=== PATIENT | male | born 1960 | race Caucasian/White ===

== ENCOUNTER 2019-04-12 20:13 | Inpatient (IN) | payer OTHER ==
[2019-04-12 22:52] VITALS: BMI 22.6
--- NOTE | 2019-04-12 23:30 | HP ---
COWS - Scale Resting Pulse: 1= HI 81-100 (HR: 92) Sweatin= Chills/Flushing Restless Observation: 5= Unable to Sit Still Pupil Size: 2= Moderately Dilated (Pupils = 4 mm) Bone or Joint Aches: 1= Mild Discomfort Runny Nose/ Eye Tearin= Runny Nose/Eyes GI Upset > 30mins: 2= Nausea/Diarrhea Tremor Observation: 4= Gross Tremor/Twitching Yawning Observation: 0= None Anxiety or Irritability: 4=Extreme Anxiety Goose Flesh Skin: 0=Smooth Skin COWS Score: 22 CIWA Score - Admission Criteria [facility] Guidelines: Admission for Medically Managed Detox: Requires at least one of the followin. CIWA greater than 12 2. Seizures within the past 24 hours 3. Delirium tremens within the past 24 hours 4. Hallucinations within the past 24 hours 5. Acute intervention needed for co occurring medical disorder 6. Acute intervention needed for co occurring psychiatric disorder 7. Severe withdrawal that cannot be handled at a lower level of care (continued vomiting, continued diarrhea, abnormal vital signs) requiring intravenous medication and/or fluids 8. Admission ROS [facility] Chief Complaint: having withdrawal from heroin Allergies/Adverse Reactions: Allergies Allergy/AdvReac Type Severity Reaction Status Date / Time No Known Allergies Allergy Verified 04/12/19 22:52 History of Present Illness: 58 yom presents to [facility] with opiate withdrawal symptoms for detox. Patient informed that Tramadol will not be given for pain and verbalizes an understanding. Discussed the need to d/c all opiate, including tramadol because of his opiate use disorder. Encouraged to f/u w/ PCP. Heroin use began at age 30. Intranasal. 7 bags/day. Denies overdoses. Denies methadone or Suboxone maintenance. Cocaine use began at age 30. Alcohol use began at age 15. States drinks 7-8 beers/ 2-3X/Week. PMHx: HTN; (R) TKR w/ chronic pain HAS CRUTCHES, BUT GAIT, W/ A LIMP, STEADY WITHOUT CRUTCHES. MHHx: Denies depression. Noah thoughts of harming self or others. Denies seizures or blackouts. Patient Name: Ajit Montague Date: 1960 Address: [address] [place] [address] Sex: Male Rx Written Rx Dispensed Drug Quantity Days Supply Prescriber Name 03/23/2019 03/23/2019 tramadol hcl 50 mg tablet 90 30 MataMir 03/01/2019 03/03/2019 oxycodone-acetaminophen 5-325 mg tablet 20 4 Colt Rene 02/19/2019 02/19/2019 tramadol hcl 50 mg tablet 90 30 Min, Kyounglim 01/07/2019 01/25/2019 tramadol hcl 50 mg tablet 90 30 Mata, Mir Wall MD 01/05/2019 01/07/2019 buprenorphine-naloxone 8-2 mg sl film 30 15 Charo Ruiz 10/28/2018 10/28/2018 tramadol hcl 50 mg tablet 180 30 Adonay Zarate MD 09/22/2018 09/28/2018 tramadol hcl 50 mg tablet 180 30 Mata, Mir Wall MD 08/26/2018 09/01/2018 tramadol hcl 50 mg tablet 180 30 Yoshi Salguero R, PA-C 07/29/2018 08/04/2018 tramadol hcl 50 mg tablet 180 30 Mata, Mir Wall MD 07/07/2018 07/07/2018 tramadol hcl 50 mg tablet 180 30 Yoshi Salguero R, PA-C 06/22/2018 06/24/2018 tramadol hcl 50 mg tablet 180 30 Yoshi Salguero R, PA-C 05/25/2018 05/27/2018 tramadol hcl 50 mg tablet 180 30 Yoshi Salguero R, PA-C 04/27/2018 04/27/2018 tramadol hcl 50 mg tablet 180 30 Colt Crews Patient Name: Ajit HustonSilvino Date: 1960 Address: [address] [place] [address] Sex: Male Rx Written Rx Dispensed Drug Quantity Days Supply Prescriber Name 03/19/2019 03/19/2019 oxycodone-acetaminophen 5-325 mg tablet 30 7 Jim Dc Patient Name: Ajit Montague Date: 1960 Address: [address] [place] [id number] Sex: Male Rx Written Rx Dispensed Drug Quantity Days Supply Prescriber Name 01/22/2019 01/22/2019 buprenorphine-naloxone 8-2 mg sl film 60 30 Ileana Polanco Patient Name: Ajit Bloom Date: 1960 Address: [address] [place] [address] Sex: Male Rx Written Rx Dispensed Drug Quantity Days Supply Prescriber Name 11/24/2018 11/24/2018 methadone hcl 5 mg tablet 90 30 MataMir MD 11/24/2018 11/24/2018 tramadol hcl 50 mg tablet 60 30 Mata, Mir Wall MD Exam Limitations: No Limitations - Ebola screening Have you traveled outside of the country in the last 21 days: No (N) Have you had contact with anyone from an Ebola affected area: No Have you been sick,other than usual withdrawal symptoms: No (Denies recent exposure to measles) Do you have a fever: No - Review of Systems Constitutional: Chills, Diaphoresis, Changes in sleep (Difficulty falling asleep ) EENT: reports: Blurred Vision, Dental Problems (Dentures. Chews and swallows ok) Respiratory: reports: No Symptoms reported Cardiac: reports: No Symptoms Reported GI: reports: Diarrhea (3 watery BMs today) : reports: No Symptoms Reported Musculoskeletal: reports: Back Pain (r/t withdrawal), Joint Swelling ((R) knee - w/ sharp pain "5" @ this time. Increases w/ walking and when gets up in the am.) Integumentary: reports: No Symptoms Reported Neuro: reports: Tremors Endocrine: reports: No Symptoms Reported Hematology: reports: No Symptoms Reported Psychiatric: reports: Judgement Intact, Orientated x3, Agitated, Anxious Patient History - PPD History Previous Implant?: Yes Documented Results: Negative w/o proof Implanted On Prior [facility] Admission?: No PPD to be Administered?: Yes - Smoking Cessation Smoking history: Never smoked Have you smoked in the past 12 months: No Hx Chewing Tobacco Use: No Initiated information on smoking cessation: No - Substance & Tx. History Hx Alcohol Use: Yes Hx Substance Use: Yes Substance Use Type: Cocaine, Heroin, Opiates Hx Substance Use Treatment: Yes (detox, rehab) - Substances abused Heroin Substance route: Inhalation Frequency: Daily Amount used: 7 bags Age of first use: 30 Date of last use: 04/12/19 Cocaine Substance route: Inhalation Frequency: Daily Amount used: $100 Age of first use: 30 Date of last use: 04/11/19 Admission Physical Exam BHS - Vital Signs Vital Signs: Vital Signs - 24 hr 04/12/19 22:48 Temperature 100.0 F H Pulse Rate 70 Respiratory 20 Rate Blood Pressure 144/77 - Physical General Appearance: Yes: Moderate Distress, Thin, Tremorous (Tremors at rest), Irritable, Sweating (Increased facial mositure), Anxious HEENTM: Yes: EOMI, Hearing grossly Normal, Normocephalic, Normal Voice, EMMA ( Pupils = 4 mm), Rhinorrhea Respiratory: Yes: Lungs Clear, Normal Breath Sounds, No Respiratory Distress Neck: Yes: No masses,lesions,Nodules, Supple Breast: Yes: Breast Exam Deferred Cardiology: Yes: Regular Rhythm, Regular Rate (HR: 92), S1, S2 Abdominal: Yes: Non Tender, Flat, Soft, Increased Bowel Sounds Genitourinary: Yes: Within Normal Limits Back: Yes: Normal Inspection Musculoskeletal: Yes: Gait Steady (W/O CRUTCHES), Joint Stiffness ((R) knee) Extremities: Yes: Normal Capillary Refill, Normal Inspection, Non-Tender, Tremors (Grtoss tremors and tremors at rest) Neurological: Yes: licensed psychologist II-XII NML intact, Fully Oriented, Alert, Motor Strength 5/5, Normal Response Integumentary: Yes: Normal Color, Dry (Except for increased facial moisture), Warm, Other (Small scratches on back) Lymphatic: Yes: Within Normal Limits - Diagnostic (1) Opioid dependence with withdrawal Current Visit: Yes Status: Acute (2) History of total knee replacement Current Visit: Yes Status: Chronic Qualifiers: Laterality: right Qualified Code(s): Z96.651 - Presence of right artificial knee joint (3) Alcohol use disorder, mild, abuse Current Visit: Yes Status: Chronic (4) Cocaine dependence, uncomplicated Current Visit: Yes Status: Chronic (5) Essential (primary) hypertension Current Visit: Yes Status: Chronic Cleared for Admission [facility] - Detox or Rehab [facility] Level of Care: Medically Managed Detox Regimen/Protocol: Methadone Claeared for Rehab Admission: No Breathalyzer - Breathalyzer Breathalyzer: 0 Urine Drug Screen - Test Device Lot number: [id number] Expiration date: 12/24/20 - Control Is test valid?: Yes - Results Drug screen NEGATIVE: No Urine drug screen results: DOMINIC-Cocaine, FEN-Fentanyl, MOP-Opiates, OXY-Oxycodone Inpatient Rehab Admission - Rehab Decision to Admit Inpatient rehab admission?: No
[2019-04-12] MEDS ORDERED: MAGNESIUM HYDROX 2400MG/30ML ORAL SUSPENSION 30 ML CUP PO PRN (23:57)
[2019-04-12] MEDS ORDERED: MAG HYDROX/AL HYDROX/SIMETH 30 ML UNIT-DOSE CUP PO PRN (23:57)
[2019-04-12] MEDS ORDERED: MAGNESIUM CITRATE 300 ML BOTTLE PO PRN (23:57)
[2019-04-12] MEDS ORDERED: MENTHOL/PHENOL 1 EACH UD MM PRN (23:57)
[2019-04-12] MEDS ORDERED: ACETAMINOPHEN 325 MG TABLET (FP) PO PRN (23:57)
[2019-04-13] MEDS ORDERED: METHADONE HCL 10 MG TABLET (FOR DETOX USE ONLY) PO ONE ×2 (00:13→10:00)
[2019-04-13] MEDS ORDERED: traZODone HCL 50 MG TABLET (FP) PO ONE (00:17)
[2019-04-13] MEDS: MELATONIN 5 MG TABLETS PO PRN ×2 (01:09→22:04)
[2019-04-13] MEDS: clonazePAM 0.5 MG TABLET PO PRN ×2 (05:33→22:04)
[2019-04-13] MEDS: LISINOPRIL 10 MG TABLET (FP) PO SCH (10:05)
[2019-04-13] MEDS: LIDOCAINE 5% TOPICAL PATCH TP SCH (10:06)
[2019-04-13] MEDS: PRENATAL VITAMINS W/ FOLIC ACID TABLET (FP) PO SCH (10:06)
[2019-04-13] MEDS: IBUPROFEN 600 MG TABLET (FP) PO PRN ×2 (10:14→18:25)
[2019-04-13 10:53] LABS: HEMATOCRIT 36.3 % (35.4-49); HEMOGLOBIN 12.3 GM/dL (11.7-16.9); MCH 28.9 pg (25.7-33.7); MCHC 33.8 g/dl (32.0-35.9); MEAN CELL VOLUME 85.6 fl (80-96); PLATELET COUNT 326 K/MM3 (134-434); RBC 4.25 M/mm3 (4.00-5.60); RDW 14.7 % (11.9-15.9); WHITE BLOOD COUNT 5.1 K/mm3 (4.0-10.0)
[2019-04-13 11:02] LABS: ALBUMIN 3.6 g/dl (3.4-5.0); BILIRUBIN,TOTAL 0.4 mg/dL (0.2-1); BLOOD UREA NITROGEN 10.8 mg/dL (7-18); CALCIUM 9.2 mg/dL (8.5-10.1); CREATININE 0.6 mg/dL (0.55-1.3); POTASSIUM 3.9 mmol/L (3.5-5.1); TOT PROT 7.4 g/dl (6.4-8.2)
--- NOTE | 2019-04-13 11:29 | PN ---
S COWS - Scale Resting Pulse: 0= [place] 80 or Below Sweatin= Chills/Flushing Restless Observation: 1= Difficult to Sit Still Pupil Size: 1= Pupils >than Normal Bone or Joint Aches: 2= Severe Diffuse Aches Runny Nose/ Eye Tearin= Runny Nose/Eyes GI Upset > 30mins: 2= Nausea/Diarrhea Tremor Observation of Outstretched Hands: 1= Tremor [place], Not Seen Yawning Observation: 1= 1-2x During Session Anxiety or Irritability: 2=Irritable/Anxious Goose Flesh Skin: 0=Smooth Skin COWS Score: 13 S Progress Note (SOAP) Subjective: alert,irritable,anxious,interrupted sleep,tremor,pain in right knee,history of bph on flomax Objective: 04/13/19 11:27 Vital Signs Temperature 97.5 F L 04/13/19 09:36 Pulse Rate 77 04/13/19 09:36 Respiratory Rate 18 04/13/19 09:36 Blood Pressure 126/67 04/13/19 09:36 O2 Sat by Pulse Oximetry (%) Laboratory Last Values WBC 5.1 K/mm3 (4.0-10.0) 04/13/19 07:20 RBC 4.25 M/mm3 (4.00-5.60) 04/13/19 07:20 Hgb 12.3 GM/dL (11.7-16.9) 04/13/19 07:20 Hct 36.3 % (35.4-49) 04/13/19 07:20 MCV 85.6 fl (80-96) 04/13/19 07:20 MCH 28.9 pg (25.7-33.7) 04/13/19 07:20 MCHC 33.8 g/dl (32.0-35.9) 04/13/19 07:20 RDW 14.7 % (11.9-15.9) 04/13/19 07:20 Plt Count 326 K/MM3 (134-434) 04/13/19 07:20 MPV 7.0 fl (7.5-11.1) L 04/13/19 07:20 Sodium 140 mmol/L (136-145) 04/13/19 07:20 Potassium 3.9 mmol/L (3.5-5.1) 04/13/19 07:20 Chloride 106 mmol/L (98-107) 04/13/19 07:20 Carbon Dioxide 26 mmol/L (21-32) 04/13/19 07:20 Anion Gap 8 MMOL/L (8-16) 04/13/19 07:20 BUN 10.8 mg/dL (7-18) 04/13/19 07:20 Creatinine 0.6 mg/dL (0.55-1.3) 04/13/19 07:20 Est GFR (CKD-EPI)AfAm 128.45 04/13/19 07:20 Est GFR (CKD-EPI)NonAf 110.83 04/13/19 07:20 Random Glucose 100 mg/dL (74-106) 04/13/19 07:20 Calcium 9.2 mg/dL (8.5-10.1) 04/13/19 07:20 Total Bilirubin 0.4 mg/dL (0.2-1) 04/13/19 07:20 AST 10 U/L (15-37) L 04/13/19 07:20 ALT 17 U/L (13-61) 04/13/19 07:20 Alkaline Phosphatase 88 U/L (45-117) 04/13/19 07:20 Total Protein 7.4 g/dl (6.4-8.2) 04/13/19 07:20 Albumin 3.6 g/dl (3.4-5.0) 04/13/19 07:20 04/13/19 11:28 rpr pending Assessment: 04/13/19 11:28 withdrawal symptom Plan: continue detox,stated history of bph on flomax 0.4 mg po daily
[2019-04-13] MEDS ORDERED: TAMSULOSIN HCL 0.4 MG CAP PO ONE (11:30)
[2019-04-13] MEDS: METHOCARBAMOL 500 MG TABLET PO PRN (19:07)
[2019-04-13] MEDS: ACETAMINOPHEN 325 MG TABLET (FP) PO PRN (19:07)
[2019-04-13] MEDS: THIAMINE HCL 100 MG TABLET (FP) PO SCH (22:04)
[2019-04-13] MEDS: cloNIDine HCL 0.1 MG TABLET PO PRN (22:04)
[2019-04-13] MEDS: LIDOCAINE PATCH REMOVAL MC SCH (22:05)
[2019-04-14] MEDS: IBUPROFEN 600 MG TABLET (FP) PO PRN ×2 (07:30→22:03)
[2019-04-14] MEDS: TAMSULOSIN HCL 0.4 MG CAP PO SCH (09:30)
[2019-04-14] MEDS ORDERED: METHADONE HCL 10 MG TABLET (FOR DETOX USE ONLY) PO ONE (10:00)
[2019-04-14] MEDS: LISINOPRIL 10 MG TABLET (FP) PO SCH (10:05)
[2019-04-14] MEDS: PRENATAL VITAMINS W/ FOLIC ACID TABLET (FP) PO SCH (10:05)
[2019-04-14] MEDS: clonazePAM 0.5 MG TABLET PO PRN ×2 (10:05→22:00)
[2019-04-14] MEDS: LIDOCAINE 5% TOPICAL PATCH TP SCH (10:06)
--- NOTE | 2019-04-14 11:20 | EKG ---
Test Reason : Blood Pressure : / mmHG Vent. Rate : 061 BPM Atrial Rate : 061 BPM P-R Int : 188 ms QRS Dur : 106 ms QT Int : 402 ms P-R-T Axes : 051 003 020 degrees QTc Int : 404 ms NORMAL SINUS RHYTHM NORMAL ECG NO PREVIOUS ECGS AVAILABLE Confirmed by SUSAN KRAFT, BERTHA ([id number]) on 04/14/2019 11:20:39 AM Referred By: HARPREET Confirmed By:BERTHA DAVIS MD
--- NOTE | 2019-04-14 13:48 | PN ---
S CIWA - CIWA Score Nausea/Vomitin-No Nausea/No Vomiting Muscle Tremors: 2 Anxiety: 2 Agitation: 3 Paroxysmal Sweats: 1-Minimal Palms Moist Orientation: 0-Oriented Tacttile Disturbances: 0-None Auditory Disturbances: 0-None Visual Disturbances: 0-None Headache: 1-Very Mild CIWA-Ar Total Score: 9 BHS Progress Note (SOAP) Subjective: pt c/o of earlobe pain, c/o R knee pain- s/p knee replacement. O: Laboratory Tests 04/13/19 04/13/19 04/13/19 07:20 07:20 07:20 WBC 5.1 RBC 4.25 Hgb 12.3 Hct 36.3 MCV 85.6 MCH 28.9 MCHC 33.8 RDW 14.7 Plt Count 326 MPV 7.0 L Sodium 140 Potassium 3.9 Chloride 106 Carbon Dioxide 26 Anion Gap 8 BUN 10.8 Creatinine 0.6 Est GFR (CKD-EPI)AfAm 128.45 Est GFR (CKD-EPI)NonAf 110.83 Random Glucose 100 Calcium 9.2 Total Bilirubin 0.4 AST 10 L ALT 17 Alkaline Phosphatase 88 Total Protein 7.4 Albumin 3.6 RPR Titer Nonreactive Vital Signs - 24 hr 04/13/19 04/13/19 04/14/19 17:08 21:25 00:30 Temperature 98.6 F 98 F Pulse Rate 78 61 Respiratory 19 17 18 Rate Blood Pressure 112/70 124/62 04/14/19 04/14/19 04/14/19 03:30 06:25 06:30 Temperature 97.6 F Pulse Rate 56 L Respiratory 18 18 18 Rate Blood Pressure 100/58 L 04/14/19 04/14/19 09:13 13:32 Temperature 97.1 F L 97.7 F Pulse Rate 70 89 Respiratory 18 18 Rate Blood Pressure 133/78 114/80 PE- R TM WNL, pain at external ear helix, no redness, no evidence of infection a/p: continue detox protocol. neurontin for pain-ordered external ear pain- prn pain meds
[2019-04-14] MEDS: GABAPENTIN 400 MG CAPSULE (FP) PO SCH ×2 (15:08→22:00)
[2019-04-14 15:32] LABS: URINE APPEARANCE CLEAR; URINE BILIRUBIN NEGATIVE (NEGATIVE); URINE COLOR YELLOW; URINE GLUCOSE (UA) NEGATIVE (NEGATIVE); URINE KETONE NEGATIVE (NEGATIVE); URINE LEUK ESTERASE NEGATIVE (NEGATIVE); URINE NITRITE NEGATIVE (NEGATIVE); URINE PROTEIN NEGATIVE (NEGATIVE); URINE UROBILINOGEN 0.2 mg/dL (0.2-1.0)
[2019-04-14] MEDS ORDERED: ALBUTEROL SO4 8 GM HFA INHALER IH PRN (15:42)
[2019-04-14] MEDS: BISMUTH SUBSALICYLATE 524 MG/30 ML UD PO PRN ×2 (18:06→21:17)
[2019-04-14] MEDS: LIDOCAINE PATCH REMOVAL MC SCH (21:17)
[2019-04-14] MEDS: THIAMINE HCL 100 MG TABLET (FP) PO SCH (22:00)
[2019-04-14] MEDS: METHOCARBAMOL 500 MG TABLET PO PRN (22:00)
[2019-04-14] MEDS: MELATONIN 5 MG TABLETS PO PRN (22:01)
[2019-04-15] MEDS: ACETAMINOPHEN 325 MG TABLET (FP) PO PRN (01:12)
[2019-04-15] MEDS: cloNIDine HCL 0.1 MG TABLET PO PRN (01:12)
[2019-04-15] MEDS: IBUPROFEN 600 MG TABLET (FP) PO PRN ×3 (04:23→21:51)
[2019-04-15] MEDS: clonazePAM 0.5 MG TABLET PO PRN ×3 (04:24→21:54)
[2019-04-15] MEDS: TAMSULOSIN HCL 0.4 MG CAP PO SCH (09:04)
[2019-04-15] MEDS ORDERED: METHADONE HCL 10 MG TABLET (FOR DETOX USE ONLY) PO ONE (10:00)
[2019-04-15] MEDS: HYDROCHLOROTHIAZIDE 12.5 MG CAPSULE (FP) PO SCH (10:04)
[2019-04-15] MEDS: GABAPENTIN 400 MG CAPSULE (FP) PO SCH ×2 (10:04→21:53)
[2019-04-15] MEDS: PRENATAL VITAMINS W/ FOLIC ACID TABLET (FP) PO SCH (10:05)
[2019-04-15] MEDS: PANTOPRAZOLE 20 MG TABLET (FP) PO SCH (10:05)
[2019-04-15] MEDS: LISINOPRIL 10 MG TABLET (FP) PO SCH (10:07)
[2019-04-15] MEDS: LIDOCAINE 5% TOPICAL PATCH TP SCH (10:07)
--- NOTE | 2019-04-15 12:58 | PN ---
[facility] CIWA - CIWA Score Nausea/Vomitin Muscle Tremors: 1-None Visible, but [place] Anxiety: 2 Agitation: 2 Paroxysmal Sweats: 1-Minimal Palms Moist Orientation: 0-Oriented Tacttile Disturbances: 1-Very Mild Itch/Numbness Auditory Disturbances: 0-None Visual Disturbances: 0-None Headache: 1-Very Mild CIWA-Ar Total Score: 10 [facility] COWS - Scale Resting Pulse: 0= [place] 80 or Below Sweatin= Chills/Flushing Restless Observation: 1= Difficult to Sit Still Pupil Size: 1= Pupils >than Normal Bone or Joint Aches: 2= Severe Diffuse Aches Runny Nose/ Eye Tearin= Nasal Congestion GI Upset > 30mins: 2= Nausea/Diarrhea Tremor Observation of Outstretched Hands: 2= Slight Tremor Visible Yawning Observation: 1= 1-2x During Session Anxiety or Irritability: 2=Irritable/Anxious Goose Flesh Skin: 0=Smooth Skin COWS Score: 13 S Progress Note (SOAP) Subjective: alert,irritable,anxious,interrupted sleep,pain in the body and right knee Objective: 04/15/19 12:57 Vital Signs Temperature 97.6 F 04/15/19 09:25 Pulse Rate 75 04/15/19 09:25 Respiratory Rate 18 04/15/19 09:25 Blood Pressure 116/72 04/15/19 09:25 O2 Sat by Pulse Oximetry (%) Assessment: 04/15/19 12:58 withdrawal symptom Plan: continue detox
[2019-04-15] MEDS: METHOCARBAMOL 500 MG TABLET PO PRN ×2 (13:18→21:52)
[2019-04-15] MEDS: LIDOCAINE PATCH REMOVAL MC SCH (21:45)
[2019-04-15] MEDS: THIAMINE HCL 100 MG TABLET (FP) PO SCH (21:52)
[2019-04-15] MEDS: MELATONIN 5 MG TABLETS PO PRN (21:55)
[2019-04-16] MEDS: ACETAMINOPHEN 325 MG TABLET (FP) PO PRN (02:58)
[2019-04-16] MEDS: TAMSULOSIN HCL 0.4 MG CAP PO SCH (08:02)
[2019-04-16 09:32] VITALS: BP 142/80; PULSE 74; TEMP 98
[2019-04-16] MEDS: LIDOCAINE 5% TOPICAL PATCH TP SCH (09:58)
[2019-04-16] MEDS: HYDROCHLOROTHIAZIDE 12.5 MG CAPSULE (FP) PO SCH (09:59)
[2019-04-16] MEDS ORDERED: METHADONE HCL 10 MG TABLET (FOR DETOX USE ONLY) PO ONE (10:00)
[2019-04-16] MEDS: PRENATAL VITAMINS W/ FOLIC ACID TABLET (FP) PO SCH (10:00)
[2019-04-16] MEDS: GABAPENTIN 400 MG CAPSULE (FP) PO SCH (10:00)
[2019-04-16] MEDS: PANTOPRAZOLE 20 MG TABLET (FP) PO SCH (10:00)
[2019-04-16] MEDS: clonazePAM 0.5 MG TABLET PO PRN (10:00)
[2019-04-16] MEDS: LISINOPRIL 10 MG TABLET (FP) PO SCH (10:00)
[2019-04-16] MEDS: IBUPROFEN 600 MG TABLET (FP) PO PRN (10:02)
--- NOTE | 2019-04-16 12:31 | PN ---
[facility] CIWA - CIWA Score Nausea/Vomitin-Mild Nausea/No Vomiting Muscle Tremors: 2 Anxiety: 1-Mildly Anxious Agitation: 1-Slight > Activity Paroxysmal Sweats: No Perspiration Orientation: 0-Oriented Tacttile Disturbances: 1-Very Mild Itch/Numbness Auditory Disturbances: 0-None Visual Disturbances: 0-None Headache: 1-Very Mild CIWA-Ar Total Score: 7 S COWS - Scale Resting Pulse: 0= [place] 80 or Below Sweatin= No chills or Flushing Restless Observation: 1= Difficult to Sit Still Pupil Size: 1= Pupils >than Normal Bone or Joint Aches: 1= Mild Discomfort Runny Nose/ Eye Tearin= Nasal Congestion GI Upset > 30mins: 2= Nausea/Diarrhea Tremor Observation of Outstretched Hands: 1= Tremor [place], Not Seen Yawning Observation: 1= 1-2x During Session Anxiety or Irritability: 2=Irritable/Anxious Goose Flesh Skin: 0=Smooth Skin COWS Score: 10 [facility] Progress Note (SOAP) Subjective: alert,irritable,anxious,pain in the right knee Objective: 04/16/19 12:30 Vital Signs Temperature 98.0 F 04/16/19 09:29 Pulse Rate 74 04/16/19 09:29 Respiratory Rate 18 04/16/19 09:29 Blood Pressure 142/80 04/16/19 09:29 O2 Sat by Pulse Oximetry (%) Assessment: 04/16/19 12:30 detox comlted,no withdrawal symptom Plan: stable for discharge to rehab today
--- NOTE | 2019-04-16 12:34 | DS ---
[facility] Detox Discharge Summary Admission Date: 04/13/19 Discharge Date: 04/16/19 - History Present History: Alcohol Dependence, Cocaine Dependence, Opioid Dependence Pertinent Past History: hypertension bph history of right knee replacement - Physical Exam Results Vital Signs: Vital Signs Temperature 98.0 F 04/16/19 09:29 Pulse Rate 74 04/16/19 09:29 Respiratory Rate 18 04/16/19 09:29 Blood Pressure 142/80 04/16/19 09:29 O2 Sat by Pulse Oximetry (%) Pertinent Admission Physical Exam Findings: essential hypertension history of right knee replacement bph withdrawal symptom Vital Signs Temperature 98.0 F 04/16/19 09:29 Pulse Rate 74 04/16/19 09:29 Respiratory Rate 18 04/16/19 09:29 Blood Pressure 142/80 04/16/19 09:29 O2 Sat by Pulse Oximetry (%) Laboratory Last Values WBC 5.1 K/mm3 (4.0-10.0) 04/13/19 07:20 RBC 4.25 M/mm3 (4.00-5.60) 04/13/19 07:20 Hgb 12.3 GM/dL (11.7-16.9) 04/13/19 07:20 Hct 36.3 % (35.4-49) 04/13/19 07:20 MCV 85.6 fl (80-96) 04/13/19 07:20 MCH 28.9 pg (25.7-33.7) 04/13/19 07:20 MCHC 33.8 g/dl (32.0-35.9) 04/13/19 07:20 RDW 14.7 % (11.9-15.9) 04/13/19 07:20 Plt Count 326 K/MM3 (134-434) 04/13/19 07:20 MPV 7.0 fl (7.5-11.1) L 04/13/19 07:20 Sodium 140 mmol/L (136-145) 04/13/19 07:20 Potassium 3.9 mmol/L (3.5-5.1) 04/13/19 07:20 Chloride 106 mmol/L (98-107) 04/13/19 07:20 Carbon Dioxide 26 mmol/L (21-32) 04/13/19 07:20 Anion Gap 8 MMOL/L (8-16) 04/13/19 07:20 BUN 10.8 mg/dL (7-18) 04/13/19 07:20 Creatinine 0.6 mg/dL (0.55-1.3) 04/13/19 07:20 Est GFR (CKD-EPI)AfAm 128.45 04/13/19 07:20 Est GFR (CKD-EPI)NonAf 110.83 04/13/19 07:20 Random Glucose 100 mg/dL (74-106) 04/13/19 07:20 Calcium 9.2 mg/dL (8.5-10.1) 04/13/19 07:20 Total Bilirubin 0.4 mg/dL (0.2-1) 04/13/19 07:20 AST 10 U/L (15-37) L 04/13/19 07:20 ALT 17 U/L (13-61) 04/13/19 07:20 Alkaline Phosphatase 88 U/L (45-117) 04/13/19 07:20 Total Protein 7.4 g/dl (6.4-8.2) 04/13/19 07:20 Albumin 3.6 g/dl (3.4-5.0) 04/13/19 07:20 Urine Color Yellow 04/14/19 12:05 Urine Appearance Clear 04/14/19 12:05 Urine pH 8.0 (5.0-8.0) 04/14/19 12:05 Ur Specific [place] 1.015 (1.010-1.035) 04/14/19 12:05 Urine Protein Negative (NEGATIVE) 04/14/19 12:05 Urine Glucose (UA) Negative (NEGATIVE) 04/14/19 12:05 Urine Ketones Negative (NEGATIVE) 04/14/19 12:05 Urine Blood Negative (NEGATIVE) 04/14/19 12:05 Urine Nitrite Negative (NEGATIVE) 04/14/19 12:05 Urine Bilirubin Negative (NEGATIVE) 04/14/19 12:05 Urine Urobilinogen 0.2 mg/dL (0.2-1.0) 04/14/19 12:05 Ur Leukocyte Esterase Negative (NEGATIVE) 04/14/19 12:05 RPR Titer Nonreactive (NONREACTIVE) 04/13/19 07:20 - Treatment Hospital Course: Detox Protocol Followed, Detoxed Safely, Responded well, Discharged Condition Good, Rehab Referral Accepted Patient has Accepted a [facility] Referral to: [facility] - Medication Discharge Medications: Ambulatory Orders Albuterol Sulfate [Albuterol Sulfate Hfa] 8.5 gm IH PRN PRN 04/14/19 Lisinopril [Prinivil] 10 mg PO DAILY 04/14/19 Multivitamin [Multiple Vitamins] 1 each PO DAILY 04/14/19 Tamsulosin HCl [Flomax] 0.4 mg PO 04/14/19 - AMA Did Patient Leave Against Medical Advice: No
[2019-04-17] MEDS ORDERED: METHADONE HCL 5 MG TABLET (FOR DETOX USE ONLY) PO ONE (06:00)
== END 2019-04-16 13:27 | disposition other institution (70) | DRG 773 ==
LOC: YASAS 20:13 → Y3N 04-13 00:04
PROVIDERS: ADMIT Surgery; ATTEND Surgery
PROC: HZ2ZZZZ Detoxification Services for Substance Abuse Treatment (ICD-10-PCS; principal; 2019-04-13)
DX: F11.23 Opioid dependence with withdrawal (principal); F10.230 Alcohol dependence with withdrawal, uncomplicated; F14.20 Cocaine dependence, uncomplicated; I10 Essential (primary) hypertension; N40.0 Benign prostatic hyperplasia without lower urinary tract symptoms; Z96.651 Presence of right artificial knee joint
CPT/HCPCS: 36415; 80053; 81003; 85027; 86593; 93005; 93010; J0735

== ENCOUNTER 2019-04-16 13:29 | Inpatient (IN) | payer OTHER ==
[2019-04-16] MEDS ORDERED: IBUPROFEN 400 MG TABLET (FP) PO PRN (14:27)
[2019-04-16] MEDS ORDERED: MAG HYDROX/AL HYDROX/SIMETH 30 ML UNIT-DOSE CUP PO PRN (14:27)
[2019-04-16] MEDS ORDERED: P-EPHED 60MG/TRIPROLIDI 2.5MG TABLET PO PRN (14:27)
[2019-04-16] MEDS ORDERED: MAGNESIUM HYDROX 2400MG/30ML ORAL SUSPENSION 30 ML CUP PO PRN (14:27)
[2019-04-16] MEDS ORDERED: MAGNESIUM CITRATE 300 ML BOTTLE PO PRN (14:27)
[2019-04-16] MEDS ORDERED: LOPERAMIDE HCL 2 MG CAPSULE PO PRN (14:27)
[2019-04-16] MEDS ORDERED: guaiFENesin 200 MG/10 ML 10 ML UNIT-DOSE CUPS PO PRN (14:27)
[2019-04-16] MEDS ORDERED: MENTHOL/PHENOL 1 EACH UD MM PRN (14:27)
[2019-04-16] MEDS ORDERED: ACETAMINOPHEN 325 MG TABLET (FP) PO PRN (14:27)
--- NOTE | 2019-04-16 14:27 | HP ---
[facility] Rehab Assess/Revision - Admission History Admitted to Rehab from: [facility] Date of Admission to Rehab: 04/16/19 - Findings Detox History & Physical reviewed: Yes Concur with findings: Yes Comments/Additional Findings: for rehab as protocol Inpatient Rehab Admission - Rehab Decision to Admit Inpatient rehab admission?: Yes - Initial Determination Are CD services needed?: Yes Free of communicable disease: Yes Not in need of hospitalization: Yes - Rehab Admission Criteria Previous failed treatment: Yes Poor recovery environment: Yes Comorbidities: Yes Lacks judgement: No Patient is meeting Inpatient Rehab admission criteria:: Yes
[2019-04-16] MEDS: IBUPROFEN 600 MG TABLET (FP) PO PRN (16:59)
[2019-04-16] MEDS ORDERED: TAMSULOSIN HCL 0.4 MG CAP PO SCH (22:00)
[2019-04-16] MEDS ORDERED: THIAMINE HCL 100 MG TABLET (FP) PO SCH (22:00)
[2019-04-16] MEDS ORDERED: MELATONIN 5 MG TABLETS PO PRN (22:00)
[2019-04-16] MEDS: hydrOXYzine PAMOATE 50 MG CAPSULE (FP) PO PRN (22:35)
[2019-04-16] MEDS ORDERED: BACLOFEN 10 MG TABLET (FP) PO PRN (23:18)
[2019-04-16] MEDS: GABAPENTIN 400 MG CAPSULE (FP) PO SCH (23:41)
[2019-04-17] MEDS: IBUPROFEN 600 MG TABLET (FP) PO PRN ×2 (03:42→09:58)
[2019-04-17] MEDS: hydrOXYzine PAMOATE 50 MG CAPSULE (FP) PO PRN (06:29)
[2019-04-17 06:49] VITALS: TEMP 97.8
[2019-04-17] MEDS: GABAPENTIN 400 MG CAPSULE (FP) PO SCH (09:58)
[2019-04-17] MEDS ORDERED: HYDROCHLOROTHIAZIDE 12.5 MG CAPSULE (FP) PO SCH (10:00)
[2019-04-17] MEDS ORDERED: LISINOPRIL 10 MG TABLET (FP) PO SCH (10:00)
[2019-04-17] MEDS ORDERED: PRENATAL VITAMINS W/ FOLIC ACID TABLET (FP) PO SCH (10:00)
[2019-04-17] MEDS ORDERED: LIDOCAINE 5% TOPICAL PATCH TP SCH (10:00)
[2019-04-17 10:01] VITALS: BP 145/88; PULSE 100
--- NOTE | 2019-04-17 11:18 | PN ---
[facility] Progress Note Note: patient did not want to complete treatment,high risk of relapsing explained to patient,patient understood, all attempts to convince patient to stay with no avail,seen by counselor, patient singed release AMMeghna, LEFT UNIT IN STABLE CONDITION, advise to go to medical provider at [facility] for follow up
--- NOTE | 2019-04-17 11:22 | PN ---
S Progress Note Note: this is the discharge note for rehab date of admission 04/16/19 date of discharge 04/17/19 diagnosis opioid dependence alcohol dependence cocaine dependence hypertension s/p right knee replacementpatient patient signed release AMA
[2019-04-17] MEDS ORDERED: PNEUMOCOCCAL 23 VACCINE 0.5 ML VIAL IM ONE (12:00)
[2019-04-17] MEDS ORDERED: PNEUMOC 13-VAL CONJ-DIP CRM/PF 0.5 ML DISP.SYRIN IM ONE (14:37)
== END 2019-04-17 11:10 | disposition left against medical advice (07) | DRG 770 ==
LOC: YASAS 13:29 → Y5N 13:31
PROVIDERS: ADMIT Neuromusculoskeletal Medicine & OMM; ATTEND Neuromusculoskeletal Medicine & OMM
PROC: HZ42ZZZ Group Counseling for Substance Abuse Treatment, Cognitive-Behavioral (ICD-10-PCS; principal; 2019-04-16)
DX: F11.20 Opioid dependence, uncomplicated (principal); F10.20 Alcohol dependence, uncomplicated; F14.20 Cocaine dependence, uncomplicated; I10 Essential (primary) hypertension; Z96.651 Presence of right artificial knee joint
CPT/HCPCS: J0475

== ENCOUNTER 2019-05-28 08:44 | Inpatient (IN) | payer OTHER | END 2019-05-30 11:40 | disposition left against medical advice (07) | LOC: YASAS 08:44 → Y3N 10:09 ==

== ENCOUNTER 2019-08-10 13:36 | Inpatient (IN) | payer OTHER ==
[2019-08-10 15:23] VITALS: BMI 22.6
--- NOTE | 2019-08-10 18:37 | HP ---
COWS - Scale Resting Pulse: 0= [place] 80 or Below Sweatin=Flushed/Facial Moisture Restless Observation: 3= Extraneous Movement Pupil Size: 0= Normal to Room Light Bone or Joint Aches: 4=Acute Joint/Muscle Pain (knee) Runny Nose/ Eye Tearin= Runny Nose/Eyes GI Upset > 30mins: 3= Vomiting/Diarrhea Tremor Observation: 2= Slight Tremor Visible Yawning Observation: 0= None Anxiety or Irritability: 1=Feels Anxious/Irritable Goose Flesh Skin: 0=Smooth Skin COWS Score: 17 CIWA Score Nausea/Vomitin Muscle Tremors: 2 Anxiety: 2 Agitation: 2 Paroxysmal Sweats: No Perspiration Orientation: 0-Oriented Tacttile Disturbances: 1-Very Mild Itch/Numbness Auditory Disturbances: 0-None Visual Disturbances: 0-None Headache: 3-Moderate CIWA-Ar Total Score: 12 - Admission Criteria OASAS Guidelines: Admission for Medically Managed Detox: Requires at least one of the followin. CIWA greater than 12 2. Seizures within the past 24 hours 3. Delirium tremens within the past 24 hours 4. Hallucinations within the past 24 hours 5. Acute intervention needed for co occurring medical disorder 6. Acute intervention needed for co occurring psychiatric disorder 7. Severe withdrawal that cannot be handled at a lower level of care (continued vomiting, continued diarrhea, abnormal vital signs) requiring intravenous medication and/or fluids 8. Admitting History and Physical - Smoking History Smoking history: Never smoked Have you smoked in the past 12 months: No Aproximately how many cigarettes per day: 6 If you are a former smoker, when did you quit?: Never smoked - Alcohol/Substance Use Hx Alcohol Use: Yes Admission [facility] Chief Complaint: Detox from heroin and alcohol Allergies/Adverse Reactions: Allergies Allergy/AdvReac Type Severity Reaction Status Date / Time No Known Allergies Allergy Verified 08/10/19 15:12 History of Present Illness: 59 year old male with a past medical history of polysubstance abuse, BPH, hypertension, here for heroin/alcohol detox. Here a few months ago for detox but left early because he didn't like his methadone dose going down. Has chronic pain from arthritis. In a methadone program (does not know dose off the top of his head, reports going to [facility] Takes tramadol for pain. Reports severe R knee pain. Reports he had a R knee aspiration yesterday at [facility] for suspected infection and given antibiotics. Alcohol: every day, last drink last night. 3 6-packs of 24 oz beer. No liquor. never had alcohol withdrawal seizure started drinking years ago; never had blackout; has tremors when he withdraws. Heroin: 1 bundle per day, sniffs, never injected, last used today. Never had withdrawal seizure. Never overdosed. First started using 1 year ago. First started using because of the pain. Percocet: 4-5 percocets a day, for pain. Gets them off the street. Cocaine: $100 dollars/day, snort, uses every day. First started a year ago Cigarettes: 1 pack per day for a couple of years Surgery: R knee replacement Living Situation: lives in a senior living Family: No medical problems in family - Ebola screening Have you traveled outside of the country in the last 21 days: No (N) Have you had contact with anyone from an Ebola affected area: No Do you have a fever: No - Review of Systems Constitutional: Chills, Fever EENT: reports: Blurred Vision Respiratory: reports: Shortness of Breath Cardiac: reports: No Symptoms Reported GI: reports: No Symptoms Reported : reports: No Symptoms Reported Musculoskeletal: reports: Back Pain, Joint Pain Integumentary: reports: No Symptoms Reported Neuro: reports: No Symptoms reported Endocrine: reports: No Symptoms Reported Hematology: reports: No Symptoms Reported Psychiatric: reports: Judgement Intact, Mood/Affect Appropiate, Orientated x3 Patient History - Patient Medical History Hx Asthma: Yes (TX with albuterol MDI) Hx Chronic Obstructive Pulmonary Disease (COPD): No Hx Cardiac Disorders: No Hx Hypertension: Yes (With Tx HCTZ) Hx Seizures: No Hx Diabetes: No Hx Gastrointestinal Disorders: No Hx Genitourinary Disorders: No Hx Sexually Transmitted Disorders: No Hx Renal Disease (ESRD): No Hx Depression: No Hx Suicide Attempt: No Hx Schizophrenia: No - Patient Surgical History Past Surgical History: Yes Hx Neurologic Surgery: No Hx Cataract Extraction: No Hx Cardiac Surgery: No Hx Lung Surgery: No Hx Breast Surgery: No Hx Breast Biopsy: No Hx Abdominal Surgery: No Hx Appendectomy: No Hx Cholecystectomy: No Hx Genitourinary Surgery: No Hx Section: No Hx Orthopedic Surgery: Yes (Right Total Knee replacement 02/23/2019) - PPD History Date: 04/15/19 Results: 0mm - Smoking Cessation Smoking history: Never smoked Have you smoked in the past 12 months: No Aproximately how many cigarettes per day: 6 If you are a former smoker, when did you quit?: Never smoked Hx Chewing Tobacco Use: No Initiated information on smoking cessation: Yes 'Breaking Loose' booklet given: 08/10/19 - Substances abused Heroin Substance route: Inhalation Frequency: Daily Amount used: 7 bags Age of first use: 30 Date of last use: 08/10/19 Cocaine Substance route: Inhalation Frequency: Daily Amount used: $100 Age of first use: 30 Date of last use: 08/09/19 Alcohol Substance route: Oral Frequency: Daily Amount used: 12oz beer 3-4 packs Age of first use: 30 Date of last use: 08/10/19 Admission Physical Exam BHS - Vital Signs Vital Signs: Vital Signs - 24 hr 08/10/19 15:12 Temperature 97.6 F Pulse Rate 75 Respiratory 18 Rate Blood Pressure 150/80 - Physical General Appearance: Yes: Within Normal Limits, Moderate Distress HEENTM: Yes: Normocephalic Respiratory: Yes: Chest Non-Tender, Lungs Clear, Normal Breath Sounds Breast: Yes: Within Normal Limits, No masses Cardiology: Yes: Regular Rhythm, Regular Rate Abdominal: Yes: Non Tender, Flat, Soft Musculoskeletal: Yes: Gait Steady, Joint swelling Extremities: Yes: Normal Capillary Refill, Inflammation 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
[2019-08-10] MEDS ORDERED: METHOCARBAMOL 500 MG TABLET PO PRN (18:55)
[2019-08-10] MEDS ORDERED: MAGNESIUM HYDROX 2400MG/30ML ORAL SUSPENSION 30 ML CUP PO PRN (18:55)
[2019-08-10] MEDS ORDERED: MAG HYDROX/AL HYDROX/SIMETH 30 ML UNIT-DOSE CUP PO PRN (18:55)
[2019-08-10] MEDS ORDERED: ACETAMINOPHEN 325 MG TABLET (FP) PO PRN ×2 (18:55)
[2019-08-10] MEDS ORDERED: MAGNESIUM CITRATE 300 ML BOTTLE PO PRN (18:55)
[2019-08-10] MEDS ORDERED: MENTHOL/PHENOL 1 EACH UD MM PRN (18:55)
[2019-08-10] MEDS ORDERED: hydrOXYzine PAMOATE 25 MG CAPSULE (FP) PO PRN (18:55)
[2019-08-10] MEDS ORDERED: METHADONE HCL 10 MG TABLET (FOR DETOX USE ONLY) PO ONE (18:55)
[2019-08-10] MEDS ORDERED: chlordiazePOXIDE HCL 10 MG CAPSULE PO PRN (18:55)
[2019-08-10] MEDS ORDERED: ALBUTEROL SO4 8 GM HFA INHALER IH PRN (18:59)
--- NOTE | 2019-08-10 19:00 | PN ---
"Teaching Attending Note Name of Resident: Colt Sanford ATTENDING PHYSICIAN STATEMENT I saw and evaluated the patient. I reviewed the resident's note and discussed the case with the resident. I agree with the resident's findings and plan as documented. SUBJECTIVE: 59 year old male here for etph and opiate detox , reports opiate use heroin 1 bundle /day latest use today , current symptoms as above , denies IVDU , first age of use 1 yr ago . Previously in mmTP , CLAIMS HE LEFT 2 WEEKS AGO , mdd 40 MG STATES IT WAS MAKING HIM SLEEPY . Reports illicit Percocet use . ETOH : 3 X 6-PK BEER X SEVERAL YEARS, DENIES SEIZURES OR BLACKOUTS , + TREMORS Cocaine: $100 /day, via inhalation . tobacco : 1 ppd PMHX : BPH, hypertension, OA s/p R knee TKR , went to [facility] yesterday , per MR given Morphine , IV Aabx and recommendations for Keflex qid unspecified duration . SHX : on parole x 10 years claims drug-related charges , has 11 mo left on parole, states communications officer is aware of his use of illicits and presence in tx today , reports recent incarceration May 2019 x 1 month . OBJECTIVE: wnwd , moderate distress COWS 17 CIWA 12 This report was requested by: Maria Del Carmen Stanford | Reference #: [id number] Others' Prescriptions Patient Name: Ajit Bloom Date: 1960 Address: [address] [place] [id number] Sex: Male Rx Written Rx Dispensed Drug Quantity Days Supply Prescriber Name 06/23/2019 06/24/2019 tramadol hcl 50 mg tablet 60 30 Mir Mata Patient Name: Ajit Bloom Date: 1960 Address: [address] [place] [address] Sex: Male Rx Written Rx Dispensed Drug Quantity Days Supply Prescriber Name 06/23/2019 06/23/2019 buprenorphine-naloxone 8-2 mg sl film 60 30 Mir Mata Patient Name: Ajit Montague Date: 1960 Address: [address] [place] [id number] Sex: Male Rx Written Rx Dispensed Drug Quantity Days Supply Prescriber Name 05/31/2019 05/31/2019 oxycodone-acetaminophen 5-325 mg tablet 10 3 Pelon Durant 05/03/2019 05/03/2019 tramadol hcl 50 mg tablet 120 30 Yoshi Salguero R, PA-C 04/19/2019 04/20/2019 tramadol hcl 50 mg tablet 28 7 Yoshi Salguero R, PA-C 03/23/2019 03/23/2019 tramadol hcl 50 mg tablet 90 30 MataMir 03/01/2019 03/03/2019 oxycodone-acetaminophen 5-325 mg tablet 20 4 Colt Rene 02/19/2019 02/19/2019 tramadol hcl 50 mg tablet 90 30 Min, Kyounglim 01/07/2019 01/25/2019 tramadol hcl 50 mg tablet 90 30 MataMir MD 01/05/2019 01/07/2019 buprenorphine-naloxone 8-2 mg sl film 30 15 Charo Ruiz 10/28/2018 10/28/2018 tramadol hcl 50 mg tablet 180 30 Adonay Zarate MD 09/22/2018 09/28/2018 tramadol hcl 50 mg tablet 180 30 MataMir MD 08/26/2018 09/01/2018 tramadol hcl 50 mg tablet 180 30 Yoshi Salguero R, PA-C Patient Name: Ajit Pederson Date: 1960 Address: [address] [place] [address] Sex: Male Rx Written Rx Dispensed Drug Quantity Days Supply Prescriber Name 05/13/2019 05/13/2019 oxycodone-acetaminophen 5-325 mg tablet 30 7 Braxton Sen (MICHELLE) 03/19/2019 03/19/2019 oxycodone-acetaminophen 5-325 mg tablet 30 7 Jim Dc Patient Name: Ajit Montague Date: 1960 Address: [address] [address] Sex: Male Rx Written Rx Dispensed Drug Quantity Days Supply Prescriber Name 01/22/2019 01/22/2019 buprenorphine-naloxone 8-2 mg sl film 60 30 Ileana Polanco Patient Name: Ajit Bloom Date: 1960 Address: [address] [address] Sex: Male Rx Written Rx Dispensed Drug Quantity Days Supply Prescriber Name 11/24/2018 11/24/2018 methadone hcl 5 mg tablet 90 30 Mir Mata MD 11/24/2018 11/24/2018 tramadol hcl 50 mg tablet 60 30 Mir Mata MD Vital Signs - 24 hr 08/10/19 15:12 Temperature 97.6 F Pulse Rate 75 Respiratory 18 Rate Blood Pressure 150/80 ASSESSMENT AND PLAN: Opioid dependence - Methadone detox Alcohol dependence - Librium detox Cocaine dependence Nicotine dependence - smoking cessation counseling ."
[2019-08-10] MEDS: cloNIDine HCL 0.1 MG TABLET PO PRN (20:26)
[2019-08-10] MEDS ORDERED: traZODone HCL 50 MG TABLET (FP) PO SCH (22:00)
[2019-08-10] MEDS: chlordiazePOXIDE HCL 25 MG CAPSULE PO SCH (22:24)
[2019-08-10] MEDS: GABAPENTIN 400 MG CAPSULE (FP) PO SCH (22:24)
[2019-08-10] MEDS: METHOCARBAMOL 500 MG TABLET PO SCH (22:24)
[2019-08-10] MEDS: CEPHALEXIN MONOHYDRATE 500 MG CAPSULE (UD) PO SCH (22:24)
[2019-08-10] MEDS: THIAMINE HCL 100 MG TABLET (FP) PO SCH (22:24)
[2019-08-10] MEDS: IBUPROFEN 400 MG TABLET (FP) PO PRN (22:25)
[2019-08-10] MEDS: MELATONIN 5 MG TABLETS PO PRN (22:28)
[2019-08-11] MEDS: GABAPENTIN 400 MG CAPSULE (FP) PO SCH ×3 (05:33→21:33)
[2019-08-11] MEDS: chlordiazePOXIDE HCL 25 MG CAPSULE PO SCH ×3 (05:33→21:31)
[2019-08-11] MEDS: TAMSULOSIN HCL 0.4 MG CAP PO SCH (08:37)
[2019-08-11] MEDS ORDERED: METHADONE (DETOX) 20 MG, METHADONE (DETOX) 5 MG PO ONE (10:00)
[2019-08-11] MEDS: LISINOPRIL 10 MG TABLET (FP) PO SCH (10:37)
[2019-08-11] MEDS: CEPHALEXIN MONOHYDRATE 500 MG CAPSULE (UD) PO SCH ×2 (10:37→21:32)
[2019-08-11] MEDS: METHOCARBAMOL 500 MG TABLET PO SCH ×4 (10:37→21:32)
[2019-08-11] MEDS: PRENATAL VITAMINS W/ FOLIC ACID TABLET (FP) PO SCH (10:37)
[2019-08-11] MEDS: HYDROCHLOROTHIAZIDE 12.5 MG CAPSULE (FP) PO SCH (10:37)
[2019-08-11] MEDS ORDERED: METHADONE HCL 10 MG TABLET (FOR DETOX USE ONLY) ONE (10:38)
[2019-08-11] MEDS ORDERED: METHADONE HCL 5 MG TABLET (FOR DETOX USE ONLY) ONE (10:39)
[2019-08-11] MEDS: IBUPROFEN 400 MG TABLET (FP) PO PRN ×2 (10:39→17:25)
[2019-08-11] MEDS: NICOTINE 14 MG/24 HOURS TOPICAL PATCH TD SCH (10:41)
--- NOTE | 2019-08-11 11:49 | CONSULT ---
[facility] Psychiatric Consult - Data Date of interview: 08/11/19 Admission source: [facility] Identifying data: Readmission to [facility] for this 59 y/o male self- referred for detoxification (SUNI issues : cocaine, heroin, nicotine). Interviewed at [address] [place] [address]. Patient is single, father of two, homeless (senior care), unemployed and supported on SSI benefits. Substance Abuse History: Discussed with patient. Details are concordant with current report from [facility] as follows : Smoking history: Never smoked. Have you smoked in the past 12 months: No. Aproximately how many cigarettes per day: 6. If you are a former smoker, when did you quit?: Never smoked. Hx Chewing Tobacco Use: No. Initiated information on smoking cessation: Yes. 'Breaking Loose' booklet given: 08/10/19. - Substances abused. Heroin. Substance route: Inhalation. Frequency: Daily. Amount used: 7 bags. Age of first use: 30. Date of last use: 08/10/19. Cocaine. Substance route: Inhalation. Frequency: Daily. Amount used: $100. Age of first use: 30. Date of last use: 08/09/19. Alcohol. Substance route: Oral. Frequency: Daily. Amount used: 12oz beer 3-4 packs. Age of first use: 30. Date of last use: 08/10/19 Medical History: Recent orthosurgery (right knee replacement six months ago). Patient ambulates with crutches. Psychiatric History: No reported history of psychiatric hospitalizations. Contacts with psychiatrists are limited to CPEP visits. Patient endorses the diagnosis of MDD and treatment with seroquel (dose not recalled). Mr Robel Dubois reports no psychiatric follow-up for more than a year (non-adherence to medication). History of suicide atttempt via hanging two years ago. Physical/Sexual Abuse/Trauma History: History of incarceration (sex offense). Currently on parole (status ends in eleven months as per self-report). Additional Comment: Urine drug screen results: DOMINIC-Cocaine, FEN-Fentanyl, MOP- Opiates, OXY-Oxycodone. Noted. Mental Status Exam - Mental Status Exam Alert and Oriented to: Time, Place, Person Cognitive Function: Good Patient Appearance: Well Groomed Mood: Hopeful Affect: Appropriate, Normal Range Patient Behavior: Fatigued, Appropriate, Cooperative Speech Pattern: Clear Voice Loudness: Normal Thought Process: Goal Oriented Thought Disorder: Not Present Hallucinations: Denies Suicidal Ideation: Denies Homicidal Ideation: Denies Insight/Judgement: Poor Sleep: Poorly, Difficulty falling asleep Appetite: Fair, Weight loss Gait/Station: Other (moves around with crutches) Psychiatric Findings - Problem List ([place] 1, 2,3) (1) Alcohol dependence with uncomplicated withdrawal Current Visit: Yes Status: Acute (2) Opioid dependence with withdrawal Current Visit: Yes Status: Acute (3) Cocaine dependence, uncomplicated Current Visit: Yes Status: Chronic (4) Nicotine dependence Current Visit: Yes Status: Chronic (5) Substance induced mood disorder Current Visit: Yes Status: Chronic (6) Insomnia Current Visit: Yes Status: Chronic - Initial Treatment Plan Initial Treatment Plan: Psychoeducation. Sleep hygiene. Detoxification. Rehabilitation recommended. Seroquel 50 mg po hs (patient's request). Declines to continue trazodone. Side effects/benefits discussed. Patient gave verbal consent to MD. Harrell.
[2019-08-11] MEDS ORDERED: FLU VACCINE QUAD 60 MCG/0.5 ML (MDV 19-20) IM ONE (12:00)
[2019-08-11] MEDS ORDERED: PNEUMOC 13-VAL CONJ-DIP CRM/PF 0.5 ML DISP.SYRIN IM ONE (12:00)
[2019-08-11 12:04] LABS: HEMOGLOBIN 12.8 GM/dL (11.7-16.9); MCH 25.8 pg (25.7-33.7); MCHC 32.9 g/dl (32.0-35.9); MEAN CELL VOLUME 78.5 fl (80-96); MEAN PLT VOLUME 7.1 fl (7.5-11.1); PLATELET COUNT 300 K/MM3 (134-434); RBC 4.96 M/mm3 (4.00-5.60)
[2019-08-11 12:09] LABS: ALBUMIN 3.6 g/dl (3.4-5.0); BILIRUBIN,TOTAL 0.2 mg/dL (0.2-1); BLOOD UREA NITROGEN 9.5 mg/dL (7-18); CALCIUM 9.9 mg/dL (8.5-10.1); CREATININE 0.8 mg/dL (0.55-1.3); POTASSIUM 4.1 mmol/L (3.5-5.1); TOT PROT 7.7 g/dl (6.4-8.2)
--- NOTE | 2019-08-11 15:36 | PN ---
S CIWA - CIWA Score Nausea/Vomitin-Mild Nausea/No Vomiting Muscle Tremors: 1-None Visible, but [place] Anxiety: 2 Agitation: 3 Paroxysmal Sweats: No Perspiration Orientation: 0-Oriented Tacttile Disturbances: 0-None Auditory Disturbances: 0-None Visual Disturbances: 1-Very Mild Sensitivity Headache: 2-Mild CIWA-Ar Total Score: 10 BHS COWS - Scale Resting Pulse: 1= [place] 81-100 Sweatin= Chills/Flushing Restless Observation: 1= Difficult to Sit Still Pupil Size: 1= Pupils >than Normal Bone or Joint Aches: 1= Mild Discomfort Runny Nose/ Eye Tearin= Nasal Congestion GI Upset > 30mins: 1= Stomach Cramp Tremor Observation of Outstretched Hands: 1= Tremor [place], Not Seen Yawning Observation: 1= 1-2x During Session Anxiety or Irritability: 2=Irritable/Anxious Goose Flesh Skin: 0=Smooth Skin COWS Score: 11 S Progress Note (SOAP) Subjective: c/o of body aches, interrupted sleep, chills Objective: 08/11/19 15:35 Vital Signs Temperature 99.7 F H 08/11/19 13:13 Pulse Rate 98 H 08/11/19 13:13 Respiratory Rate 16 08/11/19 13:13 Blood Pressure 120/78 08/11/19 13:13 O2 Sat by Pulse Oximetry (%) Laboratory Last Values WBC 6.0 K/mm3 (4.0-10.0) 08/11/19 08:40 RBC 4.96 M/mm3 (4.00-5.60) 08/11/19 08:40 Hgb 12.8 GM/dL (11.7-16.9) 08/11/19 08:40 Hct 39.0 % (35.4-49) 08/11/19 08:40 MCV 78.5 fl (80-96) L 08/11/19 08:40 MCH 25.8 pg (25.7-33.7) 08/11/19 08:40 MCHC 32.9 g/dl (32.0-35.9) 08/11/19 08:40 RDW 19.0 % (11.9-15.9) H 08/11/19 08:40 Plt Count 300 K/MM3 (134-434) 08/11/19 08:40 MPV 7.1 fl (7.5-11.1) L 08/11/19 08:40 Sodium 146 mmol/L (136-145) H 08/11/19 08:40 Potassium 4.1 mmol/L (3.5-5.1) 08/11/19 08:40 Chloride 111 mmol/L (98-107) H 08/11/19 08:40 Carbon Dioxide 30 mmol/L (21-32) 08/11/19 08:40 Anion Gap 5 MMOL/L (8-16) L 08/11/19 08:40 BUN 9.5 mg/dL (7-18) 08/11/19 08:40 Creatinine 0.8 mg/dL (0.55-1.3) 08/11/19 08:40 Est GFR (CKD-EPI)AfAm 113.33 08/11/19 08:40 Est GFR (CKD-EPI)NonAf 97.78 08/11/19 08:40 Random Glucose 92 mg/dL (74-106) 08/11/19 08:40 Calcium 9.9 mg/dL (8.5-10.1) 08/11/19 08:40 Total Bilirubin 0.2 mg/dL (0.2-1) 08/11/19 08:40 AST 11 U/L (15-37) L 08/11/19 08:40 ALT 17 U/L (13-61) 08/11/19 08:40 Alkaline Phosphatase 103 U/L (45-117) 08/11/19 08:40 Total Protein 7.7 g/dl (6.4-8.2) 08/11/19 08:40 Albumin 3.6 g/dl (3.4-5.0) 08/11/19 08:40 Assessment: 08/11/19 15:36 Aox3 no acute distress full ROM ambulating in the unit withdrawal sx Plan: increase fluids continue detox continue to monitor
[2019-08-11] MEDS: QUEtiapine FUMARATE 50 MG TABLET PO SCH (21:32)
[2019-08-11] MEDS: THIAMINE HCL 100 MG TABLET (FP) PO SCH (21:32)
[2019-08-11] MEDS: cloNIDine HCL 0.1 MG TABLET PO PRN (21:32)
[2019-08-11] MEDS: MELATONIN 5 MG TABLETS PO PRN (21:33)
[2019-08-12] MEDS: GABAPENTIN 400 MG CAPSULE (FP) PO SCH ×3 (05:46→21:38)
[2019-08-12] MEDS: chlordiazePOXIDE 5 MG CAPSULE PO SCH ×3 (05:46→21:38)
[2019-08-12] MEDS: IBUPROFEN 400 MG TABLET (FP) PO PRN ×2 (08:03→17:27)
[2019-08-12] MEDS: TAMSULOSIN HCL 0.4 MG CAP PO SCH (08:22)
[2019-08-12] MEDS ORDERED: METHADONE HCL 10 MG TABLET (FOR DETOX USE ONLY) PO ONE (10:00)
[2019-08-12] MEDS: PRENATAL VITAMINS W/ FOLIC ACID TABLET (FP) PO SCH (10:21)
[2019-08-12] MEDS: METHOCARBAMOL 500 MG TABLET PO SCH ×4 (10:22→21:38)
[2019-08-12] MEDS: LISINOPRIL 10 MG TABLET (FP) PO SCH (10:22)
[2019-08-12] MEDS: HYDROCHLOROTHIAZIDE 12.5 MG CAPSULE (FP) PO SCH (10:22)
[2019-08-12] MEDS: CEPHALEXIN MONOHYDRATE 500 MG CAPSULE (UD) PO SCH ×2 (10:22→21:38)
[2019-08-12] MEDS: NICOTINE 14 MG/24 HOURS TOPICAL PATCH TD SCH (10:23)
--- NOTE | 2019-08-12 11:18 | PN ---
[facility] CIWA - CIWA Score Nausea/Vomitin-Mild Nausea/No Vomiting Muscle Tremors: 2 Anxiety: 3 Agitation: 1-Slight > Activity Paroxysmal Sweats: 2 Orientation: 0-Oriented Tacttile Disturbances: 0-None Auditory Disturbances: 0-None Visual Disturbances: 0-None Headache: 0-None Present CIWA-Ar Total Score: 9 BHS COWS - Scale Resting Pulse: 1= [place] 81-100 Sweatin= Chills/Flushing Restless Observation: 0= Sits Still Pupil Size: 0= Normal to Room Light Bone or Joint Aches: 1= Mild Discomfort Runny Nose/ Eye Tearin= None GI Upset > 30mins: 2= Nausea/Diarrhea (no diarrhea) Tremor Observation of Outstretched Hands: 2= Slight Tremor Visible Yawning Observation: 0= None Anxiety or Irritability: 2=Irritable/Anxious Goose Flesh Skin: 0=Smooth Skin COWS Score: 9 S Progress Note (SOAP) Subjective: doing well with librium and methadone detox regimen left knee replacement "5 months" ago ambulating with on crutch refuse to wear knee brace while ambulating on the hallway patient requests 800 mg of motrin that he is taking motrin 800mg at home denies GI distress patient constant discuss with writer producer that he wants to take his own vitamin down his property that he has low calcium discuss lab report regarding too much calcium in blood stream patient continue coming to writer producer to property for own vitamin patient is dissatisfy about that not taking own vitamin to be "powerful" "I need power" patient calm down at this time Objective: 08/12/19 11:23 Vital Signs Temperature 97.0 F L 08/12/19 09:17 Pulse Rate 91 H 08/12/19 09:17 Respiratory Rate 18 08/12/19 09:17 Blood Pressure 137/89 08/12/19 09:17 O2 Sat by Pulse Oximetry (%) Laboratory Last Values WBC 6.0 K/mm3 (4.0-10.0) 08/11/19 08:40 RBC 4.96 M/mm3 (4.00-5.60) 08/11/19 08:40 Hgb 12.8 GM/dL (11.7-16.9) 08/11/19 08:40 Hct 39.0 % (35.4-49) 08/11/19 08:40 MCV 78.5 fl (80-96) L 08/11/19 08:40 MCH 25.8 pg (25.7-33.7) 08/11/19 08:40 MCHC 32.9 g/dl (32.0-35.9) 08/11/19 08:40 RDW 19.0 % (11.9-15.9) H 08/11/19 08:40 Plt Count 300 K/MM3 (134-434) 08/11/19 08:40 MPV 7.1 fl (7.5-11.1) L 08/11/19 08:40 Sodium 146 mmol/L (136-145) H 08/11/19 08:40 Potassium 4.1 mmol/L (3.5-5.1) 08/11/19 08:40 Chloride 111 mmol/L (98-107) H 08/11/19 08:40 Carbon Dioxide 30 mmol/L (21-32) 08/11/19 08:40 Anion Gap 5 MMOL/L (8-16) L 08/11/19 08:40 BUN 9.5 mg/dL (7-18) 08/11/19 08:40 Creatinine 0.8 mg/dL (0.55-1.3) 08/11/19 08:40 Est GFR (CKD-EPI)AfAm 113.33 08/11/19 08:40 Est GFR (CKD-EPI)NonAf 97.78 08/11/19 08:40 Random Glucose 92 mg/dL (74-106) 08/11/19 08:40 Calcium 9.9 mg/dL (8.5-10.1) 08/11/19 08:40 Total Bilirubin 0.2 mg/dL (0.2-1) 08/11/19 08:40 AST 11 U/L (15-37) L 08/11/19 08:40 ALT 17 U/L (13-61) 08/11/19 08:40 Alkaline Phosphatase 103 U/L (45-117) 08/11/19 08:40 Total Protein 7.7 g/dl (6.4-8.2) 08/11/19 08:40 Albumin 3.6 g/dl (3.4-5.0) 08/11/19 08:40 lab noted calcium within normal range Assessment: 08/12/19 11:23 alcohol and opiate withdrawal sx Plan: continue librium and methadone detox regimen
[2019-08-12] MEDS: BISMUTH SUBSALICYLATE 524 MG/30 ML UD PO PRN (18:12)
[2019-08-12] MEDS: THIAMINE HCL 100 MG TABLET (FP) PO SCH (21:38)
[2019-08-12] MEDS: QUEtiapine FUMARATE 50 MG TABLET PO SCH (21:38)
[2019-08-12] MEDS: cloNIDine HCL 0.1 MG TABLET PO PRN (21:38)
[2019-08-12] MEDS: MELATONIN 5 MG TABLETS PO PRN (21:39)
[2019-08-12] MEDS: METHYL SALICYLATE/MENTHOL OINT 30 GM TUBE TP SCH (22:38)
[2019-08-13] MEDS ORDERED: chlordiazePOXIDE HCL 10 MG CAPSULE PO PRN
[2019-08-13] MEDS: chlordiazePOXIDE HCL 10 MG CAPSULE PO SCH ×3 (05:26→21:39)
[2019-08-13] MEDS: GABAPENTIN 400 MG CAPSULE (FP) PO SCH ×3 (05:26→21:38)
[2019-08-13] MEDS ORDERED: METHADONE HCL 5 MG TABLET (FOR DETOX USE ONLY) ONE (09:38)
[2019-08-13] MEDS ORDERED: METHADONE HCL 10 MG TABLET (FOR DETOX USE ONLY) ONE (09:38)
[2019-08-13] MEDS: HYDROCHLOROTHIAZIDE 12.5 MG CAPSULE (FP) PO SCH (09:44)
[2019-08-13] MEDS: PRENATAL VITAMINS W/ FOLIC ACID TABLET (FP) PO SCH (09:44)
[2019-08-13] MEDS: METHOCARBAMOL 500 MG TABLET PO SCH ×4 (09:44→21:39)
[2019-08-13] MEDS: CEPHALEXIN MONOHYDRATE 500 MG CAPSULE (UD) PO SCH ×2 (09:45→21:39)
[2019-08-13] MEDS: LISINOPRIL 10 MG TABLET (FP) PO SCH (09:45)
[2019-08-13] MEDS: TAMSULOSIN HCL 0.4 MG CAP PO SCH (09:45)
[2019-08-13] MEDS: IBUPROFEN 400 MG TABLET (FP) PO PRN ×2 (09:48→21:41)
[2019-08-13] MEDS: NICOTINE 14 MG/24 HOURS TOPICAL PATCH TD SCH (09:51)
[2019-08-13] MEDS: METHYL SALICYLATE/MENTHOL OINT 30 GM TUBE TP SCH ×2 (09:51→21:38)
[2019-08-13] MEDS ORDERED: METHADONE (DETOX) 10 MG, METHADONE (DETOX) 5 MG PO ONE (10:00)
--- NOTE | 2019-08-13 10:04 | PN ---
S CIWA - CIWA Score Nausea/Vomitin Muscle Tremors: 2 Anxiety: 4-Mod. Anxious/Guarded Agitation: 1-Slight > Activity Paroxysmal Sweats: 1-Minimal [place] Moist Orientation: 0-Oriented Tacttile Disturbances: 1-Very Mild Itch/Numbness Auditory Disturbances: 0-None Visual Disturbances: 0-None Headache: 1-Very Mild CIWA-Ar Total Score: 12 BHS COWS - Scale Resting Pulse: 1= [place] 81-100 Sweatin= Chills/Flushing Restless Observation: 1= Difficult to Sit Still Pupil Size: 0= Normal to Room Light Bone or Joint Aches: 1= Mild Discomfort Runny Nose/ Eye Tearin= Runny Nose/Eyes GI Upset > 30mins: 0= None Tremor Observation of Outstretched Hands: 2= Slight Tremor Visible Yawning Observation: 0= None Anxiety or Irritability: 2=Irritable/Anxious Goose Flesh Skin: 0=Smooth Skin COWS Score: 10 S Progress Note (SOAP) Subjective: Reports was in MMTP at [facility] about one month ago, and stopped attending the program . c/o of anxiety, chills, sweats, body aches, chills, interrupted sleep Objective: 08/13/19 09:56 Vital Signs Temperature 97.5 F L 08/13/19 09:27 Pulse Rate 99 H 08/13/19 09:27 Respiratory Rate 18 08/13/19 09:27 Blood Pressure 157/89 08/13/19 09:27 O2 Sat by Pulse Oximetry (%) Laboratory Last Values WBC 6.0 K/mm3 (4.0-10.0) 08/11/19 08:40 RBC 4.96 M/mm3 (4.00-5.60) 08/11/19 08:40 Hgb 12.8 GM/dL (11.7-16.9) 08/11/19 08:40 Hct 39.0 % (35.4-49) 08/11/19 08:40 MCV 78.5 fl (80-96) L 08/11/19 08:40 MCH 25.8 pg (25.7-33.7) 08/11/19 08:40 MCHC 32.9 g/dl (32.0-35.9) 08/11/19 08:40 RDW 19.0 % (11.9-15.9) H 08/11/19 08:40 Plt Count 300 K/MM3 (134-434) 08/11/19 08:40 MPV 7.1 fl (7.5-11.1) L 08/11/19 08:40 Sodium 146 mmol/L (136-145) H 08/11/19 08:40 Potassium 4.1 mmol/L (3.5-5.1) 08/11/19 08:40 Chloride 111 mmol/L (98-107) H 08/11/19 08:40 Carbon Dioxide 30 mmol/L (21-32) 08/11/19 08:40 Anion Gap 5 MMOL/L (8-16) L 08/11/19 08:40 BUN 9.5 mg/dL (7-18) 08/11/19 08:40 Creatinine 0.8 mg/dL (0.55-1.3) 08/11/19 08:40 Est GFR (CKD-EPI)AfAm 113.33 08/11/19 08:40 Est GFR (CKD-EPI)NonAf 97.78 08/11/19 08:40 Random Glucose 92 mg/dL (74-106) 08/11/19 08:40 Calcium 9.9 mg/dL (8.5-10.1) 08/11/19 08:40 Total Bilirubin 0.2 mg/dL (0.2-1) 08/11/19 08:40 AST 11 U/L (15-37) L 08/11/19 08:40 ALT 17 U/L (13-61) 08/11/19 08:40 Alkaline Phosphatase 103 U/L (45-117) 08/11/19 08:40 Total Protein 7.7 g/dl (6.4-8.2) 08/11/19 08:40 Albumin 3.6 g/dl (3.4-5.0) 08/11/19 08:40 RPR Titer Nonreactive (NONREACTIVE) 08/11/19 08:40 Assessment: 08/13/19 10:00 Aox3 no acute distress anxious EENT WNL full ROM, ambulating in the unit with left crutch Plan: Increase PO fluids continue detox Follow up with PCP upon discharge MAT reviewed with patient, benefits and risk discuss harm reduction reviewed with patient verbalizes understanding continue to monitor
[2019-08-13] MEDS: BISMUTH SUBSALICYLATE 524 MG/30 ML UD PO PRN (19:51)
[2019-08-13] MEDS: QUEtiapine FUMARATE 50 MG TABLET PO SCH (21:38)
[2019-08-13] MEDS: MELATONIN 5 MG TABLETS PO PRN (21:45)
[2019-08-13] MEDS: THIAMINE HCL 100 MG TABLET (FP) PO SCH (22:17)
[2019-08-14] MEDS ORDERED: chlordiazePOXIDE HCL 10 MG CAPSULE PO ONE (05:00)
[2019-08-14] MEDS: GABAPENTIN 400 MG CAPSULE (FP) PO SCH (05:44)
[2019-08-14] MEDS: BISMUTH SUBSALICYLATE 524 MG/30 ML UD PO PRN (05:45)
--- NOTE | 2019-08-14 09:16 | DS ---
[facility] Detox Discharge Summary Admission Date: 08/10/19 Discharge Date: 08/14/19 - History Present History: Opioid Dependence Pertinent Past History: Pt wants to leave early one day. States he needs medications- [facility]. Says he has [facility] in the [place]. Will f/u with [facility] for MAT. Narcan kit ordered - Physical Exam Results Vital Signs: Vital Signs Temperature 98.5 F 08/14/19 06:07 Pulse Rate 74 08/14/19 06:07 Respiratory Rate 18 08/14/19 06:07 Blood Pressure 122/70 08/14/19 06:07 O2 Sat by Pulse Oximetry (%) - Treatment Hospital Course: Detox Protocol Followed, Detoxed Safely, Responded well, Discharged Condition Good - Medication Discharge Medications: Ambulatory Orders Multivitamin [Multiple Vitamins] 1 each PO DAILY 04/14/19 Cephalexin Monohydrate [Keflex -] 500 mg PO Q6H 08/10/19 Gabapentin 800 mg PO TID 08/10/19 Ibuprofen [Motrin -] 600 mg PO QID PRN 08/10/19 Methocarbamol [Robaxin -] 500 mg PO QID 08/10/19 traZODone HCL [Trazodone HCl] 50 mg PO HS 08/10/19 Naloxone HCl [Narcan] 4 mg NS ASDIR PRN #1 spray 08/12/19 Albuterol Sulfate [Albuterol Sulfate Hfa] 8.5 gm IH PRN PRN #1 hfa.aer.ad Gabapentin [Neurontin -] 400 mg PO TID #30 capsule 08/14/19 Gabapentin [Neurontin -] 800 mg PO TID #40 capsule 08/14/19 Hydrochlorothiazide [Hctz -] 12.5 mg PO DAILY #30 cap 08/14/19 Lisinopril [Prinivil] 10 mg PO DAILY #30 tablet 08/14/19 Methocarbamol [Robaxin -] 500 mg PO QID #10 tablet 08/14/19 Vitamins (Sjr) - 1 tab PO DAILY #30 tablet 08/14/19 Tamsulosin HCl [Flomax] 0.4 mg PO DAILY #30 capsule 08/14/19
[2019-08-14] MEDS: METHOCARBAMOL 500 MG TABLET PO SCH (09:29)
[2019-08-14] MEDS: CEPHALEXIN MONOHYDRATE 500 MG CAPSULE (UD) PO SCH (09:29)
[2019-08-14] MEDS: TAMSULOSIN HCL 0.4 MG CAP PO SCH (09:29)
[2019-08-14] MEDS: PRENATAL VITAMINS W/ FOLIC ACID TABLET (FP) PO SCH (09:29)
[2019-08-14] MEDS: HYDROCHLOROTHIAZIDE 12.5 MG CAPSULE (FP) PO SCH (09:30)
[2019-08-14] MEDS: METHYL SALICYLATE/MENTHOL OINT 30 GM TUBE TP SCH (09:31)
[2019-08-14] MEDS: IBUPROFEN 400 MG TABLET (FP) PO PRN (09:34)
[2019-08-14 09:47] VITALS: BP 175/85; PULSE 92; TEMP 97.3
[2019-08-14] MEDS ORDERED: METHADONE HCL 10 MG TABLET (FOR DETOX USE ONLY) PO ONE (10:00)
[2019-08-14] MEDS: NICOTINE 14 MG/24 HOURS TOPICAL PATCH TD SCH (10:34)
[2019-08-14] MEDS: LISINOPRIL 10 MG TABLET (FP) PO SCH (10:34)
[2019-08-14] MEDS ORDERED: GABAPENTIN 400 MG CAPSULE (FP) PO SCH (14:00)
[2019-08-15] MEDS ORDERED: METHADONE HCL 5 MG TABLET (FOR DETOX USE ONLY) PO ONE (06:00)
== END 2019-08-14 10:19 | disposition home or self-care (01) | DRG 773 ==
LOC: YASAS 13:36 → Y3N 19:53
PROVIDERS: ADMIT Allergy & Immunology; ATTEND Allergy & Immunology
PROC: HZ2ZZZZ Detoxification Services for Substance Abuse Treatment (ICD-10-PCS; principal; 2019-08-10)
DX: F11.23 Opioid dependence with withdrawal (principal); F10.230 Alcohol dependence with withdrawal, uncomplicated; F14.20 Cocaine dependence, uncomplicated; F17.210 Nicotine dependence, cigarettes, uncomplicated; F19.24 Other psychoactive substance dependence with psychoactive substance-induced mood disorder; I10 Essential (primary) hypertension; G47.00 Insomnia, unspecified; N40.0 Benign prostatic hyperplasia without lower urinary tract symptoms; Z96.652 Presence of left artificial knee joint; Z99.89 Dependence on other enabling machines and devices; Z59.0 Homelessness
CPT/HCPCS: 36415; 80053; 85027; 86593; J0735

== ENCOUNTER 2020-01-14 10:09 | Inpatient (IN) | payer OTHER ==
--- NOTE | 2020-01-14 11:52 | BHS.RME ---
Substance Use & Tx History - Substance Use History Alcohol Substance amount: 3 packs beers 12 oz Frequency of use: Daily Substance route: Oral Date of Last Use: 01/14/20 (6:30am) Opiates (Heroin) Substance amount: 4-5 bags Frequency of use: Daily Substance route: Inhalation (ex: sniffing or snorting) Date of Last Use: 01/14/20 Cocaine (Powder) Substance amount: $60 Frequency of use: Daily Substance route: Inhalation (ex: sniffing or snorting) Date of Last Use: 01/13/20 Physical/Psych/Mental Status - Behavior General Behavior: Increased activity (restlessness, agitation) Eye Contact: Normal - Cooperativeness Cooperativeness: Cooperative - Thinking Thought Processes: Tight, Logical, Goal Directed Thought content: Future oriented - Physical Health Problems Is patient presently having any pain?: No Does patient presently have any injuries (include location): No Does patient currently have a fever: No Is patient : No CIWA Nausea/Vomitin-Mild Nausea/No Vomiting Muscle Tremors: 2 Anxiety: 3 Agitation: 3 Paroxysmal Sweats: 3 Orientation: 1-Uncertain about Date Tacttile Disturbances: 1-Very Mild Itch/Numbness Auditory Disturbances: 1-Very Mild Visual Disturbances: 1-Very Mild Sensitivity Headache: 1-Very Mild CIWA-Ar Total Score: 17
[2020-01-14 12:08] VITALS: BMI 20.1
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
[2020-01-14] MEDS ORDERED: METHOCARBAMOL 500 MG TABLET PO PRN (13:07)
[2020-01-14] MEDS ORDERED: BISMUTH SUBSALICYLATE 524 MG/30 ML UD PO PRN (13:07)
[2020-01-14] MEDS ORDERED: NICOTINE POLACRILEX 2 MG GUM BUC PRN (13:07)
[2020-01-14] MEDS ORDERED: chlordiazePOXIDE HCL 25 MG CAPSULE PO PRN (13:07)
[2020-01-14] MEDS ORDERED: MENTHOL/PHENOL 1 EACH UD MM PRN (13:07)
[2020-01-14] MEDS ORDERED: MAGNESIUM CITRATE 300 ML BOTTLE PO PRN (13:07)
[2020-01-14] MEDS ORDERED: MAGNESIUM HYDROX 2400MG/30ML ORAL SUSPENSION 30 ML CUP PO PRN (13:07)
[2020-01-14] MEDS ORDERED: MAG HYDROX/AL HYDROX/SIMETH 30 ML UNIT-DOSE CUP PO PRN (13:07)
[2020-01-14] MEDS ORDERED: ACETAMINOPHEN 325 MG TABLET (FP) PO PRN ×2 (13:07)
[2020-01-14] MEDS ORDERED: ONDANSETRON *ODT* 4 MG TABLET SL ONE (14:00)
[2020-01-14] MEDS: GABAPENTIN 400 MG CAPSULE PO SCH ×2 (14:20→22:08)
[2020-01-14] MEDS: HYDROCHLOROTHIAZIDE 12.5 MG CAPSULE (FP) PO SCH (14:20)
[2020-01-14] MEDS: METHOCARBAMOL 500 MG TABLET PO SCH ×3 (14:20→22:09)
[2020-01-14] MEDS: LISINOPRIL 10 MG TABLET (FP) PO SCH (14:20)
[2020-01-14] MEDS: PRENATAL VITAMINS W/ FOLIC ACID TABLET (FP) PO SCH (14:20)
[2020-01-14] MEDS: SULFAMETHOXAZOLE/TRIMETHOPRIM 800MG/160MG D.S. TABLET PO SCH ×2 (14:20→22:09)
[2020-01-14] MEDS: NICOTINE 7 MG/24 HOURS TOPICAL PATCH TD SCH (14:21)
[2020-01-14] MEDS: hydrOXYzine PAMOATE 25 MG CAPSULE (FP) PO SCH ×3 (14:22→22:08)
[2020-01-14 17:07] LABS: BILIRUBIN,TOTAL 0.4 mg/dL (0.2-1); BLOOD UREA NITROGEN 9.6 mg/dL (7-18); CALCIUM 8.5 mg/dL (8.5-10.1); CREATININE 0.7 mg/dL (0.55-1.3); TOT PROT 7.4 g/dl (6.4-8.2)
[2020-01-14 17:08] LABS: HEMATOCRIT 31.7 % (35.4-49); MCH 24.6 pg (25.7-33.7); MCHC 31.6 g/dl (32.0-35.9); MEAN CELL VOLUME 77.7 fl (80-96); PLATELET COUNT 306 K/MM3 (134-434); RBC 4.08 M/mm3 (4.00-5.60); WHITE BLOOD COUNT 6.3 K/mm3 (4.0-10.0)
[2020-01-14] MEDS: chlordiazePOXIDE HCL 25 MG CAPSULE PO SCH ×2 (18:01→22:09)
[2020-01-14] MEDS: TAMSULOSIN HCL 0.4 MG CAP PO SCH (22:08)
[2020-01-14] MEDS: MELATONIN 5 MG TABLETS PO SCH (22:09)
[2020-01-14] MEDS: THIAMINE HCL 100 MG TABLET (FP) PO SCH (22:09)
[2020-01-15] MEDS: hydrOXYzine PAMOATE 25 MG CAPSULE (FP) PO SCH ×5 (05:22→22:24)
[2020-01-15] MEDS: chlordiazePOXIDE HCL 25 MG CAPSULE PO SCH ×4 (05:22→22:24)
[2020-01-15] MEDS: GABAPENTIN 400 MG CAPSULE PO SCH ×3 (05:23→22:24)
[2020-01-15] MEDS: IBUPROFEN 400 MG TABLET (FP) PO PRN ×2 (06:30→13:08)
[2020-01-15] MEDS ORDERED: METHADONE HCL 10 MG TABLET PO SCH (06:45)
[2020-01-15] MEDS ORDERED: METHADONE HCL 40 MG DISPERSABLE TABLET ONE (07:01)
[2020-01-15] MEDS ORDERED: METHADONE HCL 10 MG TABLET ONE (07:01)
[2020-01-15] MEDS: METHADONE 80 MG, METHADONE 10 MG PO SCH (07:17)
--- NOTE | 2020-01-15 10:19 | PN ---
[facility] CIWA - CIWA Score Nausea/Vomitin-No Nausea/No Vomiting Muscle Tremors: None Anxiety: 3 Agitation: 2 Paroxysmal Sweats: 3 Orientation: 0-Oriented Tacttile Disturbances: 0-None Auditory Disturbances: 0-None Visual Disturbances: 0-None Headache: 2-Mild CIWA-Ar Total Score: 10 S Progress Note (SOAP) Subjective: c/o headache, sweats, anxiety, and irritability. Objective: 01/15/20 10:18 Vital Signs 01/15/20 01/15/20 01/15/20 03:30 06:22 08:59 Temperature 99.0 F 97.5 F L Pulse Rate 74 71 Respiratory 16 18 16 Rate Blood Pressure 98/59 L 109/60 O2 Sat by Pulse 96 Oximetry (%) Laboratory Last Values WBC 6.3 K/mm3 (4.0-10.0) 01/14/20 12:55 RBC 4.08 M/mm3 (4.00-5.60) 01/14/20 12:55 Hgb 10.0 GM/dL (11.7-16.9) L 01/14/20 12:55 Hct 31.7 % (35.4-49) L D 01/14/20 12:55 MCV 77.7 fl (80-96) L 01/14/20 12:55 MCH 24.6 pg (25.7-33.7) L 01/14/20 12:55 MCHC 31.6 g/dl (32.0-35.9) L 01/14/20 12:55 RDW 17.0 % (11.9-15.9) H 01/14/20 12:55 Plt Count 306 K/MM3 (134-434) 01/14/20 12:55 MPV 7.0 fl (7.5-11.1) L 01/14/20 12:55 Sodium 137 mmol/L (136-145) 01/14/20 12:55 Potassium 4.0 mmol/L (3.5-5.1) 01/14/20 12:55 Chloride 102 mmol/L (98-107) 01/14/20 12:55 Carbon Dioxide 28 mmol/L (21-32) 01/14/20 12:55 Anion Gap 7 MMOL/L (8-16) L 01/14/20 12:55 BUN 9.6 mg/dL (7-18) 01/14/20 12:55 Creatinine 0.7 mg/dL (0.55-1.3) 01/14/20 12:55 Est GFR (CKD-EPI)AfAm 119.72 01/14/20 12:55 Est GFR (CKD-EPI)NonAf 103.30 01/14/20 12:55 Random Glucose 89 mg/dL (74-106) 01/14/20 12:55 Calcium 8.5 mg/dL (8.5-10.1) 01/14/20 12:55 Total Bilirubin 0.4 mg/dL (0.2-1) 01/14/20 12:55 AST 14 U/L (15-37) L 01/14/20 12:55 ALT 18 U/L (13-61) 01/14/20 12:55 Alkaline Phosphatase 92 U/L (45-117) 01/14/20 12:55 Total Protein 7.4 g/dl (6.4-8.2) 01/14/20 12:55 Albumin 3.0 g/dl (3.4-5.0) L 01/14/20 12:55 HIV Ag/Ab Combo Qual Negative (NEGATIVE) 01/14/20 12:55 Labs noted. Assessment: 01/15/20 10:18 AOX3, in no acute respiratory distress. Full ROM, ambulating in the unit. Withdrawal symptoms. Plan: continue detox.
[2020-01-15] MEDS: HYDROCHLOROTHIAZIDE 12.5 MG CAPSULE (FP) PO SCH (10:30)
[2020-01-15] MEDS: SULFAMETHOXAZOLE/TRIMETHOPRIM 800MG/160MG D.S. TABLET PO SCH ×2 (10:30→22:24)
[2020-01-15] MEDS: LISINOPRIL 10 MG TABLET (FP) PO SCH (10:30)
[2020-01-15] MEDS: METHOCARBAMOL 500 MG TABLET PO SCH ×4 (10:31→22:24)
[2020-01-15] MEDS: PRENATAL VITAMINS W/ FOLIC ACID TABLET (FP) PO SCH (10:31)
[2020-01-15] MEDS: LIDOCAINE 5% TOPICAL PATCH TP SCH (10:32)
[2020-01-15] MEDS: NICOTINE 7 MG/24 HOURS TOPICAL PATCH TD SCH (10:36)
[2020-01-15] MEDS: LIDOCAINE PATCH REMOVAL MC SCH (22:24)
[2020-01-15] MEDS: TAMSULOSIN HCL 0.4 MG CAP PO SCH (22:24)
[2020-01-15] MEDS: MELATONIN 5 MG TABLETS PO SCH (22:24)
[2020-01-15] MEDS: THIAMINE HCL 100 MG TABLET (FP) PO SCH (22:24)
[2020-01-16] MEDS ORDERED: METHADONE HCL 40 MG DISPERSABLE TABLET ONE (04:26)
[2020-01-16] MEDS ORDERED: METHADONE HCL 10 MG TABLET ONE (04:26)
[2020-01-16] MEDS: METHADONE 80 MG, METHADONE 10 MG PO SCH (05:53)
[2020-01-16] MEDS: chlordiazePOXIDE HCL 25 MG CAPSULE PO SCH ×4 (05:53→22:24)
[2020-01-16] MEDS: GABAPENTIN 400 MG CAPSULE PO SCH ×3 (05:53→22:24)
[2020-01-16] MEDS: hydrOXYzine PAMOATE 25 MG CAPSULE (FP) PO SCH ×5 (05:53→22:24)
[2020-01-16] MEDS: SULFAMETHOXAZOLE/TRIMETHOPRIM 800MG/160MG D.S. TABLET PO SCH ×2 (10:38→22:24)
[2020-01-16] MEDS: LISINOPRIL 10 MG TABLET (FP) PO SCH (10:38)
[2020-01-16] MEDS: HYDROCHLOROTHIAZIDE 12.5 MG CAPSULE (FP) PO SCH (10:38)
[2020-01-16] MEDS: LIDOCAINE 5% TOPICAL PATCH TP SCH (10:38)
[2020-01-16] MEDS: NICOTINE 7 MG/24 HOURS TOPICAL PATCH TD SCH (10:38)
[2020-01-16] MEDS: METHOCARBAMOL 500 MG TABLET PO SCH ×4 (10:38→22:24)
[2020-01-16] MEDS: PRENATAL VITAMINS W/ FOLIC ACID TABLET (FP) PO SCH (10:38)
--- NOTE | 2020-01-16 12:21 | PN ---
[facility] CIWA - CIWA Score Nausea/Vomitin-Mild Nausea/No Vomiting Muscle Tremors: 3 Anxiety: 3 Agitation: 0-Normal Activity Paroxysmal Sweats: 2 Orientation: 0-Oriented Tacttile Disturbances: 0-None Auditory Disturbances: 0-None Visual Disturbances: 0-None Headache: 0-None Present CIWA-Ar Total Score: 9 S Progress Note (SOAP) Subjective: 59 years old male admitted on 01/14/20 for alcohol withdrawal sx managment treating with [facility] detox regiment taking methadone 90 mg po daily ambulating with cane and knee bracelet that had right knee placement 6 months ago ambulating steady gait Objective: 01/16/20 12:20 Vital Signs Temperature 98.5 F 01/16/20 08:41 Pulse Rate 77 01/16/20 08:41 Respiratory Rate 17 01/16/20 08:41 Blood Pressure 130/77 01/16/20 08:41 O2 Sat by Pulse Oximetry (%) 96 01/16/20 06:28 Laboratory Last Values WBC 6.3 K/mm3 (4.0-10.0) 01/14/20 12:55 RBC 4.08 M/mm3 (4.00-5.60) 01/14/20 12:55 Hgb 10.0 GM/dL (11.7-16.9) L 01/14/20 12:55 Hct 31.7 % (35.4-49) L D 01/14/20 12:55 MCV 77.7 fl (80-96) L 01/14/20 12:55 MCH 24.6 pg (25.7-33.7) L 01/14/20 12:55 MCHC 31.6 g/dl (32.0-35.9) L 01/14/20 12:55 RDW 17.0 % (11.9-15.9) H 01/14/20 12:55 Plt Count 306 K/MM3 (134-434) 01/14/20 12:55 MPV 7.0 fl (7.5-11.1) L 01/14/20 12:55 Sodium 137 mmol/L (136-145) 01/14/20 12:55 Potassium 4.0 mmol/L (3.5-5.1) 01/14/20 12:55 Chloride 102 mmol/L (98-107) 01/14/20 12:55 Carbon Dioxide 28 mmol/L (21-32) 01/14/20 12:55 Anion Gap 7 MMOL/L (8-16) L 01/14/20 12:55 BUN 9.6 mg/dL (7-18) 01/14/20 12:55 Creatinine 0.7 mg/dL (0.55-1.3) 01/14/20 12:55 Est GFR (CKD-EPI)AfAm 119.72 01/14/20 12:55 Est GFR (CKD-EPI)NonAf 103.30 01/14/20 12:55 Random Glucose 89 mg/dL (74-106) 01/14/20 12:55 Calcium 8.5 mg/dL (8.5-10.1) 01/14/20 12:55 Total Bilirubin 0.4 mg/dL (0.2-1) 01/14/20 12:55 AST 14 U/L (15-37) L 01/14/20 12:55 ALT 18 U/L (13-61) 01/14/20 12:55 Alkaline Phosphatase 92 U/L (45-117) 01/14/20 12:55 Total Protein 7.4 g/dl (6.4-8.2) 01/14/20 12:55 Albumin 3.0 g/dl (3.4-5.0) L 01/14/20 12:55 RPR Titer Nonreactive (NONREACTIVE) 01/14/20 12:55 HIV Ag/Ab Combo Qual Negative (NEGATIVE) 01/14/20 12:55 lab noted Assessment: 01/16/20 12:21 alcohol withdrawal Plan: librium regiment
[2020-01-16] MEDS: IBUPROFEN 400 MG TABLET (FP) PO PRN (18:01)
[2020-01-16] MEDS: TAMSULOSIN HCL 0.4 MG CAP PO SCH (22:24)
[2020-01-16] MEDS: THIAMINE HCL 100 MG TABLET (FP) PO SCH (22:24)
[2020-01-16] MEDS: MELATONIN 5 MG TABLETS PO SCH (22:24)
[2020-01-16] MEDS: LIDOCAINE PATCH REMOVAL MC SCH (22:25)
[2020-01-17] MEDS ORDERED: chlordiazePOXIDE HCL 10 MG CAPSULE PO PRN
[2020-01-17] MEDS: IBUPROFEN 400 MG TABLET (FP) PO PRN ×2 (02:22→18:53)
[2020-01-17] MEDS ORDERED: METHADONE HCL 10 MG TABLET ONE (04:54)
[2020-01-17] MEDS ORDERED: METHADONE HCL 40 MG DISPERSABLE TABLET ONE (04:54)
[2020-01-17] MEDS: hydrOXYzine PAMOATE 25 MG CAPSULE (FP) PO SCH ×5 (05:22→22:04)
[2020-01-17] MEDS: METHADONE 80 MG, METHADONE 10 MG PO SCH (05:22)
[2020-01-17] MEDS: GABAPENTIN 400 MG CAPSULE PO SCH ×3 (05:22→22:04)
[2020-01-17] MEDS: chlordiazePOXIDE HCL 10 MG CAPSULE PO SCH ×4 (05:22→22:04)
[2020-01-17] MEDS: PRENATAL VITAMINS W/ FOLIC ACID TABLET (FP) PO SCH (10:31)
[2020-01-17] MEDS: NICOTINE 7 MG/24 HOURS TOPICAL PATCH TD SCH (10:32)
[2020-01-17] MEDS: METHOCARBAMOL 500 MG TABLET PO SCH ×4 (10:33→22:05)
[2020-01-17] MEDS: LIDOCAINE 5% TOPICAL PATCH TP SCH (10:33)
[2020-01-17] MEDS: SULFAMETHOXAZOLE/TRIMETHOPRIM 800MG/160MG D.S. TABLET PO SCH ×2 (10:35→22:04)
[2020-01-17] MEDS: LISINOPRIL 10 MG TABLET (FP) PO SCH (10:35)
[2020-01-17] MEDS: HYDROCHLOROTHIAZIDE 12.5 MG CAPSULE (FP) PO SCH (10:35)
--- NOTE | 2020-01-17 10:47 | PN ---
[facility] CIWA - CIWA Score Nausea/Vomitin-No Nausea/No Vomiting Muscle Tremors: 1-None Visible, but [place] Anxiety: 1-Mildly Anxious Agitation: 1-Slight > Activity Paroxysmal Sweats: No Perspiration Orientation: 0-Oriented Tacttile Disturbances: 1-Very Mild Itch/Numbness Auditory Disturbances: 0-None Visual Disturbances: 0-None Headache: 1-Very Mild CIWA-Ar Total Score: 5 BHS Progress Note (SOAP) Subjective: alert,irritable,anxious,interrupted sleep Objective: 01/17/20 10:46 Vital Signs Temperature 98.7 F 01/17/20 08:35 Pulse Rate 83 01/17/20 08:35 Respiratory Rate 18 01/17/20 08:35 Blood Pressure 97/62 01/17/20 08:35 O2 Sat by Pulse Oximetry (%) 99 01/17/20 06:33 Assessment: 01/17/20 10:47 withdrawal symptom Plan: continue detox librium regimen
[2020-01-17] MEDS ORDERED: LIDOCAINE 5% TOPICAL PATCH TP SCH (22:00)
[2020-01-17] MEDS: MELATONIN 5 MG TABLETS PO SCH (22:04)
[2020-01-17] MEDS: TAMSULOSIN HCL 0.4 MG CAP PO SCH (22:04)
[2020-01-17] MEDS: THIAMINE HCL 100 MG TABLET (FP) PO SCH (22:04)
[2020-01-17] MEDS: PANTOPRAZOLE 20 MG TABLET PO SCH (22:04)
[2020-01-17] MEDS: LIDOCAINE PATCH REMOVAL MC SCH (22:05)
[2020-01-18] MEDS ORDERED: METHADONE HCL 10 MG TABLET ONE (04:42)
[2020-01-18] MEDS ORDERED: METHADONE HCL 40 MG DISPERSABLE TABLET ONE (04:43)
[2020-01-18] MEDS: GABAPENTIN 400 MG CAPSULE PO SCH ×3 (05:28→21:19)
[2020-01-18] MEDS: hydrOXYzine PAMOATE 25 MG CAPSULE (FP) PO SCH ×5 (05:29→21:18)
[2020-01-18] MEDS: chlordiazePOXIDE HCL 10 MG CAPSULE PO SCH ×2 (05:29→17:25)
[2020-01-18] MEDS: METHADONE 80 MG, METHADONE 10 MG PO SCH (05:29)
[2020-01-18] MEDS ORDERED: LIDOCAINE PATCH REMOVAL MC SCH (10:00)
[2020-01-18] MEDS: HYDROCHLOROTHIAZIDE 12.5 MG CAPSULE (FP) PO SCH (10:12)
[2020-01-18] MEDS: SULFAMETHOXAZOLE/TRIMETHOPRIM 800MG/160MG D.S. TABLET PO SCH ×2 (10:12→21:19)
[2020-01-18] MEDS: LIDOCAINE 5% TOPICAL PATCH TP SCH (10:14)
[2020-01-18] MEDS: NICOTINE 7 MG/24 HOURS TOPICAL PATCH TD SCH (10:15)
[2020-01-18] MEDS: IBUPROFEN 400 MG TABLET (FP) PO PRN ×2 (10:15→18:27)
[2020-01-18] MEDS: METHOCARBAMOL 500 MG TABLET PO SCH ×4 (10:16→21:18)
[2020-01-18] MEDS: LISINOPRIL 10 MG TABLET (FP) PO SCH (10:17)
[2020-01-18] MEDS: PANTOPRAZOLE 20 MG TABLET PO SCH ×2 (10:17→21:21)
--- NOTE | 2020-01-18 10:42 | PN ---
[facility] CIWA - CIWA Score Nausea/Vomitin-No Nausea/No Vomiting Muscle Tremors: 1-None Visible, but [place] Anxiety: 1-Mildly Anxious Agitation: 0-Normal Activity Paroxysmal Sweats: 1-Minimal Palms Moist Orientation: 0-Oriented Tacttile Disturbances: 1-Very Mild Itch/Numbness Auditory Disturbances: 0-None Visual Disturbances: 1-Very Mild Sensitivity Headache: 0-None Present CIWA-Ar Total Score: 5 S Progress Note (SOAP) Subjective: 59 years old male admitted on 01/14/20 for alcohol withdrawal sx management treating with librium detox regiment received methadone 90 mg po today feeling better less tremor mild anxiety Objective: 01/18/20 10:41 Vital Signs Temperature 97.2 F L 01/18/20 09:39 Pulse Rate 82 01/18/20 09:39 Respiratory Rate 18 01/18/20 09:39 Blood Pressure 101/64 01/18/20 09:39 O2 Sat by Pulse Oximetry (%) 100 01/18/20 05:30 Laboratory Last Values WBC 6.3 K/mm3 (4.0-10.0) 01/14/20 12:55 RBC 4.08 M/mm3 (4.00-5.60) 01/14/20 12:55 Hgb 10.0 GM/dL (11.7-16.9) L 01/14/20 12:55 Hct 31.7 % (35.4-49) L D 01/14/20 12:55 MCV 77.7 fl (80-96) L 01/14/20 12:55 MCH 24.6 pg (25.7-33.7) L 01/14/20 12:55 MCHC 31.6 g/dl (32.0-35.9) L 01/14/20 12:55 RDW 17.0 % (11.9-15.9) H 01/14/20 12:55 Plt Count 306 K/MM3 (134-434) 01/14/20 12:55 MPV 7.0 fl (7.5-11.1) L 01/14/20 12:55 Sodium 137 mmol/L (136-145) 01/14/20 12:55 Potassium 4.0 mmol/L (3.5-5.1) 01/14/20 12:55 Chloride 102 mmol/L (98-107) 01/14/20 12:55 Carbon Dioxide 28 mmol/L (21-32) 01/14/20 12:55 Anion Gap 7 MMOL/L (8-16) L 01/14/20 12:55 BUN 9.6 mg/dL (7-18) 01/14/20 12:55 Creatinine 0.7 mg/dL (0.55-1.3) 01/14/20 12:55 Est GFR (CKD-EPI)AfAm 119.72 01/14/20 12:55 Est GFR (CKD-EPI)NonAf 103.30 01/14/20 12:55 Random Glucose 89 mg/dL (74-106) 01/14/20 12:55 Calcium 8.5 mg/dL (8.5-10.1) 01/14/20 12:55 Total Bilirubin 0.4 mg/dL (0.2-1) 01/14/20 12:55 AST 14 U/L (15-37) L 01/14/20 12:55 ALT 18 U/L (13-61) 01/14/20 12:55 Alkaline Phosphatase 92 U/L (45-117) 01/14/20 12:55 Total Protein 7.4 g/dl (6.4-8.2) 01/14/20 12:55 Albumin 3.0 g/dl (3.4-5.0) L 01/14/20 12:55 RPR Titer Nonreactive (NONREACTIVE) 01/14/20 12:55 HIV Ag/Ab Combo Qual Negative (NEGATIVE) 01/14/20 12:55 lab noted Assessment: 01/18/20 10:42 alcohol withdrawal Plan: librium regiment
[2020-01-18] MEDS: PRENATAL VITAMINS W/ FOLIC ACID TABLET (FP) PO SCH (11:10)
[2020-01-18] MEDS: THIAMINE HCL 100 MG TABLET (FP) PO SCH (21:18)
[2020-01-18] MEDS: MELATONIN 5 MG TABLETS PO SCH (21:18)
[2020-01-18] MEDS: TAMSULOSIN HCL 0.4 MG CAP PO SCH (21:19)
[2020-01-18] MEDS: LIDOCAINE PATCH REMOVAL MC SCH (21:22)
[2020-01-19] MEDS ORDERED: METHADONE HCL 40 MG DISPERSABLE TABLET ONE (04:29)
[2020-01-19] MEDS ORDERED: METHADONE HCL 10 MG TABLET ONE (04:29)
[2020-01-19] MEDS ORDERED: chlordiazePOXIDE HCL 10 MG CAPSULE PO ONE (05:00)
[2020-01-19] MEDS: hydrOXYzine PAMOATE 25 MG CAPSULE (FP) PO SCH ×5 (05:05→22:07)
[2020-01-19] MEDS: GABAPENTIN 400 MG CAPSULE PO SCH ×3 (05:05→22:07)
[2020-01-19] MEDS: METHADONE 80 MG, METHADONE 10 MG PO SCH (05:06)
[2020-01-19] MEDS: HYDROCHLOROTHIAZIDE 12.5 MG CAPSULE (FP) PO SCH (10:09)
[2020-01-19] MEDS: METHOCARBAMOL 500 MG TABLET PO SCH ×4 (10:09→22:07)
[2020-01-19] MEDS: PANTOPRAZOLE 20 MG TABLET PO SCH ×2 (10:09→22:07)
[2020-01-19] MEDS: PRENATAL VITAMINS W/ FOLIC ACID TABLET (FP) PO SCH (10:09)
[2020-01-19] MEDS: LISINOPRIL 10 MG TABLET (FP) PO SCH (10:09)
[2020-01-19] MEDS: NICOTINE 7 MG/24 HOURS TOPICAL PATCH TD SCH (10:10)
[2020-01-19] MEDS: SULFAMETHOXAZOLE/TRIMETHOPRIM 800MG/160MG D.S. TABLET PO SCH ×2 (10:29→22:07)
[2020-01-19] MEDS: LIDOCAINE 5% TOPICAL PATCH TP SCH (12:07)
[2020-01-19] MEDS: IBUPROFEN 400 MG TABLET (FP) PO PRN ×2 (13:46→20:06)
--- NOTE | 2020-01-19 15:47 | DS ---
[facility] Detox Discharge Summary Admission Date: 01/14/20 Discharge Date: 01/19/20 - History Present History: Alcohol Dependence - Physical Exam Results Vital Signs: Vital Signs Temperature 96.8 F L 01/19/20 12:54 Pulse Rate 90 01/19/20 12:54 Respiratory Rate 18 01/19/20 12:54 Blood Pressure 131/94 01/19/20 12:54 O2 Sat by Pulse Oximetry (%) 97 01/19/20 12:54 - Treatment Hospital Course: Detox Protocol Followed, Detoxed Safely, Responded well, Discharged Condition Good, Rehab Referral Accepted - Medication Discharge Medications: Ambulatory Orders Gabapentin 800 mg PO TID 08/10/19 Gabapentin [Neurontin -] 400 mg PO TID #30 capsule 08/14/19 Methocarbamol [Robaxin -] 500 mg PO QID #10 tablet 08/14/19 Quetiapine Fumarate [Seroquel -] 50 mg PO HS #30 tablet 08/14/19 Folic Acid - 1 mg PO DAILY 01/14/20 Tamsulosin HCl [Flomax] 0.4 mg PO HS 01/14/20 Thiamine Mononitrate [Vitamin B-1] 100 mg PO DAILY 01/14/20 Albuterol Sulfate [Albuterol Sulfate Hfa] 2 puff IH PRN PRN #1 inhaler 01/18/20 Hydrochlorothiazide [Hctz -] 12.5 mg PO DAILY #30 cap 01/18/20 Lisinopril [Prinivil] 10 mg PO DAILY #30 tablet 01/18/20 Sulfamethoxazole/Trimethoprim [Bactrim DS -] 1 tab PO BID #7 tablet 01/18/20 - AMA Did Patient Leave Against Medical Advice: No CIWA Score - CIWA Score Nausea/Vomitin-No Nausea/No Vomiting Muscle Tremors: None Anxiety: 1-Mildly Anxious Agitation: 0-Normal Activity Paroxysmal Sweats: No Perspiration Orientation: 0-Oriented Tacttile Disturbances: 1-Very Mild Itch/Numbness Auditory Disturbances: 0-None Visual Disturbances: 1-Very Mild Sensitivity Headache: 0-None Present CIWA-Ar Total Score: 3
--- NOTE | 2020-01-19 15:54 | PN ---
[facility] CIWA - CIWA Score Nausea/Vomitin-No Nausea/No Vomiting Muscle Tremors: 3 Anxiety: 3 Agitation: 0-Normal Activity Paroxysmal Sweats: 1-Minimal Palms Moist Orientation: 0-Oriented Tacttile Disturbances: 0-None Auditory Disturbances: 0-None Visual Disturbances: 2-Mild Sensitivity Headache: 0-None Present CIWA-Ar Total Score: 9 S Progress Note (SOAP) Subjective: 59 years old male admitted on 01/14/20 for alcohol withdrawal sx management treating with librium detox regiment feeling anxious about alcohol relapse that Mr Bloom struggles with alcohol sobriety x "years" and determines to do well for "my sister" and "myself" ambulating with cane feeling sad that "promised" [facility] tremor anxious restlessness Objective: 01/19/20 16:00 Vital Signs Temperature 96.8 F L 01/19/20 12:54 Pulse Rate 90 01/19/20 12:54 Respiratory Rate 18 01/19/20 12:54 Blood Pressure 131/94 01/19/20 12:54 O2 Sat by Pulse Oximetry (%) 97 01/19/20 12:54 Laboratory Last Values WBC 6.3 K/mm3 (4.0-10.0) 01/14/20 12:55 RBC 4.08 M/mm3 (4.00-5.60) 01/14/20 12:55 Hgb 10.0 GM/dL (11.7-16.9) L 01/14/20 12:55 Hct 31.7 % (35.4-49) L D 01/14/20 12:55 MCV 77.7 fl (80-96) L 01/14/20 12:55 MCH 24.6 pg (25.7-33.7) L 01/14/20 12:55 MCHC 31.6 g/dl (32.0-35.9) L 01/14/20 12:55 RDW 17.0 % (11.9-15.9) H 01/14/20 12:55 Plt Count 306 K/MM3 (134-434) 01/14/20 12:55 MPV 7.0 fl (7.5-11.1) L 01/14/20 12:55 Sodium 137 mmol/L (136-145) 01/14/20 12:55 Potassium 4.0 mmol/L (3.5-5.1) 01/14/20 12:55 Chloride 102 mmol/L (98-107) 01/14/20 12:55 Carbon Dioxide 28 mmol/L (21-32) 01/14/20 12:55 Anion Gap 7 MMOL/L (8-16) L 01/14/20 12:55 BUN 9.6 mg/dL (7-18) 01/14/20 12:55 Creatinine 0.7 mg/dL (0.55-1.3) 01/14/20 12:55 Est GFR (CKD-EPI)AfAm 119.72 01/14/20 12:55 Est GFR (CKD-EPI)NonAf 103.30 01/14/20 12:55 Random Glucose 89 mg/dL (74-106) 01/14/20 12:55 Calcium 8.5 mg/dL (8.5-10.1) 01/14/20 12:55 Total Bilirubin 0.4 mg/dL (0.2-1) 01/14/20 12:55 AST 14 U/L (15-37) L 01/14/20 12:55 ALT 18 U/L (13-61) 01/14/20 12:55 Alkaline Phosphatase 92 U/L (45-117) 01/14/20 12:55 Total Protein 7.4 g/dl (6.4-8.2) 01/14/20 12:55 Albumin 3.0 g/dl (3.4-5.0) L 01/14/20 12:55 RPR Titer Nonreactive (NONREACTIVE) 01/14/20 12:55 HIV Ag/Ab Combo Qual Negative (NEGATIVE) 01/14/20 12:55 lab noted Assessment: 01/19/20 16:01 alcohol withdrawal Plan: librium regiment
[2020-01-19] MEDS: TAMSULOSIN HCL 0.4 MG CAP PO SCH (22:07)
[2020-01-19] MEDS: THIAMINE HCL 100 MG TABLET (FP) PO SCH (22:07)
[2020-01-19] MEDS: LIDOCAINE PATCH REMOVAL MC SCH (22:08)
[2020-01-19] MEDS: MELATONIN 5 MG TABLETS PO SCH (22:11)
[2020-01-20] MEDS ORDERED: METHADONE HCL 10 MG TABLET ONE (05:07)
[2020-01-20] MEDS ORDERED: METHADONE HCL 40 MG DISPERSABLE TABLET ONE (05:07)
[2020-01-20] MEDS: METHADONE 80 MG, METHADONE 10 MG PO SCH (05:17)
[2020-01-20] MEDS: GABAPENTIN 400 MG CAPSULE PO SCH ×3 (05:18→22:03)
[2020-01-20] MEDS: hydrOXYzine PAMOATE 25 MG CAPSULE (FP) PO SCH ×2 (05:18→10:15)
[2020-01-20] MEDS: LIDOCAINE 5% TOPICAL PATCH TP SCH (10:09)
[2020-01-20] MEDS: SULFAMETHOXAZOLE/TRIMETHOPRIM 800MG/160MG D.S. TABLET PO SCH ×2 (10:10→22:02)
[2020-01-20] MEDS: METHOCARBAMOL 500 MG TABLET PO SCH ×4 (10:10→22:03)
[2020-01-20] MEDS: PANTOPRAZOLE 20 MG TABLET PO SCH ×2 (10:10→22:03)
[2020-01-20] MEDS: LISINOPRIL 10 MG TABLET (FP) PO SCH (10:10)
[2020-01-20] MEDS: HYDROCHLOROTHIAZIDE 12.5 MG CAPSULE (FP) PO SCH (10:11)
[2020-01-20] MEDS: IBUPROFEN 600 MG TABLET (FP) PO PRN ×2 (10:13→17:12)
[2020-01-20] MEDS: NICOTINE 7 MG/24 HOURS TOPICAL PATCH TD SCH (10:15)
[2020-01-20] MEDS: PRENATAL VITAMINS W/ FOLIC ACID TABLET (FP) PO SCH (10:15)
--- NOTE | 2020-01-20 12:09 | PN ---
[facility] CIWA - CIWA Score Nausea/Vomitin-No Nausea/No Vomiting Muscle Tremors: 1-None Visible, but [place] Anxiety: 1-Mildly Anxious Agitation: 1-Slight > Activity Paroxysmal Sweats: No Perspiration Orientation: 0-Oriented Tacttile Disturbances: 0-None Auditory Disturbances: 0-None Visual Disturbances: 0-None Headache: 0-None Present CIWA-Ar Total Score: 3 BHS Progress Note (SOAP) Subjective: alert,ambulation on the unit with right knee support,and cane support,pain in the back,knee,history of right knee replacement and arthritis multiple complaint Objective: 01/20/20 12:07 Vital Signs Temperature 98.7 F 01/20/20 08:41 Pulse Rate 100 H 01/20/20 08:41 Respiratory Rate 16 01/20/20 08:41 Blood Pressure 110/65 01/20/20 08:41 O2 Sat by Pulse Oximetry (%) 98 01/20/20 06:05 Assessment: 01/20/20 12:08 less withdrawal symptom Plan: problem with after care placement,increase motrin to 600 mgs po q 6 hrs prn for pain
[2020-01-20] MEDS: TAMSULOSIN HCL 0.4 MG CAP PO SCH (22:02)
[2020-01-20] MEDS: MELATONIN 5 MG TABLETS PO SCH (22:02)
[2020-01-20] MEDS: THIAMINE HCL 100 MG TABLET (FP) PO SCH (22:03)
[2020-01-20] MEDS: LIDOCAINE PATCH REMOVAL MC SCH (22:03)
[2020-01-21] MEDS ORDERED: METHADONE HCL 10 MG TABLET ONE (04:09)
[2020-01-21] MEDS ORDERED: METHADONE HCL 40 MG DISPERSABLE TABLET ONE (04:09)
[2020-01-21] MEDS: METHADONE 80 MG, METHADONE 10 MG PO SCH (05:54)
[2020-01-21] MEDS: GABAPENTIN 400 MG CAPSULE PO SCH (05:55)
[2020-01-21] MEDS: IBUPROFEN 600 MG TABLET (FP) PO PRN (06:18)
[2020-01-21 08:58] VITALS: BP 114/71; PULSE 94; TEMP 98.4
--- NOTE | 2020-01-21 09:24 | PN ---
[facility] CIWA - CIWA Score Nausea/Vomitin-No Nausea/No Vomiting Muscle Tremors: None Anxiety: 1-Mildly Anxious Agitation: 1-Slight > Activity Paroxysmal Sweats: No Perspiration Orientation: 0-Oriented Tacttile Disturbances: 0-None Auditory Disturbances: 0-None Visual Disturbances: 0-None Headache: 0-None Present CIWA-Ar Total Score: 2 BHS Progress Note (SOAP) Subjective: alert,anxious,pain in the back and right knee,ambulation with right knee immobilizer support and cane without assistance Objective: 01/21/20 09:23 Vital Signs Temperature 98.4 F 01/21/20 08:53 Pulse Rate 94 H 01/21/20 08:53 Respiratory Rate 18 01/21/20 08:53 Blood Pressure 114/71 01/21/20 08:53 O2 Sat by Pulse Oximetry (%) 98 01/21/20 05:47 Assessment: 01/21/20 09:23 no withdrawal symptom Plan: discharge today to [facility] for after care treatment
[2020-01-21] MEDS: METHOCARBAMOL 500 MG TABLET PO SCH (09:41)
[2020-01-21] MEDS: HYDROCHLOROTHIAZIDE 12.5 MG CAPSULE (FP) PO SCH (09:41)
[2020-01-21] MEDS: SULFAMETHOXAZOLE/TRIMETHOPRIM 800MG/160MG D.S. TABLET PO SCH (09:41)
[2020-01-21] MEDS: PANTOPRAZOLE 20 MG TABLET PO SCH (09:41)
[2020-01-21] MEDS: LIDOCAINE 5% TOPICAL PATCH TP SCH (09:41)
[2020-01-21] MEDS: PRENATAL VITAMINS W/ FOLIC ACID TABLET (FP) PO SCH (09:41)
[2020-01-21] MEDS: LISINOPRIL 10 MG TABLET (FP) PO SCH (09:41)
[2020-01-21] MEDS: NICOTINE 7 MG/24 HOURS TOPICAL PATCH TD SCH (09:42)
--- NOTE | 2020-01-21 09:47 | DS ---
[facility] Detox Discharge Summary Admission Date: 01/14/20 Discharge Date: 01/21/20 - History Present History: Alcohol Dependence, Cocaine Dependence, Opioid Dependence, MMTP Additional Comments: alert,oriented x 3 ambulation on the unit without assistance no abdominal pain pain in the right knee,back chronic had knee support and cane walking stable for discharge to rehab total time spending on discharge 35 mins patient stated that he has been on bactrim ds 1 tab po bid for knee problem Pertinent Past History: asthma bph history of total knee replacement right nicotine replacement arthritis ambulation with cane neuropathy hypertension - Physical Exam Results Vital Signs: Vital Signs Temperature 98.4 F 01/21/20 08:53 Pulse Rate 94 H 01/21/20 08:53 Respiratory Rate 18 01/21/20 08:53 Blood Pressure 114/71 01/21/20 08:53 O2 Sat by Pulse Oximetry (%) 98 01/21/20 05:47 Pertinent Admission Physical Exam Findings: withdrawal signs and symptom Laboratory Last Values WBC 6.3 K/mm3 (4.0-10.0) 01/14/20 12:55 RBC 4.08 M/mm3 (4.00-5.60) 01/14/20 12:55 Hgb 10.0 GM/dL (11.7-16.9) L 01/14/20 12:55 Hct 31.7 % (35.4-49) L D 01/14/20 12:55 MCV 77.7 fl (80-96) L 01/14/20 12:55 MCH 24.6 pg (25.7-33.7) L 01/14/20 12:55 MCHC 31.6 g/dl (32.0-35.9) L 01/14/20 12:55 RDW 17.0 % (11.9-15.9) H 01/14/20 12:55 Plt Count 306 K/MM3 (134-434) 01/14/20 12:55 MPV 7.0 fl (7.5-11.1) L 01/14/20 12:55 Sodium 137 mmol/L (136-145) 01/14/20 12:55 Potassium 4.0 mmol/L (3.5-5.1) 01/14/20 12:55 Chloride 102 mmol/L (98-107) 01/14/20 12:55 Carbon Dioxide 28 mmol/L (21-32) 01/14/20 12:55 Anion Gap 7 MMOL/L (8-16) L 01/14/20 12:55 BUN 9.6 mg/dL (7-18) 01/14/20 12:55 Creatinine 0.7 mg/dL (0.55-1.3) 01/14/20 12:55 Est GFR (CKD-EPI)AfAm 119.72 01/14/20 12:55 Est GFR (CKD-EPI)NonAf 103.30 01/14/20 12:55 Random Glucose 89 mg/dL (74-106) 01/14/20 12:55 Calcium 8.5 mg/dL (8.5-10.1) 01/14/20 12:55 Total Bilirubin 0.4 mg/dL (0.2-1) 01/14/20 12:55 AST 14 U/L (15-37) L 01/14/20 12:55 ALT 18 U/L (13-61) 01/14/20 12:55 Alkaline Phosphatase 92 U/L (45-117) 01/14/20 12:55 Total Protein 7.4 g/dl (6.4-8.2) 01/14/20 12:55 Albumin 3.0 g/dl (3.4-5.0) L 01/14/20 12:55 RPR Titer Nonreactive (NONREACTIVE) 01/14/20 12:55 HIV Ag/Ab Combo Qual Negative (NEGATIVE) 01/14/20 12:55 - Treatment Hospital Course: Detox Protocol Followed, Detoxed Safely, Responded well, Discharged Condition Good, Rehab Referral Accepted Patient has [facility]ed [facility] - Medication Discharge Medications: Ambulatory Orders Gabapentin 800 mg PO TID 08/10/19 Gabapentin [Neurontin -] 400 mg PO TID #30 capsule 08/14/19 Methocarbamol [Robaxin -] 500 mg PO QID #10 tablet 08/14/19 Quetiapine Fumarate [Seroquel -] 50 mg PO HS #30 tablet 08/14/19 Folic Acid - 1 mg PO DAILY 01/14/20 Tamsulosin HCl [Flomax] 0.4 mg PO HS 01/14/20 Thiamine Mononitrate [Vitamin B-1] 100 mg PO DAILY 01/14/20 Albuterol Sulfate [Albuterol Sulfate Hfa] 2 puff IH PRN PRN #1 inhaler 01/18/20 Hydrochlorothiazide [Hctz -] 12.5 mg PO DAILY #30 cap 01/18/20 Lisinopril [Prinivil] 10 mg PO DAILY #30 tablet 01/18/20 Sulfamethoxazole/Trimethoprim [Bactrim DS -] 1 tab PO BID #7 tablet 01/18/20 - Diagnosis (1) Alcohol dependence with uncomplicated withdrawal Current Visit: No Status: Acute (2) Methadone maintenance therapy patient Current Visit: Yes Status: Acute (3) Asthma Current Visit: Yes Status: Chronic Qualifiers: Asthma severity: mild Asthma persistence: intermittent Asthma complication type: with status asthmaticus Qualified Code(s): J45.22 - Mild intermittent asthma with status asthmaticus (4) BPH (benign prostatic hyperplasia) Current Visit: Yes Status: Chronic Qualifiers: Lower urinary tract symptom presence: symptoms present Lower urinary tract symptom detail: post-void dribbling Qualified Code(s): N40.1 - Benign prostatic hyperplasia with lower urinary tract symptoms; N39.43 - Post-void dribbling (5) Cocaine dependence, uncomplicated Current Visit: Yes Status: Chronic (6) Essential (primary) hypertension Current Visit: Yes Status: Chronic (7) Insomnia Current Visit: No Status: Chronic (8) Nicotine dependence Current Visit: No Status: Chronic (9) Heroin abuse Current Visit: Yes Status: Acute (10) Ambulates with cane Current Visit: Yes Status: Acute (11) History of total knee replacement Current Visit: Yes Status: Chronic Qualifiers: Laterality: right Qualified Code(s): Z96.651 - Presence of right artificial knee joint - AMA Did Patient Leave Against Medical Advice: No
== END 2020-01-21 11:46 | disposition other institution (70) | DRG 773 ==
LOC: YASAS 10:09 → Y3N 13:14
PROVIDERS: ADMIT Allergy & Immunology; ATTEND Allergy & Immunology
PROC: HZ2ZZZZ Detoxification Services for Substance Abuse Treatment (ICD-10-PCS; principal; 2020-01-14)
DX: F10.230 Alcohol dependence with withdrawal, uncomplicated (principal); F11.20 Opioid dependence, uncomplicated; F14.20 Cocaine dependence, uncomplicated; F17.210 Nicotine dependence, cigarettes, uncomplicated; G47.00 Insomnia, unspecified; G62.9 Polyneuropathy, unspecified; I10 Essential (primary) hypertension; J45.22 Mild intermittent asthma with status asthmaticus; M12.9 Arthropathy, unspecified; N40.1 Benign prostatic hyperplasia with lower urinary tract symptoms; N39.43 Post-void dribbling; Z96.651 Presence of right artificial knee joint; Z99.89 Dependence on other enabling machines and devices; Z59.0 Homelessness
CPT/HCPCS: 36415; 80053; 85027; 86593; 87389; Q0162

== ENCOUNTER 2020-07-28 10:37 | Inpatient (IN) | payer OTHER ==
--- NOTE | 2020-07-28 11:00 | BHS.RME ---
Substance Use & Tx History - Substance Use History Alcohol Substance amount: 1 pack beer 12 oz Frequency of use: Daily Substance route: Oral Date of Last Use: 07/28/20 (started age 17, drank very early this morning) Heroin Substance amount: 1 bundle Frequency of use: Daily Substance route: Inhalation (ex: sniffing or snorting) Date of Last Use: 07/27/20 (started age 58) Cocaine- Powder Substance amount: $20 Frequency of use: Daily Substance route: Inhalation (ex: sniffing or snorting) Nicotine Substance amount: 4-5 ciggs Frequency of use: Daily Substance route: Smoking Date of Last Use: 07/28/20 (started age 20) - Last Treatment Date of last treatment: 03/07-04/07/20 completed detox and rehab Treatment type: Substance Use Disorder (SUNI) Where was last treatment: Rehab Physical/Psych/Mental Status - Behavior General Behavior: Increased activity (restlessness, agitation) Eye Contact: Normal - Cooperativeness Cooperativeness: Cooperative - Thinking Thought Processes: Tight, Logical, Goal Directed - Physical Health Problems Is patient presently having any pain?: No Does patient presently have any injuries (include location): No Does patient currently have a fever: No Is patient : No CIWA Nausea/Vomitin-Mild Nausea/No Vomiting Muscle Tremors: 3 Anxiety: 3 Agitation: 3 Paroxysmal Sweats: 3 Orientation: 0-Oriented Tacttile Disturbances: 0-None Auditory Disturbances: 0-None Visual Disturbances: 1-Very Mild Sensitivity Headache: 1-Very Mild CIWA-Ar Total Score: 15
--- OUTSIDE RECORDS SUMMARY | 2020-07-28 11:05 | XMS ---
:1960 Author Organization [facility] Support Name Relationship Address Phone UE, UNEMPLOYED Unavailable Unavailable Unavailable CASTILLO TINSLEY SISTER UNKNOWN MICHELLE MARTINEZ [id number] UE Unavailable Unavailable Unavailable TESHA RAMIREZ FAMILY/OTHER [address] [place] [address] CASTILLO TINSLEY Sister UNKNOWN Unavailable MICHELLE MARTINEZ [id number] Re-disclosure Warning The records that you are about to access may contain information from federally- assisted alcohol or drug abuse programs. If such information is present, then the following federally mandated warning applies: This information has been disclosed to you from records protected by federal confidentiality rules (42 CFR part 2). The federal rules prohibit you from making any further disclosure of this information unless further disclosure is expressly permitted by the written consent of the person to whom it pertains or as otherwise permitted by 42 CFR part 2. A general authorization for the release of medical or other information is NOT sufficient for this purpose. The Federal rules restrict any use of the information to criminally investigate or prosecute any alcohol or drug abuse patient.The records that you are about to access may contain highly sensitive health information, the redisclosure of which is protected by Article 27-F of the [facility] Public Health law. If you continue you may haveaccess to information: Regarding HIV / AIDS; Provided by facilities licensed or operated by the [facility] Office of Mental Health; or Provided by the [facility] Office for People With Developmental Disabilities. If such information is present, then the following [facility] mandated warning applies: This information has been disclosed to you from confidential records which are protected by state law. State law prohibits you from making any further disclosure of this information without the specific written consent of the person to whom it pertains, or as otherwise permitted by law. Any unauthorized further disclosure in violation of state law may result in a fine or mcfp sentence or both. A general authorization for the release of medical or other information is NOT sufficient authorization for further disclosure. Insurance Providers Payer name Policy type Policy ID Covered Covered green party's Policy P gonzalez / Coverage green party ID relationship to [employer] Inf ormation type [facility] [id number] SP [id number] [facility] [id number] SP [id number] FIRST
--- NOTE | 2020-07-28 11:29 | HP ---
CIWA Score Nausea/Vomitin-Mild Nausea/No Vomiting Muscle Tremors: 3 Anxiety: 3 Agitation: 3 Paroxysmal Sweats: 3 Orientation: 0-Oriented Tacttile Disturbances: 0-None Auditory Disturbances: 0-None Visual Disturbances: 1-Very Mild Sensitivity Headache: 1-Very Mild CIWA-Ar Total Score: 15 - Admission Criteria OASAS Guidelines: Admission for Medically Managed Detox: Requires at least one of the followin. CIWA greater than 12 2. Seizures within the past 24 hours 3. Delirium tremens within the past 24 hours 4. Hallucinations within the past 24 hours 5. Acute intervention needed for co occurring medical disorder 6. Acute intervention needed for co occurring psychiatric disorder 7. Severe withdrawal that cannot be handled at a lower level of care (continued vomiting, continued diarrhea, abnormal vital signs) requiring intravenous medication and/or fluids 8. Admitting History and Physical - Admission Chief Complaint: Mr. Bloom is a 60 yo man who presents to [facility] requesting admission to detox for alcohol use disorder. He is on methadone maintenance. History of Present Illness: Mr. Bloom is a 60 yo man who presents to [facility] requesting admission to detox for alcohol use disorder. 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 Has narcan at home Cocaine- Powder Substance amount: $20 Frequency of use: Daily Substance route: Inhalation (ex: sniffing or snorting) Nicotine Substance amount: 4-5 ciggs Frequency of use: Daily Substance route: Smoking Date of Last Use: 07/28/20 (started age 20) - Last Treatment Date of last treatment: 03/07-04/07/20 completed detox and rehab Treatment type: Substance Use Disorder (SUNI) Where was last treatment: Rehab History Source: Patient, Caregiver - Past Medical History Cardiovascular: Yes: HTN Pulmonary: Yes: Asthma Renal/: Yes: BPH Rheumatology: Yes: Other (Arthritis) - Past Surgical History Past Surgical History: Yes: Joint Replacement - Smoking History Smoking history: Current every day smoker Have you smoked in the past 12 months: Yes Aproximately how many cigarettes per day: 4 If you are a former smoker, when did you quit?: Never smoked - Alcohol/Substance Use Hx Alcohol Use: Yes History of Substance Use: reports: Cocaine, Heroin - Social History ADL: Independent Occupation: unemployed History of Recent Travel: No Admission ROS S - HPI Allergies/Adverse Reactions: Allergies Allergy/AdvReac Type Severity Reaction Status Date / Time No Known Allergies Allergy Verified 07/28/20 11:30 Exam Limitations: No Limitations - Ebola screening Have you traveled outside of the country in the last 21 days: No Have you been sick,other than usual withdrawal symptoms: No Do you have a fever: No - Review of Systems Constitutional: No Symptoms Reported EENT: reports: Blurred Vision (glasses for reading, distance, has with him) Respiratory: reports: No Symptoms reported Cardiac: reports: No Symptoms Reported GI: reports: Nausea Musculoskeletal: reports: Back Pain, Joint Pain (chronic right knee bilateral shoulder) Integumentary: reports: Other (small scrape on scalp, vertex, superficial, pt not sure how he got that scrape) Neuro: reports: No Symptoms reported Endocrine: reports: No Symptoms Reported Hematology: reports: No Symptoms Reported Psychiatric: reports: other (insomnia) Patient History - Patient Medical History Hx Asthma: Yes Hx Chronic Obstructive Pulmonary Disease (COPD): No Hx Cardiac Disorders: No Hx Hypertension: No Hx Seizures: No Hx Diabetes: No Hx Gastrointestinal Disorders: No Hx Genitourinary Disorders: No Hx Sexually Transmitted Disorders: Yes (Tx for Syphilis in the past) Hx Renal Disease (ESRD): No Hx Depression: No Hx Suicide Attempt: No Hx Schizophrenia: No - Patient Surgical History Past Surgical History: Yes Hx Neurologic Surgery: No Hx Cataract Extraction: No Hx Cardiac Surgery: No Hx Lung Surgery: No Hx Breast Surgery: No Hx Breast Biopsy: No Hx Abdominal Surgery: No Hx Appendectomy: No Hx Cholecystectomy: No Hx Genitourinary Surgery: No Hx Section: No Hx Orthopedic Surgery: Yes (Right Total Knee replacement 02/23/2019) Anesthesia Reaction: No - PPD History Date: 04/15/19 Results: 0mm - Smoking Cessation Smoking history: Current every day smoker Have you smoked in the past 12 months: Yes Aproximately how many cigarettes per day: 4 If you are a former smoker, when did you quit?: Never smoked Hx Chewing Tobacco Use: No Initiated information on smoking cessation: Yes 'Breaking Loose' booklet given: 07/28/20 Admission Physical Exam S - Vital Signs Vital Signs: SHRADDHA: 0 - Physical General Appearance: Yes: No Apparent Distress, Nourished, Appropriately Dressed HEENTM: Yes: EOMI, Hearing grossly Normal, Normocephalic, Normal Voice Respiratory: Yes: Lungs Clear, No Respiratory Distress, No Accessory Muscle Use Neck: Yes: Within Normal Limits Breast: Yes: Breast Exam Deferred Cardiology: Yes: Regular Rhythm, Regular Rate Abdominal: Yes: Normal Bowel Sounds, Non Tender, Flat, Soft Back: Yes: Normal Inspection Musculoskeletal: Yes: Other (ambulates with two crutches, steady. When asked to ambulate without crutches, unsteady) Extremities: Yes: Other (right knee surgical scar, mild swelling) Neurological: Yes: Alert, Normal Response Integumentary: Yes: Normal Color, Dry, Warm - Diagnostic (1) Alcohol dependence with uncomplicated withdrawal Current Visit: Yes Status: Acute (2) Asthma Current Visit: Yes Status: Chronic Qualifiers: Asthma severity: mild Asthma persistence: intermittent Asthma complication type: with status asthmaticus Qualified Code(s): J45.22 - Mild intermittent asthma with status asthmaticus (3) Cocaine dependence Current Visit: Yes Status: Chronic Qualifiers: Substance use status: uncomplicated Qualified Code(s): F14.20 - Cocaine dependence, uncomplicated (4) Crutches as ambulation aid Current Visit: Yes Status: Chronic (5) Essential (primary) hypertension Current Visit: Yes Status: Chronic (6) History of total knee replacement Current Visit: No Status: Chronic Qualifiers: Laterality: right Qualified Code(s): Z96.651 - Presence of right artificial knee joint (7) Methadone maintenance therapy patient Current Visit: No Status: Chronic (8) Nicotine dependence Current Visit: Yes Status: Acute Qualifiers: Nicotine product type: cigarettes Substance use status: in withdrawal Qualified Code(s): F17.213 - Nicotine dependence, cigarettes, with withdrawal Cleared for Admission [facility] - Detox or Rehab [facility] Level of Care: Medically Managed Detox Regimen/Protocol: Librium Breathalyzer - Breathalyzer Breathalyzer: 0 POC Urine test - Test device test lot number: not applicable Urine Drug Screen - Test Device Lot number: [id number] Expiration date: 02/01/22 - Control Is test valid?: Yes - Results Drug screen NEGATIVE: No Urine drug screen results: DOMINIC-Cocaine, FEN-Fentanyl, MOP-Opiates, MTD-Methadone Inpatient Rehab Admission - Rehab Decision to Admit Inpatient rehab admission?: No
[2020-07-28] MEDS ORDERED: ALBUTEROL SO4 HFA INHALER IH PRN (11:38)
[2020-07-28] MEDS ORDERED: BISMUTH SUBSALICYLATE 262 MG/15 ML BTL PO PRN (11:41)
[2020-07-28] MEDS ORDERED: ONDANSETRON *ODT* 4 MG TABLET SL PRN (11:41)
[2020-07-28] MEDS ORDERED: MAGNESIUM CITRATE 300 ML BOTTLE PO PRN (11:41)
[2020-07-28] MEDS ORDERED: ACETAMINOPHEN 325 MG TABLET (FP) PO PRN ×2 (11:41)
[2020-07-28] MEDS ORDERED: MENTHOL/PHENOL 1 EACH UD MM PRN (11:41)
[2020-07-28] MEDS ORDERED: MAG HYDROX/AL HYDROX/SIMETH 30 ML UNIT-DOSE CUP PO PRN (11:41)
[2020-07-28] MEDS ORDERED: NICOTINE POLACRILEX 2 MG GUM BUC PRN (11:41)
[2020-07-28] MEDS ORDERED: chlordiazePOXIDE HCL 25 MG CAPSULE PO PRN (11:41)
[2020-07-28] MEDS ORDERED: MAGNESIUM HYDROX 2400MG/30ML ORAL SUSPENSION 30 ML CUP PO PRN (11:41)
[2020-07-28 12:09] VITALS: BMI 25.2
[2020-07-28] MEDS ORDERED: hydrOXYzine PAMOATE 25 MG CAPSULE (FP) PO PRN (12:21)
[2020-07-28] MEDS ORDERED: LIDOCAINE TP SCH (12:30)
[2020-07-28] MEDS ORDERED: GABAPENTIN 300 MG CAPSULE PO SCH (14:00)
[2020-07-28] MEDS ORDERED: GABAPENTIN 400 MG CAPSULE PO SCH (14:00)
[2020-07-28] MEDS ORDERED: LIDOCAINE 5% TOPICAL PATCH TP SCH (14:00)
[2020-07-28] MEDS ORDERED: hydrOXYzine PAMOATE 25 MG CAPSULE (FP) PO SCH (14:00)
[2020-07-28 14:39] LABS: HEMATOCRIT 34.6 % (35.4-49); HEMOGLOBIN 10.9 GM/dL (11.7-16.9); MCH 24.6 pg (25.7-33.7); MCHC 31.6 g/dl (32.0-35.9); MEAN CELL VOLUME 77.9 fl (80-96); MEAN PLT VOLUME 7.1 fl (7.5-11.1); PLATELET COUNT 252 K/MM3 (134-434); RBC 4.44 M/mm3 (4.00-5.60); WHITE BLOOD COUNT 8.7 K/mm3 (4.0-10.0)
[2020-07-28 14:46] LABS: ALBUMIN 3.7 g/dl (3.4-5.0); BILIRUBIN,TOTAL 0.1 mg/dL (0.2-1); BLOOD UREA NITROGEN 14.3 mg/dL (7-18); CREATININE 0.7 mg/dL (0.55-1.3); POTASSIUM 4.6 mmol/L (3.5-5.1); TOT PROT 7.5 g/dl (6.4-8.2)
--- NOTE | 2020-07-28 14:48 | CONSULT ---
[facility] Psychiatric Consult - Data Date of interview: 07/28/20 Admission source: Self-referred Identifying data: Mr Bloom is a60 years old single male, father of 2 sons, unemployed receiving SSI, seeking detox treatment for alcohol, opioid and cocaine Substance Abuse History: Reports history of alcohol, heroin and cocaine use. Refer to addiction counselor's summary for further information Medical History: Significant for bronchial asthma, hypertension, arthriris(shoulders), benign prostatic hyperplasia (BPH) and history of orthosurgery for right knee replacement 7-8 months ago. Patient is on methadone 90 mg/day from [facility]. Smokes 4-6 cigarettes daily Psychiatric History: Patient is known for multiple previous admissions to this facility. Reports his first psychiatric contact occured while in halfway from 2008 to 2011. He said that he was diagnosed with depression and prescribed Seroquel 50 mg/hs. After his release from halfway, he received outpatient p sychiatric treatment at various facilities including [facility], [facility] in the [place] and most recently 6 months ago a clinic at [address] [place] [address] in [facility], affiliated with parole. During his most recent admission to this facility, Seroquel 50 mg/hs for insomnia was continued. Told rewriter that he continues to take medication after his dicharge on 03/28/20 prescribed by a psychiatrist at [facility] clinic. Denies previous psychiatric hospitalization or suicidal attempt. Denies suicidal attempt by hanging as reported in that most recent admission. At present, denies depressive symptoms, S/H ideations. However, reports sleeping poorly off medication. Requests to continue Seroquel 50 mg/hs Physical/Sexual Abuse/Trauma History: History of incarceration (sex offense). Currently on parole. Mental Status Exam - Mental Status Exam Alert and Oriented to: Time, Place, Person Cognitive Function: Fair Patient Appearance: Disheveled Mood: Hopeful, Euthymic Affect: Appropriate Patient Behavior: Cooperative Speech Pattern: Clear Voice Loudness: Normal Thought Process: Intact, Goal Oriented Thought Disorder: Not Present Hallucinations: Denies Suicidal Ideation: Denies Homicidal Ideation: Denies Insight/Judgement: Poor Sleep: Poorly Appetite: Good Muscle strength/Tone: Normal Gait/Station: Normal Psychiatric Findings - Problem List ([place] 1, 2,3) (1) Substance-induced sleep disorder Current Visit: No Status: Acute (2) Alcohol dependence, uncomplicated Current Visit: Yes Status: Acute (3) Cocaine dependence Current Visit: Yes Status: Acute Qualifiers: Substance use status: uncomplicated Qualified Code(s): F14.20 - Cocaine dependence, uncomplicated (4) Opioid dependence on agonist therapy Current Visit: No Status: Chronic (5) Nicotine dependence Current Visit: Yes Status: Chronic Qualifiers: Nicotine product type: cigarettes Substance use status: in withdrawal Qualified Code(s): F17.213 - Nicotine dependence, cigarettes, with withdrawal (6) Asthma Current Visit: Yes Status: Chronic Qualifiers: Asthma severity: mild Asthma persistence: intermittent Asthma complication type: with status asthmaticus Qualified Code(s): J45.22 - Mild intermittent asthma with status asthmaticus (7) Essential (primary) hypertension Current Visit: Yes Status: Chronic (8) Anemia Current Visit: No Status: Chronic Qualifiers: Anemia type: unspecified type Qualified Code(s): D64.9 - Anemia, unspecified (9) BPH (benign prostatic hyperplasia) Current Visit: No Status: Chronic Qualifiers: Lower urinary tract symptom presence: symptoms present Lower urinary tract symptom detail: post-void dribbling Qualified Code(s): N40.1 - Benign prostatic hyperplasia with lower urinary tract symptoms; N39.43 - Post-void dribbling (10) GERD (gastroesophageal reflux disease) Current Visit: No Status: Chronic Qualifiers: Esophagitis presence: esophagitis presence not specified Qualified Code(s): K21.9 - Gastro-esophageal reflux disease without esophagitis (11) History of chronic pain Current Visit: No Status: Chronic (12) History of total knee replacement Current Visit: No Status: Resolved Qualifiers: Laterality: right Qualified Code(s): Z96.651 - Presence of right artificial knee joint (13) Osteoarthritis Current Visit: Yes Status: Chronic - Initial Treatment Plan Initial Treatment Plan: 1) Continue Seroquel 50 mg po HS. 2) Continue inp[atient detoxification
[2020-07-28] MEDS: METHOCARBAMOL 500 MG TABLET PO PRN (16:02)
[2020-07-28] MEDS: IBUPROFEN 400 MG TABLET (FP) PO PRN (16:03)
[2020-07-28] MEDS: chlordiazePOXIDE HCL 25 MG CAPSULE PO SCH ×2 (17:58→22:34)
[2020-07-28] MEDS: THIAMINE HCL 100 MG TABLET (FP) PO SCH (22:34)
[2020-07-28] MEDS: TAMSULOSIN HCL 0.4 MG CAP PO SCH (22:34)
[2020-07-28] MEDS: QUEtiapine FUMARATE 50 MG TABLET PO SCH (22:34)
[2020-07-28] MEDS: GABAPENTIN 400 MG CAPSULE PO SCH (22:34)
[2020-07-28] MEDS: LIDOCAINE PATCH REMOVAL MC SCH (22:34)
[2020-07-28] MEDS: MELATONIN 5 MG TABLETS PO SCH (22:34)
[2020-07-29] MEDS ORDERED: METHADONE HCL 40 MG DISPERSABLE TABLET ONE (05:56)
[2020-07-29] MEDS ORDERED: METHADONE HCL 10 MG TABLET ONE (05:56)
[2020-07-29] MEDS: METHADONE 80 MG, METHADONE 10 MG PO SCH (06:00)
[2020-07-29] MEDS ORDERED: METHADONE HCL 10 MG TABLET PO SCH (06:00)
[2020-07-29] MEDS: chlordiazePOXIDE HCL 25 MG CAPSULE PO SCH ×4 (06:00→22:00)
[2020-07-29] MEDS ORDERED: FERROUS SO4 325 MG TABLET (FP) PO SCH (10:00)
[2020-07-29] MEDS: NICOTINE 7 MG/24 HOURS TOPICAL PATCH TD SCH (10:50)
[2020-07-29] MEDS: PRENATAL VITAMINS W/ FOLIC ACID TABLET (FP) PO SCH (10:50)
[2020-07-29] MEDS: GABAPENTIN 400 MG CAPSULE PO SCH ×2 (10:51→22:00)
[2020-07-29] MEDS: LIDOCAINE 5% TOPICAL PATCH TP SCH (10:51)
[2020-07-29] MEDS: PANTOPRAZOLE 40 MG TABLET PO SCH (10:51)
[2020-07-29] MEDS: METHOCARBAMOL 500 MG TABLET PO PRN ×2 (10:56→22:04)
[2020-07-29] MEDS: IBUPROFEN 400 MG TABLET (FP) PO PRN (10:58)
[2020-07-29] MEDS: LISINOPRIL 10 MG TABLET PO SCH (14:11)
[2020-07-29] MEDS: HYDROCHLOROTHIAZIDE 12.5 MG CAPSULE (FP) PO SCH (14:11)
--- NOTE | 2020-07-29 16:06 | PN ---
[facility] CIWA - CIWA Score Nausea/Vomitin-No Nausea/No Vomiting Muscle Tremors: 2 Anxiety: 5 Agitation: 4-Moderately Restless Paroxysmal Sweats: No Perspiration Orientation: 0-Oriented Tacttile Disturbances: 2-Mild Itch/Numbness/Burn Auditory Disturbances: 0-None Visual Disturbances: 0-None Headache: 0-None Present CIWA-Ar Total Score: 13 BHS Progress Note (SOAP) Subjective: Anxious, Restless, Body Aches, Sweating, Interrupted Sleep, Poor Appetite. Objective: Patient A & O X 3, Observed Ambulating on Detox Unit. In No Acute Distress. 07/29/20 16:02 Vital Signs Temperature 97.8 F 07/29/20 12:51 Pulse Rate 68 07/29/20 12:51 Respiratory Rate 18 07/29/20 12:51 Blood Pressure 146/81 07/29/20 12:51 O2 Sat by Pulse Oximetry (%) 98 07/29/20 12:51 Laboratory Tests 07/28/20 07/28/20 07/28/20 12:05 12:05 12:05 WBC 8.7 RBC 4.44 Hgb 10.9 L Hct 34.6 L MCV 77.9 L MCH 24.6 L MCHC 31.6 L RDW 17.0 H Plt Count 252 MPV 7.1 L Sodium 140 Potassium 4.6 Chloride 108 H Carbon Dioxide 29 Anion Gap 3 L BUN 14.3 Creatinine 0.7 Est GFR (CKD-EPI)AfAm 118.88 Est GFR (CKD-EPI)NonAf 102.57 Random Glucose 92 Calcium 9.0 Total Bilirubin 0.1 L AST 9 L ALT 15 Alkaline Phosphatase 137 H Total Protein 7.5 Albumin 3.7 Syphilis Serology RPR Titer COVID-19 (KELLY) HIV Ag/Ab Combo Qual Negative 07/28/20 07/28/20 07/28/20 12:05 12:05 12:25 WBC RBC Hgb Hct MCV MCH MCHC RDW Plt Count MPV Sodium Potassium Chloride Carbon Dioxide Anion Gap BUN Creatinine Est GFR (CKD-EPI)AfAm Est GFR (CKD-EPI)NonAf Random Glucose Calcium Total Bilirubin AST ALT Alkaline Phosphatase Total Protein Albumin Syphilis Serology Reactive A* RPR Titer Reactive 1:1 H COVID-19 (KELLY) Not detected HIV Ag/Ab Combo Qual Lab results noted. Detox Admission RPR Result noted: Reactive A; Reactive, Titer 1:1. Patient reports that he completed treatment for Syphilis in the past. 07/29/20 16:03 Assessment: 07/29/20 16:01 WITHDRAWAL SYMPTOMS. ANEMIA ELEVATED ALKALINE PHOSPHATASE LEVEL. REACTIVE RPR. Plan: Continue Detox. Ensure PO for caloric supplementation. Continue Feosol (increase to BID frequency) for treatment of Anemia. Patient is currently receiving daily MVI containing B Vitamins and Iron while admitted for Detox.
[2020-07-29] MEDS: FERROUS SO4 325 MG TABLET (FP) PO SCH (17:17)
[2020-07-29] MEDS: TAMSULOSIN HCL 0.4 MG CAP PO SCH (22:00)
[2020-07-29] MEDS: QUEtiapine FUMARATE 50 MG TABLET PO SCH (22:00)
[2020-07-29] MEDS: LIDOCAINE PATCH REMOVAL MC SCH (22:00)
[2020-07-29] MEDS: MELATONIN 5 MG TABLETS PO SCH (22:01)
[2020-07-29] MEDS: THIAMINE HCL 100 MG TABLET (FP) PO SCH (22:01)
[2020-07-29] MEDS: IBUPROFEN 600 MG TABLET (FP) PO PRN (22:04)
[2020-07-30] MEDS ORDERED: METHADONE HCL 10 MG TABLET ONE (04:29)
[2020-07-30] MEDS ORDERED: METHADONE HCL 40 MG DISPERSABLE TABLET ONE (04:30)
[2020-07-30] MEDS: METHADONE 80 MG, METHADONE 10 MG PO SCH (05:13)
[2020-07-30] MEDS: chlordiazePOXIDE HCL 25 MG CAPSULE PO SCH ×4 (05:13→22:06)
[2020-07-30] MEDS: FERROUS SO4 325 MG TABLET (FP) PO SCH ×2 (07:30→18:05)
[2020-07-30] MEDS: PANTOPRAZOLE 40 MG TABLET PO SCH (10:49)
[2020-07-30] MEDS: NICOTINE 7 MG/24 HOURS TOPICAL PATCH TD SCH (10:49)
[2020-07-30] MEDS: PRENATAL VITAMINS W/ FOLIC ACID TABLET (FP) PO SCH (10:49)
[2020-07-30] MEDS: LIDOCAINE 5% TOPICAL PATCH TP SCH (10:53)
[2020-07-30] MEDS: IBUPROFEN 600 MG TABLET (FP) PO PRN ×2 (10:56→22:12)
[2020-07-30] MEDS: METHOCARBAMOL 500 MG TABLET PO PRN ×2 (10:56→19:23)
--- NOTE | 2020-07-30 14:12 | PN ---
S CIWA - CIWA Score Nausea/Vomitin-Mild Nausea/No Vomiting Muscle Tremors: 2 Anxiety: 2 Agitation: 2 Paroxysmal Sweats: 2 Orientation: 0-Oriented Tacttile Disturbances: 0-None Auditory Disturbances: 0-None Visual Disturbances: 0-None Headache: 0-None Present CIWA-Ar Total Score: 9 BHS Progress Note (SOAP) Subjective: Patient asleep but easily arousable, refused to speak with junior copywriter Objective: 07/30/20 14:09 Last Vital Signs Temp Pulse Resp BP Pulse Ox 97.7 F 83 20 118/62 100 07/30/20 12:58 07/30/20 12:58 07/30/20 12:58 07/30/20 12:58 07/30/20 12:58 Laboratory Tests 07/28/20 07/28/20 07/28/20 12:05 12:05 12:05 WBC 8.7 RBC 4.44 Hgb 10.9 L Hct 34.6 L MCV 77.9 L MCH 24.6 L MCHC 31.6 L RDW 17.0 H Plt Count 252 MPV 7.1 L Sodium 140 Potassium 4.6 Chloride 108 H Carbon Dioxide 29 Anion Gap 3 L BUN 14.3 Creatinine 0.7 Est GFR (CKD-EPI)AfAm 118.88 Est GFR (CKD-EPI)NonAf 102.57 Random Glucose 92 Calcium 9.0 Total Bilirubin 0.1 L AST 9 L ALT 15 Alkaline Phosphatase 137 H Total Protein 7.5 Albumin 3.7 Syphilis Serology RPR Titer COVID-19 (KELLY) HIV Ag/Ab Combo Qual Negative 07/28/20 07/28/20 07/28/20 12:05 12:05 12:25 WBC RBC Hgb Hct MCV MCH MCHC RDW Plt Count MPV Sodium Potassium Chloride Carbon Dioxide Anion Gap BUN Creatinine Est GFR (CKD-EPI)AfAm Est GFR (CKD-EPI)NonAf Random Glucose Calcium Total Bilirubin AST ALT Alkaline Phosphatase Total Protein Albumin Syphilis Serology Reactive A* RPR Titer Reactive 1:1 H COVID-19 (KELLY) Not detected HIV Ag/Ab Combo Qual Labs reviewed: anemia noted Assessment: 07/30/20 14:10 Withdrawal sxs Noted with anemia Plan: Continue detox Encourage PO water intake Anemia: patient is on vitamins and PO iron supplement, follow up with PCP for management post discharge
[2020-07-30] MEDS: HYDROCHLOROTHIAZIDE 12.5 MG CAPSULE (FP) PO SCH (14:51)
[2020-07-30] MEDS: LISINOPRIL 10 MG TABLET PO SCH (14:51)
[2020-07-30] MEDS: GABAPENTIN 400 MG CAPSULE PO SCH ×2 (15:33→22:06)
[2020-07-30] MEDS: TAMSULOSIN HCL 0.4 MG CAP PO SCH (22:06)
[2020-07-30] MEDS: QUEtiapine FUMARATE 50 MG TABLET PO SCH (22:06)
[2020-07-30] MEDS: MELATONIN 5 MG TABLETS PO SCH (22:07)
[2020-07-30] MEDS: LIDOCAINE PATCH REMOVAL MC SCH (22:08)
[2020-07-30] MEDS: THIAMINE HCL 100 MG TABLET (FP) PO SCH (23:13)
[2020-07-31] MEDS ORDERED: chlordiazePOXIDE HCL 10 MG CAPSULE PO PRN
[2020-07-31] MEDS ORDERED: METHADONE HCL 10 MG TABLET ONE (06:05)
[2020-07-31] MEDS ORDERED: METHADONE HCL 40 MG DISPERSABLE TABLET ONE (06:06)
[2020-07-31] MEDS: METHADONE 80 MG, METHADONE 10 MG PO SCH (06:08)
[2020-07-31] MEDS: chlordiazePOXIDE HCL 10 MG CAPSULE PO SCH ×4 (06:09→22:02)
[2020-07-31] MEDS: FERROUS SO4 325 MG TABLET (FP) PO SCH ×2 (07:04→17:33)
[2020-07-31] MEDS: LIDOCAINE 5% TOPICAL PATCH TP SCH (10:12)
[2020-07-31] MEDS: LISINOPRIL 10 MG TABLET PO SCH (10:12)
[2020-07-31] MEDS: HYDROCHLOROTHIAZIDE 12.5 MG CAPSULE (FP) PO SCH (10:12)
[2020-07-31] MEDS: PANTOPRAZOLE 40 MG TABLET PO SCH (10:12)
[2020-07-31] MEDS: NICOTINE 7 MG/24 HOURS TOPICAL PATCH TD SCH (10:12)
[2020-07-31] MEDS: PRENATAL VITAMINS W/ FOLIC ACID TABLET (FP) PO SCH (10:12)
[2020-07-31] MEDS: IBUPROFEN 600 MG TABLET (FP) PO PRN ×2 (10:17→17:33)
[2020-07-31] MEDS: GABAPENTIN 400 MG CAPSULE PO SCH ×2 (11:05→22:02)
--- NOTE | 2020-07-31 11:35 | PN ---
S CIWA - CIWA Score Nausea/Vomitin-Mild Nausea/No Vomiting Muscle Tremors: 2 Anxiety: 2 Agitation: 2 Paroxysmal Sweats: No Perspiration Orientation: 0-Oriented Tacttile Disturbances: 1-Very Mild Itch/Numbness Auditory Disturbances: 0-None Visual Disturbances: 0-None Headache: 1-Very Mild CIWA-Ar Total Score: 9 BHS Progress Note (SOAP) Subjective: alert,irritable,anxious,interrupted sleep,aching pain Objective: 07/31/20 11:34 Vital Signs Temperature 97.7 F 07/31/20 09:10 Pulse Rate 79 07/31/20 09:10 Respiratory Rate 20 07/31/20 09:10 Blood Pressure 153/83 07/31/20 09:10 O2 Sat by Pulse Oximetry (%) 99 07/31/20 09:10 Assessment: 07/31/20 11:34 withdrawal symptom Plan: continue detox librium regimen
[2020-07-31] MEDS: METHOCARBAMOL 500 MG TABLET PO PRN (17:33)
[2020-07-31] MEDS: THIAMINE HCL 100 MG TABLET (FP) PO SCH (22:02)
[2020-07-31] MEDS: TAMSULOSIN HCL 0.4 MG CAP PO SCH (22:02)
[2020-07-31] MEDS: QUEtiapine FUMARATE 50 MG TABLET PO SCH (22:02)
[2020-07-31] MEDS: MELATONIN 5 MG TABLETS PO SCH (22:03)
[2020-07-31] MEDS: LIDOCAINE PATCH REMOVAL MC SCH (22:03)
[2020-08-01] MEDS ORDERED: METHADONE HCL 10 MG TABLET ONE (04:23)
[2020-08-01] MEDS ORDERED: METHADONE HCL 40 MG DISPERSABLE TABLET ONE (04:23)
[2020-08-01] MEDS: chlordiazePOXIDE HCL 10 MG CAPSULE PO SCH ×2 (05:11→17:07)
[2020-08-01] MEDS: METHADONE 80 MG, METHADONE 10 MG PO SCH (05:12)
[2020-08-01] MEDS: FERROUS SO4 325 MG TABLET (FP) PO SCH ×2 (07:51→17:07)
--- NOTE | 2020-08-01 09:47 | PN ---
[facility] CIWA - CIWA Score Nausea/Vomitin-Mild Nausea/No Vomiting Muscle Tremors: 2 Anxiety: 2 Agitation: 1-Slight > Activity Paroxysmal Sweats: No Perspiration Orientation: 0-Oriented Tacttile Disturbances: 0-None Auditory Disturbances: 0-None Visual Disturbances: 0-None Headache: 1-Very Mild CIWA-Ar Total Score: 7 S Progress Note (SOAP) Subjective: alert,irritable,anxious,interrupted sleep,aching pain Objective: 08/01/20 12:22 Vital Signs Temperature 98.7 F 08/01/20 09:12 Pulse Rate 90 08/01/20 09:12 Respiratory Rate 19 08/01/20 09:12 Blood Pressure 139/78 08/01/20 09:12 O2 Sat by Pulse Oximetry (%) 96 08/01/20 09:12 Assessment: 08/01/20 12:23 withdrawal symptom Plan: continue detox librium regimen,mmtp 90 mgs/day maintenance,discharge in am
[2020-08-01] MEDS: PRENATAL VITAMINS W/ FOLIC ACID TABLET (FP) PO SCH (10:41)
[2020-08-01] MEDS: LISINOPRIL 10 MG TABLET PO SCH (10:41)
[2020-08-01] MEDS: PANTOPRAZOLE 40 MG TABLET PO SCH (10:41)
[2020-08-01] MEDS: HYDROCHLOROTHIAZIDE 12.5 MG CAPSULE (FP) PO SCH (10:41)
[2020-08-01] MEDS: NICOTINE 7 MG/24 HOURS TOPICAL PATCH TD SCH (10:41)
[2020-08-01] MEDS: GABAPENTIN 400 MG CAPSULE PO SCH ×2 (10:41→22:05)
[2020-08-01] MEDS: LIDOCAINE 5% TOPICAL PATCH TP SCH (10:41)
[2020-08-01] MEDS: IBUPROFEN 600 MG TABLET (FP) PO PRN ×2 (10:47→17:07)
[2020-08-01] MEDS: METHOCARBAMOL 500 MG TABLET PO PRN ×2 (10:47→17:07)
[2020-08-01] MEDS: TAMSULOSIN HCL 0.4 MG CAP PO SCH (22:04)
[2020-08-01] MEDS: THIAMINE HCL 100 MG TABLET (FP) PO SCH (22:04)
[2020-08-01] MEDS: MELATONIN 5 MG TABLETS PO SCH (22:04)
[2020-08-01] MEDS: LIDOCAINE PATCH REMOVAL MC SCH (22:04)
[2020-08-01] MEDS: QUEtiapine FUMARATE 50 MG TABLET PO SCH (22:04)
[2020-08-02] MEDS: IBUPROFEN 600 MG TABLET (FP) PO PRN ×2 (00:54→11:05)
[2020-08-02] MEDS: METHOCARBAMOL 500 MG TABLET PO PRN ×2 (00:54→11:04)
[2020-08-02] MEDS ORDERED: METHADONE HCL 40 MG DISPERSABLE TABLET ONE (04:02)
[2020-08-02] MEDS ORDERED: METHADONE HCL 10 MG TABLET ONE (04:02)
[2020-08-02] MEDS ORDERED: chlordiazePOXIDE HCL 10 MG CAPSULE PO ONE (05:00)
[2020-08-02] MEDS: METHADONE 80 MG, METHADONE 10 MG PO SCH (05:10)
[2020-08-02] MEDS: FERROUS SO4 325 MG TABLET (FP) PO SCH (07:19)
--- NOTE | 2020-08-02 08:24 | DS ---
[facility] Detox Discharge Summary Admission Date: 07/28/20 Discharge Date: 08/02/20 - History Present History: Alcohol Dependence, Cocaine Dependence, MMTP - Physical Exam Results Vital Signs: Vital Signs Temperature 97.3 F L 08/02/20 05:53 Pulse Rate 83 08/02/20 05:53 Respiratory Rate 18 08/02/20 05:53 Blood Pressure 135/77 08/02/20 05:53 O2 Sat by Pulse Oximetry (%) 96 08/02/20 05:53 Pertinent Admission Physical Exam Findings: Vital Signs Temperature 97.3 F L 08/02/20 05:53 Pulse Rate 83 08/02/20 05:53 Respiratory Rate 18 08/02/20 05:53 Blood Pressure 135/77 08/02/20 05:53 O2 Sat by Pulse Oximetry (%) 96 08/02/20 05:53 Laboratory Tests 07/28/20 07/28/20 07/28/20 12:05 12:05 12:05 WBC 8.7 RBC 4.44 Hgb 10.9 L Hct 34.6 L MCV 77.9 L MCH 24.6 L MCHC 31.6 L RDW 17.0 H Plt Count 252 MPV 7.1 L Sodium 140 Potassium 4.6 Chloride 108 H Carbon Dioxide 29 Anion Gap 3 L BUN 14.3 Creatinine 0.7 Est GFR (CKD-EPI)AfAm 118.88 Est GFR (CKD-EPI)NonAf 102.57 Random Glucose 92 Calcium 9.0 Total Bilirubin 0.1 L AST 9 L ALT 15 Alkaline Phosphatase 137 H Total Protein 7.5 Albumin 3.7 Syphilis Serology RPR Titer COVID-19 (KELLY) HIV Ag/Ab Combo Qual Negative 07/28/20 07/28/20 07/28/20 12:05 12:05 12:25 WBC RBC Hgb Hct MCV MCH MCHC RDW Plt Count MPV Sodium Potassium Chloride Carbon Dioxide Anion Gap BUN Creatinine Est GFR (CKD-EPI)AfAm Est GFR (CKD-EPI)NonAf Random Glucose Calcium Total Bilirubin AST ALT Alkaline Phosphatase Total Protein Albumin Syphilis Serology Reactive A* RPR Titer Reactive 1:1 H COVID-19 (KELLY) Not detected HIV Ag/Ab Combo Qual labs noted aaox3 ambulating no acute distress lungs CTA - Treatment Hospital Course: Detox Protocol Followed, Detoxed Safely, Responded well, Discharged Condition Good, Rehab Referral Accepted - Medication Discharge Medications: Ambulatory Orders Folic Acid - 1 mg PO DAILY #14 tablet 02/03/20 Methocarbamol [Robaxin -] 500 mg PO BID 03/07/20 Albuterol Sulfate [Albuterol Sulfate Hfa] 2 puff IH PRN PRN #1 inhaler 04/06/20 Hydrochlorothiazide [Hctz -] 12.5 mg PO DAILY #30 cap 04/06/20 Lisinopril [Prinivil] 10 mg PO DAILY #30 tablet 04/06/20 Quetiapine Fumarate [Seroquel -] 100 mg PO HS #30 tablet 04/06/20 Tamsulosin HCl [Flomax] 0.4 mg PO HS #14 cap 04/06/20 Gabapentin [Neurontin] 800 mg PO BID 07/28/20 Hydroxyzine HCl 50 mg PO DAILY 07/28/20 Lidocaine 5% Patch [Lidoderm Patch -] 1 patch TP DAILY 07/28/20 Methocarbamol [Robaxin -] 500 mg PO TID 07/28/20 - Diagnosis (1) Alcohol dependence, uncomplicated Current Visit: Yes Status: Chronic (2) Cocaine dependence Current Visit: Yes Status: Chronic Qualifiers: Substance use status: uncomplicated Qualified Code(s): F14.20 - Cocaine dependence, uncomplicated (3) Elevated alkaline phosphatase level Current Visit: Yes Status: Acute (4) Positive RPR test Current Visit: Yes Status: Acute (5) Anemia Current Visit: Yes Status: Chronic Qualifiers: Anemia type: unspecified type Qualified Code(s): D64.9 - Anemia, unspecified (6) Asthma Current Visit: Yes Status: Chronic Qualifiers: Asthma severity: mild Asthma persistence: intermittent Asthma complication type: with status asthmaticus Qualified Code(s): J45.22 - Mild intermittent asthma with status asthmaticus (7) Essential (primary) hypertension Current Visit: Yes Status: Chronic (8) Nicotine dependence Current Visit: Yes Status: Chronic Qualifiers: Nicotine product type: cigarettes Substance use status: uncomplicated Qualified Code(s): F17.210 - Nicotine dependence, cigarettes, uncomplicated (9) Osteoarthritis Current Visit: Yes Status: Chronic (10) Ambulates with cane Current Visit: No Status: Acute (11) Cocaine dependence, uncomplicated Current Visit: Yes Status: Acute (12) Substance-induced sleep disorder Current Visit: No Status: Acute (13) BPH (benign prostatic hyperplasia) Current Visit: No Status: Chronic Qualifiers: Lower urinary tract symptom presence: symptoms present Lower urinary tract symptom detail: post-void dribbling Qualified Code(s): N40.1 - Benign prostatic hyperplasia with lower urinary tract symptoms; N39.43 - Post-void dribbling (14) GERD (gastroesophageal reflux disease) Current Visit: No Status: Chronic Qualifiers: Esophagitis presence: esophagitis presence not specified Qualified Code(s): K21.9 - Gastro-esophageal reflux disease without esophagitis (15) History of anxiety disorder Current Visit: No Status: Chronic (16) History of chronic pain Current Visit: No Status: Chronic (17) Insomnia Current Visit: No Status: Chronic (18) Methadone maintenance therapy patient Current Visit: Yes Status: Chronic (19) Substance induced mood disorder Current Visit: No Status: Suspected (20) History of total knee replacement Current Visit: No Status: Resolved Qualifiers: Laterality: right Qualified Code(s): Z96.651 - Presence of right artificial knee joint - AMA Did Patient Leave Against Medical Advice: No
[2020-08-02] MEDS: GABAPENTIN 400 MG CAPSULE PO SCH (11:02)
[2020-08-02] MEDS: PANTOPRAZOLE 40 MG TABLET PO SCH (11:02)
[2020-08-02] MEDS: LISINOPRIL 10 MG TABLET PO SCH (11:02)
[2020-08-02] MEDS: HYDROCHLOROTHIAZIDE 12.5 MG CAPSULE (FP) PO SCH (11:02)
[2020-08-02] MEDS: PRENATAL VITAMINS W/ FOLIC ACID TABLET (FP) PO SCH (11:03)
[2020-08-02] MEDS: NICOTINE 7 MG/24 HOURS TOPICAL PATCH TD SCH (11:07)
[2020-08-02] MEDS: LIDOCAINE 5% TOPICAL PATCH TP SCH (11:07)
[2020-08-02 11:14] VITALS: BP 143/87; PULSE 109; TEMP 97.8
== END 2020-08-02 11:35 | disposition other institution (70) | DRG 773 ==
LOC: YASAS 10:37 → Y6N 12:06
PROVIDERS: ADMIT Allergy & Immunology; ATTEND Allergy & Immunology
PROC: HZ2ZZZZ Detoxification Services for Substance Abuse Treatment (ICD-10-PCS; principal; 2020-07-28)
DX: F10.230 Alcohol dependence with withdrawal, uncomplicated (principal); F14.20 Cocaine dependence, uncomplicated; F11.20 Opioid dependence, uncomplicated; F17.210 Nicotine dependence, cigarettes, uncomplicated; F19.282 Other psychoactive substance dependence with psychoactive substance-induced sleep disorder; F19.24 Other psychoactive substance dependence with psychoactive substance-induced mood disorder; F41.9 Anxiety disorder, unspecified; D64.9 Anemia, unspecified; I10 Essential (primary) hypertension; J45.20 Mild intermittent asthma, uncomplicated; G47.00 Insomnia, unspecified; N40.1 Benign prostatic hyperplasia with lower urinary tract symptoms; N39.43 Post-void dribbling; M19.90 Unspecified osteoarthritis, unspecified site; R74.8 Abnormal levels of other serum enzymes; Z96.651 Presence of right artificial knee joint; Z59.0 Homelessness; Z56.0 Unemployment, unspecified; Z99.89 Dependence on other enabling machines and devices
CPT/HCPCS: 36415; 80053; 85027; 86593; 86780; 87389; Q0162; U0003

== ENCOUNTER 2020-08-02 11:21 | Inpatient (IN) | payer OTHER ==
[2020-08-02] MEDS ORDERED: MAGNESIUM HYDROX 2400MG/30ML ORAL SUSPENSION 30 ML CUP PO PRN (12:44)
[2020-08-02] MEDS ORDERED: ACETAMINOPHEN 325 MG TABLET (FP) PO PRN (12:44)
[2020-08-02] MEDS ORDERED: MAG HYDROX/AL HYDROX/SIMETH 30 ML UNIT-DOSE CUP PO PRN (12:44)
[2020-08-02] MEDS ORDERED: P-EPHED 60MG/TRIPROLIDI 2.5MG TABLET PO PRN (12:44)
[2020-08-02] MEDS ORDERED: MAGNESIUM CITRATE 300 ML BOTTLE PO PRN (12:44)
[2020-08-02] MEDS ORDERED: LOPERAMIDE HCL 2 MG CAPSULE PO PRN (12:44)
[2020-08-02] MEDS ORDERED: guaiFENesin 200 MG/10 ML 10 ML UNIT-DOSE CUPS PO PRN (12:44)
[2020-08-02] MEDS ORDERED: MENTHOL/PHENOL 1 EACH UD MM PRN (12:44)
[2020-08-02] MEDS ORDERED: ALBUTEROL SO4 HFA INHALER IH PRN (12:51)
[2020-08-02] MEDS ORDERED: NICOTINE POLACRILEX 2 MG GUM BUC PRN (12:51)
--- NOTE | 2020-08-02 12:56 | HP ---
[facility] Rehab Assess/Revision - Admission History Admitted to Rehab from: [facility] Date of Admission to Rehab: 08/02/2020 - Vital signs Vital Signs: Vital Signs Period Temp Pulse Resp BP Sys/Tian Pulse Ox Last 24 Hr 98.5 F 98 18 121/84 - Findings Detox History & Physical reviewed: Yes Concur with findings: Yes Comments/Additional Findings: Physical. General Appearance: No Apparent Distress,. HEENTM: EOMI, Normocephalic,. Respiratory: No Respiratory Distress, No Accessory Muscle Use. Neck: Supple. Abdominal: +Bowel Sounds,. Musculoskeletal: ambulates with cane steady. Neurological: No cognitive deficits. Inpatient Rehab Admission - Rehab Decision to Admit Inpatient rehab admission?: Yes - Initial Determination Are CD services needed?: Yes Free of communicable disease: Yes Not in need of hospitalization: Yes - Rehab Admission Criteria Previous failed treatment: Yes Poor recovery environment: Yes Comorbidities: Yes Lacks judgement: Yes Patient is meeting Inpatient Rehab admission criteria:: Yes
[2020-08-02] MEDS: METHOCARBAMOL 500 MG TABLET PO SCH ×2 (14:52→21:18)
[2020-08-02] MEDS: hydrOXYzine PAMOATE 25 MG CAPSULE (FP) PO PRN (15:52)
[2020-08-02] MEDS: IBUPROFEN 400 MG TABLET (FP) PO PRN (18:52)
[2020-08-02] MEDS: GABAPENTIN 400 MG CAPSULE PO SCH (21:18)
[2020-08-02] MEDS: MELATONIN 5 MG TABLETS PO SCH (21:18)
[2020-08-02] MEDS: QUEtiapine FUMARATE 50 MG TABLET PO SCH (21:19)
[2020-08-02] MEDS: TAMSULOSIN HCL 0.4 MG CAP PO SCH (21:19)
[2020-08-02] MEDS: THIAMINE HCL 100 MG TABLET (FP) PO SCH (21:20)
[2020-08-02] MEDS ORDERED: LIDOCAINE PATCH REMOVAL MC SCH (22:00)
[2020-08-03] MEDS ORDERED: METHADONE HCL 10 MG TABLET PO SCH (06:00)
[2020-08-03] MEDS: METHOCARBAMOL 500 MG TABLET PO SCH ×3 (07:13→21:09)
[2020-08-03] MEDS: METHADONE 80 MG, METHADONE 10 MG PO SCH (07:14)
[2020-08-03] MEDS ORDERED: METHADONE HCL 10 MG TABLET ONE (07:14)
[2020-08-03] MEDS ORDERED: METHADONE HCL 40 MG DISPERSABLE TABLET ONE (07:14)
[2020-08-03] MEDS ORDERED: LIDOCAINE 5% TOPICAL PATCH TP SCH (10:00)
--- NOTE | 2020-08-03 10:09 | PN ---
S Progress Note (SOAP) Subjective: Patient c/o right leg pain. PMHx of right knee surgery,which patient states became infected and he needed further care. Patient is not using his cane or crutches as appropriate. Objective: Physical General Appearance: No Apparent Distress, patient appears to be in pain. Respiratory: No Respiratory Distress, No Accessory Muscle Use Musculoskeletal: ambulates with two crutches; without crutches, unsteady) Extremities: right knee surgical scar, pitting edema from knee to foot. PV: +femoral, popliteal, posterior tibal, dorsalis pedis pulses. All equal 2+. Color and temperature equal bilaterally 08/03/20 10:10 Assessment: Lower extremity edema s/p Right knee surgery 08/03/20 10:15 08/03/20 10:16 Plan: leg elevated, lidoderm patch applied, patient cannot wear ADRIANA stocking. Cautioned to use crutches when ambulating.
[2020-08-03] MEDS: PRENATAL VITAMINS W/ FOLIC ACID TABLET (FP) PO SCH (10:13)
[2020-08-03] MEDS: NICOTINE 7 MG/24 HOURS TOPICAL PATCH TD SCH (10:13)
[2020-08-03] MEDS: PANTOPRAZOLE 40 MG TABLET PO SCH (10:13)
[2020-08-03] MEDS: FERROUS SO4 325 MG TABLET (FP) PO SCH (10:13)
[2020-08-03] MEDS: hydrOXYzine PAMOATE 25 MG CAPSULE (FP) PO PRN (10:13)
[2020-08-03] MEDS: LISINOPRIL 10 MG TABLET PO SCH (10:13)
[2020-08-03] MEDS: GABAPENTIN 400 MG CAPSULE PO SCH ×2 (10:13→21:09)
[2020-08-03] MEDS: FOLIC ACID 1 MG TABLET (FP) PO SCH (10:14)
[2020-08-03] MEDS: LIDOCAINE 5% TOPICAL PATCH TP SCH (10:14)
[2020-08-03] MEDS: HYDROCHLOROTHIAZIDE 12.5 MG CAPSULE (FP) PO SCH (10:14)
[2020-08-03] MEDS: IBUPROFEN 400 MG TABLET (FP) PO PRN (10:16)
--- NOTE | 2020-08-03 13:51 | PN ---
[facility] Progress Note Note: Mr. Pederson, who needs crutches to ambulate, was found mopping the floor. He is doing this by pouring water and the floor and wiping it up with his foot. He is unsteady on his feet without his crutches and was found doing this w/o the crutches. He was advised by MYRIAM Rueda to stop. I also spoke to the patient ab out mopping the floor, and explained the safety concern, and advised him to stop, as did the nurse. This had to be reinforced with him several times by the nurse. Vital Signs Period Temp Pulse Resp BP Sys/Tian Pulse Ox Last 24 Hr 97 F-98.3 F 80-85 18-18 150-159/88-91 96-98
[2020-08-03] MEDS: TAMSULOSIN HCL 0.4 MG CAP PO SCH (21:09)
[2020-08-03] MEDS: QUEtiapine FUMARATE 50 MG TABLET PO SCH (21:09)
[2020-08-03] MEDS: THIAMINE HCL 100 MG TABLET (FP) PO SCH (21:09)
[2020-08-03] MEDS: LIDOCAINE PATCH REMOVAL MC SCH (21:10)
[2020-08-03] MEDS: MELATONIN 5 MG TABLETS PO SCH (21:10)
[2020-08-04] MEDS: IBUPROFEN 400 MG TABLET (FP) PO PRN ×3 (00:04→19:46)
[2020-08-04] MEDS ORDERED: METHADONE HCL 40 MG DISPERSABLE TABLET ONE (04:42)
[2020-08-04] MEDS ORDERED: METHADONE HCL 10 MG TABLET ONE (04:43)
[2020-08-04] MEDS: METHOCARBAMOL 500 MG TABLET PO SCH ×3 (05:55→21:50)
[2020-08-04] MEDS: METHADONE 80 MG, METHADONE 10 MG PO SCH (05:55)
[2020-08-04] MEDS ORDERED: PT OWN MED DRAWER 7, Y5N ONE ×2 (09:00→10:54)
[2020-08-04] MEDS: NICOTINE 7 MG/24 HOURS TOPICAL PATCH TD SCH (10:26)
[2020-08-04] MEDS: GABAPENTIN 400 MG CAPSULE PO SCH ×2 (10:26→21:49)
[2020-08-04] MEDS: HYDROCHLOROTHIAZIDE 12.5 MG CAPSULE (FP) PO SCH (10:27)
[2020-08-04] MEDS: LISINOPRIL 10 MG TABLET PO SCH (10:27)
[2020-08-04] MEDS: FERROUS SO4 325 MG TABLET (FP) PO SCH (10:27)
[2020-08-04] MEDS: FOLIC ACID 1 MG TABLET (FP) PO SCH (10:27)
[2020-08-04] MEDS: PANTOPRAZOLE 40 MG TABLET PO SCH (10:27)
[2020-08-04] MEDS: LIDOCAINE 5% TOPICAL PATCH TP SCH (10:28)
[2020-08-04] MEDS: PRENATAL VITAMINS W/ FOLIC ACID TABLET (FP) PO SCH (10:28)
[2020-08-04] MEDS: QUEtiapine FUMARATE 50 MG TABLET PO SCH (21:50)
[2020-08-04] MEDS: THIAMINE HCL 100 MG TABLET (FP) PO SCH (21:50)
[2020-08-04] MEDS: hydrOXYzine PAMOATE 25 MG CAPSULE (FP) PO PRN (21:50)
[2020-08-04] MEDS: TAMSULOSIN HCL 0.4 MG CAP PO SCH (21:50)
[2020-08-04] MEDS: MELATONIN 5 MG TABLETS PO SCH (21:51)
[2020-08-04] MEDS: LIDOCAINE PATCH REMOVAL MC SCH (21:51)
[2020-08-05] MEDS ORDERED: METHADONE HCL 10 MG TABLET ONE (03:51)
[2020-08-05] MEDS ORDERED: METHADONE HCL 40 MG DISPERSABLE TABLET ONE (03:51)
[2020-08-05] MEDS ORDERED: METHADONE HCL 10 MG TABLET PO SCH (05:00)
[2020-08-05] MEDS: METHADONE 80 MG, METHADONE 10 MG PO SCH (05:58)
[2020-08-05] MEDS: METHOCARBAMOL 500 MG TABLET PO SCH ×3 (05:58→21:02)
[2020-08-05] MEDS: PRENATAL VITAMINS W/ FOLIC ACID TABLET (FP) PO SCH (09:46)
[2020-08-05] MEDS: LISINOPRIL 10 MG TABLET PO SCH (09:46)
[2020-08-05] MEDS: GABAPENTIN 400 MG CAPSULE PO SCH ×2 (09:47→21:01)
[2020-08-05] MEDS: PANTOPRAZOLE 40 MG TABLET PO SCH (09:47)
[2020-08-05] MEDS: FERROUS SO4 325 MG TABLET (FP) PO SCH (09:47)
[2020-08-05] MEDS: HYDROCHLOROTHIAZIDE 12.5 MG CAPSULE (FP) PO SCH (09:48)
[2020-08-05] MEDS: LIDOCAINE 5% TOPICAL PATCH TP SCH (09:48)
[2020-08-05] MEDS: FOLIC ACID 1 MG TABLET (FP) PO SCH (09:48)
[2020-08-05] MEDS: NICOTINE 7 MG/24 HOURS TOPICAL PATCH TD SCH (09:48)
[2020-08-05] MEDS: IBUPROFEN 400 MG TABLET (FP) PO PRN ×2 (09:50→21:03)
[2020-08-05] MEDS: THIAMINE HCL 100 MG TABLET (FP) PO SCH (21:01)
[2020-08-05] MEDS: LIDOCAINE PATCH REMOVAL MC SCH (21:02)
[2020-08-05] MEDS: TAMSULOSIN HCL 0.4 MG CAP PO SCH (21:02)
[2020-08-05] MEDS: MELATONIN 5 MG TABLETS PO SCH (21:02)
[2020-08-05] MEDS: QUEtiapine FUMARATE 50 MG TABLET PO SCH (21:02)
[2020-08-06] MEDS: hydrOXYzine PAMOATE 25 MG CAPSULE (FP) PO PRN ×3 (01:52→15:45)
[2020-08-06] MEDS ORDERED: METHADONE HCL 40 MG DISPERSABLE TABLET ONE (06:13)
[2020-08-06] MEDS ORDERED: METHADONE HCL 10 MG TABLET ONE (06:14)
[2020-08-06] MEDS: METHADONE 80 MG, METHADONE 10 MG PO SCH (06:23)
[2020-08-06] MEDS: METHOCARBAMOL 500 MG TABLET PO SCH ×3 (07:56→21:07)
[2020-08-06] MEDS ORDERED: PT OWN MED DRAWER 7, Y5N ONE (09:01)
[2020-08-06] MEDS: GABAPENTIN 400 MG CAPSULE PO SCH ×2 (09:41→21:07)
[2020-08-06] MEDS: PANTOPRAZOLE 40 MG TABLET PO SCH (09:41)
[2020-08-06] MEDS: LIDOCAINE 5% TOPICAL PATCH TP SCH (09:41)
[2020-08-06] MEDS: FOLIC ACID 1 MG TABLET (FP) PO SCH (09:41)
[2020-08-06] MEDS: LISINOPRIL 10 MG TABLET PO SCH (09:41)
[2020-08-06] MEDS: NICOTINE 7 MG/24 HOURS TOPICAL PATCH TD SCH (09:41)
[2020-08-06] MEDS: FERROUS SO4 325 MG TABLET (FP) PO SCH (09:41)
[2020-08-06] MEDS: PRENATAL VITAMINS W/ FOLIC ACID TABLET (FP) PO SCH (09:41)
[2020-08-06] MEDS: HYDROCHLOROTHIAZIDE 12.5 MG CAPSULE (FP) PO SCH (09:42)
[2020-08-06] MEDS: IBUPROFEN 400 MG TABLET (FP) PO PRN ×3 (09:43→22:51)
[2020-08-06] MEDS: MELATONIN 5 MG TABLETS PO SCH (21:07)
[2020-08-06] MEDS: QUEtiapine FUMARATE 50 MG TABLET PO SCH (21:07)
[2020-08-06] MEDS: TAMSULOSIN HCL 0.4 MG CAP PO SCH (21:07)
[2020-08-06] MEDS: THIAMINE HCL 100 MG TABLET (FP) PO SCH (21:10)
[2020-08-06] MEDS: LIDOCAINE PATCH REMOVAL MC SCH (21:58)
[2020-08-07] MEDS ORDERED: METHADONE HCL 40 MG DISPERSABLE TABLET ONE (03:12)
[2020-08-07] MEDS ORDERED: METHADONE HCL 10 MG TABLET ONE (03:13)
[2020-08-07] MEDS: METHADONE 80 MG, METHADONE 10 MG PO SCH (06:12)
[2020-08-07] MEDS: METHOCARBAMOL 500 MG TABLET PO SCH ×2 (06:12→14:18)
[2020-08-07] MEDS: IBUPROFEN 400 MG TABLET (FP) PO PRN ×2 (06:13→14:19)
[2020-08-07] MEDS ORDERED: PT OWN MED DRAWER 7, Y5N ONE ×2 (09:07→10:11)
[2020-08-07] MEDS: PRENATAL VITAMINS W/ FOLIC ACID TABLET (FP) PO SCH (10:08)
[2020-08-07] MEDS: FERROUS SO4 325 MG TABLET (FP) PO SCH (10:08)
[2020-08-07] MEDS: hydrOXYzine PAMOATE 25 MG CAPSULE (FP) PO PRN (10:08)
[2020-08-07] MEDS: LISINOPRIL 10 MG TABLET PO SCH (10:08)
[2020-08-07] MEDS: NICOTINE 7 MG/24 HOURS TOPICAL PATCH TD SCH (10:09)
[2020-08-07] MEDS: PANTOPRAZOLE 40 MG TABLET PO SCH (10:09)
[2020-08-07] MEDS: GABAPENTIN 400 MG CAPSULE PO SCH (10:09)
[2020-08-07] MEDS: LIDOCAINE 5% TOPICAL PATCH TP SCH (10:09)
[2020-08-07] MEDS: HYDROCHLOROTHIAZIDE 12.5 MG CAPSULE (FP) PO SCH (10:09)
[2020-08-07] MEDS: FOLIC ACID 1 MG TABLET (FP) PO SCH (10:11)
--- NOTE | 2020-08-07 14:21 | PN ---
[facility] Progress Note Note: Pt is a 60 yo M recently admitted for detox 2/ to alcohol use disorder; now in rehab presenting with worsening R sided leg swelling x 2 weeks (at and below the knee). Pt reports his R leg has been swollen since his R sided knee replacement (04/2020). Pt now has worsening R sided leg pain in the same region for x 4 days; also with mild erythema and possible warmth around R knee surgical site (site is otherwise clean, dry, and intact). Pt able to ambulate with cane but with moderate to severe pain. PMH: OA, BPH, HTN, Asthma, anemia PSH: right knee replacement 04/2020 PE: Gen - NAD, moderate discomfort; AOx3 CV - RRR, normal s1/s2, no MRG Pulm - CTAB Exta - RLE with tense edema below the knee; also R knee effusion with mild erythema; tender to palpation of R anterior leg and R calf; Neuro - sensation to light touch intact in b/l lower extremities A/P Pt with R sided chronic leg swelling with associated worsening pain. r/o DVT, cellulitis, other lower ext pathology. Case discussed with Dr. Olmedo and FAVIAN Mesa. Will send pt to [facility] ED for evaluation.
--- NOTE | 2020-08-07 14:44 | PN ---
[facility] Progress Note Note: Patient evaluated by Dr. Perkins for c/o right leg pain and swelling. Dr. Perkins recommends to have patient evaluated at [facility] ED to rule out DVT. Patient agrees with plan of care. Report given to Vance Carter RN. Vital Signs Temperature 97.3 F L 08/07/20 08:23 Pulse Rate 87 08/07/20 08:23 Respiratory Rate 18 08/07/20 08:23 Blood Pressure 143/79 08/07/20 08:23 O2 Sat by Pulse Oximetry (%) 97 08/07/20 06:05
[2020-08-07 15:18] VITALS: BP 166/91; PULSE 86; TEMP 97.7
== END 2020-08-07 23:50 | disposition hospice, inpatient (51) | DRG 772 ==
LOC: YASAS 11:21 → Y3W 11:23
PROVIDERS: ADMIT Allergy & Immunology; ATTEND Allergy & Immunology
PROC: HZ42ZZZ Group Counseling for Substance Abuse Treatment, Cognitive-Behavioral (ICD-10-PCS; principal; 2020-08-02)
DX: F10.20 Alcohol dependence, uncomplicated (principal); D64.9 Anemia, unspecified; I10 Essential (primary) hypertension; J45.909 Unspecified asthma, uncomplicated; N40.0 Benign prostatic hyperplasia without lower urinary tract symptoms; M19.90 Unspecified osteoarthritis, unspecified site; M25.461 Effusion, right knee; M79.661 Pain in right lower leg; R60.0 Localized edema; Z96.651 Presence of right artificial knee joint; Z99.89 Dependence on other enabling machines and devices

== ENCOUNTER 2020-08-07 15:50 | Inpatient (IN) | payer OTHER ==
--- NOTE | 2020-08-07 16:39 | PDOC ---
Rapid Medical Evaluation Time Seen by Provider: 08/07/20 16:33 Medical Evaluation: Allergies Allergy/AdvReac Type Severity Reaction Status Date / Time No Known Allergies Allergy Verified 08/07/20 16:33 08/07/20 16:34 60 year old male with substance abuse disorder (heroin cocaine and alcohol) HTN, BPH, R knee replacement (April) sent from [facility] to rule out DVT. PE: R lower extremity swelling with 2+ pitting edema Concern for DVT Plan: US doppler labs pt to precede to ED for further treatment
--- OUTSIDE RECORDS SUMMARY | 2020-08-07 17:18 | XMS ---
:1960 Author Organization [facility] Support Name Relationship Address Phone UE, UNEMPLOYED Unavailable Unavailable Unavailable CASTILLO TINSLEY SISTER UNKNOWN MICHELLE MARTINEZ [id number] UE Unavailable Unavailable Unavailable TESHA RAMIREZ FAMILY/OTHER [address] [place] [address] CASTILLO TINSLEY Sister UNKNOWN Unavailable IMCHELLE MARTINEZ [id number] Re-disclosure Warning The records that you are [...] is protected by Article 27-F of the [facility] Public Health law. If you continue you may haveaccess to information: Regarding HIV / AIDS; Provided by facilities licensed or operated by the [facility] Office of Mental Health; or Provided by the [facility] Office for People With Developmental Disabilities. If such information is present, then the following [facility] mandated warning applies: This information has been [...] law may result in a fine or alf sentence or both. A general authorization for the release of medical or other information is NOT sufficient authorization for further disclosure. Insurance Providers Payer name Policy type Policy ID Covered Covered alliance party's Policy P gonzalez / Coverage alliance party ID relationship to [employer] ormation type [employer] [id number] SP [id number] [employer] [id number] SP [id number] [employer] [id number] SP [id number] FIRST Results ID Date Data Source [id number] 07/28/2020 12:25:00 PM EDT [facility] Name Value Range Interpretation Description Data Sup porting Code Source(s) Document(s ) SARS [facility] coronavirus 2 RNA This lab was ordered by [facility] ct Bill Inter and reported by [facility]. Procedure
--- NOTE | 2020-08-07 18:13 | PDOC ---
History of Present Illness - General Chief Complaint: Pain Stated Complaint: PAIN/EDEMA Time Seen by Provider: 08/07/20 16:33 History Source: Patient Exam Limitations: No Limitations - History of Present Illness Initial Comments: 08/07/20 18:08 60-year-old male presents to ED with complaints of swelling to his left knee. Patient states had a total knee replacement last year and a repeat one in April which required IV antibiotics secondary to infected hardware and removal of hardware patient states since then has been in rehab for opiate addiction for the past 2 weeks and now complaining of worsening swelling along with pain to the area. Patient denies injury, increased warmth, or drainage from the healed incision area. Patient does state increased redness along with swelling Is this a multiple visit Asthma Patient?: No Timing/Duration: constant, getting worse Severity: moderate Associated Symptoms: reports: other Past History - Travel History Traveled outside of the country in the last 30 days: Yes - Medical History Allergies/Adverse Reactions: Allergies Allergy/AdvReac Type Severity Reaction Status Date / Time No Known Allergies Allergy Verified 08/07/20 16:33 Home Medications: Ambulatory Orders Folic Acid - 1 mg PO DAILY #14 tablet 02/03/20 Methocarbamol [Robaxin -] 500 mg PO BID 03/07/20 Albuterol Sulfate [Albuterol Sulfate Hfa] 2 puff IH PRN PRN #1 inhaler 04/06/20 Hydrochlorothiazide [Hctz -] 12.5 mg PO DAILY #30 cap 04/06/20 Lisinopril [Prinivil] 10 mg PO DAILY #30 tablet 04/06/20 Tamsulosin HCl [Flomax] 0.4 mg PO HS #14 cap 04/06/20 Gabapentin [Neurontin] 800 mg PO BID 07/28/20 Hydroxyzine HCl 50 mg PO DAILY 07/28/20 Lidocaine 5% Patch [Lidoderm Patch -] 1 patch TP DAILY 07/28/20 Methocarbamol [Robaxin -] 500 mg PO TID 07/28/20 Ferrous Sulfate [Feosol] 325 mg PO BID 08/02/20 Pantoprazole Sodium [Protonix -] 40 mg PO DAILY 08/02/20 Quetiapine Fumarate [Seroquel -] 50 mg PO HS 08/02/20 Asthma: Yes Cardiac Disorders: No COPD: No Diabetes: No GI Disorders: No Disorders: No HTN: Yes Kidney Stones: No Seizures: No - Surgical History Abdominal Surgery: No Appendectomy: No Cardiac Surgery: No Cholecystectomy: No Lung Surgery: No Neurologic Surgery: No Orthopedic Surgery: Yes (Right Total Knee replacement 02/23/2019) - Reproductive History Testicular Surgery: No - Psycho-Social/Smoking History Patient Lives Alone: No Smoking History: Current every day smoker Have you smoked in the past 12 months: Yes Number of Cigarettes Smoked Daily: 4 If you are a former smoker, when did you quit?: Never smoked Information on smoking cessation initiated: Yes 'Breaking Loose' booklet given: 07/28/20 - Substance Abuse Hx (Audit-C & DAST Scrn) How often the patient has a drink containing alcohol: Never Score: In Men: 4 or > Positive; In Women: 3 or > Positive: 0 Screen Result (Pos requires Nsg. Audit-10AR): Negative In the last yr the pt used illegal drug/Rx for NonMed reason: Yes Score: Yes response is considered Positive: 1 Screen Result (Positive result requires Nsg. DAST-10): Positive Review of Systems - Review of Systems Able to Perform ROS?: Yes Constitutional: No: Symptoms Reported HEENTM: No: Symptoms Reported Respiratory: No: Symptoms reported Cardiac (ROS): No: Symptoms Reported ABD/GI: No: Symptoms Reported : No: Symptoms Reported Musculoskeletal: Yes: Joint Pain, Joint Swelling Integumentary: Yes: Erythema Neurological: No: Symptoms reported Endocrine: No: Symptoms Reported *Physical Exam - Vital Signs Last Vital Signs Temp Pulse Resp BP Pulse Ox 98 F 83 18 146/96 100 08/07/20 16:34 08/07/20 16:34 08/07/20 16:34 08/07/20 16:34 08/07/20 16:34 - Physical Exam General Appearance: Yes: Nourished, Appropriately Dressed. No: Apparent Distress HEENT: negative: Pale Conjunctivae Respiratory/Chest: negative: Respiratory Distress Cardiovascular: positive: Regular Rhythm, Regular Rate. negative: Murmur Gastrointestinal/Abdominal: negative: Soft Musculoskeletal: negative: CVA Tenderness Extremity: positive: Normal Capillary Refill, Tender (Generalized over anterior aspect of right patella) Integumentary: positive: Warm, Swelling (Noted 2-3+ swelling from the right patella extending to right ankle. Area erythematous without increased warmth ) Neurologic: positive: Normal Mood/Affect Medical Decision Making - Medical Decision Making 08/07/20 18:12 Chief complaint: Patient for evaluation of swelling and redness to the right knee extending to the right ankle. Patient with recent total knee replacement and status post IV antibiotics approximately 2 months ago for infected hardware/removal of hardware. Patient also is actively using heroin currently at [facility] for opiate detox exam: Edema and erythema noted to the right patella extending to right ankle. Plan: Labs, imaging including x-ray/ultrasound to rule out DVT 08/07/20 18:35 Ultrasound negative for DVT.
[2020-08-07 18:42] LABS: BASO % 0.5 % (0-2.0); EOS % 7.9 % (0-4.5); HEMATOCRIT 34.6 % (35.4-49); LYMPH % 22.4 % (8-40); MCH 24.8 pg (25.7-33.7); MCHC 31.8 g/dl (32.0-35.9); MEAN CELL VOLUME 78.1 fl (80-96); MEAN PLT VOLUME 6.9 fl (7.5-11.1); MONO % 8.2 % (3.8-10.2); PLATELET COUNT 236 K/MM3 (134-434); RBC 4.43 M/mm3 (4.00-5.60); RDW 18.4 % (11.9-15.9); WHITE BLOOD COUNT 5.9 K/mm3 (4.0-10.0)
[2020-08-07 18:47] LABS: INR 1.02 (0.83-1.09)
[2020-08-07 18:50] LABS: ACTIVATED PTT 34.1 SECONDS (25.2-36.5)
[2020-08-07 19:09] LABS: ALBUMIN 3.6 g/dl (3.4-5.0); BILIRUBIN,TOTAL 0.2 mg/dL (0.2-1); CREATININE 0.9 mg/dL (0.55-1.3); TOT PROT 7.4 g/dl (6.4-8.2)
--- NOTE | 2020-08-07 20:09 | PDOC ---
*Physical Exam - Vital Signs Last Vital Signs Temp Pulse Resp BP Pulse Ox 98 F 83 18 146/96 100 08/07/20 16:34 08/07/20 16:34 08/07/20 16:34 08/07/20 16:34 08/07/20 16:34 - Physical Exam General Appearance: Yes: Appropriately Dressed Extremity: positive: Other (right knee surgical site clean dry and intact. right lower extremity warm/ tight/ erythema with pain left lower extremity edema. some streaking noted) Neurologic: positive: Fully Oriented ED Treatment Course - LABORATORY CBC & Chemistry Diagram: 08/07/20 18:25 08/07/20 18:25 - ADDITIONAL ORDERS Additional order review: Laboratory Results 08/07/20 08/07/20 18:25 18:25 PT with INR 12.00 INR 1.02 PTT (Actin FS) 34.1 Sodium 141 Potassium 4.0 Chloride 106 Carbon Dioxide 30 Anion Gap 5 L BUN 13.0 Creatinine 0.9 Est GFR (CKD-EPI)AfAm 107.22 Est GFR (CKD-EPI)NonAf 92.51 Random Glucose 86 Calcium 9.0 Total Bilirubin 0.2 AST 26 ALT 34 Alkaline Phosphatase 121 H Total Protein 7.4 Albumin 3.6 08/07/20 18:25 RBC 4.43 MCV 78.1 L MCHC 31.8 L RDW 18.4 H MPV 6.9 L Neutrophils % 61.0 Lymphocytes % 22.4 Monocytes % 8.2 Eosinophils % 7.9 H Basophils % 0.5 Medical Decision Making - Medical Decision Making 08/07/20 21:12 Patient has right lower leg cellulitis with profound edema significant edema. Patient reports that this is all new patient is currently admitted at [facility] will admit to inpatient for IV antibiotics. Patient is agreeable for admission 08/07/20 22:05 patient is signed out to IM resident. patient to be admitted under Dr. Mann hospitalist service Discharge - Discharge Information Problems reviewed: Yes Clinical Impression/Diagnosis: Cellulitis of right leg, Pedal edema - Admission Yes - Follow up/Referral - Patient Discharge Instructions - Post Discharge Activity
[2020-08-07] MEDS ORDERED: PIPERACILLIN/TAZOBACTAM 4.5 GM VIAL IVPB ONE (20:32)
[2020-08-07] MEDS ORDERED: VANCOMYCIN 1,000 MG in DEXTROSE 5%-WATER - 250 ML IVPB ONE (20:32)
[2020-08-07] MEDS ORDERED: PIPERACILLIN/TAZOB 4.5 GM 4.5 GM/100 ML BAG IVPB ONE (21:03)
[2020-08-07] MEDS ORDERED: VANCOMYCIN 1 GRAM (PRE-DOCKED) 1,000 MG/250 ML BAG IVPB ONE (21:03)
--- NOTE | 2020-08-07 21:38 | PN ---
Teaching Attending Note Name of Resident: Judit Ulloa ATTENDING PHYSICIAN STATEMENT I saw and evaluated the patient. I reviewed the resident's note and discussed the case with the resident. I agree with the resident's findings and plan as documented. SUBJECTIVE: Patient is a 60-year-old man with PMH of HTN, BPH, Arthritis, Hepatitis C di mitzi (treated), Total right knee replacement and Tobacco use who presents to ED with complaints of swelling to his right knee. Patient states had a total knee replacement last year and a repeat one in April which required IV antibiotics secondary to infected hardware and removal of hardware. Patient reports aniket since then has been in Rehab for opiate addiction for the past 2 weeks and now complaining of worsening swelling along with pain to the area. Patient denies injury, increased warmth, or drainage from the healed incision area. Patient does state increased redness along with swelling. Has had recent bouts of blood in his stool. Patient denies chest pain, shortness of breath, abdominal pain, headache, palpitations, dizziness, fever, chills, nausea, vomiting, diarrhea, constipation, dysuria, frequency, urgency, melena or hematuria. Denies alcohol, tobacco or illicit drug use. No sick contacts or recent travels. Family history - brother of lung cancer. OBJECTIVE: Alert Vital Signs Period Temp Pulse Resp BP Sys/Tian Pulse Ox Last 24 Hr 98 F 83 18 146/96 100 HEENT: No Jaundice, eye redness or discharge, PERRLA, EOMI. Normocephalic, atraumatic. External ears are normal and hearing is grossly intact. No nasal discharge. Neck: Supple, nontender. No palpable adenopathy or thyromegaly. No JVD Chest: Good effort. Clear to auscultation and percussion. Heart: Regular. No S3, rub or murmur Abdomen: Not distended, soft, nontender and no HSM. No rebound or guarding. Normal bowel sounds. Ext: Peripheral pulses intact. Right leg edema with erythema and tenderness. Skin: Warm and dry. No petechiae, rash or ecchymosis. Neuro: Alert. Oriented x3. CN 2-12 grossly intact. Sensation grossly intact in all four extremities and DTR are symmetric. Psych: Appropriate mood and affect. Good insight. Home Medications Medication Instructions Recorded Folic Acid - 1 mg PO DAILY #14 tablet 02/03/20 Methocarbamol [Robaxin -] 500 mg PO BID 03/07/20 Albuterol Sulfate [Albuterol 2 puff IH PRN PRN #1 inhaler 04/06/20 Sulfate Hfa] Hydrochlorothiazide [Hctz -] 12.5 mg PO DAILY #30 cap 04/06/20 Lisinopril [Prinivil] 10 mg PO DAILY #30 tablet 04/06/20 Tamsulosin HCl [Flomax] 0.4 mg PO HS #14 cap 04/06/20 Gabapentin [Neurontin] 800 mg PO BID 07/28/20 Hydroxyzine HCl 50 mg PO DAILY 07/28/20 Lidocaine 5% Patch [Lidoderm Patch 1 patch TP DAILY 07/28/20 -] Methocarbamol [Robaxin -] 500 mg PO TID 07/28/20 Ferrous Sulfate [Feosol] 325 mg PO BID 08/02/20 Pantoprazole Sodium [Protonix -] 40 mg PO DAILY 08/02/20 Quetiapine Fumarate [Seroquel -] 50 mg PO HS 08/02/20 Abnormal Lab Results 08/07/20 08/07/20 18:25 18:25 Hgb 11.0 L Hct 34.6 L MCV 78.1 L MCH 24.8 L MCHC 31.8 L RDW 18.4 H MPV 6.9 L Eosinophils % 7.9 H Anion Gap 5 L Alkaline Phosphatase 121 H Current Medications Generic Name Dose Route Start Last Admin Trade Name Freq PRN Reason Stop Dose Admin Enoxaparin Sodium 40 mg 08/08/20 10:00 Lovenox - SQ DAILY [facility] Hydrochlorothiazide 12.5 mg 08/08/20 10:00 Hctz - PO DAILY [facility] Vancomycin HCl 1,250 mg/ 250 mls @ 166.667 mls/hr 08/08/20 10:00 Dextrose IVPB Q12H [facility] Protocol Lisinopril 10 mg 08/08/20 10:00 Prinivil PO DAILY [facility] ASSESSMENT AND PLAN: 1. Right leg cellulitis - Right knee xray shows hardware but does not show any fracture. No DVT noted on vascular study of legs. Patient started on IV Vancomycin and IV Zosyn in the ER. Will continue IV Vancomycin and consult ID and Ortho. EKG shows NSR at 64/minute and QTc 433 with no significant acute ischemic ST-T wave changes. Will continue comprehensive care for all of patients comorbid conditions. 2. Tobacco Use Counseled on risks associated with tobacco use. We will provide patient all the necessary assistance to facilitate smoking cessation and prescribe Nicotine patch. 3. Hypertension Will restart suitable outpatient antihypertensive drugs when clinically appropriate. Subsequently, will revise regimen to ensure [id number] excellent BP control. Patient counseled on the injurious effects of uncontrolled hypertension. Nonpharmacologic measures to control hypertension like weight loss, salt restriction and exercise stressed. Importance of ad herence to treatment regimen and attainment of normotension emphasized. 4. Anemia with low MCV Cause unclear. Will do basic anemia work up including serial stool guaiacs, reticulocyte count and iron studies. Consult GI. 5. DVT prophylaxis - Lovenox 40 mg SQ q 24 hours. 6. Advance directives - Full code
--- OUTSIDE RECORDS SUMMARY | 2020-08-07 22:18 | XMS ---
:1960 Author Organization [facility] Support Name Relationship Address Phone UE, UNEMPLOYED Unavailable Unavailable Unavailable CASTILLO TINSLEY SISTER UNKNOWN MICHELLE MARTINEZ [id number] UE Unavailable Unavailable Unavailable TESHA RAMIREZ FAMILY/OTHER [address] [place] [address] CASTILLO TINSLEY Sister UNKNOWN Unavailable MICHELLE MARTINEZ [id number] Re-disclosure Warning The records that you are [...] is protected by Article 27-F of the [facility] Public Health law. If you continue you may haveaccess to information: Regarding HIV / AIDS; Provided by facilities licensed or operated by the [facility] Office of Mental Health; or Provided by the [facility] Office for People With Developmental Disabilities. If such information is present, then the following [facility] mandated warning applies: This information has been [...] law may result in a fine or usp sentence or both. A general authorization for the release of medical or other information is NOT sufficient authorization for further disclosure. Insurance Providers Payer name Policy type Policy ID Covered Covered constitution party's Policy P gonzalez / Coverage constitution party ID relationship to [employer] ormation type [employer] [id number] SP [id number] [employer] [id number] SP [id number] [employer] [id number] SP [id number] FIRST Results ID Date Data Source [id number] 07/28/2020 12:25:00 PM EDT [facility] Name Value Range Interpretation Description Data Sup porting Code Source(s) Document(s ) SARS [facility] coronavirus 2 RNA This lab was ordered by [facility] and reported by [facility]. Procedure
[2020-08-08] MEDS ORDERED: ACETAMINOPHEN 325 MG TABLET (FP) ONE ×3 (03:34→20:51)
[2020-08-08] MEDS: ACETAMINOPHEN 325 MG TABLET (FP) PO PRN ×2 (03:42→20:54)
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
[2020-08-08 06:47] LABS: BASO % 0.4 % (0-2.0); EOS % 8.7 % (0-4.5); HEMATOCRIT 33.3 % (35.4-49); HEMOGLOBIN 10.7 GM/dL (11.7-16.9); LYMPH % 29.8 % (8-40); MONO % 8.9 % (3.8-10.2); NEUT % 52.2 % (42.8-82.8); PLATELET COUNT 215 K/MM3 (134-434); RBC 4.27 M/mm3 (4.00-5.60); RDW 18.5 % (11.9-15.9); WHITE BLOOD COUNT 5.8 K/mm3 (4.0-10.0)
[2020-08-08 07:24] LABS: ALBUMIN 3.2 g/dl (3.4-5.0); BILIRUBIN,TOTAL 0.5 mg/dL (0.2-1); BLOOD UREA NITROGEN 13.9 mg/dL (7-18); CALCIUM 8.6 mg/dL (8.5-10.1); CREATININE 0.8 mg/dL (0.55-1.3); MAGNESIUM 1.9 mg/dL (1.8-2.4); PHOSPHOROUS 4.8 mg/dL (2.5-4.9); POTASSIUM 3.8 mmol/L (3.5-5.1); TOT PROT 6.7 g/dl (6.4-8.2)
[2020-08-08] MEDS ORDERED: METHADONE HCL 40 MG DISPERSABLE TABLET ONE (08:10)
[2020-08-08] MEDS ORDERED: METHADONE HCL 10 MG TABLET PO SCH (08:15)
--- NOTE | 2020-08-08 09:05 | CON.GI ---
Consult Consult Specialty:: GI Referred by:: Hospitalist Service Reason for Consultation:: Anemia - History of Present Illness Chief Complaint: B/L foot swelling, ongoing right knee pain History of Present Illness: 60M admitted from [facility] for evaluation of bilateral foot swelling. Also complains of right knee pain. Called to evaluate anemia. Patient states that his PMD had told him he was anemic 6 months ago. he had a colonoscopy about 10- years ago that was normal. He has never had an upper endoscopy. Will occasionally see blood on toilte paper when straining. No melena. No abdominal pain / change in stool caliber. no family history of colon cancer. Abuses heroin and cocaine intranasally. The last use of cocaine was 6 days ago. - History Source History Provided By: Patient Limitations to Obtaining History: No Limitations - Past Medical History Cardio/Vascular: Yes: HTN Pulmonary: Yes: Asthma Renal/: Yes: BPH Heme/Onc: Yes: Anemia Rheumatology: Yes: Other (Arthritis) - Past Surgical History Past Surgical History: Yes: Joint Replacement Additional Surgical History: abdominal surgery after fall from tree led to internal bleeding - Alcohol/Substance Use Hx Alcohol Use: Yes (6 beers per day) History of Substance Use: reports: Cocaine, Heroin - Smoking History Smoking history: Current every day smoker Have you smoked in the past 12 months: Yes Aproximately how many cigarettes per day: 4 If you are a former smoker, when did you quit?: Never smoked - Social History ADL: Independent Occupation: unemployed History of Recent Travel: No Home Medications - Allergies Allergies/Adverse Reactions: Allergies Allergy/AdvReac Type Severity Reaction Status Date / Time No Known Allergies Allergy Verified 08/07/20 16:33 - Home Medications Home Medications: Ambulatory Orders Folic Acid - 1 mg PO DAILY #14 tablet 02/03/20 Methocarbamol [Robaxin -] 500 mg PO BID 03/07/20 Albuterol Sulfate [Albuterol Sulfate Hfa] 2 puff IH PRN PRN #1 inhaler 04/06/20 Hydrochlorothiazide [Hctz -] 12.5 mg PO DAILY #30 cap 04/06/20 Lisinopril [Prinivil] 10 mg PO DAILY #30 tablet 04/06/20 Tamsulosin HCl [Flomax] 0.4 mg PO HS #14 cap 04/06/20 Gabapentin [Neurontin] 800 mg PO BID 07/28/20 Hydroxyzine HCl 25 mg PO DAILY 07/28/20 Lidocaine 5% Patch [Lidoderm Patch -] 1 patch TP DAILY 07/28/20 Methocarbamol [Robaxin -] 500 mg PO TID 07/28/20 Ferrous Sulfate [Feosol] 325 mg PO BID 08/02/20 Pantoprazole Sodium [Protonix -] 40 mg PO DAILY 08/02/20 Quetiapine Fumarate [Seroquel -] 50 mg PO HS 08/02/20 Acetaminophen 650 mg PO PRN PRN 08/08/20 Guaifenesin AC [Robitussin AC] 10 ml PO Q6H 08/08/20 Ibuprofen 400 mg PO QID 08/08/20 Mag Hydrox/Al Hydrox/Simeth [Mylanta *Suspension*] 30 ml PO Q6H 08/08/20 Magnesium Citrate [Citroma -] 150 ml PO BID 08/08/20 Magnesium Hydrox 2400MG/30Ml [Milk of Magnesia -] 30 ml PO Q8H 08/08/20 Melatonin 5 mg PO HS 08/08/20 Menthol/Phenol [Cepastat Lozenge -] 1 each MM Q4H 08/08/20 Methadone [Dolophine -] 80 mg PO DAILY 08/08/20 Nicotine Patch [Nicoderm Patch -] 1 patch TD DAILY 08/08/20 Nicotine Polacrilex [Nicotine Gum] 2 mg BC PRN PRN 08/08/20 Family Medical History Other Family History: Nofamily history of colorectal cancer or other GI malignancy Review of Systems - Review of Systems Constitutional: denies: Chills Cardiovascular: reports: Edema. denies: Chest Pain Gastrointestinal: reports: Rectal Bleeding (occasional as in HPI). denies: Abdominal Pain, Bloating, Constipation, Diarrhea, Dysphagia, Indigestion, Melena, Nausea Physical Exam-GI Vital Signs: Vital Signs Temperature 98.4 F 08/08/20 05:28 Pulse Rate 77 08/08/20 05:28 Respiratory Rate 20 08/07/20 23:40 Blood Pressure 141/76 08/08/20 05:28 O2 Sat by Pulse Oximetry (%) 100 08/08/20 05:28 Constitutional: Yes: Calm Eyes: No: Sclera Icterus Cardiovascular: Yes: Regular Rate and Rhythm. No: Murmur Respiratory: Yes: CTA Bilaterally Gastrointestinal Inspection: Yes: Scars (midline upper abdominal surgical scar). No: Distention ...Auscultate: Yes: Normoactive Bowel Sounds ...Palpate: No: Hepatomegaly, Splenomegaly, Tenderness ...Percussion: No: Tympanitic ...Rectal Exam: Yes: Other (No external lesions, no masses, scant light brown stool, guaiac negative, 2+ prostate) Extremities: Yes: Other (B/L Pedal edema, right knee scar with edema, tender to palpation) Edema: Yes Neurological: Yes: Alert Labs: CBC, BMP 08/08/20 06:35 08/08/20 06:35 INR, PTT INR 1.02 (0.83-1.09) 08/07/20 18:25 Problem List - Problems (1) Anemia Assessment/Plan: No overt bleeding, patient hemodynamically stable and is aware of a diagnosis of anemia for about 6 months now. Discussed that once his acute issues have been addressed and the etiology of his bilateral LE edema has been worked up he will need a colonoscopy and possible upper endoscopy to exclude sources of anemia such as bleeding blood vessels, PUD, polyps or cancers of the GI tract. He would prefer to follow-up with his PMD regarding continued outpatient work-up. Follow-up with his PMD regarding this should be confirmed prior to Mr. Bloom being discharged. If H/H begins to dwindle, active bleeding noted, explained that inpatient work-up would be prudent. Hematology evaluation Iron studies Code(s): D64.9 - ANEMIA, UNSPECIFIED Qualifiers: Anemia type: unspecified type Qualified Code(s): D64.9 - Anemia, unspecified
[2020-08-08] MEDS: METHADONE 80 MG, METHADONE 10 MG PO SCH (09:32)
[2020-08-08] MEDS ORDERED: LISINOPRIL 20 MG TABLET ONE (09:34)
[2020-08-08] MEDS ORDERED: HYDROCHLOROTHIAZIDE 25 MG TABLET (FP) ONE (09:34)
[2020-08-08] MEDS ORDERED: VANCOMYCIN 500 MG VIAL (RESTRICTED TO ID ONLY) ONE (09:36)
[2020-08-08] MEDS ORDERED: VANCOMYCIN 1 GRAM (PRE-DOCKED) 1,000 MG/250 ML BAG IVPB ONE (09:36)
[2020-08-08] MEDS: HYDROCHLOROTHIAZIDE 12.5 MG CAPSULE (FP) PO SCH (09:48)
[2020-08-08] MEDS: LISINOPRIL 10 MG TABLET PO SCH (09:48)
[2020-08-08] MEDS ORDERED: VANCOMYCIN 1,250 MG in DEXTROSE 5%-WATER - 250 ML IVPB SCH (10:00)
[2020-08-08] MEDS ORDERED: ENOXAPARIN NA (PORCINE) 40 MG/0.4 ML DISP.SYRIN SQ SCH (10:00)
--- NOTE | 2020-08-08 10:03 | EKG ---
Test Reason : Blood Pressure : / mmHG Vent. Rate : 064 BPM Atrial Rate : 064 BPM P-R Int : 194 ms QRS Dur : 110 ms QT Int : 420 ms P-R-T Axes : 013 -15 020 degrees QTc Int : 433 ms NORMAL SINUS RHYTHM NORMAL ECG WHEN COMPARED WITH ECG OF 14-APR-2019 06:24, NO SIGNIFICANT CHANGE WAS FOUND Confirmed by MD Palafox Daniel ([id number]) on 08/08/2020 10:03:26 AM Referred By: Confirmed By:Jann Palafox MD
[2020-08-08 11:31] LABS: N-TERMINAL BNP 51.9 pg/ml (5-125)
[2020-08-08] MEDS ORDERED: LIDOCAINE 5% TOPICAL PATCH TP ONE (11:58)
--- NOTE | 2020-08-08 14:06 | PN ---
Progress Note (short form) - Note Progress Note: ID CONSULT DICTATED MINIMAL CELLULITIS R LE S/P R TKR COMPLICATED BY INFECTION POLYSUBSTANCE ABUSE KEFLEX 500MG PO Q6H X 7D
--- NOTE | 2020-08-08 14:40 | PN ---
Physical Exam: SUBJECTIVE: Patient seen and examined this morning, initially anxious before methadone. Ptn wants to get back to [facility] to continue rehab. States he had multiple LE surgeries, Orthopod to be followed up on at [facility]. Ptn denies any inciting event to the LE swelling, no trauma. OBJECTIVE: Vital Signs Period Temp Pulse Resp BP Sys/Tian Pulse Ox Last 24 Hr 98 F-98.4 F 74-83 18-20 141-167/76-96 98-100 GENERAL: The patient is awake, alert, and fully oriented, in no acute distress. HEAD: Normal with no signs of trauma. EYES: PERRL, extraocular movements intact, sclera anicteric, conjunctiva clear. No ptosis. ENT: Ears normal, nares patent, oropharynx clear without exudates, moist mucous membranes. NECK: Trachea midline, full range of motion, supple. LUNGS: Breath sounds equal, clear to auscultation bilaterally, no wheezes, no crackles, no accessory muscle use. HEART: Regular rate and rhythm, S1, S2 without murmur, rub or gallop. ABDOMEN: Soft, nontender, nondistended, normoactive bowel sounds, no guarding UPPER EXTREMITIES: 2+ pulses, warm, well-perfused, no edema. LOWER EXTREMITIES: Right: swollen from ankle to knee 2+ pitting, warm, with slight redness. Left: 2+ pitting, no erythema, no warmth NEUROLOGICAL: Normal speech, gait not observed. PSYCH: Normal mood, normal affect. SKIN: Warm, dry, normal turgor, no rashes or lesions noted except as noted Laboratory Results - last 24 hr CBC, BMP 08/08/20 06:35 08/08/20 06:35 Troponin, BNP 08/08/20 06:35 B-Natriuretic Peptide 51.9 Active Medications Generic Name Dose Route Start Last Admin Trade Name Freq PRN Reason Stop Dose Admin Acetaminophen 650 mg 08/08/20 03:10 08/08/20 03:42 Tylenol - PO 650 mg Q4H PRN Administration PAIN LEVEL 6-10 Cephalexin HCl 500 mg 08/08/20 18:00 Keflex - PO Q6HPO [facility] Hydrochlorothiazide 12.5 mg 08/08/20 10:00 08/08/20 09:48 Hctz - PO 12.5 mg DAILY [facility] Administration Lisinopril 10 mg 08/08/20 10:00 08/08/20 09:48 Prinivil PO 10 mg DAILY [facility] Administration Methadone HCl 80 mg/ Methadone 90 mg 08/08/20 08:45 08/08/20 09:32 HCl 10 mg PO Not Given DAILY@0600 [facility] Miscellaneous 1 each 08/08/20 22:00 Lidoderm Patch Removal [facility] 08/08/20 22:01 ONCE ONE ASSESSMENT/PLAN: 60 yo M w/ PMHx of polysubstance abuse (heroin, cocaine, tobacco), Hep C (treated), hypertension, presented from [facility] (admitted 07/28) with worsening lower extremity edema and R sided warmth/redness from ankles to the right knee. RIGHT LE SWELLING LIKELY 2/2 CELLULITIS - R knee replacement 2018; surgical intervention following infected hardware in April 2020 w/ 6w antibiotics - Warm, swollen, red, and tender to palpation - Reports 2 weeks of increased swelling - LE Duplex: Negative for DVT - Per ID: -Start Keflex 500mg PO Q6 - Day 1 (of 7 days) - Per Ortho: -Obtain information from [facility] Orthopedist BILATERAL LOWER EXTREMITY SWELLING r/o VENOUS STASIS -2+ pitting edema b/l -No hx of heart failure -Low albumin 3.2 -BNP: WNL CHRONIC MICROCYTIC ANEMIA LIKELY 2/2 HEMATOCHEZIA CAN NOT r/o OTHER ETIOLOGIES - Reported blood in stool x4 months - [facility] CBC (05/14/2020): 9.2/29.1 - Iron Studies: -Iron 29 -Iron Saturation 8 -TIBC 361 -Ferritin 45.4 - Currently holding iron therapy 2/2 infection - Per GI: -Outpatient Colonoscopy -Potential Outpatient EGD -Confirm FU w/ PCP prior to DC -Consult Heme Onc if H/H continues to drop STATUS POST KNEE SPACING 2/2 PRIOR KNEE INFECTION -[facility]: Dr. Stanley Vu MD -Removal of infected TKR and insertion of abx spacer on 05/12/2020 -Rare CoNS - Sensitive to Bactrim and Vancomycin -PICC placed on 05/16/2020: Vanc 1.25mg [id number], x 6 weeks starting 05/12/2020 -[facility] on 05/19/2020 -[facility] Ortho clinic on 06/15/2020 (Confirm follow up) HISTORY OF ALCOHOL USE: CURRENTLY IN DETOX - Admitted to on 07/28/2020 (Last Drink 07/28) - Monitor CIWA: if >8, Start alcohol withdrawal protocol POLYSUBSTANCE ABUSE - Methedone verified @ 90mg Daily HYPERTENSION - HCTZ 12.5 qdaily - Lisinopril 10mg qdaily LIVING: -Confirm living at [facility] PPx: - SCD 11/28 reported blood in stool FEN - No standing fluids - Lytes - Regular diet Dispo: continue to monitor on med/surg Visit type - Emergency Visit Emergency Visit: No - New Patient This patient is new to me today: No - Critical Care Critical Care patient: No - Discharge Referral Referred to [facility] Med P.C.: No ATTENDING PHYSICIAN STATEMENT I saw and evaluated the patient. I reviewed the resident's note and discussed the case with the resident. I agree with the resident's findings and plan as documented. SUBJECTIVE: OBJECTIVE: ASSESSMENT AND PLAN:
--- NOTE | 2020-08-08 14:49 | CONS ---
INFECTIOUS DISEASE CONSULTATION DATE OF CONSULTATION: DATE OF DICTATION: 08/08/2020 HISTORY: The patient is a 60-year-old male who is evaluated for cellulitis of the right lower extremity. He was admitted from detox with a 1 week history of worsening erythema, warmth and swelling of the right lower extremity. According to the notes, he had undergone a right total knee replacement at [facility] in 2019. His course was complicated by infected prosthesis requiring a revision in April of this year. According to the notes, he had received a 6-week course of IV antibiotic therapy and had been doing well since. He is now admitted from detox. He was admitted for polysubstance abuse including cocaine, heroin and alcohol. He was evaluated in the emergency room where he was noted to have swelling and erythema involving the right lower extremity from the knee to the ankle. A Doppler exam was negative for DVT. He denied any associated fever or chills. White blood cell count is within normal limits. PAST MEDICAL HISTORY: Positive for hypertension, osteoarthritis, BPH, hepatitis treated in the past. PAST SURGICAL HISTORY: As per HPI. ALLERGIES: No known allergies. LABORATORY DATA: White count 5.8, hematocrit 33.3, platelet count 215. Creatinine 0.8. Patient was empirically treated with vancomycin and Zosyn. PHYSICAL EXAMINATION: General: He is awake and alert seated on a stretcher in the emergency room. Vital Signs: Temperature 98.4, blood pressure 141/76, pulse 77 regular, respirations 20 per minute. HEENT: Sclerae are anicteric. Heart: Sounds S1, S2. Lungs: Clear. Abdomen: Soft, nontender. Extremities: Examination of the right lower extremity there is a healed surgical wound present over the right patella that is completely healed without evidence of infection. There is no opening or drainage. There is 1+ edema of the lower extremity extending from the right knee to the right ankle. The right lower extremity is slightly warm to touch and there is faint erythema noted. No open areas are noted or draining lesions. IMPRESSION: 1. Cellulitis of the right lower extremity. 2. 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 3. History of polysubstance abuse. Patient has minimal cellulitis of the right lower extremity. There is no evidence of surgical wound infection. No clinical evidence of infected prosthetic knee. No evidence of systemic infection. Advise empiric antibiotic coverage with Keflex 500 mg p.o. every 6 hours for 7 days, elevation, analgesics, orthopedic followup. Thank you for the kind referral. OMA RAMIREZ M.D. [id number]
[2020-08-08] MEDS ORDERED: CEPHALEXIN MONOHYDRATE 500 MG CAPSULE (UD) ONE (17:40)
[2020-08-08] MEDS: CEPHALEXIN MONOHYDRATE 500 MG CAPSULE (UD) PO SCH (17:43)
--- NOTE | 2020-08-08 20:27 | CONS ---
DATE OF CONSULTATION: DATE OF DICTATION: 08/08/2020 CHIEF COMPLAINT: Right lower extremity pain and swelling. HISTORY OF PRESENT ILLNESS: This 60-year-old gentleman with history of infected total knee which required revision due to infection, who presented with increasing swelling and some discomfort in the right lower extremity. [facility], was treated with 6-week course of IV antibiotics. He was treated with a spacer, which remains present at the current time; it was not converted back to a total knee yet. He notes increased pain and swelling over the last week. He denies any particular change in activity or any stomach symptoms. PAST MEDICAL HISTORY: Significant for hypertension, BPH, arthritis, hepatitis C. PAST SURGICAL HISTORY: Significant for knee replacement followed by infection and spacer placement. SOCIAL HISTORY: Patient is a 5 cigarettes a day smoker, consumes alcohol daily, and also consumes heroin and cocaine. ALLERGIES: Denied. MEDICATION: Reviewed, in the chart. PHYSICAL EXAMINATION: General: A well-appearing male in no acute distress. He is alert and oriented x3. Seen lying on hospital stretcher. Extremities: Patient's right lower extremity demonstrates healed surgical wound. There is no active site of drainage. There is no breakthrough of the skin. The leg demonstrates no gross erythema at this time. There is mild diffuse swelling. It is symmetric to the contralateral. His range of motion is 0 to 50 degrees with some discomfort. Distal sensation is intact to light touch. 2+ DP pulse. Intact , gastroc, soleus, FHL, AHL. LABORATORY: Reviewed, demonstrating white blood cell count of 5.9. ASSESSMENT: Right knee status post removal of hardware with antibiotic spacer. PLAN: I reviewed these findings with the patient. I advised there is no gross sign of acute infection at this time. That being said, it is not clear if this infection ever fully resolved. He does require followup with his operating surgeon. If his pain and swelling improve, he is stable for discharge and can follow [facility] as an [facility]. I recommend physical therapy to help him ambulate. HOLLI CARDOSO M.D. [id number]
[2020-08-08] MEDS ORDERED: LIDOCAINE PATCH REMOVAL MC ONE (22:00)
[2020-08-09 00:04] VITALS: BMI 26.1
[2020-08-09] MEDS: CEPHALEXIN MONOHYDRATE 500 MG CAPSULE (UD) PO SCH ×4 (00:05→17:26)
[2020-08-09] MEDS: ACETAMINOPHEN 325 MG TABLET (FP) PO PRN (00:55)
[2020-08-09] MEDS ORDERED: QUEtiapine FUMARATE 50 MG TABLET PO SCH (01:00)
[2020-08-09] MEDS ORDERED: METHADONE HCL 10 MG TABLET ONE (05:14)
[2020-08-09] MEDS ORDERED: METHADONE HCL 40 MG DISPERSABLE TABLET ONE (05:15)
[2020-08-09] MEDS: METHADONE 80 MG, METHADONE 10 MG PO SCH (05:30)
[2020-08-09] MEDS ORDERED: TAMSULOSIN HCL 0.4 MG CAP PO SCH (08:30)
[2020-08-09 08:59] LABS: BASO % 0.3 % (0-2.0); EOS % 6.5 % (0-4.5); HEMATOCRIT 36.4 % (35.4-49); HEMOGLOBIN 12.1 GM/dL (11.7-16.9); LYMPH % 45.9 % (8-40); MCH 25.8 pg (25.7-33.7); MCHC 33.1 g/dl (32.0-35.9); MEAN CELL VOLUME 77.9 fl (80-96); MEAN PLT VOLUME 7.6 fl (7.5-11.1); MONO % 8.3 % (3.8-10.2); PLATELET COUNT 248 K/MM3 (134-434); RBC 4.67 M/mm3 (4.00-5.60); RDW 18.9 % (11.9-15.9); WHITE BLOOD COUNT 5.9 K/mm3 (4.0-10.0)
[2020-08-09] MEDS ORDERED: IBUPROFEN 400 MG TABLET (FP) PO PRN ×2 (09:06→14:56)
[2020-08-09 09:19] LABS: CALCIUM 9.5 mg/dL (8.5-10.1); CREATININE 0.8 mg/dL (0.55-1.3); POTASSIUM 3.8 mmol/L (3.5-5.1)
[2020-08-09] MEDS: HYDROCHLOROTHIAZIDE 12.5 MG CAPSULE (FP) PO SCH (09:54)
[2020-08-09] MEDS: LISINOPRIL 10 MG TABLET PO SCH (09:55)
[2020-08-09] MEDS ORDERED: LIDOCAINE 5% TOPICAL PATCH TP SCH ×3 (10:00)
[2020-08-09 10:04] VITALS: TEMP 98.1
--- NOTE | 2020-08-09 13:22 | PN ---
Teaching Attending Note Name of Resident: Omi Graff ATTENDING PHYSICIAN STATEMENT I saw and evaluated the patient. I reviewed the resident's note and discussed the case with the resident. I agree with the resident's findings and plan as documented. SUBJECTIVE: patient feels well, has no complaints states that his symptoms have resolved OBJECTIVE: Vital Signs Period Temp Pulse Resp BP Sys/Tian Pulse Ox Last 24 Hr 97.8 F-98.6 F 64-78 14-18 115-161/67-102 95-98 Physical Exam as per resident note ASSESSMENT AND PLAN: 60 y/o m with Polysubstance abuse, Hep C, HTN who present with worsening lower extremity edema Lower Extremity Edema No Signs of DVT Vascular study negative Edema resolved--per patient his RLE > LLE at baseline He had hardware explanted due to Hx of prosthetic knee infection continue Abx as per ID hx of Substance abuse Cont Methadone HTN Cont HCTZ, Lisinopril Ppx: SCD
[2020-08-09 14:05] VITALS: BP 121/69; PULSE 66
--- NOTE | 2020-08-09 16:04 | DS ---
Physical Exam: SUBJECTIVE: Patient seen and examined, endorses excitement about going to [facility], states he has an appointment with his Orthopedist at [place] on the . Denies any F/C, CP, SoB, N/V/D, or changes in abdominal or bladder habits. OBJECTIVE: Vital Signs Period Temp Pulse Resp BP Sys/Tian Pulse Ox Last 24 Hr 97.8 F-98.6 F 64-73 17-18 115-161/69-102 95-98 PHYSICAL EXAM GENERAL: The patient is awake, alert, and fully oriented, in no acute distress. HEAD: Normal with no signs of trauma. EYES: PERRL, extraocular movements intact, sclera anicteric, conjunctiva clear. No ptosis. ENT: Ears normal, nares patent, oropharynx clear without exudates, moist mucous membranes. NECK: Trachea midline, full range of motion, supple. LUNGS: Breath sounds equal, clear to auscultation bilaterally, no wheezes, no crackles, no accessory muscle use. HEART: Regular rate and rhythm, S1, S2 without murmur, rub or gallop. ABDOMEN: Soft, nontender, nondistended, normoactive bowel sounds, no guarding UPPER EXTREMITIES: 2+ pulses, warm, well-perfused, no edema. LOWER EXTREMITIES: Right: swelling minimally present Left: Limited swelling, no pitting NEUROLOGICAL: Normal speech, gait not observed. PSYCH: Normal mood, normal affect. SKIN: Warm, dry, normal turgor, no rashes or lesions noted except as noted LABS Laboratory Results - last 24 hr 08/09/20 08/09/20 07:45 07:45 WBC 5.9 RBC 4.67 Hgb 12.1 Hct 36.4 MCV 77.9 L MCH 25.8 MCHC 33.1 RDW 18.9 H Plt Count 248 MPV 7.6 Absolute Neuts (auto) 2.3 Neutrophils % 39.0 L D Lymphocytes % 45.9 H D Monocytes % 8.3 Eosinophils % 6.5 H Basophils % 0.3 Nucleated RBC % 0 Sodium 140 Potassium 3.8 Chloride 108 H Carbon Dioxide 24 Anion Gap 7 L BUN 18.0 Creatinine 0.8 Est GFR (CKD-EPI)AfAm 112.53 Est GFR (CKD-EPI)NonAf 97.10 Random Glucose 77 Calcium 9.5 Magnesium 2.0 HOSPITAL COURSE: Date of Admission:08/07/20 Date of Discharge: 08/09/20 60 yo M w/ PMHx of polysubstance abuse (heroin, cocaine, tobacco), hep C (treated), hypertension, who is presenting from [facility] with worsening lower extremity edema on the right side. Patient states that he had a R knee replacement in 2019; he states further surgical intervention was needed in April of 2020 ([facility] - Dr. Vu) after the hardware became infected, he was on 6w of Vancomycin 1250mg via PICC. Since then he has not had any trouble with the knee. However, within the past 8 days the right lower extremity has become swollen, tender, and painful. Patient also states that the left ankle has begun to swell during the past several weeks. He had ankle surgery approx 20 years ago but does not recall why. Currently homeless, living in alf. ER course was notable for: - Vitals: T 97.3 , HR 84, BP 166/91 - Ultrasound negative for DVT - X-ray right knee revealing knee effusion Ptn was admitted to the medical floors for LE Cellulitis, and ID was consulted. ID started Cefalexin 500mg Q6 hours for a total of 7 days. Methadone dose of 90mg was confirmed with PC and patient was restarted on meds. Seroquil 50mg HS was additionally restarted as was Flomax 0.4mg. Lidoderm patches 5% were applied to shoulders b/l and R leg for pain control. Labaratory values were notable for a chronic anemia diagnosed 6 months ago and ptn was evaluated by GI for outpatient EGD/Cscope. On the morning of the second day of admission patient's legs were notably less swollen, less tender, and less warm, patient denied any F/C, N/V, CRABTREE, CP, SoB, or changes in urinary or bowel habits. On the day of discharge, patient was taking his antibiotics without difficulty. [facility] was called and updated on the patient's improved condition and accepted him back to their rehabilitation program. Ptn was then transferred back to [facility] with instructions to follow up with his Orthopedist at [facility] and GI for his chronic anemia. At the time of DC, patient was medically stable to go to [facility] Minutes to complete discharge: 36 Discharge Summary Problems reviewed: Yes Reason For Visit: CELLULITIS OF RIGHT LOWER EXTREMITY EDEMA OF FOOT Current Active Problems Pedal edema (Chronic) Condition: Stable - Instructions Diet, Activity, Other Instructions: YOUR VISIT You came to the hospital because you were experiencing redness and swelling of your right leg. You were admitted to the hospital for a condition called, "cellulitis" and given medicine for care of these symptoms. You are now stable and may return to [facility]. MEDICATIONS -Please START Keflex 500mg every 6 hours, for 6 more days (total 24 pills) for your right leg infection -Please continue to take your home medications as prescribed. ADDITIONAL CARE -Please continue to see Dr. Pascual Arreaga (Substance Abuse) at [facility] for your drug rehabilitation -Please make an appointment to see a primary care provider 1 week from today. Since you do not have one, you can call to schedule an appointment at the [facility] residents' clinic, located at [address] [place] [address]. If you would like to continue seeing Dr. Omi Graff, please ask for a Friday morning appointment. -Please make an appointment to see Dr. Renard Vu (Orthopedic Surgery) at [facility] for evaluation of your right knee. -Please make an appointment to see Dr. Canales (gastroenterology) to further assess your anemia and need for appropriate screening such as endoscopy/colonoscopy. ADDITIONAL INFORMATION -Please call [phone] or come directly to the emergency department if you experience recurrence of the symptoms that brought you to the hospital, unusual headache, vision change, shortness of breath, chest pain, numbness, tingling, loss of alertness/awareness, loss of function, unusual bleeding or any alarming symptoms. Referrals: Keith Shell MD [Staff Physician] - 2 Weeks Pascual Arreaga DO [Staff Physician] - 08/09/20 Disposition: I.P. ALCOHOL/SUBS ABUSE REHAB - Home Medications Comprehensive Discharge Medication List: Ambulatory Orders Albuterol Sulfate [Albuterol Sulfate Hfa] 2 puff IH PRN PRN #1 inhaler 04/06/20 Hydrochlorothiazide [Hctz -] 12.5 mg PO DAILY #30 cap 04/06/20 Lisinopril [Prinivil] 10 mg PO DAILY #30 tablet 04/06/20 Tamsulosin HCl [Flomax] 0.4 mg PO HS #14 cap 04/06/20 Gabapentin [Neurontin] 400 mg PO TID 07/28/20 Ferrous Sulfate [Feosol] 325 mg PO BID 08/02/20 Quetiapine Fumarate [Seroquel -] 50 mg PO HS 08/02/20 Aspirin [ASA -] 81 mg PO DAILY 08/08/20 Calcium Carbonate/Vitamin D3 [Calcium 600-Vit D3 200 Tablet] 1 each PO BID Fluticasone/Salmeterol [Advair 250-50 Diskus] 1 each IH BID 08/08/20 Melatonin 5 mg PO HS 08/08/20 Methadone [Dolophine -] 90 mg PO DAILY 08/08/20 Nicotine Polacrilex [Nicotine Gum] 2 mg BC PRN PRN 08/08/20 Cephalexin [Keflex] 500 mg PO QID 6 Days #24 capsule 08/09/20 Ibuprofen [Motrin -] 800 mg PO Q8H PRN #0 tablet 08/09/20 Lidocaine 5% Patch [Lidoderm -] 1 patch TP DAILY #7 patch 08/09/20 This patient is new to me today: No Emergency Visit: No Critical Care patient: No - Discharge Referral Referred to [facility] Med P.C[facility] No Physician Referral: Eulogio Canales DO (GI) (Chronic Anemia; Dx 6 months ago; GI requested EGD/Cscope outpatient) ATTENDING PHYSICIAN STATEMENT I saw and evaluated the patient. I reviewed the resident's note and discussed the case with the resident. I agree with the resident's findings and plan as documented. SUBJECTIVE: OBJECTIVE: ASSESSMENT AND PLAN:
[2020-08-09] MEDS ORDERED: LIDOCAINE PATCH REMOVAL MC SCH (22:00)
== END 2020-08-09 18:16 | disposition other institution (70) | DRG 383 ==
LOC: JER 15:50 → JERBED 20:36 → J6S 08-08 22:00
PROVIDERS: ADMIT Internal Medicine; ATTEND Internal Medicine
PROC: HZ2ZZZZ Detoxification Services for Substance Abuse Treatment (ICD-10-PCS; principal; 2020-08-07)
DX: L03.115 Cellulitis of right lower limb (principal); F10.239 Alcohol dependence with withdrawal, unspecified; F14.10 Cocaine abuse, uncomplicated; F11.20 Opioid dependence, uncomplicated; I10 Essential (primary) hypertension; M19.90 Unspecified osteoarthritis, unspecified site; N40.0 Benign prostatic hyperplasia without lower urinary tract symptoms; F17.210 Nicotine dependence, cigarettes, uncomplicated; F19.10 Other psychoactive substance abuse, uncomplicated; B19.20 Unspecified viral hepatitis C without hepatic coma; K92.1 Melena; D50.9 Iron deficiency anemia, unspecified; Z59.0 Homelessness; Z96.651 Presence of right artificial knee joint
CPT/HCPCS: 36415; 73562-TC-RT-FY; 80048; 80053; 82728; 83540; 83550; 83735; 83880; 84100; 85025; 85610; 85730; 93005; 93010; 93970-TC; 99285-25; C9803; U0003

== ENCOUNTER 2020-08-09 18:38 | Inpatient (IN) | payer OTHER ==
--- OUTSIDE RECORDS SUMMARY | 2020-08-09 18:44 | XMS ---
:1960 Author Organization [facility] Support Name Relationship Address Phone UE, UNEMPLOYED Unavailable Unavailable Unavailable CASTILLO TINSLEY SISTER UNKNOWN MICHELLE MARTINEZ [phone] UE Unavailable Unavailable Unavailable TESHA RAMIREZ FAMILY/OTHER [address] [place] [address] CASTILLO TINSLEY Sister UNKNOWN Unavailable MICHELLE MARTINEZ [phone] Re-disclosure Warning The records that you are [...] is protected by Article 27-F of the [facility] Public Health law. If you continue you may haveaccess to information: Regarding HIV / AIDS; Provided by facilities licensed or operated by the [facility] Office of Mental Health; or Provided by the [facility] Office for People With Developmental Disabilities. If such information is present, then the following [facility] mandated warning applies: This information has [...] law may result in a fine or group home sentence or both. A general authorization for the release of medical or other information is NOT sufficient authorization for further disclosure. Insurance Providers Payer name Policy type Policy ID Covered Covered alliance party's Policy P gonzalez / Coverage alliance party ID relationship to [employer] ormation type [employer] [id number] SP [id number] [employer] [id number] SP [id number] FIRST [employer] [id number] SP [id number] FIRST Results ID Date Data Source [id number] 07/28/2020 12:25:00 PM EDT [facility] Name Value Range Interpretation Description Data Sup porting Code Source(s) Document(s ) SARS [facility] coronavirus 2 RNA This lab was ordered by [facility] ct [facility] and reported by [facility]. Procedure
[2020-08-09 19:41] VITALS: BMI 27.7
[2020-08-09] MEDS ORDERED: NICOTINE POLACRILEX 2 MG GUM BUC PRN (20:25)
[2020-08-09] MEDS ORDERED: LOPERAMIDE HCL 2 MG CAPSULE PO PRN (20:25)
[2020-08-09] MEDS ORDERED: MAG HYDROX/AL HYDROX/SIMETH 30 ML UNIT-DOSE CUP PO PRN (20:25)
[2020-08-09] MEDS ORDERED: ACETAMINOPHEN 325 MG TABLET (FP) PO PRN (20:25)
[2020-08-09] MEDS ORDERED: P-EPHED 60MG/TRIPROLIDI 2.5MG TABLET PO PRN (20:25)
[2020-08-09] MEDS ORDERED: hydrOXYzine PAMOATE 25 MG CAPSULE (FP) PO PRN (20:25)
[2020-08-09] MEDS ORDERED: MAGNESIUM CITRATE 300 ML BOTTLE PO PRN (20:25)
[2020-08-09] MEDS ORDERED: MAGNESIUM HYDROX 2400MG/30ML ORAL SUSPENSION 30 ML CUP PO PRN (20:25)
[2020-08-09] MEDS ORDERED: guaiFENesin 200 MG/10 ML 10 ML UNIT-DOSE CUPS PO PRN (20:25)
--- NOTE | 2020-08-09 20:25 | BHS.RME ---
Substance Use & Tx History - Substance Use History Alcohol Frequency of use: Daily Substance route: Oral Physical/Psych/Mental Status - Behavior Eye Contact: Normal - Cooperativeness Cooperativeness: Cooperative - Thinking Thought Processes: Tight, Logical Thought content: Future oriented - Physical Health Problems Is patient presently having any pain?: Yes (right knee pain) Does patient presently have any injuries (include location): No Does patient currently have a fever: No Is patient : No
[2020-08-09] MEDS ORDERED: ALBUTEROL SO4 HFA INHALER IH PRN (20:27)
--- OUTSIDE RECORDS SUMMARY | 2020-08-09 20:34 | XMS ---
:1960 Author Organization [facility] Support Name Relationship Address Phone UE, UNEMPLOYED Unavailable Unavailable Unavailable CASTILLO TINSLEY SISTER UNKNOWN MICHELLE MARTINEZ [phone] UE Unavailable Unavailable Unavailable TESHA RAMIREZ FAMILY/OTHER [address] [place] [address] CASTILLO TINSLEY Sister UNKNOWN Unavailable MICHELLE MARTINEZ [phone] Re-disclosure Warning The records that you are [...] is protected by Article 27-F of the [facility] Public Health law. If you continue you may haveaccess to information: Regarding HIV / AIDS; Provided by facilities licensed or operated by the [facility] Office of Mental Health; or Provided by the [facility] Office for People With Developmental Disabilities. If such information is present, then the following [facility] mandated warning applies: This information has [...] law may result in a fine or [facility] sentence or both. A general authorization for the release of medical or other information is NOT sufficient authorization for further disclosure. Insurance Providers Payer name Policy type Policy ID Covered Covered alliance party's Policy P gonzalez / Coverage alliance party ID relationship to [employer] Inf ormation type [employer] [id number] SP [id number] [employer] [id number] SP [id number] [employer] [id number] SP [id number] FIRST Results ID Date Data Source [id number] 07/28/2020 12:25:00 PM EDT [facility] Name Value Range Interpretation Description Data Sup porting Code Source(s) Document(s ) SARS [facility] coronavirus 2 RNA This lab was ordered by [facility] ct [facility] and reported by [facility]. Procedure
--- NOTE | 2020-08-09 20:41 | HP ---
CIWA Score - Admission Criteria OASAS Guidelines: Admission for Medically Managed Detox: Requires at least one of the followin. CIWA greater than 12 2. Seizures within the past 24 hours 3. Delirium tremens within the past 24 hours 4. Hallucinations within the past 24 hours 5. Acute intervention needed for co occurring medical disorder 6. Acute intervention needed for co occurring psychiatric disorder 7. Severe withdrawal that cannot be handled at a lower level of care (continued vomiting, continued diarrhea, abnormal vital signs) requiring intravenous medication and/or fluids 8. Admitting History and Physical - Admission Chief Complaint: I'm here for rehab. History of Present Illness: Mr. Gaines is 60 y/o male who originally presented to [facility] on 07/28 for detox. Completed detox on 08/02 and was transferred to [facility] for rehab. Patient was transferred to [facility] for evaluation of bilateral legs swelling. Patient was started on PO Keflex for RLE cellulitis and was transferred back here to [facility] to continue alcohol rehab. He was also seen by GI while in the hospital for anemia. History Source: Patient Limitations to Obtaining History: No Limitations - Past Medical History Cardiovascular: Yes: HTN Pulmonary: Yes: Asthma Renal/: Yes: BPH Heme/Onc: Yes: Anemia Rheumatology: Yes: Other (Arthritis) - Past Surgical History Past Surgical History: Yes: Joint Replacement - Smoking History Smoking history: Current every day smoker Have you smoked in the past 12 months: Yes Aproximately how many cigarettes per day: 4 If you are a former smoker, when did you quit?: Never smoked - Alcohol/Substance Use Hx Alcohol Use: Yes (6 beers per day) History of Substance Use: reports: Cocaine, Heroin - Social History Usual Living Arrangement: Yes: Alone Do you think of yourself as: Declined to answer ADL: Independent Occupation: unemployed History of Recent Travel: No Admission ROS [facility] Allergies/Adverse Reactions: Allergies Allergy/AdvReac Type Severity Reaction Status Date / Time No Known Allergies Allergy Verified 08/07/20 16:33 History of Present Illness: Mr. Gaines is 60 y/o male who originally presented to [facility] on 07/28 for detox. Completed detox on 08/02 and was transferred to [facility] for rehab. Patient was transferred to [facility] for evaluation of bilateral legs swelling. Patient was started on PO Keflex for RLE cellulitis and was transferred back here to [facility] to continue alcohol rehab. He was also seen by GI while in the hospital for anemia. Exam Limitations: No Limitations - Ebola screening Have you traveled outside of the country in the last 21 days: No Have you had contact with anyone from an Ebola affected area: No Have you been sick,other than usual withdrawal symptoms: No Do you have a fever: No - Review of Systems Constitutional: No Symptoms Reported EENT: reports: No Symptoms Reported Respiratory: reports: No Symptoms reported Cardiac: reports: No Symptoms Reported GI: reports: No Symptoms Reported : reports: No Symptoms Reported Musculoskeletal: reports: Joint Pain, Joint Stiffness (right knee swelling) Endocrine: reports: No Symptoms Reported Hematology: reports: Anemia Psychiatric: reports: No Sypmtoms Reported, Mood/Affect Appropiate, Orientated x3 Other Systems: Reviewed and Negative Patient History - Patient Medical History Hx Asthma: Yes Hx Chronic Obstructive Pulmonary Disease (COPD): No Hx Cardiac Disorders: No Hx Hypertension: Yes Hx Seizures: No Hx Diabetes: No Hx Gastrointestinal Disorders: No Hx Genitourinary Disorders: No Hx Sexually Transmitted Disorders: No Hx Renal Disease (ESRD): No Hx Depression: No Hx Suicide Attempt: No Hx Schizophrenia: No - Patient Surgical History Past Surgical History: Yes Hx Neurologic Surgery: No Hx Cataract Extraction: No Hx Cardiac Surgery: No Hx Lung Surgery: No Hx Breast Surgery: No Hx Breast Biopsy: No Hx Abdominal Surgery: No Hx Appendectomy: No Hx Cholecystectomy: No Hx Genitourinary Surgery: No Hx Section: No Hx Orthopedic Surgery: Yes (Right Total Knee replacement 02/23/2019) Anesthesia Reaction: No - PPD History Implanted On Prior R Admission?: Yes Date: 07/30/20 Results: 0mm - Reproductive History Patient : No - Smoking Cessation Smoking history: Current every day smoker Have you smoked in the past 12 months: Yes Aproximately how many cigarettes per day: 4 If you are a former smoker, when did you quit?: Never smoked Hx Chewing Tobacco Use: No Initiated information on smoking cessation: No - Substances abused Alcohol Frequency: Daily Amount used: 1 pack of beer Age of first use: 17 Date of last use: 07/28/20 Cocaine Substance route: Inhalation Frequency: Daily Amount used: $20 Age of first use: 20 Admission Physical Exam BHS - Vital Signs Vital Signs: Vital Signs - 24 hr 08/09/20 19:39 Temperature 97.7 F Pulse Rate 70 Respiratory 18 Rate Blood Pressure 155/87 - Physical General Appearance: Yes: Within Normal Limits, Appropriately Dressed, Mild Distress (right shoulder and knee pain.) HEENTM: Yes: Within Normal Limits Respiratory: Yes: Within Normal Limits Neck: Yes: Within Normal Limits Breast: Yes: Breast Exam Deferred Cardiology: Yes: Regular Rhythm, Regular Rate, S1, S2 Abdominal: Yes: Within Normal Limits, Flat, Soft Genitourinary: Yes: Within Normal Limits Back: Yes: Within Normal Limits Musculoskeletal: Yes: Joint Stiffness, Joint swelling (right knee) Extremities: Yes: Within Normal Limits, Normal Capillary Refill Neurological: Yes: Within Normal Limits, Fully Oriented, Normal Mood/Affect Integumentary: Yes: Within Normal Limits, Dry Lymphatic: Yes: Within Normal Limits - Diagnostic (1) Alcohol dependence, uncomplicated Current Visit: No Status: Chronic (2) Anemia Current Visit: No Status: Chronic Qualifiers: Qualified Code(s): D64.9 - Anemia, unspecified (3) Asthma Current Visit: No Status: Chronic Qualifiers: Qualified Code(s): J45.22 - Mild intermittent asthma with status asthmaticus (4) BPH (benign prostatic hyperplasia) Current Visit: No Status: Chronic Qualifiers: Qualified Code(s): N40.1 - Benign prostatic hyperplasia with lower urinary tract symptoms; N39.43 - Post-void dribbling (5) Cocaine dependence Current Visit: No Status: Chronic Qualifiers: Qualified Code(s): F14.20 - Cocaine dependence, uncomplicated (6) Essential (primary) hypertension Current Visit: No Status: Chronic (7) Methadone maintenance therapy patient Current Visit: No Status: Chronic (8) Nicotine dependence Current Visit: No Status: Chronic Qualifiers: Qualified Code(s): F17.210 - Nicotine dependence, cigarettes, uncomplicated Breathalyzer - Breathalyzer Breathalyzer: 0 POC Urine test - Test device test lot number: not applicable Urine Drug Screen - Test Device Lot number: [id number] Expiration date: 05/30/22 - Control Is test valid?: Yes - Results Drug screen NEGATIVE: No Urine drug screen results: MTD-Methadone, BZO-Benzodiazepines Inpatient Rehab Admission - Rehab Decision to Admit Inpatient rehab admission?: Yes - Initial Determination Are CD services needed?: Yes Free of communicable disease: Yes Not in need of hospitalization: Yes - Rehab Admission Criteria Previous failed treatment: Yes Poor recovery environment: Yes Comorbidities: Yes Lacks judgement: Yes Patient is meeting Inpatient Rehab admission criteria:: Yes
[2020-08-09] MEDS: TAMSULOSIN HCL 0.4 MG CAP PO SCH (21:53)
[2020-08-09] MEDS: MELATONIN 5 MG TABLETS PO SCH (21:53)
[2020-08-09] MEDS: GABAPENTIN 400 MG CAPSULE PO SCH (21:53)
[2020-08-09] MEDS: FERROUS SO4 325 MG TABLET (FP) PO SCH (21:53)
[2020-08-09] MEDS: CALCIUM 500MG/VIT-D 200 UNITS COMBO TABLET (FP) PO SCH (21:53)
[2020-08-09] MEDS: THIAMINE HCL 100 MG TABLET (FP) PO SCH (21:54)
[2020-08-09] MEDS: BUDESONIDE/FORMETEROL FUMARATE 80/4.5 mcg INHALER IH SCH (21:54)
[2020-08-09] MEDS: IBUPROFEN 400 MG TABLET (FP) PO PRN (21:56)
[2020-08-09] MEDS ORDERED: LIDOCAINE PATCH REMOVAL MC SCH (22:00)
[2020-08-09] MEDS: CEPHALEXIN MONOHYDRATE 500 MG CAPSULE (UD) PO SCH (23:49)
[2020-08-10] MEDS: CEPHALEXIN MONOHYDRATE 500 MG CAPSULE (UD) PO SCH ×4 (06:00→23:49)
[2020-08-10] MEDS: GABAPENTIN 400 MG CAPSULE PO SCH ×3 (06:00→21:10)
[2020-08-10] MEDS: IBUPROFEN 400 MG TABLET (FP) PO PRN ×3 (06:01→21:11)
[2020-08-10] MEDS ORDERED: METHADONE HCL 10 MG TABLET ONE (08:15)
[2020-08-10] MEDS ORDERED: METHADONE HCL 40 MG DISPERSABLE TABLET ONE (08:15)
[2020-08-10] MEDS: METHADONE 80 MG, METHADONE 10 MG PO SCH (08:17)
[2020-08-10] MEDS ORDERED: METHADONE HCL 40 MG DISPERSABLE TABLET PO SCH (10:00)
[2020-08-10] MEDS ORDERED: LIDOCAINE 5% TOPICAL PATCH TP SCH (10:00)
[2020-08-10] MEDS: BUDESONIDE/FORMETEROL FUMARATE 80/4.5 mcg INHALER IH SCH ×2 (10:47→22:15)
[2020-08-10] MEDS: PRENATAL VITAMINS W/ FOLIC ACID TABLET (FP) PO SCH (10:47)
[2020-08-10] MEDS: LISINOPRIL 10 MG TABLET PO SCH (10:48)
[2020-08-10] MEDS: FERROUS SO4 325 MG TABLET (FP) PO SCH ×2 (10:48→21:09)
[2020-08-10] MEDS: NICOTINE 7 MG/24 HOURS TOPICAL PATCH TD SCH (10:48)
[2020-08-10] MEDS: HYDROCHLOROTHIAZIDE 12.5 MG CAPSULE (FP) PO SCH (10:48)
[2020-08-10] MEDS: ASPIRIN 81 MG CHEWABLE TABLETS PO SCH (10:48)
[2020-08-10] MEDS: CALCIUM 500MG/VIT-D 200 UNITS COMBO TABLET (FP) PO SCH ×2 (10:48→21:11)
[2020-08-10 12:46] LABS: URINE APPEARANCE CLEAR; URINE BILIRUBIN NEGATIVE (NEGATIVE); URINE COLOR YELLOW; URINE GLUCOSE (UA) NEGATIVE (NEGATIVE); URINE KETONE NEGATIVE (NEGATIVE); URINE LEUK ESTERASE NEGATIVE (NEGATIVE); URINE NITRITE NEGATIVE (NEGATIVE); URINE PROTEIN NEGATIVE (NEGATIVE); URINE UROBILINOGEN 0.2 mg/dL (0.2-1.0)
[2020-08-10] MEDS: METHOCARBAMOL 500 MG TABLET PO SCH ×2 (14:42→21:10)
[2020-08-10] MEDS: LIDOCAINE PATCH REMOVAL MC SCH (21:09)
[2020-08-10] MEDS: TAMSULOSIN HCL 0.4 MG CAP PO SCH (21:09)
[2020-08-10] MEDS: QUEtiapine FUMARATE 50 MG TABLET PO SCH (21:10)
[2020-08-10] MEDS: THIAMINE HCL 100 MG TABLET (FP) PO SCH (21:10)
[2020-08-10] MEDS: MELATONIN 5 MG TABLETS PO SCH (21:10)
[2020-08-11] MEDS ORDERED: METHADONE HCL 10 MG TABLET ONE (05:13)
[2020-08-11] MEDS ORDERED: METHADONE HCL 40 MG DISPERSABLE TABLET ONE (05:13)
[2020-08-11] MEDS: METHADONE 80 MG, METHADONE 10 MG PO SCH (05:53)
[2020-08-11] MEDS: METHOCARBAMOL 500 MG TABLET PO SCH ×3 (05:54→21:01)
[2020-08-11] MEDS: CEPHALEXIN MONOHYDRATE 500 MG CAPSULE (UD) PO SCH ×4 (05:54→23:11)
[2020-08-11] MEDS ORDERED: MASKS NR ONE (06:48)
[2020-08-11] MEDS: NICOTINE 7 MG/24 HOURS TOPICAL PATCH TD SCH (09:59)
[2020-08-11] MEDS: ASPIRIN 81 MG CHEWABLE TABLETS PO SCH (10:00)
[2020-08-11] MEDS: CALCIUM 500MG/VIT-D 200 UNITS COMBO TABLET (FP) PO SCH ×2 (10:00→21:01)
[2020-08-11] MEDS: GABAPENTIN 400 MG CAPSULE PO SCH ×2 (10:00→21:02)
[2020-08-11] MEDS: HYDROCHLOROTHIAZIDE 12.5 MG CAPSULE (FP) PO SCH (10:00)
[2020-08-11] MEDS: PANTOPRAZOLE 40 MG TABLET PO SCH (10:00)
[2020-08-11] MEDS: LISINOPRIL 10 MG TABLET PO SCH (10:00)
[2020-08-11] MEDS: FERROUS SO4 325 MG TABLET (FP) PO SCH ×2 (10:00→21:01)
[2020-08-11] MEDS: BUDESONIDE/FORMETEROL FUMARATE 80/4.5 mcg INHALER IH SCH ×2 (10:01→21:03)
[2020-08-11] MEDS: LIDOCAINE 5% TOPICAL PATCH TP SCH (10:01)
[2020-08-11] MEDS: PRENATAL VITAMINS W/ FOLIC ACID TABLET (FP) PO SCH (10:01)
[2020-08-11] MEDS: IBUPROFEN 400 MG TABLET (FP) PO PRN ×2 (10:02→21:03)
[2020-08-11] MEDS: TAMSULOSIN HCL 0.4 MG CAP PO SCH (21:01)
[2020-08-11] MEDS: QUEtiapine FUMARATE 50 MG TABLET PO SCH (21:01)
[2020-08-11] MEDS: MELATONIN 5 MG TABLETS PO SCH (21:01)
[2020-08-11] MEDS: LIDOCAINE PATCH REMOVAL MC SCH (21:02)
[2020-08-11] MEDS: THIAMINE HCL 100 MG TABLET (FP) PO SCH (21:02)
[2020-08-12] MEDS ORDERED: METHADONE HCL 40 MG DISPERSABLE TABLET ONE (03:30)
[2020-08-12] MEDS ORDERED: METHADONE HCL 10 MG TABLET ONE (03:31)
[2020-08-12] MEDS: METHADONE 80 MG, METHADONE 10 MG PO SCH (05:58)
[2020-08-12] MEDS: METHOCARBAMOL 500 MG TABLET PO SCH ×3 (05:58→21:26)
[2020-08-12] MEDS: CEPHALEXIN MONOHYDRATE 500 MG CAPSULE (UD) PO SCH ×4 (05:58→23:29)
[2020-08-12] MEDS: NICOTINE 7 MG/24 HOURS TOPICAL PATCH TD SCH (09:28)
[2020-08-12] MEDS: ASPIRIN 81 MG CHEWABLE TABLETS PO SCH (09:28)
[2020-08-12] MEDS: PRENATAL VITAMINS W/ FOLIC ACID TABLET (FP) PO SCH (09:28)
[2020-08-12] MEDS: CALCIUM 500MG/VIT-D 200 UNITS COMBO TABLET (FP) PO SCH ×2 (09:29→21:26)
[2020-08-12] MEDS: HYDROCHLOROTHIAZIDE 12.5 MG CAPSULE (FP) PO SCH (09:29)
[2020-08-12] MEDS: GABAPENTIN 400 MG CAPSULE PO SCH ×2 (09:29→21:26)
[2020-08-12] MEDS: PANTOPRAZOLE 40 MG TABLET PO SCH (09:29)
[2020-08-12] MEDS: FERROUS SO4 325 MG TABLET (FP) PO SCH ×2 (09:29→21:26)
[2020-08-12] MEDS: LISINOPRIL 10 MG TABLET PO SCH (09:30)
[2020-08-12] MEDS: LIDOCAINE 5% TOPICAL PATCH TP SCH (09:30)
[2020-08-12] MEDS: BUDESONIDE/FORMETEROL FUMARATE 80/4.5 mcg INHALER IH SCH ×2 (09:30→21:26)
[2020-08-12] MEDS: IBUPROFEN 400 MG TABLET (FP) PO PRN ×2 (09:32→21:27)
[2020-08-12] MEDS: MELATONIN 5 MG TABLETS PO SCH (21:26)
[2020-08-12] MEDS: TAMSULOSIN HCL 0.4 MG CAP PO SCH (21:26)
[2020-08-12] MEDS: QUEtiapine FUMARATE 50 MG TABLET PO SCH (21:26)
[2020-08-12] MEDS: LIDOCAINE PATCH REMOVAL MC SCH (21:26)
[2020-08-12] MEDS: THIAMINE HCL 100 MG TABLET (FP) PO SCH (21:26)
[2020-08-13] MEDS ORDERED: METHADONE HCL 10 MG TABLET ONE (03:14)
[2020-08-13] MEDS ORDERED: METHADONE HCL 40 MG DISPERSABLE TABLET ONE (03:14)
[2020-08-13] MEDS: METHOCARBAMOL 500 MG TABLET PO SCH ×3 (06:04→21:04)
[2020-08-13] MEDS: METHADONE 80 MG, METHADONE 10 MG PO SCH (06:04)
[2020-08-13] MEDS: CEPHALEXIN MONOHYDRATE 500 MG CAPSULE (UD) PO SCH ×3 (06:04→17:34)
[2020-08-13] MEDS: LISINOPRIL 10 MG TABLET PO SCH (09:29)
[2020-08-13] MEDS: PANTOPRAZOLE 40 MG TABLET PO SCH (09:29)
[2020-08-13] MEDS: FERROUS SO4 325 MG TABLET (FP) PO SCH ×2 (09:29→21:05)
[2020-08-13] MEDS: CALCIUM 500MG/VIT-D 200 UNITS COMBO TABLET (FP) PO SCH ×2 (09:29→21:05)
[2020-08-13] MEDS: NICOTINE 7 MG/24 HOURS TOPICAL PATCH TD SCH (09:30)
[2020-08-13] MEDS: HYDROCHLOROTHIAZIDE 12.5 MG CAPSULE (FP) PO SCH (09:30)
[2020-08-13] MEDS: ASPIRIN 81 MG CHEWABLE TABLETS PO SCH (09:30)
[2020-08-13] MEDS: GABAPENTIN 400 MG CAPSULE PO SCH ×2 (09:30→21:05)
[2020-08-13] MEDS: PRENATAL VITAMINS W/ FOLIC ACID TABLET (FP) PO SCH (09:30)
[2020-08-13] MEDS: LIDOCAINE 5% TOPICAL PATCH TP SCH (09:31)
[2020-08-13] MEDS: IBUPROFEN 400 MG TABLET (FP) PO PRN ×3 (09:32→22:49)
[2020-08-13] MEDS: BUDESONIDE/FORMETEROL FUMARATE 80/4.5 mcg INHALER IH SCH ×2 (10:11→21:06)
[2020-08-13] MEDS: MELATONIN 5 MG TABLETS PO SCH (21:04)
[2020-08-13] MEDS: QUEtiapine FUMARATE 50 MG TABLET PO SCH (21:05)
[2020-08-13] MEDS: TAMSULOSIN HCL 0.4 MG CAP PO SCH (21:05)
[2020-08-13] MEDS: THIAMINE HCL 100 MG TABLET (FP) PO SCH (21:05)
[2020-08-13] MEDS: LIDOCAINE PATCH REMOVAL MC SCH (21:05)
[2020-08-14] MEDS ORDERED: METHADONE HCL 40 MG DISPERSABLE TABLET ONE (05:33)
[2020-08-14] MEDS ORDERED: METHADONE HCL 10 MG TABLET ONE (05:33)
[2020-08-14] MEDS: CEPHALEXIN MONOHYDRATE 500 MG CAPSULE (UD) PO SCH ×5 (05:59→23:46)
[2020-08-14] MEDS: METHOCARBAMOL 500 MG TABLET PO SCH ×2 (05:59→21:45)
[2020-08-14] MEDS: METHADONE 80 MG, METHADONE 10 MG PO SCH (05:59)
[2020-08-14] MEDS ORDERED: PT OWN MED DRAWER 7, Y5N ONE (09:01)
[2020-08-14] MEDS: CALCIUM 500MG/VIT-D 200 UNITS COMBO TABLET (FP) PO SCH ×2 (09:48→21:46)
[2020-08-14] MEDS: LIDOCAINE 5% TOPICAL PATCH TP SCH (09:48)
[2020-08-14] MEDS: GABAPENTIN 400 MG CAPSULE PO SCH ×2 (09:48→21:45)
[2020-08-14] MEDS: NICOTINE 7 MG/24 HOURS TOPICAL PATCH TD SCH (09:48)
[2020-08-14] MEDS: FERROUS SO4 325 MG TABLET (FP) PO SCH ×2 (09:49→21:44)
[2020-08-14] MEDS: PRENATAL VITAMINS W/ FOLIC ACID TABLET (FP) PO SCH (09:49)
[2020-08-14] MEDS: ASPIRIN 81 MG CHEWABLE TABLETS PO SCH (09:49)
[2020-08-14] MEDS: HYDROCHLOROTHIAZIDE 12.5 MG CAPSULE (FP) PO SCH (09:49)
[2020-08-14] MEDS: PANTOPRAZOLE 40 MG TABLET PO SCH (09:49)
[2020-08-14] MEDS: LISINOPRIL 10 MG TABLET PO SCH (09:49)
[2020-08-14] MEDS: IBUPROFEN 400 MG TABLET (FP) PO PRN ×2 (09:52→17:05)
[2020-08-14] MEDS: BUDESONIDE/FORMETEROL FUMARATE 80/4.5 mcg INHALER IH SCH ×2 (10:20→22:08)
[2020-08-14] MEDS: MINERAL OIL/PETROLAT/WATER TOPICAL CREAM 113 GM JAR TP SCH ×2 (13:39→22:11)
[2020-08-14] MEDS: QUEtiapine FUMARATE 50 MG TABLET PO SCH (21:44)
[2020-08-14] MEDS: TAMSULOSIN HCL 0.4 MG CAP PO SCH (21:44)
[2020-08-14] MEDS: MELATONIN 5 MG TABLETS PO SCH (21:45)
[2020-08-14] MEDS: THIAMINE HCL 100 MG TABLET (FP) PO SCH (21:46)
[2020-08-14] MEDS: HYDROCORTISONE 2.5% TOPICAL CREAM 30 GM TUBE RC SCH (21:48)
[2020-08-14] MEDS: LIDOCAINE PATCH REMOVAL MC SCH (22:08)
[2020-08-15] MEDS ORDERED: METHADONE HCL 40 MG DISPERSABLE TABLET ONE (05:32)
[2020-08-15] MEDS ORDERED: METHADONE HCL 10 MG TABLET ONE (05:33)
[2020-08-15] MEDS: CEPHALEXIN MONOHYDRATE 500 MG CAPSULE (UD) PO SCH ×3 (05:46→18:02)
[2020-08-15] MEDS: METHADONE 80 MG, METHADONE 10 MG PO SCH (05:46)
[2020-08-15] MEDS ORDERED: PT OWN MED DRAWER 7, Y5N ONE ×2 (09:12→22:02)
[2020-08-15] MEDS: PANTOPRAZOLE 40 MG TABLET PO SCH (09:49)
[2020-08-15] MEDS: PRENATAL VITAMINS W/ FOLIC ACID TABLET (FP) PO SCH (09:49)
[2020-08-15] MEDS: LISINOPRIL 10 MG TABLET PO SCH (09:49)
[2020-08-15] MEDS: ASPIRIN 81 MG CHEWABLE TABLETS PO SCH (09:49)
[2020-08-15] MEDS: HYDROCHLOROTHIAZIDE 12.5 MG CAPSULE (FP) PO SCH (09:50)
[2020-08-15] MEDS: FERROUS SO4 325 MG TABLET (FP) PO SCH ×2 (09:51→21:08)
[2020-08-15] MEDS: NICOTINE 7 MG/24 HOURS TOPICAL PATCH TD SCH (09:51)
[2020-08-15] MEDS: METHOCARBAMOL 500 MG TABLET PO SCH ×2 (09:51→21:08)
[2020-08-15] MEDS: CALCIUM 500MG/VIT-D 200 UNITS COMBO TABLET (FP) PO SCH ×2 (09:51→21:08)
[2020-08-15] MEDS: MINERAL OIL/PETROLAT/WATER TOPICAL CREAM 113 GM JAR TP SCH ×2 (09:52→21:11)
[2020-08-15] MEDS: GABAPENTIN 400 MG CAPSULE PO SCH ×2 (09:52→21:54)
[2020-08-15] MEDS: IBUPROFEN 400 MG TABLET (FP) PO PRN ×2 (09:53→18:03)
[2020-08-15] MEDS: LIDOCAINE 5% TOPICAL PATCH TP SCH (09:54)
[2020-08-15] MEDS: BUDESONIDE/FORMETEROL FUMARATE 80/4.5 mcg INHALER IH SCH ×2 (11:03→21:10)
[2020-08-15] MEDS: MELATONIN 5 MG TABLETS PO SCH (21:08)
[2020-08-15] MEDS: QUEtiapine FUMARATE 50 MG TABLET PO SCH (21:08)
[2020-08-15] MEDS: THIAMINE HCL 100 MG TABLET (FP) PO SCH (21:08)
[2020-08-15] MEDS: TAMSULOSIN HCL 0.4 MG CAP PO SCH (21:08)
[2020-08-15] MEDS: PRAMOXINE HCL/MINERAL OIL/ZNOX 30 GM TUBE RC SCH (21:10)
[2020-08-15] MEDS: LIDOCAINE PATCH REMOVAL MC SCH (21:11)
[2020-08-15] MEDS: HYDROCORTISONE 2.5% TOPICAL CREAM 30 GM TUBE RC SCH (21:11)
[2020-08-16] MEDS ORDERED: METHADONE HCL 40 MG DISPERSABLE TABLET ONE (05:34)
[2020-08-16] MEDS ORDERED: METHADONE HCL 10 MG TABLET ONE (05:34)
[2020-08-16] MEDS: METHADONE 80 MG, METHADONE 10 MG PO SCH (05:47)
[2020-08-16] MEDS ORDERED: PT OWN MED DRAWER 7, Y5N ONE ×3 (09:26→20:50)
[2020-08-16] MEDS: ASPIRIN 81 MG CHEWABLE TABLETS PO SCH (09:45)
[2020-08-16] MEDS: METHYL SALICYLATE/MENTHOL OINT 30 GM TUBE TP SCH ×2 (09:46→23:08)
[2020-08-16] MEDS: GABAPENTIN 400 MG CAPSULE PO SCH ×2 (09:46→21:38)
[2020-08-16] MEDS: LIDOCAINE 5% TOPICAL PATCH TP SCH (09:47)
[2020-08-16] MEDS: METHOCARBAMOL 500 MG TABLET PO SCH ×2 (09:47→21:37)
[2020-08-16] MEDS: PANTOPRAZOLE 40 MG TABLET PO SCH (09:47)
[2020-08-16] MEDS: FERROUS SO4 325 MG TABLET (FP) PO SCH ×2 (09:47→21:37)
[2020-08-16] MEDS: LISINOPRIL 10 MG TABLET PO SCH (09:47)
[2020-08-16] MEDS: HYDROCHLOROTHIAZIDE 12.5 MG CAPSULE (FP) PO SCH (09:47)
[2020-08-16] MEDS: CALCIUM 500MG/VIT-D 200 UNITS COMBO TABLET (FP) PO SCH ×2 (09:47→21:37)
[2020-08-16] MEDS: IBUPROFEN 400 MG TABLET (FP) PO PRN ×2 (09:48→21:40)
[2020-08-16] MEDS: PRENATAL VITAMINS W/ FOLIC ACID TABLET (FP) PO SCH (09:49)
[2020-08-16] MEDS: NICOTINE 7 MG/24 HOURS TOPICAL PATCH TD SCH (09:50)
[2020-08-16] MEDS: BUDESONIDE/FORMETEROL FUMARATE 80/4.5 mcg INHALER IH SCH ×2 (10:36→21:38)
[2020-08-16] MEDS: MINERAL OIL/PETROLAT/WATER TOPICAL CREAM 113 GM JAR TP SCH ×2 (11:09→23:08)
[2020-08-16] MEDS: LIDOCAINE PATCH REMOVAL MC SCH (21:37)
[2020-08-16] MEDS: TAMSULOSIN HCL 0.4 MG CAP PO SCH (21:37)
[2020-08-16] MEDS: QUEtiapine FUMARATE 50 MG TABLET PO SCH (21:37)
[2020-08-16] MEDS: THIAMINE HCL 100 MG TABLET (FP) PO SCH (21:38)
[2020-08-16] MEDS: PRAMOXINE HCL/MINERAL OIL/ZNOX 30 GM TUBE RC SCH (21:38)
[2020-08-16] MEDS: MELATONIN 5 MG TABLETS PO SCH (21:38)
[2020-08-16] MEDS: HYDROCORTISONE 2.5% TOPICAL CREAM 30 GM TUBE RC SCH (23:08)
[2020-08-17] MEDS ORDERED: METHADONE HCL 40 MG DISPERSABLE TABLET ONE (03:09)
[2020-08-17] MEDS ORDERED: METHADONE HCL 10 MG TABLET ONE (03:09)
[2020-08-17] MEDS: METHADONE 80 MG, METHADONE 10 MG PO SCH (06:04)
[2020-08-17] MEDS ORDERED: PT OWN MED DRAWER 7, Y5N ONE ×3 (09:13→20:49)
[2020-08-17] MEDS: LIDOCAINE 5% TOPICAL PATCH TP SCH (09:52)
[2020-08-17] MEDS: METHYL SALICYLATE/MENTHOL OINT 30 GM TUBE TP SCH ×2 (09:52→21:20)
[2020-08-17] MEDS: LISINOPRIL 10 MG TABLET PO SCH (09:53)
[2020-08-17] MEDS: ASPIRIN 81 MG CHEWABLE TABLETS PO SCH (09:53)
[2020-08-17] MEDS: PRENATAL VITAMINS W/ FOLIC ACID TABLET (FP) PO SCH (09:53)
[2020-08-17] MEDS: CALCIUM 500MG/VIT-D 200 UNITS COMBO TABLET (FP) PO SCH ×2 (09:54→21:18)
[2020-08-17] MEDS: METHOCARBAMOL 500 MG TABLET PO SCH ×2 (09:54→21:17)
[2020-08-17] MEDS: GABAPENTIN 400 MG CAPSULE PO SCH ×2 (09:54→21:18)
[2020-08-17] MEDS: FERROUS SO4 325 MG TABLET (FP) PO SCH ×2 (09:55→21:17)
[2020-08-17] MEDS: HYDROCHLOROTHIAZIDE 12.5 MG CAPSULE (FP) PO SCH (09:55)
[2020-08-17] MEDS: PANTOPRAZOLE 40 MG TABLET PO SCH (09:56)
[2020-08-17] MEDS: IBUPROFEN 400 MG TABLET (FP) PO PRN ×2 (09:56→18:21)
[2020-08-17] MEDS: NICOTINE 7 MG/24 HOURS TOPICAL PATCH TD SCH (09:58)
[2020-08-17] MEDS: MINERAL OIL/PETROLAT/WATER TOPICAL CREAM 113 GM JAR TP SCH ×2 (09:58→21:20)
[2020-08-17] MEDS: BUDESONIDE/FORMETEROL FUMARATE 80/4.5 mcg INHALER IH SCH ×2 (11:20→21:20)
[2020-08-17] MEDS: QUEtiapine FUMARATE 50 MG TABLET PO SCH (21:18)
[2020-08-17] MEDS: TAMSULOSIN HCL 0.4 MG CAP PO SCH (21:18)
[2020-08-17] MEDS: THIAMINE HCL 100 MG TABLET (FP) PO SCH (21:19)
[2020-08-17] MEDS: MELATONIN 5 MG TABLETS PO SCH (21:19)
[2020-08-17] MEDS: HYDROCORTISONE 2.5% TOPICAL CREAM 30 GM TUBE RC SCH (21:20)
[2020-08-17] MEDS: LIDOCAINE PATCH REMOVAL MC SCH (22:02)
[2020-08-17] MEDS: PRAMOXINE HCL/MINERAL OIL/ZNOX 30 GM TUBE RC SCH (22:02)
[2020-08-18] MEDS ORDERED: METHADONE HCL 10 MG TABLET ONE (05:39)
[2020-08-18] MEDS ORDERED: METHADONE HCL 40 MG DISPERSABLE TABLET ONE (05:39)
[2020-08-18] MEDS: METHADONE 80 MG, METHADONE 10 MG PO SCH (05:59)
[2020-08-18 09:23] VITALS: BP 128/80; PULSE 87; TEMP 97
[2020-08-18] MEDS: LIDOCAINE 5% TOPICAL PATCH TP SCH (09:57)
[2020-08-18] MEDS: CALCIUM 500MG/VIT-D 200 UNITS COMBO TABLET (FP) PO SCH (09:57)
[2020-08-18] MEDS: BUDESONIDE/FORMETEROL FUMARATE 80/4.5 mcg INHALER IH SCH (09:57)
[2020-08-18] MEDS: ASPIRIN 81 MG CHEWABLE TABLETS PO SCH (09:58)
[2020-08-18] MEDS: NICOTINE 7 MG/24 HOURS TOPICAL PATCH TD SCH (09:58)
[2020-08-18] MEDS: PANTOPRAZOLE 40 MG TABLET PO SCH (09:58)
[2020-08-18] MEDS: GABAPENTIN 400 MG CAPSULE PO SCH (09:58)
[2020-08-18] MEDS: METHOCARBAMOL 500 MG TABLET PO SCH (09:58)
[2020-08-18] MEDS: LISINOPRIL 10 MG TABLET PO SCH (09:58)
[2020-08-18] MEDS: FERROUS SO4 325 MG TABLET (FP) PO SCH (09:58)
[2020-08-18] MEDS: PRENATAL VITAMINS W/ FOLIC ACID TABLET (FP) PO SCH (09:59)
[2020-08-18] MEDS: METHYL SALICYLATE/MENTHOL OINT 30 GM TUBE TP SCH (09:59)
[2020-08-18] MEDS: HYDROCHLOROTHIAZIDE 12.5 MG CAPSULE (FP) PO SCH (09:59)
[2020-08-18] MEDS: MINERAL OIL/PETROLAT/WATER TOPICAL CREAM 113 GM JAR TP SCH (09:59)
[2020-08-18] MEDS: IBUPROFEN 400 MG TABLET (FP) PO PRN (10:01)
--- NOTE | 2020-08-18 12:46 | PN ---
S Progress Note Note: Psychiatric nurse practitioner note: Patient scheduled for discharge today. A 30 day prescription of Seroquel 50mg HS was electronically sent to [facility] pharmacy, [address] [place] [address].
--- NOTE | 2020-08-18 13:59 | DS ---
[facility] Rehab Discharge Summary - [facility] Rehab Discharge Summary Admission Date: 08/09/20 Discharge Date: 08/18/20 - History Present History: Alcohol dependence, MMTP - Discharge Physical Exam Vital Signs: Vital Signs Temperature 97 F L 08/18/20 08:21 Pulse Rate 87 08/18/20 08:21 Respiratory Rate 18 08/18/20 08:21 Blood Pressure 128/80 08/18/20 08:21 O2 Sat by Pulse Oximetry (%) 99 08/18/20 07:19 Laboratory Tests 08/09/20 08/09/20 08/10/20 09:00 09:00 11:55 Urine Color Yellow Urine Appearance Clear Urine pH 6.0 D Ur Specific [place] 1.022 Urine Protein Negative Urine Glucose (UA) Negative Urine Ketones Negative Urine Blood Negative Urine Nitrite Negative Urine Bilirubin Negative Urine Urobilinogen 0.2 Ur Leukocyte Esterase Negative Syphilis Serology Reactive A* RPR Titer Reactive 1:1 H ROS: DENIES SHAKES, H/A, ALCOHOL CRAVINGS AND ANXIETY/RESTLESSNESS PE; ALERT AND ORIENTED X 3 SKIN WARM AND DRY EOMS INTACT B/L IN NAD EXT NO TREMORS, +BLE EDEMA, RLE SLIGHTLY LARGER THAN LLE, MILD REDNESS RLE RESOLVING AMB AD [place] DENIES SI/HI A/P ETOH DEPENDENCE RLE CELLULITIS RESOLVED-ABX COMPLETED OA NEUROPATHIC PAIN HTN PATIENT MEDICALLY STABLE FOR DISCHARGE AND TO RETURN TO [facility] PROGRAM AND REFERRED TO 12 STEP GROUP FAMILY AND FRIENDS - Treatment Discharge Condition: Discharge condition good, Rehabilitated safely, Responded well, Outpatient referral accepted Hospital Course: PATIENT REQUESTED EARLY D/C TODAY FROM REHAB. PATIENT IS MEDICALLY STABLE AND DENIES SI/HI. PATIENT STATES HE WANTS TO LEAVE TREATMENT TO FOLLOW UP WITH HIS ORTHOPEDIC DOCTOR. DURING COURSE OF TREATMENT, PATIENT ATTENDED GROUP MEETINGS, EVALUATED AND TREATED BY PSYCH TEAM AND ATTENDED 1:1 SESSIONS WITH COUNSELING STAFF. PATIENT SENT TO [facility] DUE TO RLE SWELLING AND REDNESS AND DX WITH CELLULITIS. PATIENT SENT BACK TO [facility] AND STARTED ON KEFLEX FOR ONE WEEK. PATIENT COMPLETED TREATMENT ORDERED. REFERRAL ARRANGED FOR 12 STEP GROUPS FAMILY AND FRIENDS. PATIENT MEDICALLY ADVISED TO FOLLOW UP WITH OUTPATIENT TREATMENT PROGRAM AND PCP RECOMMENDED. Ambulatory Orders Albuterol Sulfate [Albuterol Sulfate Hfa] 2 puff IH PRN PRN #1 inhaler 04/06/20 Gabapentin [Neurontin] 400 mg PO TID 07/28/20 Quetiapine Fumarate [Seroquel -] 50 mg PO HS 08/02/20 Melatonin 5 mg PO HS 08/08/20 Methadone [Dolophine -] 90 mg PO DAILY 08/08/20 Nicotine Polacrilex [Nicotine Gum] 2 mg BC PRN PRN 08/08/20 Cephalexin [Keflex] 500 mg PO QID 6 Days #24 capsule 08/09/20 Ibuprofen [Motrin -] 800 mg PO Q8H PRN #0 tablet 08/09/20 Albuterol Sulfate Inhaler - [Ventolin HFA Inhaler -] 2 puff IH PRN PRN #1 inhaler 08/18/20 Aspirin [ASA -] 81 mg PO DAILY #14 tab.chew 08/18/20 Calcium Carbonate/Vitamin D3 [Calcium 600-Vit D3 200 Tablet] 1 each PO BID #30 tablet 08/18/20 Ferrous Sulfate [Feosol] 325 mg PO BID #30 tablet 08/18/20 Fluticasone/Salmeterol [Advair 250-50 Diskus] 1 each IH BID #1 each 08/18/20 Hydrochlorothiazide [Hctz -] 12.5 mg PO DAILY #14 cap 08/18/20 Lidocaine 5% Patch [Lidoderm -] 14 patch TP DAILY #7 patch 08/18/20 Lisinopril [Prinivil] 10 mg PO DAILY #14 tablet 08/18/20 Pantoprazole Sodium [Protonix -] 40 mg PO DAILY #14 tablet.ec 08/18/20 Quetiapine Fumarate [Seroquel -] 50 mg PO HS #30 tablet 08/18/20 Tamsulosin HCl [Flomax] 0.4 mg PO HS #14 cap 08/18/20 - Medication Discharge Medications: Ambulatory Orders Albuterol Sulfate [Albuterol Sulfate Hfa] 2 puff IH PRN PRN #1 inhaler 04/06/20 Gabapentin [Neurontin] 400 mg PO TID 07/28/20 Quetiapine Fumarate [Seroquel -] 50 mg PO HS 08/02/20 Melatonin 5 mg PO HS 08/08/20 Methadone [Dolophine -] 90 mg PO DAILY 08/08/20 Nicotine Polacrilex [Nicotine Gum] 2 mg BC PRN PRN 08/08/20 Cephalexin [Keflex] 500 mg PO QID 6 Days #24 capsule 08/09/20 Ibuprofen [Motrin -] 800 mg PO Q8H PRN #0 tablet 08/09/20 Albuterol Sulfate Inhaler - [Ventolin HFA Inhaler -] 2 puff IH PRN PRN #1 inhaler 08/18/20 Aspirin [ASA -] 81 mg PO DAILY #14 tab.chew 08/18/20 Calcium Carbonate/Vitamin D3 [Calcium 600-Vit D3 200 Tablet] 1 each PO BID #30 tablet 08/18/20 Ferrous Sulfate [Feosol] 325 mg PO BID #30 tablet 08/18/20 Fluticasone/Salmeterol [Advair 250-50 Diskus] 1 each IH BID #1 each 08/18/20 Hydrochlorothiazide [Hctz -] 12.5 mg PO DAILY #14 cap 08/18/20 Lidocaine 5% Patch [Lidoderm -] 14 patch TP DAILY #7 patch 08/18/20 Lisinopril [Prinivil] 10 mg PO DAILY #14 tablet 08/18/20 Pantoprazole Sodium [Protonix -] 40 mg PO DAILY #14 tablet.ec 08/18/20 Quetiapine Fumarate [Seroquel -] 50 mg PO HS #30 tablet 08/18/20 Tamsulosin HCl [Flomax] 0.4 mg PO HS #14 cap 08/18/20 - Medication-Assisted Treatment (MAT) Medication-Assisted Treatment (MAT): Yes MAT Follow-up Referral: MMTP - Discharge Instructions Diet, activity, other medical instructions: Diet: EDDIE DIET Activity: TOLERATED Other medical instructions: F/U WITH PCP RECOMMENDED - Follow-up Referral Minutes to complete discharge: 35 - AMA Did Patient Leave Against Medical Advice: No
== END 2020-08-18 12:51 | disposition home or self-care (01) | DRG 772 ==
LOC: YASAS 18:38 → Y3W 20:12
PROVIDERS: ADMIT Allergy & Immunology; ATTEND Allergy & Immunology
PROC: HZ42ZZZ Group Counseling for Substance Abuse Treatment, Cognitive-Behavioral (ICD-10-PCS; principal; 2020-08-09)
DX: F10.20 Alcohol dependence, uncomplicated (principal); F11.20 Opioid dependence, uncomplicated; F14.20 Cocaine dependence, uncomplicated; F17.210 Nicotine dependence, cigarettes, uncomplicated; D64.9 Anemia, unspecified; I10 Essential (primary) hypertension; J45.909 Unspecified asthma, uncomplicated; M19.90 Unspecified osteoarthritis, unspecified site; L03.115 Cellulitis of right lower limb; M79.2 Neuralgia and neuritis, unspecified; N40.0 Benign prostatic hyperplasia without lower urinary tract symptoms; Z96.651 Presence of right artificial knee joint
CPT/HCPCS: 36415; 81003; 86593; 86780

== ENCOUNTER 2020-09-26 10:49 | Inpatient (IN) | payer OTHER ==
[2020-09-26 12:06] VITALS: BMI 21.9
[2020-09-26] MEDS ORDERED: BISMUTH SUBSALICYLATE 524 MG/30 ML UD PO PRN (12:54)
[2020-09-26] MEDS ORDERED: MAGNESIUM CITRATE 300 ML BOTTLE PO PRN (12:54)
[2020-09-26] MEDS ORDERED: MAG HYDROX/AL HYDROX/SIMETH 30 ML UNIT-DOSE CUP PO PRN (12:54)
[2020-09-26] MEDS ORDERED: ACETAMINOPHEN 325 MG TABLET (FP) PO PRN ×2 (12:54)
[2020-09-26] MEDS ORDERED: MENTHOL/PHENOL 1 EACH UD MM PRN (12:54)
[2020-09-26] MEDS ORDERED: MAGNESIUM HYDROX 2400MG/30ML ORAL SUSPENSION 30 ML CUP PO PRN (12:54)
[2020-09-26] MEDS ORDERED: chlordiazePOXIDE HCL 25 MG CAPSULE PO ONE (12:54)
[2020-09-26] MEDS ORDERED: chlordiazePOXIDE HCL 25 MG CAPSULE PO PRN (12:54)
[2020-09-26] MEDS ORDERED: ONDANSETRON *ODT* 4 MG TABLET SL PRN (12:54)
[2020-09-26] MEDS ORDERED: NICOTINE POLACRILEX 2 MG GUM BUC PRN (12:54)
[2020-09-26] MEDS ORDERED: ALBUTEROL SO4 HFA INHALER IH PRN (13:27)
[2020-09-26] MEDS ORDERED: BACITRACIN 0.9 GM PACKET TP SCH (13:30)
[2020-09-26] MEDS: hydrOXYzine PAMOATE 25 MG CAPSULE (FP) PO SCH ×3 (13:54→22:06)
[2020-09-26] MEDS ORDERED: LIDOCAINE 5% TOPICAL PATCH TP SCH ×2 (14:00→14:18)
[2020-09-26] MEDS: NICOTINE 14 MG/24 HOURS TOPICAL PATCH TD SCH (14:05)
[2020-09-26] MEDS: AMMONIUM LACTATE 12% LOTION 225 GM BOTTLE TP SCH (15:57)
[2020-09-26] MEDS: LIDOCAINE 5% TOPICAL PATCH TP SCH (15:58)
[2020-09-26 16:32] LABS: POTASSIUM 4.1 mmol/L (3.5-5.1)
[2020-09-26 16:33] LABS: HEMATOCRIT 37.5 % (35.4-49); HEMOGLOBIN 12.4 GM/dL (11.7-16.9); MCH 26.7 pg (25.7-33.7); MEAN CELL VOLUME 80.8 fl (80-96); MEAN PLT VOLUME 7.4 fl (7.5-11.1); PLATELET COUNT 201 K/MM3 (134-434); RBC 4.64 M/mm3 (4.00-5.60); RDW 21.8 % (11.9-15.9); WHITE BLOOD COUNT 5.4 K/mm3 (4.0-10.0)
[2020-09-26 16:34] LABS: CALCIUM 9.5 mg/dL (8.5-10.1)
[2020-09-26 16:35] LABS: BLOOD UREA NITROGEN 19.6 mg/dL (7-18)
[2020-09-26 16:38] LABS: CREATININE 0.8 mg/dL (0.55-1.3)
[2020-09-26 16:39] LABS: BILIRUBIN,TOTAL 0.6 mg/dL (0.2-1); TOT PROT 7.6 g/dl (6.4-8.2)
[2020-09-26] MEDS: chlordiazePOXIDE HCL 25 MG CAPSULE PO SCH ×2 (17:16→22:07)
[2020-09-26] MEDS: FERROUS SO4 325 MG TABLET (FP) PO SCH (17:16)
[2020-09-26 17:25] LABS: HIV INTERPRETATION NEGATIVE (NEGATIVE)
[2020-09-26] MEDS ORDERED: LIDOCAINE PATCH REMOVAL MC SCH (22:00)
[2020-09-26] MEDS: CALCIUM 500MG/VIT-D 200 UNITS COMBO TABLET (FP) PO SCH (22:06)
[2020-09-26] MEDS: BUDESONIDE/FORMETEROL FUMARATE 80/4.5 mcg INHALER IH SCH (22:06)
[2020-09-26] MEDS: TAMSULOSIN HCL 0.4 MG CAP PO SCH (22:06)
[2020-09-26] MEDS: THIAMINE HCL 100 MG TABLET (FP) PO SCH (22:06)
[2020-09-26] MEDS: MELATONIN 5 MG TABLETS PO SCH (22:07)
[2020-09-26] MEDS: METHOCARBAMOL 500 MG TABLET PO PRN (22:07)
[2020-09-26] MEDS: LIDOCAINE PATCH REMOVAL MC SCH (22:07)
[2020-09-26] MEDS: IBUPROFEN 400 MG TABLET (FP) PO PRN (22:09)
[2020-09-27] MEDS ORDERED: METHADONE HCL 10 MG TABLET ONE (04:12)
[2020-09-27] MEDS ORDERED: METHADONE HCL 40 MG DISPERSABLE TABLET ONE (04:13)
[2020-09-27] MEDS: chlordiazePOXIDE HCL 25 MG CAPSULE PO SCH ×4 (05:17→22:00)
[2020-09-27] MEDS: hydrOXYzine PAMOATE 25 MG CAPSULE (FP) PO SCH ×2 (05:17→10:02)
[2020-09-27] MEDS: METHADONE 80 MG, METHADONE 20 MG PO SCH (05:18)
[2020-09-27] MEDS: FERROUS SO4 325 MG TABLET (FP) PO SCH ×2 (07:01→17:34)
[2020-09-27] MEDS ORDERED: METHADONE HCL 40 MG DISPERSABLE TABLET PO SCH (10:00)
[2020-09-27] MEDS: CALCIUM 500MG/VIT-D 200 UNITS COMBO TABLET (FP) PO SCH ×2 (10:02→22:01)
[2020-09-27] MEDS: PRENATAL VITAMINS W/ FOLIC ACID TABLET (FP) PO SCH (10:02)
[2020-09-27] MEDS: LIDOCAINE 5% TOPICAL PATCH TP SCH (10:03)
[2020-09-27] MEDS: ASPIRIN 81 MG CHEWABLE TABLETS PO SCH (10:03)
[2020-09-27] MEDS: HYDROCHLOROTHIAZIDE 12.5 MG CAPSULE (FP) PO SCH (10:03)
[2020-09-27] MEDS: LISINOPRIL 10 MG TABLET PO SCH (10:03)
[2020-09-27] MEDS: AMMONIUM LACTATE 12% LOTION 225 GM BOTTLE TP SCH (10:04)
[2020-09-27] MEDS: IBUPROFEN 400 MG TABLET (FP) PO PRN ×2 (10:06→21:59)
[2020-09-27] MEDS: METHOCARBAMOL 500 MG TABLET PO PRN ×2 (10:06→22:00)
[2020-09-27] MEDS: NICOTINE 14 MG/24 HOURS TOPICAL PATCH TD SCH (10:10)
[2020-09-27] MEDS: BUDESONIDE/FORMETEROL FUMARATE 80/4.5 mcg INHALER IH SCH ×2 (13:37→22:01)
[2020-09-27] MEDS: QUEtiapine FUMARATE 50 MG TABLET PO SCH (22:00)
[2020-09-27] MEDS: TAMSULOSIN HCL 0.4 MG CAP PO SCH (22:00)
[2020-09-27] MEDS: THIAMINE HCL 100 MG TABLET (FP) PO SCH (22:01)
[2020-09-27] MEDS: LIDOCAINE PATCH REMOVAL MC SCH (22:01)
[2020-09-27] MEDS: MELATONIN 5 MG TABLETS PO SCH (22:01)
[2020-09-28] MEDS ORDERED: METHADONE HCL 10 MG TABLET ONE (04:13)
[2020-09-28] MEDS ORDERED: METHADONE HCL 40 MG DISPERSABLE TABLET ONE (04:13)
[2020-09-28] MEDS: METHADONE 80 MG, METHADONE 20 MG PO SCH (05:17)
[2020-09-28] MEDS: FERROUS SO4 325 MG TABLET (FP) PO SCH ×2 (07:48→17:29)
[2020-09-28] MEDS: chlordiazePOXIDE HCL 25 MG CAPSULE PO SCH ×4 (07:48→22:01)
[2020-09-28] MEDS: LISINOPRIL 10 MG TABLET PO SCH (10:02)
[2020-09-28] MEDS: PRENATAL VITAMINS W/ FOLIC ACID TABLET (FP) PO SCH (10:02)
[2020-09-28] MEDS: ASPIRIN 81 MG CHEWABLE TABLETS PO SCH (10:02)
[2020-09-28] MEDS: HYDROCHLOROTHIAZIDE 12.5 MG CAPSULE (FP) PO SCH (10:02)
[2020-09-28] MEDS: LIDOCAINE 5% TOPICAL PATCH TP SCH (10:03)
[2020-09-28] MEDS: CALCIUM 500MG/VIT-D 200 UNITS COMBO TABLET (FP) PO SCH ×2 (10:03→22:01)
[2020-09-28] MEDS: AMMONIUM LACTATE 12% LOTION 225 GM BOTTLE TP SCH (10:04)
[2020-09-28] MEDS: BUDESONIDE/FORMETEROL FUMARATE 80/4.5 mcg INHALER IH SCH ×2 (10:05→22:02)
[2020-09-28] MEDS: NICOTINE 14 MG/24 HOURS TOPICAL PATCH TD SCH (10:05)
[2020-09-28] MEDS ORDERED: FLU VACCINE (FLULAVAL) PF 60 MCG/0.5 ML SYRINGE 2020-2021 IM ONE (12:00)
[2020-09-28] MEDS: IBUPROFEN 400 MG TABLET (FP) PO PRN ×2 (14:41→22:02)
[2020-09-28] MEDS: METHOCARBAMOL 500 MG TABLET PO PRN ×2 (14:42→22:03)
[2020-09-28] MEDS: THIAMINE HCL 100 MG TABLET (FP) PO SCH (22:01)
[2020-09-28] MEDS: MELATONIN 5 MG TABLETS PO SCH (22:01)
[2020-09-28] MEDS: QUEtiapine FUMARATE 50 MG TABLET PO SCH (22:01)
[2020-09-28] MEDS: TAMSULOSIN HCL 0.4 MG CAP PO SCH (22:01)
[2020-09-28] MEDS: LIDOCAINE PATCH REMOVAL MC SCH (22:01)
[2020-09-29] MEDS ORDERED: chlordiazePOXIDE HCL 10 MG CAPSULE PO PRN
[2020-09-29] MEDS ORDERED: METHADONE HCL 10 MG TABLET ONE (04:27)
[2020-09-29] MEDS ORDERED: METHADONE HCL 40 MG DISPERSABLE TABLET ONE (04:28)
[2020-09-29] MEDS: METHADONE 80 MG, METHADONE 20 MG PO SCH (05:36)
[2020-09-29] MEDS: chlordiazePOXIDE HCL 10 MG CAPSULE PO SCH ×4 (05:37→22:01)
[2020-09-29] MEDS: FERROUS SO4 325 MG TABLET (FP) PO SCH ×2 (07:08→17:36)
[2020-09-29] MEDS: PRENATAL VITAMINS W/ FOLIC ACID TABLET (FP) PO SCH (10:22)
[2020-09-29] MEDS: LISINOPRIL 10 MG TABLET PO SCH (10:22)
[2020-09-29] MEDS: HYDROCHLOROTHIAZIDE 12.5 MG CAPSULE (FP) PO SCH (10:22)
[2020-09-29] MEDS: ASPIRIN 81 MG CHEWABLE TABLETS PO SCH (10:22)
[2020-09-29] MEDS: CALCIUM 500MG/VIT-D 200 UNITS COMBO TABLET (FP) PO SCH ×2 (10:22→22:01)
[2020-09-29] MEDS: BUDESONIDE/FORMETEROL FUMARATE 80/4.5 mcg INHALER IH SCH ×2 (10:25→22:01)
[2020-09-29] MEDS: IBUPROFEN 400 MG TABLET (FP) PO PRN ×2 (10:27→22:03)
[2020-09-29] MEDS: METHOCARBAMOL 500 MG TABLET PO PRN ×2 (10:27→22:02)
[2020-09-29] MEDS: hydrOXYzine PAMOATE 25 MG CAPSULE (FP) PO PRN (10:27)
[2020-09-29] MEDS: NICOTINE 14 MG/24 HOURS TOPICAL PATCH TD SCH (10:30)
[2020-09-29] MEDS: LIDOCAINE 5% TOPICAL PATCH TP SCH (10:31)
[2020-09-29] MEDS: AMMONIUM LACTATE 12% LOTION 225 GM BOTTLE TP SCH (10:31)
[2020-09-29] MEDS: MELATONIN 5 MG TABLETS PO SCH (22:01)
[2020-09-29] MEDS: THIAMINE HCL 100 MG TABLET (FP) PO SCH (22:01)
[2020-09-29] MEDS: TAMSULOSIN HCL 0.4 MG CAP PO SCH (22:01)
[2020-09-29] MEDS: QUEtiapine FUMARATE 50 MG TABLET PO SCH (22:01)
[2020-09-29] MEDS: LIDOCAINE PATCH REMOVAL MC SCH (22:06)
[2020-09-30] MEDS ORDERED: METHADONE HCL 10 MG TABLET ONE (04:45)
[2020-09-30] MEDS ORDERED: METHADONE HCL 40 MG DISPERSABLE TABLET ONE (04:46)
[2020-09-30] MEDS: METHADONE 80 MG, METHADONE 20 MG PO SCH (05:40)
[2020-09-30] MEDS: chlordiazePOXIDE HCL 10 MG CAPSULE PO SCH ×2 (06:42→17:26)
[2020-09-30] MEDS: FERROUS SO4 325 MG TABLET (FP) PO SCH ×2 (07:48→17:26)
[2020-09-30] MEDS: LIDOCAINE 5% TOPICAL PATCH TP SCH (10:31)
[2020-09-30] MEDS: NICOTINE 14 MG/24 HOURS TOPICAL PATCH TD SCH (10:32)
[2020-09-30] MEDS: ASPIRIN 81 MG CHEWABLE TABLETS PO SCH (10:32)
[2020-09-30] MEDS: BUDESONIDE/FORMETEROL FUMARATE 80/4.5 mcg INHALER IH SCH ×2 (10:33→22:07)
[2020-09-30] MEDS: CALCIUM 500MG/VIT-D 200 UNITS COMBO TABLET (FP) PO SCH ×2 (10:33→21:34)
[2020-09-30] MEDS: PRENATAL VITAMINS W/ FOLIC ACID TABLET (FP) PO SCH (10:33)
[2020-09-30] MEDS: AMMONIUM LACTATE 12% LOTION 225 GM BOTTLE TP SCH (10:34)
[2020-09-30] MEDS: LISINOPRIL 10 MG TABLET PO SCH (10:34)
[2020-09-30] MEDS: HYDROCHLOROTHIAZIDE 12.5 MG CAPSULE (FP) PO SCH (10:34)
[2020-09-30] MEDS: IBUPROFEN 400 MG TABLET (FP) PO PRN (17:25)
[2020-09-30] MEDS: METHOCARBAMOL 500 MG TABLET PO PRN ×2 (17:29→23:24)
[2020-09-30] MEDS: QUEtiapine FUMARATE 50 MG TABLET PO SCH (21:33)
[2020-09-30] MEDS: TAMSULOSIN HCL 0.4 MG CAP PO SCH (21:33)
[2020-09-30] MEDS: THIAMINE HCL 100 MG TABLET (FP) PO SCH (21:33)
[2020-09-30] MEDS: MELATONIN 5 MG TABLETS PO SCH (21:34)
[2020-09-30] MEDS: LIDOCAINE PATCH REMOVAL MC SCH (22:07)
[2020-10-01] MEDS ORDERED: METHADONE HCL 40 MG DISPERSABLE TABLET ONE (04:10)
[2020-10-01] MEDS ORDERED: METHADONE HCL 10 MG TABLET ONE (04:10)
[2020-10-01] MEDS ORDERED: chlordiazePOXIDE HCL 10 MG CAPSULE PO ONE (05:00)
[2020-10-01] MEDS: METHADONE 80 MG, METHADONE 20 MG PO SCH (05:32)
[2020-10-01] MEDS: FERROUS SO4 325 MG TABLET (FP) PO SCH (07:41)
[2020-10-01 09:17] VITALS: BP 133/72; PULSE 74; TEMP 97.4
[2020-10-01] MEDS: hydrOXYzine PAMOATE 25 MG CAPSULE (FP) PO PRN (10:09)
[2020-10-01] MEDS: HYDROCHLOROTHIAZIDE 12.5 MG CAPSULE (FP) PO SCH (10:09)
[2020-10-01] MEDS: CALCIUM 500MG/VIT-D 200 UNITS COMBO TABLET (FP) PO SCH (10:09)
[2020-10-01] MEDS: LISINOPRIL 10 MG TABLET PO SCH (10:09)
[2020-10-01] MEDS: ASPIRIN 81 MG CHEWABLE TABLETS PO SCH (10:09)
[2020-10-01] MEDS: NICOTINE 14 MG/24 HOURS TOPICAL PATCH TD SCH (10:10)
[2020-10-01] MEDS: LIDOCAINE 5% TOPICAL PATCH TP SCH (10:10)
[2020-10-01] MEDS: PRENATAL VITAMINS W/ FOLIC ACID TABLET (FP) PO SCH (10:10)
[2020-10-01] MEDS: BUDESONIDE/FORMETEROL FUMARATE 80/4.5 mcg INHALER IH SCH (10:11)
[2020-10-01] MEDS: METHOCARBAMOL 500 MG TABLET PO PRN (10:12)
[2020-10-01] MEDS: IBUPROFEN 400 MG TABLET (FP) PO PRN (10:12)
[2020-10-01] MEDS: AMMONIUM LACTATE 12% LOTION 225 GM BOTTLE TP SCH (10:39)
== END 2020-10-01 12:03 | disposition other institution (70) | DRG 773 ==
LOC: YASAS 10:49 → Y3N 12:17
PROVIDERS: ADMIT Allergy & Immunology; ATTEND Allergy & Immunology
PROC: HZ2ZZZZ Detoxification Services for Substance Abuse Treatment (ICD-10-PCS; principal; 2020-09-26)
DX: F10.230 Alcohol dependence with withdrawal, uncomplicated (principal); F11.20 Opioid dependence, uncomplicated; F14.20 Cocaine dependence, uncomplicated; F17.213 Nicotine dependence, cigarettes, with withdrawal; F19.24 Other psychoactive substance dependence with psychoactive substance-induced mood disorder; F19.282 Other psychoactive substance dependence with psychoactive substance-induced sleep disorder; I10 Essential (primary) hypertension; J45.20 Mild intermittent asthma, uncomplicated; G47.00 Insomnia, unspecified; N40.1 Benign prostatic hyperplasia with lower urinary tract symptoms; N39.43 Post-void dribbling; D50.8 Other iron deficiency anemias; K21.9 Gastro-esophageal reflux disease without esophagitis; R26.2 Difficulty in walking, not elsewhere classified; Z99.89 Dependence on other enabling machines and devices; Z96.651 Presence of right artificial knee joint; Z91.19 Patient's noncompliance with other medical treatment and regimen; Z56.0 Unemployment, unspecified
CPT/HCPCS: 36415; 80053; 85027; 86593; 86780; 87389; C9803; U0003

== ENCOUNTER 2020-10-01 11:40 | Inpatient (IN) | payer OTHER ==
[~2020-10-01 11:40] MED LIST: ALBUTEROL SO4 HFA INHALER IH PRN; LOPERAMIDE HCL 2 MG CAPSULE PO PRN; MAG HYDROX/AL HYDROX/SIMETH 30 ML UNIT-DOSE CUP PO PRN; MAGNESIUM CITRATE 300 ML BOTTLE PO PRN; MAGNESIUM HYDROX 2400MG/30ML ORAL SUSPENSION 30 ML CUP PO PRN; NICOTINE POLACRILEX 2 MG GUM BUC PRN; guaiFENesin 200 MG/10 ML 10 ML UNIT-DOSE CUPS PO PRN
[2020-10-01] MEDS: AMMONIUM LACTATE 12% LOTION 225 GM BOTTLE TP SCH ×2 (14:56→21:12)
[2020-10-01] MEDS: FERROUS SO4 325 MG TABLET (FP) PO SCH (17:12)
[2020-10-01] MEDS: TAMSULOSIN HCL 0.4 MG CAP PO SCH (21:11)
[2020-10-01] MEDS: MELATONIN 5 MG TABLETS PO SCH (21:11)
[2020-10-01] MEDS: QUEtiapine FUMARATE 25 MG TABLET PO SCH (21:11)
[2020-10-01] MEDS: THIAMINE HCL 100 MG TABLET (FP) PO SCH (21:12)
[2020-10-01] MEDS: BUDESONIDE/FORMETEROL FUMARATE 80/4.5 mcg INHALER IH SCH (21:13)
[2020-10-01] MEDS ORDERED: PATIENT'S OWN MEDICATION (NON-FORMULARY) (Calcium Carbonate/Vitamin D3 [Calcium 600-Vit D3 PO SCH (22:00)
[2020-10-01] MEDS ORDERED: GABAPENTIN 300 MG CAPSULE PO ONE (22:10)
[2020-10-01] MEDS ORDERED: METHOCARBAMOL 500 MG TABLET PO ONE (22:11)
[2020-10-01] MEDS ORDERED: IBUPROFEN 600 MG TABLET (FP) PO ONE (22:11)
[2020-10-01] MEDS: CALCIUM 500MG/VIT-D 200 UNITS COMBO TABLET (FP) PO SCH (22:40)
[2020-10-02] MEDS ORDERED: METHADONE HCL 40 MG DISPERSABLE TABLET ONE (05:58)
[2020-10-02] MEDS ORDERED: METHADONE HCL 10 MG TABLET ONE (05:58)
[2020-10-02] MEDS: METHADONE 80 MG, METHADONE 20 MG PO SCH (06:19)
[2020-10-02] MEDS: AMMONIUM LACTATE 12% LOTION 225 GM BOTTLE TP SCH ×3 (06:19→22:14)
[2020-10-02] MEDS: FERROUS SO4 325 MG TABLET (FP) PO SCH ×2 (07:20→17:33)
[2020-10-02] MEDS: PRENATAL VITAMINS W/ FOLIC ACID TABLET (FP) PO SCH (09:24)
[2020-10-02] MEDS: NICOTINE 14 MG/24 HOURS TOPICAL PATCH TD SCH (09:25)
[2020-10-02] MEDS: LISINOPRIL 10 MG TABLET PO SCH (09:26)
[2020-10-02] MEDS: BUDESONIDE/FORMETEROL FUMARATE 80/4.5 mcg INHALER IH SCH ×2 (09:26→22:17)
[2020-10-02] MEDS: HYDROCHLOROTHIAZIDE 12.5 MG CAPSULE (FP) PO SCH (09:32)
[2020-10-02] MEDS ORDERED: METHADONE HCL 40 MG DISPERSABLE TABLET PO SCH (10:00)
[2020-10-02] MEDS ORDERED: LIDOCAINE 5% TOPICAL PATCH TP SCH ×2 (10:30→11:02)
[2020-10-02] MEDS: ASPIRIN 81 MG CHEWABLE TABLETS PO SCH (10:56)
[2020-10-02] MEDS: PANTOPRAZOLE 40 MG TABLET PO SCH (10:56)
[2020-10-02] MEDS: METHOCARBAMOL 500 MG TABLET PO PRN ×2 (10:57→22:14)
[2020-10-02] MEDS: CALCIUM 500MG/VIT-D 200 UNITS COMBO TABLET (FP) PO SCH ×2 (12:43→22:15)
[2020-10-02] MEDS ORDERED: MENTHOL/PHENOL 1 EACH UD MM PRN (13:23)
[2020-10-02] MEDS: GABAPENTIN 400 MG CAPSULE PO SCH ×2 (14:22→22:14)
[2020-10-02] MEDS: LIDOCAINE 5% TOPICAL PATCH TP SCH (14:39)
[2020-10-02] MEDS: TAMSULOSIN HCL 0.4 MG CAP PO SCH (22:13)
[2020-10-02] MEDS: QUEtiapine FUMARATE 25 MG TABLET PO SCH (22:14)
[2020-10-02] MEDS: THIAMINE HCL 100 MG TABLET (FP) PO SCH (22:14)
[2020-10-02] MEDS: MELATONIN 5 MG TABLETS PO SCH (22:14)
[2020-10-02] MEDS: LIDOCAINE PATCH REMOVAL MC SCH (22:14)
[2020-10-02] MEDS: IBUPROFEN 600 MG TABLET (FP) PO PRN (22:15)
[2020-10-03] MEDS ORDERED: METHADONE HCL 10 MG TABLET ONE (03:24)
[2020-10-03] MEDS ORDERED: METHADONE HCL 40 MG DISPERSABLE TABLET ONE (03:24)
[2020-10-03] MEDS: METHADONE 80 MG, METHADONE 20 MG PO SCH (06:21)
[2020-10-03] MEDS: GABAPENTIN 400 MG CAPSULE PO SCH ×3 (06:24→21:07)
[2020-10-03] MEDS: AMMONIUM LACTATE 12% LOTION 225 GM BOTTLE TP SCH ×3 (06:24→21:08)
[2020-10-03] MEDS: PANTOPRAZOLE 40 MG TABLET PO SCH (09:30)
[2020-10-03] MEDS: BUDESONIDE/FORMETEROL FUMARATE 80/4.5 mcg INHALER IH SCH ×2 (09:30→21:08)
[2020-10-03] MEDS: FERROUS SO4 325 MG TABLET (FP) PO SCH ×2 (09:30→16:57)
[2020-10-03] MEDS: CALCIUM 500MG/VIT-D 200 UNITS COMBO TABLET (FP) PO SCH ×2 (09:31→21:07)
[2020-10-03] MEDS: LIDOCAINE 5% TOPICAL PATCH TP SCH (09:31)
[2020-10-03] MEDS: PRENATAL VITAMINS W/ FOLIC ACID TABLET (FP) PO SCH (09:31)
[2020-10-03] MEDS: METHOCARBAMOL 500 MG TABLET PO PRN ×2 (09:33→21:07)
[2020-10-03] MEDS: IBUPROFEN 600 MG TABLET (FP) PO PRN ×2 (09:33→21:07)
[2020-10-03] MEDS: LISINOPRIL 10 MG TABLET PO SCH (09:34)
[2020-10-03] MEDS: NICOTINE 14 MG/24 HOURS TOPICAL PATCH TD SCH (09:34)
[2020-10-03] MEDS: HYDROCHLOROTHIAZIDE 12.5 MG CAPSULE (FP) PO SCH (09:36)
[2020-10-03] MEDS: ASPIRIN 81 MG CHEWABLE TABLETS PO SCH (09:37)
[2020-10-03] MEDS: CEPHALEXIN MONOHYDRATE 500 MG CAPSULE (UD) PO SCH (17:24)
[2020-10-03] MEDS: THIAMINE HCL 100 MG TABLET (FP) PO SCH (21:07)
[2020-10-03] MEDS: QUEtiapine FUMARATE 25 MG TABLET PO SCH (21:07)
[2020-10-03] MEDS: TAMSULOSIN HCL 0.4 MG CAP PO SCH (21:07)
[2020-10-03] MEDS: MELATONIN 5 MG TABLETS PO SCH (21:07)
[2020-10-03] MEDS: LIDOCAINE PATCH REMOVAL MC SCH (21:08)
[2020-10-04] MEDS: CEPHALEXIN MONOHYDRATE 500 MG CAPSULE (UD) PO SCH ×5 (00:04→23:50)
[2020-10-04] MEDS ORDERED: METHADONE HCL 10 MG TABLET ONE (03:38)
[2020-10-04] MEDS ORDERED: METHADONE HCL 40 MG DISPERSABLE TABLET ONE (03:38)
[2020-10-04] MEDS: METHADONE 80 MG, METHADONE 20 MG PO SCH (06:02)
[2020-10-04] MEDS: AMMONIUM LACTATE 12% LOTION 225 GM BOTTLE TP SCH ×3 (06:04→21:53)
[2020-10-04] MEDS: GABAPENTIN 400 MG CAPSULE PO SCH ×3 (06:04→21:51)
[2020-10-04] MEDS: FERROUS SO4 325 MG TABLET (FP) PO SCH ×2 (07:05→17:10)
[2020-10-04] MEDS: LISINOPRIL 10 MG TABLET PO SCH (09:44)
[2020-10-04] MEDS: PANTOPRAZOLE 40 MG TABLET PO SCH (09:44)
[2020-10-04] MEDS: PRENATAL VITAMINS W/ FOLIC ACID TABLET (FP) PO SCH (09:44)
[2020-10-04] MEDS: HYDROCHLOROTHIAZIDE 12.5 MG CAPSULE (FP) PO SCH (09:44)
[2020-10-04] MEDS: CALCIUM 500MG/VIT-D 200 UNITS COMBO TABLET (FP) PO SCH ×2 (09:44→21:51)
[2020-10-04] MEDS: ASPIRIN 81 MG CHEWABLE TABLETS PO SCH (09:44)
[2020-10-04] MEDS: NICOTINE 14 MG/24 HOURS TOPICAL PATCH TD SCH (09:45)
[2020-10-04] MEDS: METHOCARBAMOL 500 MG TABLET PO PRN ×2 (09:47→21:51)
[2020-10-04] MEDS: IBUPROFEN 600 MG TABLET (FP) PO PRN ×2 (09:47→21:52)
[2020-10-04] MEDS: BUDESONIDE/FORMETEROL FUMARATE 80/4.5 mcg INHALER IH SCH ×2 (09:49→21:51)
[2020-10-04] MEDS: LIDOCAINE 5% TOPICAL PATCH TP SCH (10:31)
[2020-10-04] MEDS: TAMSULOSIN HCL 0.4 MG CAP PO SCH (21:51)
[2020-10-04] MEDS: THIAMINE HCL 100 MG TABLET (FP) PO SCH (21:51)
[2020-10-04] MEDS: QUEtiapine FUMARATE 25 MG TABLET PO SCH (21:51)
[2020-10-04] MEDS: MELATONIN 5 MG TABLETS PO SCH (21:51)
[2020-10-04] MEDS: LIDOCAINE PATCH REMOVAL MC SCH (21:53)
[2020-10-05] MEDS ORDERED: METHADONE HCL 10 MG TABLET ONE (03:23)
[2020-10-05] MEDS ORDERED: METHADONE HCL 40 MG DISPERSABLE TABLET ONE (03:23)
[2020-10-05] MEDS: METHADONE 80 MG, METHADONE 20 MG PO SCH (06:09)
[2020-10-05] MEDS: CEPHALEXIN MONOHYDRATE 500 MG CAPSULE (UD) PO SCH ×5 (06:09→23:27)
[2020-10-05] MEDS: GABAPENTIN 400 MG CAPSULE PO SCH ×3 (06:09→21:29)
[2020-10-05] MEDS: AMMONIUM LACTATE 12% LOTION 225 GM BOTTLE TP SCH ×3 (06:11→22:18)
[2020-10-05] MEDS: FERROUS SO4 325 MG TABLET (FP) PO SCH ×2 (07:18→16:55)
[2020-10-05] MEDS ORDERED: MASKS NR ONE (09:14)
[2020-10-05] MEDS: CALCIUM 500MG/VIT-D 200 UNITS COMBO TABLET (FP) PO SCH ×2 (09:22→22:18)
[2020-10-05] MEDS: LISINOPRIL 10 MG TABLET PO SCH (09:22)
[2020-10-05] MEDS: PANTOPRAZOLE 40 MG TABLET PO SCH (09:22)
[2020-10-05] MEDS: PRENATAL VITAMINS W/ FOLIC ACID TABLET (FP) PO SCH (09:22)
[2020-10-05] MEDS: ASPIRIN 81 MG CHEWABLE TABLETS PO SCH (09:22)
[2020-10-05] MEDS: HYDROCHLOROTHIAZIDE 12.5 MG CAPSULE (FP) PO SCH (09:22)
[2020-10-05] MEDS: NICOTINE 14 MG/24 HOURS TOPICAL PATCH TD SCH (09:23)
[2020-10-05] MEDS: BUDESONIDE/FORMETEROL FUMARATE 80/4.5 mcg INHALER IH SCH ×2 (09:24→22:18)
[2020-10-05] MEDS: LIDOCAINE 5% TOPICAL PATCH TP SCH (09:25)
[2020-10-05] MEDS: METHOCARBAMOL 500 MG TABLET PO PRN ×2 (09:26→21:29)
[2020-10-05] MEDS: IBUPROFEN 600 MG TABLET (FP) PO PRN ×2 (09:26→21:29)
[2020-10-05] MEDS: TAMSULOSIN HCL 0.4 MG CAP PO SCH (21:29)
[2020-10-05] MEDS: QUEtiapine FUMARATE 25 MG TABLET PO SCH (21:29)
[2020-10-05] MEDS: MELATONIN 5 MG TABLETS PO SCH (21:29)
[2020-10-05] MEDS: THIAMINE HCL 100 MG TABLET (FP) PO SCH (21:29)
[2020-10-05] MEDS: LIDOCAINE PATCH REMOVAL MC SCH (22:18)
[2020-10-06] MEDS ORDERED: METHADONE HCL 40 MG DISPERSABLE TABLET ONE (03:16)
[2020-10-06] MEDS ORDERED: METHADONE HCL 10 MG TABLET ONE (03:16)
[2020-10-06] MEDS: GABAPENTIN 400 MG CAPSULE PO SCH ×3 (06:02→21:49)
[2020-10-06] MEDS: CEPHALEXIN MONOHYDRATE 500 MG CAPSULE (UD) PO SCH ×4 (06:02→23:30)
[2020-10-06] MEDS: METHADONE 80 MG, METHADONE 20 MG PO SCH (06:02)
[2020-10-06] MEDS: AMMONIUM LACTATE 12% LOTION 225 GM BOTTLE TP SCH ×3 (06:05→21:50)
[2020-10-06] MEDS: FERROUS SO4 325 MG TABLET (FP) PO SCH ×2 (07:12→17:03)
[2020-10-06] MEDS ORDERED: MASKS NR ONE (08:37)
[2020-10-06] MEDS: LIDOCAINE 5% TOPICAL PATCH TP SCH (09:50)
[2020-10-06] MEDS: PRENATAL VITAMINS W/ FOLIC ACID TABLET (FP) PO SCH (09:50)
[2020-10-06] MEDS: NICOTINE 14 MG/24 HOURS TOPICAL PATCH TD SCH (09:51)
[2020-10-06] MEDS: ASPIRIN 81 MG CHEWABLE TABLETS PO SCH (09:52)
[2020-10-06] MEDS: CALCIUM 500MG/VIT-D 200 UNITS COMBO TABLET (FP) PO SCH ×2 (09:52→21:57)
[2020-10-06] MEDS: LISINOPRIL 10 MG TABLET PO SCH (09:52)
[2020-10-06] MEDS: HYDROCHLOROTHIAZIDE 12.5 MG CAPSULE (FP) PO SCH (09:52)
[2020-10-06] MEDS: BUDESONIDE/FORMETEROL FUMARATE 80/4.5 mcg INHALER IH SCH ×2 (09:53→21:58)
[2020-10-06] MEDS: PANTOPRAZOLE 40 MG TABLET PO SCH (09:53)
[2020-10-06] MEDS: METHOCARBAMOL 500 MG TABLET PO PRN ×2 (09:55→21:51)
[2020-10-06] MEDS: IBUPROFEN 600 MG TABLET (FP) PO PRN ×2 (09:55→21:51)
[2020-10-06] MEDS: THIAMINE HCL 100 MG TABLET (FP) PO SCH (21:49)
[2020-10-06] MEDS: TAMSULOSIN HCL 0.4 MG CAP PO SCH (21:49)
[2020-10-06] MEDS: QUEtiapine FUMARATE 25 MG TABLET PO SCH (21:49)
[2020-10-06] MEDS: MELATONIN 5 MG TABLETS PO SCH (21:50)
[2020-10-06] MEDS: LIDOCAINE PATCH REMOVAL MC SCH (21:50)
[2020-10-07] MEDS ORDERED: METHADONE HCL 40 MG DISPERSABLE TABLET ONE (04:03)
[2020-10-07] MEDS ORDERED: METHADONE HCL 10 MG TABLET ONE (04:03)
[2020-10-07] MEDS: CEPHALEXIN MONOHYDRATE 500 MG CAPSULE (UD) PO SCH ×4 (06:09→23:50)
[2020-10-07] MEDS: GABAPENTIN 400 MG CAPSULE PO SCH ×3 (06:09→21:08)
[2020-10-07] MEDS: METHADONE 80 MG, METHADONE 20 MG PO SCH (06:09)
[2020-10-07] MEDS: AMMONIUM LACTATE 12% LOTION 225 GM BOTTLE TP SCH ×4 (06:56→21:09)
[2020-10-07] MEDS: FERROUS SO4 325 MG TABLET (FP) PO SCH ×2 (07:27→16:51)
[2020-10-07] MEDS: PRENATAL VITAMINS W/ FOLIC ACID TABLET (FP) PO SCH (09:29)
[2020-10-07] MEDS: ASPIRIN 81 MG CHEWABLE TABLETS PO SCH (09:30)
[2020-10-07] MEDS: LIDOCAINE 5% TOPICAL PATCH TP SCH (09:30)
[2020-10-07] MEDS: NICOTINE 14 MG/24 HOURS TOPICAL PATCH TD SCH (09:30)
[2020-10-07] MEDS: LISINOPRIL 10 MG TABLET PO SCH (09:31)
[2020-10-07] MEDS: BUDESONIDE/FORMETEROL FUMARATE 80/4.5 mcg INHALER IH SCH ×2 (09:31→21:07)
[2020-10-07] MEDS: CALCIUM 500MG/VIT-D 200 UNITS COMBO TABLET (FP) PO SCH ×2 (09:31→21:08)
[2020-10-07] MEDS: PANTOPRAZOLE 40 MG TABLET PO SCH (09:31)
[2020-10-07] MEDS: IBUPROFEN 600 MG TABLET (FP) PO PRN ×2 (09:33→21:07)
[2020-10-07] MEDS: METHOCARBAMOL 500 MG TABLET PO PRN ×2 (09:33→21:08)
[2020-10-07] MEDS: HYDROCHLOROTHIAZIDE 12.5 MG CAPSULE (FP) PO SCH (09:36)
[2020-10-07] MEDS: TAMSULOSIN HCL 0.4 MG CAP PO SCH (21:07)
[2020-10-07] MEDS: QUEtiapine FUMARATE 25 MG TABLET PO SCH (21:08)
[2020-10-07] MEDS: THIAMINE HCL 100 MG TABLET (FP) PO SCH (21:08)
[2020-10-07] MEDS: MELATONIN 5 MG TABLETS PO SCH (21:09)
[2020-10-07] MEDS: LIDOCAINE PATCH REMOVAL MC SCH (21:09)
[2020-10-08] MEDS ORDERED: METHADONE HCL 10 MG TABLET ONE (04:01)
[2020-10-08] MEDS ORDERED: METHADONE HCL 40 MG DISPERSABLE TABLET ONE (04:01)
[2020-10-08] MEDS: GABAPENTIN 400 MG CAPSULE PO SCH ×3 (06:05→21:45)
[2020-10-08] MEDS: CEPHALEXIN MONOHYDRATE 500 MG CAPSULE (UD) PO SCH ×4 (06:05→23:30)
[2020-10-08] MEDS: METHADONE 80 MG, METHADONE 20 MG PO SCH (06:05)
[2020-10-08] MEDS: AMMONIUM LACTATE 12% LOTION 225 GM BOTTLE TP SCH ×3 (06:05→21:46)
[2020-10-08] MEDS: FERROUS SO4 325 MG TABLET (FP) PO SCH ×2 (07:18→17:37)
[2020-10-08] MEDS: LISINOPRIL 10 MG TABLET PO SCH (10:01)
[2020-10-08] MEDS: PANTOPRAZOLE 40 MG TABLET PO SCH (10:01)
[2020-10-08] MEDS: ASPIRIN 81 MG CHEWABLE TABLETS PO SCH (10:01)
[2020-10-08] MEDS: NICOTINE 14 MG/24 HOURS TOPICAL PATCH TD SCH (10:02)
[2020-10-08] MEDS: HYDROCHLOROTHIAZIDE 12.5 MG CAPSULE (FP) PO SCH (10:02)
[2020-10-08] MEDS: LIDOCAINE 5% TOPICAL PATCH TP SCH (10:02)
[2020-10-08] MEDS: PRENATAL VITAMINS W/ FOLIC ACID TABLET (FP) PO SCH (10:03)
[2020-10-08] MEDS: METHOCARBAMOL 500 MG TABLET PO PRN ×2 (10:03→21:45)
[2020-10-08] MEDS: CALCIUM 500MG/VIT-D 200 UNITS COMBO TABLET (FP) PO SCH ×2 (10:03→21:49)
[2020-10-08] MEDS: ACETAMINOPHEN 325 MG TABLET (FP) PO PRN (10:04)
[2020-10-08] MEDS: BUDESONIDE/FORMETEROL FUMARATE 80/4.5 mcg INHALER IH SCH ×2 (10:07→21:45)
[2020-10-08] MEDS: THIAMINE HCL 100 MG TABLET (FP) PO SCH (21:45)
[2020-10-08] MEDS: MELATONIN 5 MG TABLETS PO SCH (21:45)
[2020-10-08] MEDS: TAMSULOSIN HCL 0.4 MG CAP PO SCH (21:45)
[2020-10-08] MEDS: QUEtiapine FUMARATE 25 MG TABLET PO SCH (21:45)
[2020-10-08] MEDS: LIDOCAINE PATCH REMOVAL MC SCH (21:46)
[2020-10-08] MEDS: IBUPROFEN 600 MG TABLET (FP) PO PRN (21:48)
[2020-10-08] MEDS: BACITRACIN/POLYMYXIN B SULFATE 15 GM TUBE TP SCH (21:49)
[2020-10-09] MEDS ORDERED: METHADONE HCL 40 MG DISPERSABLE TABLET ONE (04:15)
[2020-10-09] MEDS ORDERED: METHADONE HCL 10 MG TABLET ONE (04:15)
[2020-10-09] MEDS: GABAPENTIN 400 MG CAPSULE PO SCH ×3 (06:05→21:10)
[2020-10-09] MEDS: CEPHALEXIN MONOHYDRATE 500 MG CAPSULE (UD) PO SCH ×4 (06:05→23:40)
[2020-10-09] MEDS: METHADONE 80 MG, METHADONE 20 MG PO SCH (06:06)
[2020-10-09] MEDS: AMMONIUM LACTATE 12% LOTION 225 GM BOTTLE TP SCH ×3 (06:09→21:11)
[2020-10-09] MEDS: FERROUS SO4 325 MG TABLET (FP) PO SCH ×2 (07:23→17:40)
[2020-10-09] MEDS: LISINOPRIL 10 MG TABLET PO SCH (09:46)
[2020-10-09] MEDS: LIDOCAINE 5% TOPICAL PATCH TP SCH (09:46)
[2020-10-09] MEDS: PRENATAL VITAMINS W/ FOLIC ACID TABLET (FP) PO SCH (09:46)
[2020-10-09] MEDS: ASPIRIN 81 MG CHEWABLE TABLETS PO SCH (09:46)
[2020-10-09] MEDS: CALCIUM 500MG/VIT-D 200 UNITS COMBO TABLET (FP) PO SCH ×2 (09:46→21:10)
[2020-10-09] MEDS: PANTOPRAZOLE 40 MG TABLET PO SCH (09:46)
[2020-10-09] MEDS: HYDROCHLOROTHIAZIDE 12.5 MG CAPSULE (FP) PO SCH (09:46)
[2020-10-09] MEDS: BUDESONIDE/FORMETEROL FUMARATE 80/4.5 mcg INHALER IH SCH ×2 (09:47→21:08)
[2020-10-09] MEDS: IBUPROFEN 600 MG TABLET (FP) PO PRN ×2 (09:48→21:10)
[2020-10-09] MEDS: METHOCARBAMOL 500 MG TABLET PO PRN ×2 (09:48→21:10)
[2020-10-09] MEDS: BACITRACIN/POLYMYXIN B SULFATE 15 GM TUBE TP SCH ×2 (09:50→21:12)
[2020-10-09] MEDS: NICOTINE 14 MG/24 HOURS TOPICAL PATCH TD SCH (09:51)
[2020-10-09] MEDS: METHYL SALICYLATE/MENTHOL OINT 30 GM TUBE TP SCH ×2 (11:43→21:09)
[2020-10-09] MEDS: TAMSULOSIN HCL 0.4 MG CAP PO SCH (21:10)
[2020-10-09] MEDS: THIAMINE HCL 100 MG TABLET (FP) PO SCH (21:10)
[2020-10-09] MEDS: MELATONIN 5 MG TABLETS PO SCH (21:10)
[2020-10-09] MEDS: QUEtiapine FUMARATE 25 MG TABLET PO SCH (21:10)
[2020-10-09] MEDS: LIDOCAINE PATCH REMOVAL MC SCH (21:11)
[2020-10-10] MEDS ORDERED: METHADONE HCL 10 MG TABLET ONE (05:59)
[2020-10-10] MEDS ORDERED: METHADONE HCL 40 MG DISPERSABLE TABLET ONE (05:59)
[2020-10-10] MEDS: CEPHALEXIN MONOHYDRATE 500 MG CAPSULE (UD) PO SCH ×2 (06:00→11:10)
[2020-10-10] MEDS: METHADONE 80 MG, METHADONE 20 MG PO SCH (06:00)
[2020-10-10] MEDS: GABAPENTIN 400 MG CAPSULE PO SCH ×3 (06:01→21:03)
[2020-10-10] MEDS: AMMONIUM LACTATE 12% LOTION 225 GM BOTTLE TP SCH ×3 (06:24→21:04)
[2020-10-10] MEDS: FERROUS SO4 325 MG TABLET (FP) PO SCH ×2 (07:09→16:54)
[2020-10-10] MEDS: LISINOPRIL 10 MG TABLET PO SCH (09:19)
[2020-10-10] MEDS: PRENATAL VITAMINS W/ FOLIC ACID TABLET (FP) PO SCH (09:19)
[2020-10-10] MEDS: PANTOPRAZOLE 40 MG TABLET PO SCH (09:19)
[2020-10-10] MEDS: HYDROCHLOROTHIAZIDE 12.5 MG CAPSULE (FP) PO SCH (09:19)
[2020-10-10] MEDS: CALCIUM 500MG/VIT-D 200 UNITS COMBO TABLET (FP) PO SCH ×2 (09:19→21:03)
[2020-10-10] MEDS: ASPIRIN 81 MG CHEWABLE TABLETS PO SCH (09:19)
[2020-10-10] MEDS: NICOTINE 14 MG/24 HOURS TOPICAL PATCH TD SCH (09:20)
[2020-10-10] MEDS: LIDOCAINE 5% TOPICAL PATCH TP SCH (09:20)
[2020-10-10] MEDS: BUDESONIDE/FORMETEROL FUMARATE 80/4.5 mcg INHALER IH SCH ×2 (09:21→21:06)
[2020-10-10] MEDS: BACITRACIN/POLYMYXIN B SULFATE 15 GM TUBE TP SCH ×2 (09:22→21:06)
[2020-10-10] MEDS: METHYL SALICYLATE/MENTHOL OINT 30 GM TUBE TP SCH ×2 (09:22→21:05)
[2020-10-10] MEDS: IBUPROFEN 600 MG TABLET (FP) PO PRN ×2 (09:23→21:03)
[2020-10-10] MEDS: METHOCARBAMOL 500 MG TABLET PO PRN ×2 (09:23→21:03)
[2020-10-10] MEDS: QUEtiapine FUMARATE 25 MG TABLET PO SCH (21:03)
[2020-10-10] MEDS: TAMSULOSIN HCL 0.4 MG CAP PO SCH (21:03)
[2020-10-10] MEDS: MELATONIN 5 MG TABLETS PO SCH (21:04)
[2020-10-10] MEDS: LIDOCAINE PATCH REMOVAL MC SCH (21:04)
[2020-10-10] MEDS: THIAMINE HCL 100 MG TABLET (FP) PO SCH (21:06)
[2020-10-11] MEDS ORDERED: METHADONE HCL 10 MG TABLET ONE (03:18)
[2020-10-11] MEDS ORDERED: METHADONE HCL 40 MG DISPERSABLE TABLET ONE (03:18)
[2020-10-11] MEDS: GABAPENTIN 400 MG CAPSULE PO SCH ×3 (06:01→21:07)
[2020-10-11] MEDS: METHADONE 80 MG, METHADONE 20 MG PO SCH (06:02)
[2020-10-11] MEDS: AMMONIUM LACTATE 12% LOTION 225 GM BOTTLE TP SCH ×3 (06:05→21:06)
[2020-10-11] MEDS: FERROUS SO4 325 MG TABLET (FP) PO SCH ×2 (07:17→17:21)
[2020-10-11] MEDS: HYDROCHLOROTHIAZIDE 12.5 MG CAPSULE (FP) PO SCH (09:21)
[2020-10-11] MEDS: ASPIRIN 81 MG CHEWABLE TABLETS PO SCH (09:21)
[2020-10-11] MEDS: LISINOPRIL 10 MG TABLET PO SCH (09:21)
[2020-10-11] MEDS: PRENATAL VITAMINS W/ FOLIC ACID TABLET (FP) PO SCH (09:22)
[2020-10-11] MEDS: CALCIUM 500MG/VIT-D 200 UNITS COMBO TABLET (FP) PO SCH ×2 (09:22→21:06)
[2020-10-11] MEDS: PANTOPRAZOLE 40 MG TABLET PO SCH (09:22)
[2020-10-11] MEDS: LIDOCAINE 5% TOPICAL PATCH TP SCH (09:23)
[2020-10-11] MEDS: BUDESONIDE/FORMETEROL FUMARATE 80/4.5 mcg INHALER IH SCH ×2 (09:23→21:06)
[2020-10-11] MEDS: NICOTINE 14 MG/24 HOURS TOPICAL PATCH TD SCH (09:24)
[2020-10-11] MEDS: METHYL SALICYLATE/MENTHOL OINT 30 GM TUBE TP SCH ×2 (09:24→21:06)
[2020-10-11] MEDS: BACITRACIN/POLYMYXIN B SULFATE 15 GM TUBE TP SCH ×2 (09:25→21:06)
[2020-10-11] MEDS: METHOCARBAMOL 500 MG TABLET PO PRN ×2 (09:27→21:07)
[2020-10-11] MEDS: IBUPROFEN 600 MG TABLET (FP) PO PRN ×2 (09:27→21:06)
[2020-10-11] MEDS: ACETAMINOPHEN 325 MG TABLET (FP) PO PRN (14:24)
[2020-10-11] MEDS: THIAMINE HCL 100 MG TABLET (FP) PO SCH (21:06)
[2020-10-11] MEDS: QUEtiapine FUMARATE 25 MG TABLET PO SCH (21:07)
[2020-10-11] MEDS: MELATONIN 5 MG TABLETS PO SCH (21:07)
[2020-10-11] MEDS: TAMSULOSIN HCL 0.4 MG CAP PO SCH (21:07)
[2020-10-11] MEDS: LIDOCAINE PATCH REMOVAL MC SCH (21:08)
[2020-10-12] MEDS ORDERED: METHADONE HCL 10 MG TABLET ONE (03:17)
[2020-10-12] MEDS ORDERED: METHADONE HCL 40 MG DISPERSABLE TABLET ONE (03:17)
[2020-10-12] MEDS: METHADONE 80 MG, METHADONE 20 MG PO SCH (06:01)
[2020-10-12] MEDS: GABAPENTIN 400 MG CAPSULE PO SCH ×3 (06:02→21:02)
[2020-10-12] MEDS: ACETAMINOPHEN 325 MG TABLET (FP) PO PRN ×2 (06:04→17:25)
[2020-10-12] MEDS: AMMONIUM LACTATE 12% LOTION 225 GM BOTTLE TP SCH ×3 (06:11→21:04)
[2020-10-12] MEDS: FERROUS SO4 325 MG TABLET (FP) PO SCH ×2 (07:13→17:25)
[2020-10-12] MEDS: HYDROCHLOROTHIAZIDE 12.5 MG CAPSULE (FP) PO SCH (09:24)
[2020-10-12] MEDS: CALCIUM 500MG/VIT-D 200 UNITS COMBO TABLET (FP) PO SCH ×2 (09:24→21:02)
[2020-10-12] MEDS: METHOCARBAMOL 500 MG TABLET PO PRN ×2 (09:25→21:02)
[2020-10-12] MEDS: PANTOPRAZOLE 40 MG TABLET PO SCH (09:25)
[2020-10-12] MEDS: IBUPROFEN 600 MG TABLET (FP) PO PRN ×2 (09:25→21:02)
[2020-10-12] MEDS: ASPIRIN 81 MG CHEWABLE TABLETS PO SCH (09:25)
[2020-10-12] MEDS: BACITRACIN/POLYMYXIN B SULFATE 15 GM TUBE TP SCH ×2 (09:26→21:04)
[2020-10-12] MEDS: METHYL SALICYLATE/MENTHOL OINT 30 GM TUBE TP SCH ×2 (09:27→21:03)
[2020-10-12] MEDS: BUDESONIDE/FORMETEROL FUMARATE 80/4.5 mcg INHALER IH SCH ×2 (09:27→21:01)
[2020-10-12] MEDS: NICOTINE 14 MG/24 HOURS TOPICAL PATCH TD SCH (09:28)
[2020-10-12] MEDS: LIDOCAINE 5% TOPICAL PATCH TP SCH (09:28)
[2020-10-12] MEDS: LISINOPRIL 10 MG TABLET PO SCH (09:57)
[2020-10-12] MEDS: PRENATAL VITAMINS W/ FOLIC ACID TABLET (FP) PO SCH (09:57)
[2020-10-12] MEDS: THIAMINE HCL 100 MG TABLET (FP) PO SCH (21:02)
[2020-10-12] MEDS: MELATONIN 5 MG TABLETS PO SCH (21:02)
[2020-10-12] MEDS: QUEtiapine FUMARATE 25 MG TABLET PO SCH (21:02)
[2020-10-12] MEDS: TAMSULOSIN HCL 0.4 MG CAP PO SCH (21:03)
[2020-10-12] MEDS: LIDOCAINE PATCH REMOVAL MC SCH (21:04)
[2020-10-13] MEDS ORDERED: METHADONE HCL 10 MG TABLET ONE (03:55)
[2020-10-13] MEDS ORDERED: METHADONE HCL 40 MG DISPERSABLE TABLET ONE (03:55)
[2020-10-13] MEDS: AMMONIUM LACTATE 12% LOTION 225 GM BOTTLE TP SCH ×3 (06:04→21:28)
[2020-10-13] MEDS: METHADONE 80 MG, METHADONE 20 MG PO SCH (06:04)
[2020-10-13] MEDS: GABAPENTIN 400 MG CAPSULE PO SCH ×3 (06:04→21:04)
[2020-10-13] MEDS: FERROUS SO4 325 MG TABLET (FP) PO SCH ×2 (07:09→16:34)
[2020-10-13] MEDS: IBUPROFEN 600 MG TABLET (FP) PO PRN ×2 (09:00→21:04)
[2020-10-13] MEDS: LISINOPRIL 10 MG TABLET PO SCH (09:17)
[2020-10-13] MEDS: ASPIRIN 81 MG CHEWABLE TABLETS PO SCH (09:17)
[2020-10-13] MEDS: HYDROCHLOROTHIAZIDE 12.5 MG CAPSULE (FP) PO SCH (09:17)
[2020-10-13] MEDS: PRENATAL VITAMINS W/ FOLIC ACID TABLET (FP) PO SCH (09:17)
[2020-10-13] MEDS: METHOCARBAMOL 500 MG TABLET PO PRN ×2 (09:20→21:04)
[2020-10-13] MEDS: LIDOCAINE 5% TOPICAL PATCH TP SCH (09:21)
[2020-10-13] MEDS: METHYL SALICYLATE/MENTHOL OINT 30 GM TUBE TP SCH ×2 (09:21→21:03)
[2020-10-13] MEDS: BACITRACIN/POLYMYXIN B SULFATE 15 GM TUBE TP SCH ×2 (09:22→21:03)
[2020-10-13] MEDS: NICOTINE 14 MG/24 HOURS TOPICAL PATCH TD SCH (09:22)
[2020-10-13] MEDS: CALCIUM 500MG/VIT-D 200 UNITS COMBO TABLET (FP) PO SCH ×2 (09:48→21:04)
[2020-10-13] MEDS: BUDESONIDE/FORMETEROL FUMARATE 80/4.5 mcg INHALER IH SCH ×2 (09:50→21:03)
[2020-10-13] MEDS: PANTOPRAZOLE 40 MG TABLET PO SCH (09:50)
[2020-10-13] MEDS: ACETAMINOPHEN 325 MG TABLET (FP) PO PRN (16:34)
[2020-10-13] MEDS: QUEtiapine FUMARATE 25 MG TABLET PO SCH (21:04)
[2020-10-13] MEDS: THIAMINE HCL 100 MG TABLET (FP) PO SCH (21:04)
[2020-10-13] MEDS: MELATONIN 5 MG TABLETS PO SCH (21:04)
[2020-10-13] MEDS: TAMSULOSIN HCL 0.4 MG CAP PO SCH (21:04)
[2020-10-13] MEDS: LIDOCAINE PATCH REMOVAL MC SCH (21:28)
[2020-10-14] MEDS ORDERED: METHADONE HCL 10 MG TABLET ONE (03:51)
[2020-10-14] MEDS ORDERED: METHADONE HCL 40 MG DISPERSABLE TABLET ONE (03:52)
[2020-10-14] MEDS: METHADONE 80 MG, METHADONE 20 MG PO SCH (05:48)
[2020-10-14] MEDS: GABAPENTIN 400 MG CAPSULE PO SCH ×3 (05:48→21:06)
[2020-10-14] MEDS ORDERED: MASKS NR ONE (06:33)
[2020-10-14] MEDS: AMMONIUM LACTATE 12% LOTION 225 GM BOTTLE TP SCH ×3 (07:06→21:07)
[2020-10-14] MEDS: FERROUS SO4 325 MG TABLET (FP) PO SCH ×2 (07:06→18:30)
[2020-10-14] MEDS: ASPIRIN 81 MG CHEWABLE TABLETS PO SCH (09:23)
[2020-10-14] MEDS: HYDROCHLOROTHIAZIDE 12.5 MG CAPSULE (FP) PO SCH (09:23)
[2020-10-14] MEDS: LISINOPRIL 10 MG TABLET PO SCH (09:23)
[2020-10-14] MEDS: NICOTINE 14 MG/24 HOURS TOPICAL PATCH TD SCH (09:24)
[2020-10-14] MEDS: LIDOCAINE 5% TOPICAL PATCH TP SCH (09:24)
[2020-10-14] MEDS: PRENATAL VITAMINS W/ FOLIC ACID TABLET (FP) PO SCH (09:24)
[2020-10-14] MEDS: METHYL SALICYLATE/MENTHOL OINT 30 GM TUBE TP SCH ×2 (09:25→21:04)
[2020-10-14] MEDS: BUDESONIDE/FORMETEROL FUMARATE 80/4.5 mcg INHALER IH SCH ×2 (09:25→21:06)
[2020-10-14] MEDS: PANTOPRAZOLE 40 MG TABLET PO SCH (09:25)
[2020-10-14] MEDS: METHOCARBAMOL 500 MG TABLET PO PRN ×2 (09:27→21:11)
[2020-10-14] MEDS: IBUPROFEN 600 MG TABLET (FP) PO PRN ×2 (09:27→21:11)
[2020-10-14] MEDS: CALCIUM 500MG/VIT-D 200 UNITS COMBO TABLET (FP) PO SCH ×2 (09:27→21:06)
[2020-10-14] MEDS: BACITRACIN/POLYMYXIN B SULFATE 15 GM TUBE TP SCH ×2 (09:31→21:06)
[2020-10-14] MEDS: ACETAMINOPHEN 325 MG TABLET (FP) PO PRN (17:57)
[2020-10-14] MEDS: TAMSULOSIN HCL 0.4 MG CAP PO SCH (21:05)
[2020-10-14] MEDS: MELATONIN 5 MG TABLETS PO SCH (21:05)
[2020-10-14] MEDS: LIDOCAINE PATCH REMOVAL MC SCH (21:05)
[2020-10-14] MEDS: QUEtiapine FUMARATE 25 MG TABLET PO SCH (21:06)
[2020-10-14] MEDS: THIAMINE HCL 100 MG TABLET (FP) PO SCH (21:06)
[2020-10-15] MEDS ORDERED: METHADONE HCL 10 MG TABLET ONE (03:40)
[2020-10-15] MEDS ORDERED: METHADONE HCL 40 MG DISPERSABLE TABLET ONE (03:41)
[2020-10-15] MEDS: METHADONE 80 MG, METHADONE 20 MG PO SCH (05:59)
[2020-10-15] MEDS: ACETAMINOPHEN 325 MG TABLET (FP) PO PRN ×2 (06:00→17:29)
[2020-10-15] MEDS: GABAPENTIN 400 MG CAPSULE PO SCH ×3 (06:00→21:54)
[2020-10-15] MEDS: AMMONIUM LACTATE 12% LOTION 225 GM BOTTLE TP SCH ×3 (06:00→21:55)
[2020-10-15] MEDS: FERROUS SO4 325 MG TABLET (FP) PO SCH ×2 (07:01→17:26)
[2020-10-15] MEDS: LISINOPRIL 10 MG TABLET PO SCH (09:29)
[2020-10-15] MEDS: HYDROCHLOROTHIAZIDE 12.5 MG CAPSULE (FP) PO SCH (09:29)
[2020-10-15] MEDS: ASPIRIN 81 MG CHEWABLE TABLETS PO SCH (09:29)
[2020-10-15] MEDS: CALCIUM 500MG/VIT-D 200 UNITS COMBO TABLET (FP) PO SCH ×2 (09:29→22:20)
[2020-10-15] MEDS: LIDOCAINE 5% TOPICAL PATCH TP SCH (09:29)
[2020-10-15] MEDS: METHOCARBAMOL 500 MG TABLET PO PRN ×2 (09:30→21:54)
[2020-10-15] MEDS: NICOTINE 14 MG/24 HOURS TOPICAL PATCH TD SCH (09:30)
[2020-10-15] MEDS: IBUPROFEN 600 MG TABLET (FP) PO PRN ×2 (09:30→21:57)
[2020-10-15] MEDS: PRENATAL VITAMINS W/ FOLIC ACID TABLET (FP) PO SCH (09:31)
[2020-10-15] MEDS: BACITRACIN/POLYMYXIN B SULFATE 15 GM TUBE TP SCH ×2 (09:31→21:56)
[2020-10-15] MEDS: METHYL SALICYLATE/MENTHOL OINT 30 GM TUBE TP SCH ×2 (09:32→21:54)
[2020-10-15] MEDS: PANTOPRAZOLE 40 MG TABLET PO SCH (09:33)
[2020-10-15] MEDS: BUDESONIDE/FORMETEROL FUMARATE 80/4.5 mcg INHALER IH SCH ×2 (09:33→21:56)
[2020-10-15] MEDS: QUEtiapine FUMARATE 25 MG TABLET PO SCH (21:53)
[2020-10-15] MEDS: MELATONIN 5 MG TABLETS PO SCH (21:54)
[2020-10-15] MEDS: LIDOCAINE PATCH REMOVAL MC SCH (21:54)
[2020-10-15] MEDS: TAMSULOSIN HCL 0.4 MG CAP PO SCH (21:54)
[2020-10-15] MEDS: THIAMINE HCL 100 MG TABLET (FP) PO SCH (21:54)
[2020-10-16] MEDS ORDERED: METHADONE HCL 10 MG TABLET ONE (04:20)
[2020-10-16] MEDS ORDERED: METHADONE HCL 40 MG DISPERSABLE TABLET ONE (04:20)
[2020-10-16] MEDS: GABAPENTIN 400 MG CAPSULE PO SCH (06:05)
[2020-10-16] MEDS: METHADONE 80 MG, METHADONE 20 MG PO SCH (06:05)
[2020-10-16] MEDS: AMMONIUM LACTATE 12% LOTION 225 GM BOTTLE TP SCH (06:07)
[2020-10-16 06:30] VITALS: BP 136/80; PULSE 66; TEMP 97.7
[2020-10-16] MEDS: FERROUS SO4 325 MG TABLET (FP) PO SCH (07:02)
[2020-10-16] MEDS: CALCIUM 500MG/VIT-D 200 UNITS COMBO TABLET (FP) PO SCH (09:06)
[2020-10-16] MEDS: ASPIRIN 81 MG CHEWABLE TABLETS PO SCH (09:06)
[2020-10-16] MEDS: IBUPROFEN 600 MG TABLET (FP) PO PRN (09:06)
[2020-10-16] MEDS: METHOCARBAMOL 500 MG TABLET PO PRN (09:06)
[2020-10-16] MEDS: HYDROCHLOROTHIAZIDE 12.5 MG CAPSULE (FP) PO SCH (09:06)
[2020-10-16] MEDS: NICOTINE 14 MG/24 HOURS TOPICAL PATCH TD SCH (09:07)
[2020-10-16] MEDS: BACITRACIN/POLYMYXIN B SULFATE 15 GM TUBE TP SCH (09:08)
[2020-10-16] MEDS: LISINOPRIL 10 MG TABLET PO SCH (09:08)
[2020-10-16] MEDS: METHYL SALICYLATE/MENTHOL OINT 30 GM TUBE TP SCH (09:08)
[2020-10-16] MEDS: PANTOPRAZOLE 40 MG TABLET PO SCH (09:09)
[2020-10-16] MEDS: PRENATAL VITAMINS W/ FOLIC ACID TABLET (FP) PO SCH (09:09)
[2020-10-16] MEDS: BUDESONIDE/FORMETEROL FUMARATE 80/4.5 mcg INHALER IH SCH (09:09)
[2020-10-16] MEDS: LIDOCAINE 5% TOPICAL PATCH TP SCH (09:11)
== END 2020-10-16 09:36 | disposition home or self-care (01) | DRG 772 ==
LOC: YASAS 11:40 → Y5N 11:42
PROVIDERS: ADMIT Allergy & Immunology; ATTEND Allergy & Immunology
PROC: HZ42ZZZ Group Counseling for Substance Abuse Treatment, Cognitive-Behavioral (ICD-10-PCS; principal; 2020-10-01)
DX: F10.20 Alcohol dependence, uncomplicated (principal); F11.20 Opioid dependence, uncomplicated; F14.20 Cocaine dependence, uncomplicated; F17.210 Nicotine dependence, cigarettes, uncomplicated; F19.282 Other psychoactive substance dependence with psychoactive substance-induced sleep disorder; I10 Essential (primary) hypertension; J45.20 Mild intermittent asthma, uncomplicated; K21.9 Gastro-esophageal reflux disease without esophagitis; N40.0 Benign prostatic hyperplasia without lower urinary tract symptoms; L03.115 Cellulitis of right lower limb; M19.90 Unspecified osteoarthritis, unspecified site; R60.0 Localized edema; G89.29 Other chronic pain; R26.2 Difficulty in walking, not elsewhere classified; Z99.89 Dependence on other enabling machines and devices; Z86.19 Personal history of other infectious and parasitic diseases; S40.819A Abrasion of unspecified upper arm, initial encounter; Y04.0XXA Assault by unarmed brawl or fight, initial encounter; Y93.9 Activity, unspecified; Y92.239 Unspecified place in hospital as the place of occurrence of the external cause
CPT/HCPCS: C9803; U0003

== ENCOUNTER 2021-03-02 12:44 | Inpatient (IN) | payer OTHER ==
[2021-03-02 14:24] VITALS: BMI 25.0
[2021-03-02] MEDS ORDERED: chlordiazePOXIDE HCL 25 MG CAPSULE PO PRN (17:35)
[2021-03-02] MEDS ORDERED: hydrOXYzine PAMOATE 25 MG CAPSULE (FP) PO PRN (17:35)
[2021-03-02] MEDS ORDERED: ONDANSETRON *ODT* 4 MG TABLET SL PRN (17:35)
[2021-03-02] MEDS ORDERED: MAGNESIUM HYDROX 2400MG/30ML ORAL SUSPENSION 30 ML CUP PO PRN (17:35)
[2021-03-02] MEDS ORDERED: MAG HYDROX/AL HYDROX/SIMETH 30 ML UNIT-DOSE CUP PO PRN (17:35)
[2021-03-02] MEDS ORDERED: MAGNESIUM CITRATE 300 ML BOTTLE PO PRN (17:35)
[2021-03-02] MEDS ORDERED: MENTHOL/PHENOL 1 EACH UD MM PRN (17:35)
[2021-03-02] MEDS ORDERED: ACETAMINOPHEN 325 MG TABLET (FP) PO PRN ×2 (17:35)
[2021-03-02] MEDS ORDERED: BISMUTH SUBSALICYLATE 524 MG/30 ML UD PO PRN (17:35)
[2021-03-02] MEDS ORDERED: NICOTINE POLACRILEX 2 MG GUM BUC PRN (17:35)
[2021-03-02] MEDS ORDERED: ALBUTEROL SO4 HFA INHALER IH PRN (17:41)
[2021-03-02] MEDS ORDERED: PATIENT'S OWN MEDICATION (NON-FORMULARY) (Melatonin [Melatonin] 5 MG Tablet) PO SCH (22:00)
[2021-03-02] MEDS ORDERED: MELATONIN 5 MG TABLETS PO SCH (22:00)
[2021-03-02] MEDS ORDERED: PATIENT'S OWN MEDICATION (NON-FORMULARY) (Calcium Carbonate/Vitamin D3 [Calcium 600-Vit D3 PO SCH (22:00)
[2021-03-02] MEDS: chlordiazePOXIDE HCL 25 MG CAPSULE PO SCH (22:09)
[2021-03-02] MEDS: THIAMINE HCL 100 MG TABLET (FP) PO SCH (22:09)
[2021-03-02] MEDS: FERROUS SO4 325 MG TABLET (FP) PO SCH (22:09)
[2021-03-02] MEDS: GABAPENTIN 400 MG CAPSULE PO SCH (22:09)
[2021-03-02] MEDS: CALCIUM 500MG/VIT-D 200 UNITS COMBO TABLET (FP) PO SCH (22:09)
[2021-03-02] MEDS: BUDESONIDE/FORMETEROL FUMARATE 80/4.5 mcg INHALER IH SCH (22:12)
[2021-03-03] MEDS: GABAPENTIN 400 MG CAPSULE PO SCH ×3 (05:17→22:06)
[2021-03-03] MEDS: chlordiazePOXIDE HCL 25 MG CAPSULE PO SCH ×4 (05:17→22:06)
[2021-03-03] MEDS: METHOCARBAMOL 500 MG TABLET PO PRN ×2 (05:19→14:14)
[2021-03-03] MEDS ORDERED: LIDOCAINE 5% TOPICAL PATCH TP SCH (10:00)
[2021-03-03] MEDS ORDERED: METHADONE HCL 10 MG TABLET PO SCH (10:00)
[2021-03-03] MEDS: PANTOPRAZOLE 40 MG TABLET PO SCH (10:18)
[2021-03-03] MEDS: HYDROCHLOROTHIAZIDE 12.5 MG CAPSULE (FP) PO SCH (10:18)
[2021-03-03] MEDS: ASPIRIN 81 MG CHEWABLE TABLETS PO SCH (10:18)
[2021-03-03] MEDS: NICOTINE 21 MG/24 HOURS TOPICAL PATCH TD SCH (10:18)
[2021-03-03] MEDS: LISINOPRIL 10 MG TABLET PO SCH (10:19)
[2021-03-03] MEDS: TAMSULOSIN HCL 0.4 MG CAP PO SCH (10:19)
[2021-03-03] MEDS: CALCIUM 500MG/VIT-D 200 UNITS COMBO TABLET (FP) PO SCH ×2 (10:20→22:05)
[2021-03-03] MEDS: BUDESONIDE/FORMETEROL FUMARATE 80/4.5 mcg INHALER IH SCH ×2 (10:20→22:10)
[2021-03-03] MEDS: FERROUS SO4 325 MG TABLET (FP) PO SCH ×2 (10:20→22:06)
[2021-03-03] MEDS: PRENATAL VITAMINS W/ FOLIC ACID TABLET (FP) PO SCH (10:20)
[2021-03-03 10:50] LABS: HEMATOCRIT 36.8 % (35.4-49); HEMOGLOBIN 12.1 GM/dL (11.7-16.9); MCH 26.1 pg (25.7-33.7); MCHC 32.8 g/dl (32.0-35.9); MEAN CELL VOLUME 79.5 fl (80-96); MEAN PLT VOLUME 7.6 fl (7.5-11.1); PLATELET COUNT 254 K/MM3 (134-434); RBC 4.63 M/mm3 (4.00-5.60); RDW 16.9 % (11.9-15.9); WHITE BLOOD COUNT 5.1 K/mm3 (4.0-10.0)
[2021-03-03] MEDS ORDERED: METHADONE HCL 10 MG TABLET ONE (10:57)
[2021-03-03] MEDS ORDERED: METHADONE HCL 40 MG DISPERSABLE TABLET ONE (10:57)
[2021-03-03 10:59] LABS: CALCIUM 9.1 mg/dL (8.5-10.1)
[2021-03-03 11:00] LABS: ALBUMIN 3.5 g/dl (3.4-5.0); BLOOD UREA NITROGEN 15.6 mg/dL (7-18)
[2021-03-03] MEDS: METHADONE 80 MG, METHADONE 20 MG PO SCH (11:01)
[2021-03-03 11:03] LABS: CREATININE 0.8 mg/dL (0.55-1.3)
[2021-03-03 11:05] LABS: BILIRUBIN,TOTAL 0.4 mg/dL (0.2-1); TOT PROT 7.1 g/dl (6.4-8.2)
[2021-03-03] MEDS: IBUPROFEN 400 MG TABLET (FP) PO PRN ×2 (14:14→22:09)
[2021-03-03] MEDS: QUEtiapine FUMARATE 50 MG TABLET PO SCH (22:05)
[2021-03-03] MEDS: THIAMINE HCL 100 MG TABLET (FP) PO SCH (22:06)
[2021-03-03] MEDS: LIDOCAINE PATCH REMOVAL MC SCH (22:10)
[2021-03-04] MEDS ORDERED: METHADONE HCL 10 MG TABLET ONE (03:16)
[2021-03-04] MEDS ORDERED: METHADONE HCL 40 MG DISPERSABLE TABLET ONE (03:16)
[2021-03-04] MEDS: METHADONE 80 MG, METHADONE 20 MG PO SCH (06:58)
[2021-03-04] MEDS: GABAPENTIN 400 MG CAPSULE PO SCH ×3 (06:58→21:52)
[2021-03-04] MEDS: TAMSULOSIN HCL 0.4 MG CAP PO SCH (07:58)
[2021-03-04] MEDS: chlordiazePOXIDE HCL 25 MG CAPSULE PO SCH ×4 (07:58→22:00)
[2021-03-04] MEDS: ASPIRIN 81 MG CHEWABLE TABLETS PO SCH (10:14)
[2021-03-04] MEDS: PANTOPRAZOLE 40 MG TABLET PO SCH (10:14)
[2021-03-04] MEDS: NICOTINE 21 MG/24 HOURS TOPICAL PATCH TD SCH (10:14)
[2021-03-04] MEDS: HYDROCHLOROTHIAZIDE 12.5 MG CAPSULE (FP) PO SCH (10:15)
[2021-03-04] MEDS: CALCIUM 500MG/VIT-D 200 UNITS COMBO TABLET (FP) PO SCH ×2 (10:15→21:52)
[2021-03-04] MEDS: BUDESONIDE/FORMETEROL FUMARATE 80/4.5 mcg INHALER IH SCH ×2 (10:15→21:54)
[2021-03-04] MEDS: LISINOPRIL 10 MG TABLET PO SCH (10:15)
[2021-03-04] MEDS: FERROUS SO4 325 MG TABLET (FP) PO SCH ×2 (10:15→21:52)
[2021-03-04] MEDS: LIDOCAINE 5% TOPICAL PATCH TP SCH (10:15)
[2021-03-04] MEDS: PRENATAL VITAMINS W/ FOLIC ACID TABLET (FP) PO SCH (10:16)
[2021-03-04] MEDS: METHOCARBAMOL 500 MG TABLET PO PRN (10:18)
[2021-03-04] MEDS ORDERED: cloNIDine HCL 0.1 MG TABLET PO PRN (10:23)
[2021-03-04] MEDS: BACITRACIN 0.9 GM PACKET TP SCH ×2 (13:27→21:52)
[2021-03-04] MEDS: SODIUM CHLORIDE NASAL SPRAY 44 ML BOTTLE NS SCH ×2 (15:41→21:56)
[2021-03-04] MEDS ORDERED: SILVER SULFADIAZINE 1% TOP CREAM 50 GM JAR TP ONE (18:25)
[2021-03-04] MEDS ORDERED: QUEtiapine FUMARATE 25 MG TABLET ONE (21:18)
[2021-03-04] MEDS: THIAMINE HCL 100 MG TABLET (FP) PO SCH (21:52)
[2021-03-04] MEDS: LIDOCAINE PATCH REMOVAL MC SCH (21:53)
[2021-03-04] MEDS: QUEtiapine FUMARATE 50 MG TABLET PO SCH (21:54)
[2021-03-04] MEDS: IBUPROFEN 400 MG TABLET (FP) PO PRN (21:59)
[2021-03-04] MEDS: AMMONIUM LACTATE 12% LOTION 225 GM BOTTLE TP SCH (22:43)
[2021-03-05] MEDS ORDERED: chlordiazePOXIDE HCL 10 MG CAPSULE PO PRN
[2021-03-05] MEDS ORDERED: METHADONE HCL 10 MG TABLET ONE (03:45)
[2021-03-05] MEDS ORDERED: METHADONE HCL 40 MG DISPERSABLE TABLET ONE (03:46)
[2021-03-05] MEDS: GABAPENTIN 400 MG CAPSULE PO SCH ×3 (05:59→21:56)
[2021-03-05] MEDS: BACITRACIN 0.9 GM PACKET TP SCH ×3 (05:59→21:56)
[2021-03-05] MEDS: METHADONE 80 MG, METHADONE 20 MG PO SCH (06:00)
[2021-03-05] MEDS: chlordiazePOXIDE HCL 10 MG CAPSULE PO SCH ×4 (06:01→22:00)
[2021-03-05] MEDS: TAMSULOSIN HCL 0.4 MG CAP PO SCH (07:45)
[2021-03-05] MEDS: SODIUM CHLORIDE NASAL SPRAY 44 ML BOTTLE NS SCH ×3 (07:45→22:03)
[2021-03-05] MEDS ORDERED: LACTULOSE 20 GM/30 ML UDC (FOR ORAL USE ONLY) PO ONE (14:43)
[2021-03-05] MEDS: ASPIRIN 81 MG CHEWABLE TABLETS PO SCH (15:00)
[2021-03-05] MEDS: BUDESONIDE/FORMETEROL FUMARATE 80/4.5 mcg INHALER IH SCH ×2 (15:00→22:04)
[2021-03-05] MEDS: CEPHALEXIN MONOHYDRATE 500 MG CAPSULE (UD) PO SCH ×3 (15:01→23:00)
[2021-03-05] MEDS: FERROUS SO4 325 MG TABLET (FP) PO SCH ×2 (15:01→21:56)
[2021-03-05] MEDS: LISINOPRIL 10 MG TABLET PO SCH (15:01)
[2021-03-05] MEDS: HYDROCHLOROTHIAZIDE 12.5 MG CAPSULE (FP) PO SCH (15:01)
[2021-03-05] MEDS: PANTOPRAZOLE 40 MG TABLET PO SCH (15:01)
[2021-03-05] MEDS: PRENATAL VITAMINS W/ FOLIC ACID TABLET (FP) PO SCH (15:03)
[2021-03-05] MEDS: LIDOCAINE 5% TOPICAL PATCH TP SCH (15:03)
[2021-03-05] MEDS: NICOTINE 21 MG/24 HOURS TOPICAL PATCH TD SCH (15:03)
[2021-03-05] MEDS: CALCIUM 500MG/VIT-D 200 UNITS COMBO TABLET (FP) PO SCH ×2 (15:05→21:56)
[2021-03-05] MEDS: AMMONIUM LACTATE 12% LOTION 225 GM BOTTLE TP SCH ×2 (15:06→22:01)
[2021-03-05] MEDS: METHOCARBAMOL 500 MG TABLET PO PRN ×2 (15:11→22:00)
[2021-03-05] MEDS: IBUPROFEN 400 MG TABLET (FP) PO PRN (15:11)
[2021-03-05] MEDS: QUEtiapine FUMARATE 50 MG TABLET PO SCH (21:56)
[2021-03-05] MEDS: LIDOCAINE PATCH REMOVAL MC SCH (22:02)
[2021-03-05] MEDS: LACTULOSE 20 GM/30 ML UDC (FOR ORAL USE ONLY) PO SCH (22:02)
[2021-03-05] MEDS: THIAMINE HCL 100 MG TABLET (FP) PO SCH (22:04)
[2021-03-06] MEDS ORDERED: METHADONE HCL 10 MG TABLET ONE (03:25)
[2021-03-06] MEDS ORDERED: METHADONE HCL 40 MG DISPERSABLE TABLET ONE (03:26)
[2021-03-06] MEDS: METHADONE 80 MG, METHADONE 20 MG PO SCH (05:16)
[2021-03-06] MEDS: CEPHALEXIN MONOHYDRATE 500 MG CAPSULE (UD) PO SCH ×4 (05:16→23:59)
[2021-03-06] MEDS: LACTULOSE 20 GM/30 ML UDC (FOR ORAL USE ONLY) PO SCH ×3 (05:16→22:08)
[2021-03-06] MEDS: chlordiazePOXIDE HCL 10 MG CAPSULE PO SCH ×2 (05:16→17:40)
[2021-03-06] MEDS: GABAPENTIN 400 MG CAPSULE PO SCH ×3 (05:17→22:08)
[2021-03-06] MEDS: SODIUM CHLORIDE NASAL SPRAY 44 ML BOTTLE NS SCH ×3 (05:18→22:09)
[2021-03-06] MEDS: BACITRACIN 0.9 GM PACKET TP SCH ×3 (05:35→22:10)
[2021-03-06 06:06] LABS: SARS-CoV-2 NAA Not Detected (Not Detected)
[2021-03-06] MEDS: TAMSULOSIN HCL 0.4 MG CAP PO SCH (07:34)
[2021-03-06] MEDS: NICOTINE 21 MG/24 HOURS TOPICAL PATCH TD SCH (10:02)
[2021-03-06] MEDS: AMMONIUM LACTATE 12% LOTION 225 GM BOTTLE TP SCH ×2 (10:03→22:10)
[2021-03-06] MEDS: CALCIUM 500MG/VIT-D 200 UNITS COMBO TABLET (FP) PO SCH ×2 (10:03→22:08)
[2021-03-06] MEDS: LIDOCAINE 5% TOPICAL PATCH TP SCH (10:03)
[2021-03-06] MEDS: LISINOPRIL 10 MG TABLET PO SCH (10:03)
[2021-03-06] MEDS: ASPIRIN 81 MG CHEWABLE TABLETS PO SCH (10:03)
[2021-03-06] MEDS: FERROUS SO4 325 MG TABLET (FP) PO SCH ×2 (10:03→22:08)
[2021-03-06] MEDS: PRENATAL VITAMINS W/ FOLIC ACID TABLET (FP) PO SCH (10:03)
[2021-03-06] MEDS: PANTOPRAZOLE 40 MG TABLET PO SCH (10:03)
[2021-03-06] MEDS: HYDROCHLOROTHIAZIDE 12.5 MG CAPSULE (FP) PO SCH (10:03)
[2021-03-06] MEDS: BUDESONIDE/FORMETEROL FUMARATE 80/4.5 mcg INHALER IH SCH ×2 (10:04→22:10)
[2021-03-06] MEDS: IBUPROFEN 400 MG TABLET (FP) PO PRN ×2 (13:22→22:11)
[2021-03-06] MEDS: LIDOCAINE PATCH REMOVAL MC SCH (22:09)
[2021-03-06] MEDS: QUEtiapine FUMARATE 50 MG TABLET PO SCH (22:09)
[2021-03-06] MEDS: THIAMINE HCL 100 MG TABLET (FP) PO SCH (22:10)
[2021-03-06] MEDS: METHOCARBAMOL 500 MG TABLET PO PRN (22:10)
[2021-03-07] MEDS ORDERED: METHADONE HCL 10 MG TABLET ONE (03:44)
[2021-03-07] MEDS ORDERED: METHADONE HCL 40 MG DISPERSABLE TABLET ONE (03:44)
[2021-03-07] MEDS ORDERED: chlordiazePOXIDE HCL 10 MG CAPSULE PO ONE (05:00)
[2021-03-07] MEDS: GABAPENTIN 400 MG CAPSULE PO SCH ×2 (05:16→13:24)
[2021-03-07] MEDS: BACITRACIN 0.9 GM PACKET TP SCH ×2 (05:16→13:24)
[2021-03-07] MEDS: SODIUM CHLORIDE NASAL SPRAY 44 ML BOTTLE NS SCH ×2 (05:17→13:25)
[2021-03-07] MEDS: CEPHALEXIN MONOHYDRATE 500 MG CAPSULE (UD) PO SCH ×2 (05:17→12:46)
[2021-03-07] MEDS: METHADONE 80 MG, METHADONE 20 MG PO SCH (05:17)
[2021-03-07] MEDS: LACTULOSE 20 GM/30 ML UDC (FOR ORAL USE ONLY) PO SCH ×2 (05:18→13:25)
[2021-03-07] MEDS: TAMSULOSIN HCL 0.4 MG CAP PO SCH (07:59)
[2021-03-07] MEDS: FERROUS SO4 325 MG TABLET (FP) PO SCH (10:03)
[2021-03-07] MEDS: CALCIUM 500MG/VIT-D 200 UNITS COMBO TABLET (FP) PO SCH (10:03)
[2021-03-07] MEDS: PANTOPRAZOLE 40 MG TABLET PO SCH (10:03)
[2021-03-07] MEDS: PRENATAL VITAMINS W/ FOLIC ACID TABLET (FP) PO SCH (10:03)
[2021-03-07] MEDS: ASPIRIN 81 MG CHEWABLE TABLETS PO SCH (10:03)
[2021-03-07] MEDS: HYDROCHLOROTHIAZIDE 12.5 MG CAPSULE (FP) PO SCH (10:03)
[2021-03-07] MEDS: LISINOPRIL 10 MG TABLET PO SCH (10:03)
[2021-03-07] MEDS: LIDOCAINE 5% TOPICAL PATCH TP SCH (10:03)
[2021-03-07] MEDS: NICOTINE 21 MG/24 HOURS TOPICAL PATCH TD SCH (10:04)
[2021-03-07] MEDS: AMMONIUM LACTATE 12% LOTION 225 GM BOTTLE TP SCH (10:04)
[2021-03-07] MEDS: BUDESONIDE/FORMETEROL FUMARATE 80/4.5 mcg INHALER IH SCH (10:05)
[2021-03-07] MEDS: IBUPROFEN 400 MG TABLET (FP) PO PRN (10:06)
[2021-03-07 13:20] VITALS: BP 121/76; PULSE 96; TEMP 97.8
== END 2021-03-07 13:57 | disposition other institution (70) | DRG 773 ==
LOC: YASAS 12:44 → Y6N 17:44
PROVIDERS: ADMIT Allergy & Immunology; ATTEND Allergy & Immunology
PROC: HZ2ZZZZ Detoxification Services for Substance Abuse Treatment (ICD-10-PCS; principal; 2021-03-02)
DX: F10.230 Alcohol dependence with withdrawal, uncomplicated (principal); F11.20 Opioid dependence, uncomplicated; F14.20 Cocaine dependence, uncomplicated; F17.210 Nicotine dependence, cigarettes, uncomplicated; F19.282 Other psychoactive substance dependence with psychoactive substance-induced sleep disorder; F19.24 Other psychoactive substance dependence with psychoactive substance-induced mood disorder; D64.9 Anemia, unspecified; I10 Essential (primary) hypertension; J45.909 Unspecified asthma, uncomplicated; M47.819 Spondylosis without myelopathy or radiculopathy, site unspecified; N40.0 Benign prostatic hyperplasia without lower urinary tract symptoms; N39.43 Post-void dribbling; G89.29 Other chronic pain; Z62.810 Personal history of physical and sexual abuse in childhood; Z96.651 Presence of right artificial knee joint; Z86.19 Personal history of other infectious and parasitic diseases; T21.12XA Burn of first degree of abdominal wall, initial encounter; X10.0XXA Contact with hot drinks, initial encounter; Y93.89 Activity, other specified; Y92.238 Other place in hospital as the place of occurrence of the external cause; Y99.8 Other external cause status; W19.XXXA Unspecified fall, initial encounter; Y92.231 Patient bathroom in hospital as the place of occurrence of the external cause; Z59.0 Homelessness
CPT/HCPCS: 36415; 80053; 82140; 85027; 86593; 86780; C9803; J0735; U0003; U0005

== ENCOUNTER 2021-03-07 14:27 | Inpatient (IN) | payer OTHER ==
[2021-03-07] MEDS ORDERED: IBUPROFEN 400 MG TABLET (FP) PO PRN (15:29)
[2021-03-07] MEDS ORDERED: MAG HYDROX/AL HYDROX/SIMETH 30 ML UNIT-DOSE CUP PO PRN (15:29)
[2021-03-07] MEDS ORDERED: guaiFENesin 200 MG/10 ML 10 ML UNIT-DOSE CUPS PO PRN (15:29)
[2021-03-07] MEDS ORDERED: MAGNESIUM CITRATE 300 ML BOTTLE PO PRN (15:29)
[2021-03-07] MEDS ORDERED: ACETAMINOPHEN 325 MG TABLET (FP) PO PRN (15:29)
[2021-03-07] MEDS ORDERED: LOPERAMIDE HCL 2 MG CAPSULE PO PRN (15:29)
[2021-03-07] MEDS ORDERED: MENTHOL/PHENOL 1 EACH UD MM PRN (15:29)
[2021-03-07] MEDS ORDERED: NICOTINE POLACRILEX 2 MG GUM BUC PRN (15:29)
[2021-03-07] MEDS ORDERED: MAGNESIUM HYDROX 2400MG/30ML ORAL SUSPENSION 30 ML CUP PO PRN (15:29)
[2021-03-07] MEDS ORDERED: P-EPHED 60MG/TRIPROLIDI 2.5MG TABLET PO PRN (15:29)
[2021-03-07] MEDS ORDERED: ALBUTEROL SO4 HFA INHALER IH PRN (15:37)
[2021-03-07] MEDS ORDERED: LACTULOSE 20 GM/30 ML UDC (FOR ORAL USE ONLY) PO PRN (15:42)
[2021-03-07] MEDS ORDERED: SODIUM CHLORIDE NASAL SPRAY 44 ML BOTTLE NS PRN (15:42)
[2021-03-07] MEDS ORDERED: BENZOCAINE 28 GM HEMORRHOIDAL OINTMENT PR PRN (15:57)
[2021-03-07] MEDS ORDERED: TETRAHYDROZOLINE HCL EYE DROPS OD PRN (15:58)
[2021-03-07] MEDS: METHOCARBAMOL 500 MG TABLET PO SCH ×2 (18:03→21:21)
[2021-03-07] MEDS: CEPHALEXIN MONOHYDRATE 500 MG CAPSULE (UD) PO SCH ×2 (18:03→23:41)
[2021-03-07] MEDS: THIAMINE HCL 100 MG TABLET (FP) PO SCH (21:21)
[2021-03-07] MEDS: MELATONIN 5 MG TABLETS PO SCH (21:21)
[2021-03-07] MEDS: QUEtiapine FUMARATE 50 MG TABLET PO SCH (21:22)
[2021-03-07] MEDS: GABAPENTIN 400 MG CAPSULE PO SCH (21:22)
[2021-03-07] MEDS: BUDESONIDE/FORMETEROL FUMARATE 80/4.5 mcg INHALER IH SCH (21:23)
[2021-03-07] MEDS ORDERED: LIDOCAINE PATCH REMOVAL MC SCH (22:00)
[2021-03-08] MEDS ORDERED: METHADONE HCL 40 MG DISPERSABLE TABLET ONE (04:52)
[2021-03-08] MEDS ORDERED: METHADONE HCL 10 MG TABLET ONE (04:53)
[2021-03-08] MEDS: METHADONE 80 MG, METHADONE 20 MG PO SCH (05:50)
[2021-03-08] MEDS: GABAPENTIN 400 MG CAPSULE PO SCH ×3 (05:50→21:11)
[2021-03-08] MEDS: CEPHALEXIN MONOHYDRATE 500 MG CAPSULE (UD) PO SCH ×4 (05:51→23:12)
[2021-03-08] MEDS ORDERED: METHADONE HCL 10 MG TABLET PO SCH (06:00)
[2021-03-08] MEDS: TAMSULOSIN HCL 0.4 MG CAP PO SCH (07:33)
[2021-03-08] MEDS: NICOTINE 21 MG/24 HOURS TOPICAL PATCH TD SCH (09:47)
[2021-03-08] MEDS: hydrOXYzine PAMOATE 25 MG CAPSULE (FP) PO PRN ×3 (09:47→23:12)
[2021-03-08] MEDS: LISINOPRIL 10 MG TABLET PO SCH (09:47)
[2021-03-08] MEDS: ASPIRIN COATED 81 MG TABLET.EC PO SCH (09:48)
[2021-03-08] MEDS: FERROUS SO4 325 MG TABLET (FP) PO SCH (09:48)
[2021-03-08] MEDS: HYDROCHLOROTHIAZIDE 12.5 MG CAPSULE (FP) PO SCH (09:48)
[2021-03-08] MEDS: CALCIUM 500MG/VIT-D 200 UNITS COMBO TABLET (FP) PO SCH (09:48)
[2021-03-08] MEDS: PANTOPRAZOLE 40 MG TABLET PO SCH (09:48)
[2021-03-08] MEDS: METHOCARBAMOL 500 MG TABLET PO SCH ×4 (09:49→21:11)
[2021-03-08] MEDS: PRENATAL VITAMINS W/ FOLIC ACID TABLET (FP) PO SCH (09:49)
[2021-03-08] MEDS: BUDESONIDE/FORMETEROL FUMARATE 80/4.5 mcg INHALER IH SCH ×2 (09:50→21:11)
[2021-03-08] MEDS ORDERED: NICOTINE 7 MG/24 HOURS TOPICAL PATCH TD SCH (10:00)
[2021-03-08] MEDS ORDERED: LIDOCAINE 5% TOPICAL PATCH TP SCH ×2 (10:00→10:01)
[2021-03-08] MEDS: LIDOCAINE 5% TOPICAL PATCH TP SCH (11:00)
[2021-03-08] MEDS ORDERED: ACETAMINOPHEN 325 MG TABLET (FP) PO PRN (11:27)
[2021-03-08 17:01] LABS: HIV INTERPRETATION NEGATIVE (NEGATIVE)
[2021-03-08] MEDS: THIAMINE HCL 100 MG TABLET (FP) PO SCH (21:10)
[2021-03-08] MEDS: QUEtiapine FUMARATE 50 MG TABLET PO SCH (21:11)
[2021-03-08] MEDS: MELATONIN 5 MG TABLETS PO SCH (21:11)
[2021-03-08] MEDS ORDERED: LIDOCAINE PATCH REMOVAL MC SCH (22:00)
[2021-03-09] MEDS ORDERED: IBUPROFEN 400 MG TABLET (FP) PO ONE (00:57)
[2021-03-09] MEDS ORDERED: METHADONE HCL 10 MG TABLET ONE (03:37)
[2021-03-09] MEDS ORDERED: METHADONE HCL 40 MG DISPERSABLE TABLET ONE (03:37)
[2021-03-09] MEDS: CEPHALEXIN MONOHYDRATE 500 MG CAPSULE (UD) PO SCH ×2 (06:00→11:45)
[2021-03-09] MEDS: METHADONE 80 MG, METHADONE 20 MG PO SCH (06:01)
[2021-03-09 07:10] VITALS: TEMP 97.3
[2021-03-09] MEDS: GABAPENTIN 400 MG CAPSULE PO SCH ×2 (08:11→14:26)
[2021-03-09] MEDS: ASPIRIN COATED 81 MG TABLET.EC PO SCH (09:41)
[2021-03-09] MEDS: PANTOPRAZOLE 40 MG TABLET PO SCH (09:41)
[2021-03-09] MEDS: METHOCARBAMOL 500 MG TABLET PO SCH ×2 (09:41→14:26)
[2021-03-09] MEDS: LISINOPRIL 10 MG TABLET PO SCH (09:41)
[2021-03-09] MEDS: NICOTINE 21 MG/24 HOURS TOPICAL PATCH TD SCH (09:41)
[2021-03-09] MEDS: HYDROCHLOROTHIAZIDE 12.5 MG CAPSULE (FP) PO SCH (09:41)
[2021-03-09] MEDS: FERROUS SO4 325 MG TABLET (FP) PO SCH (09:41)
[2021-03-09] MEDS: PRENATAL VITAMINS W/ FOLIC ACID TABLET (FP) PO SCH (09:47)
[2021-03-09] MEDS: BUDESONIDE/FORMETEROL FUMARATE 80/4.5 mcg INHALER IH SCH (09:47)
[2021-03-09] MEDS: CALCIUM 500MG/VIT-D 200 UNITS COMBO TABLET (FP) PO SCH (09:47)
[2021-03-09] MEDS: TAMSULOSIN HCL 0.4 MG CAP PO SCH (09:48)
[2021-03-09] MEDS: LIDOCAINE 5% TOPICAL PATCH TP SCH (09:49)
[2021-03-09] MEDS ORDERED: DICLOFENAC SODIUM 25 MG TABLET.DR PO ONE (10:40)
[2021-03-09 12:23] VITALS: BP 118/77; PULSE 74
[2021-03-09] MEDS ORDERED: BACITRACIN 0.9 GM PACKET TP SCH (13:30)
== END 2021-03-09 15:31 | disposition home or self-care (01) | DRG 773 ==
LOC: YASAS 14:27 → Y3W 14:29
PROVIDERS: ADMIT Allergy & Immunology; ATTEND Allergy & Immunology
DX: F10.20 Alcohol dependence, uncomplicated (principal); F11.20 Opioid dependence, uncomplicated; F14.20 Cocaine dependence, uncomplicated; I10 Essential (primary) hypertension; N40.0 Benign prostatic hyperplasia without lower urinary tract symptoms; L03.011 Cellulitis of right finger; Z96.651 Presence of right artificial knee joint; Z99.89 Dependence on other enabling machines and devices
CPT/HCPCS: 36415; 87389

== ENCOUNTER 2021-06-12 14:20 | Inpatient (IN) | payer OTHER ==
[2021-06-12 17:31] VITALS: BMI 23.8
[2021-06-12] MEDS ORDERED: MAGNESIUM HYDROX 2400MG/30ML ORAL SUSPENSION 30 ML CUP PO PRN (18:22)
[2021-06-12] MEDS ORDERED: NICOTINE 10 MG CARTRIDGE (INHALER) IH PRN (18:22)
[2021-06-12] MEDS ORDERED: ONDANSETRON *ODT* 4 MG TABLET SL PRN (18:22)
[2021-06-12] MEDS ORDERED: LORazepam 1 MG TABLET PO PRN (18:22)
[2021-06-12] MEDS ORDERED: MENTHOL/PHENOL 1 EACH UD MM PRN (18:22)
[2021-06-12] MEDS ORDERED: MAGNESIUM CITRATE 300 ML BOTTLE PO PRN (18:22)
[2021-06-12] MEDS ORDERED: ACETAMINOPHEN 325 MG TABLET (FP) PO PRN ×2 (18:22)
[2021-06-12] MEDS ORDERED: MAG HYDROX/AL HYDROX/SIMETH 30 ML UNIT-DOSE CUP PO PRN (18:22)
[2021-06-12] MEDS ORDERED: BISMUTH SUBSALICYLATE 524 MG/30 ML PO PRN (18:22)
[2021-06-12] MEDS: NICOTINE 14 MG/24 HOURS TOPICAL PATCH TD SCH (19:47)
[2021-06-12] MEDS: LIDOCAINE 5% TOPICAL PATCH TP SCH (19:48)
[2021-06-12] MEDS: hydrOXYzine PAMOATE 25 MG CAPSULE (FP) PO SCH (22:07)
[2021-06-12] MEDS: LIDOCAINE PATCH REMOVAL MC SCH (22:07)
[2021-06-12] MEDS: THIAMINE HCL 100 MG TABLET (FP) PO SCH (22:07)
[2021-06-12] MEDS: LORazepam 2 MG TABLET PO SCH (22:07)
[2021-06-12] MEDS: MELATONIN 5 MG TABLETS PO SCH (22:07)
[2021-06-12] MEDS: METHOCARBAMOL 500 MG TABLET PO PRN (22:09)
[2021-06-12] MEDS: IBUPROFEN 400 MG TABLET (FP) PO PRN (22:10)
[2021-06-13] MEDS: LORazepam 2 MG TABLET PO SCH ×4 (05:39→22:17)
[2021-06-13] MEDS: hydrOXYzine PAMOATE 25 MG CAPSULE (FP) PO SCH ×5 (05:40→22:18)
[2021-06-13] MEDS ORDERED: ALBUTEROL SO4 HFA INHALER IH PRN (07:29)
[2021-06-13] MEDS ORDERED: methaDONE HCL 10 MG TABLET PO SCH (07:30)
[2021-06-13] MEDS ORDERED: methaDONE HCL 10 MG TABLET ONE (07:56)
[2021-06-13] MEDS ORDERED: methaDONE HCL 40 MG DISPERSABLE TABLET ONE (07:56)
[2021-06-13] MEDS ORDERED: PATIENT'S OWN MEDICATION (NON-FORMULARY) (Ferrous Sulfate [Feosol] 325 MG Tablet) PO SCH (09:00)
[2021-06-13] MEDS: LISINOPRIL 10 MG TABLET PO SCH (10:49)
[2021-06-13] MEDS: ASPIRIN 81 MG CHEWABLE TABLETS PO SCH (10:49)
[2021-06-13] MEDS: PRENATAL VITAMINS W/ FOLIC ACID TABLET (FP) PO SCH (10:49)
[2021-06-13] MEDS: HYDROCHLOROTHIAZIDE 12.5 MG CAPSULE (FP) PO SCH (10:49)
[2021-06-13] MEDS: PANTOPRAZOLE 40 MG TABLET PO SCH (10:49)
[2021-06-13] MEDS: BUDESONIDE/FORMETEROL FUMARATE 80/4.5 mcg INHALER IH SCH ×2 (10:50→22:21)
[2021-06-13] MEDS: NICOTINE 14 MG/24 HOURS TOPICAL PATCH TD SCH (10:51)
[2021-06-13] MEDS: LIDOCAINE 5% TOPICAL PATCH TP SCH (10:57)
[2021-06-13] MEDS: AMMONIUM LACTATE 12% LOTION 225 GM BOTTLE TP SCH (10:58)
[2021-06-13] MEDS: IBUPROFEN 400 MG TABLET (FP) PO PRN (11:02)
[2021-06-13 11:06] LABS: HEMATOCRIT 39.3 % (35.4-49); HEMOGLOBIN 13.2 GM/dL (11.7-16.9); MCH 29.9 pg (25.7-33.7); MCHC 33.6 g/dl (32.0-35.9); MEAN CELL VOLUME 88.9 fl (80-96); MEAN PLT VOLUME 7.5 fl (7.5-11.1); PLATELET COUNT 195 10^3/uL (134-434); RBC 4.42 M/mm3 (4.00-5.60); RDW 16.5 % (11.9-15.9); WHITE BLOOD COUNT 4.8 K/mm3 (4.0-10.0)
[2021-06-13 11:19] LABS: CALCIUM 8.6 mg/dL (8.5-10.1)
[2021-06-13 11:20] LABS: BLOOD UREA NITROGEN 16.2 mg/dL (7-18)
[2021-06-13 11:22] LABS: ALBUMIN 3.3 g/dl (3.4-5.0)
[2021-06-13 11:23] LABS: BILIRUBIN,TOTAL 0.3 mg/dL (0.2-1)
[2021-06-13 11:24] LABS: TOT PROT 6.4 g/dl (6.4-8.2)
[2021-06-13 11:25] LABS: CREATININE 0.7 mg/dL (0.55-1.3)
[2021-06-13] MEDS: FERROUS SO4 325 MG TABLET (FP) PO SCH (17:57)
[2021-06-13] MEDS: QUEtiapine FUMARATE 100 MG TABLET (FP) PO SCH (22:18)
[2021-06-13] MEDS: TAMSULOSIN HCL 0.4 MG CAP PO SCH (22:18)
[2021-06-13] MEDS: THIAMINE HCL 100 MG TABLET (FP) PO SCH (22:18)
[2021-06-13] MEDS: MELATONIN 5 MG TABLETS PO SCH (22:19)
[2021-06-13] MEDS: LIDOCAINE PATCH REMOVAL MC SCH (22:19)
[2021-06-13] MEDS: METHOCARBAMOL 500 MG TABLET PO PRN (22:21)
[2021-06-14] MEDS ORDERED: methaDONE HCL 10 MG TABLET ONE (04:40)
[2021-06-14] MEDS ORDERED: methaDONE HCL 40 MG DISPERSABLE TABLET ONE (04:41)
[2021-06-14] MEDS: hydrOXYzine PAMOATE 25 MG CAPSULE (FP) PO SCH ×5 (05:40→22:00)
[2021-06-14] MEDS: LORazepam 1 MG TABLET PO SCH ×4 (05:40→22:00)
[2021-06-14] MEDS: FERROUS SO4 325 MG TABLET (FP) PO SCH ×2 (07:07→18:36)
[2021-06-14] MEDS: LIDOCAINE 5% TOPICAL PATCH TP SCH (10:21)
[2021-06-14] MEDS: PRENATAL VITAMINS W/ FOLIC ACID TABLET (FP) PO SCH (10:22)
[2021-06-14] MEDS: ASPIRIN 81 MG CHEWABLE TABLETS PO SCH (10:22)
[2021-06-14] MEDS: PANTOPRAZOLE 40 MG TABLET PO SCH (10:22)
[2021-06-14] MEDS: LISINOPRIL 10 MG TABLET PO SCH (10:22)
[2021-06-14] MEDS: HYDROCHLOROTHIAZIDE 12.5 MG CAPSULE (FP) PO SCH (10:22)
[2021-06-14] MEDS: BUDESONIDE/FORMETEROL FUMARATE 80/4.5 mcg INHALER IH SCH ×2 (10:23→22:02)
[2021-06-14] MEDS: NICOTINE 14 MG/24 HOURS TOPICAL PATCH TD SCH (10:23)
[2021-06-14] MEDS: AMMONIUM LACTATE 12% LOTION 225 GM BOTTLE TP SCH (10:26)
[2021-06-14] MEDS: MELATONIN 5 MG TABLETS PO SCH (22:00)
[2021-06-14] MEDS: THIAMINE HCL 100 MG TABLET (FP) PO SCH (22:00)
[2021-06-14] MEDS: TAMSULOSIN HCL 0.4 MG CAP PO SCH (22:00)
[2021-06-14] MEDS: LIDOCAINE PATCH REMOVAL MC SCH (22:00)
[2021-06-14] MEDS: QUEtiapine FUMARATE 100 MG TABLET (FP) PO SCH (22:00)
[2021-06-14] MEDS: METHOCARBAMOL 500 MG TABLET PO PRN (22:04)
[2021-06-14] MEDS: IBUPROFEN 400 MG TABLET (FP) PO PRN (22:04)
[2021-06-15] MEDS ORDERED: LORazepam 0.5 MG TABLET PO PRN
[2021-06-15] MEDS ORDERED: methaDONE HCL 40 MG DISPERSABLE TABLET ONE (04:12)
[2021-06-15] MEDS ORDERED: methaDONE HCL 10 MG TABLET ONE (04:12)
[2021-06-15] MEDS: hydrOXYzine PAMOATE 25 MG CAPSULE (FP) PO SCH ×5 (05:06→22:09)
[2021-06-15] MEDS: LORazepam 0.5 MG TABLET PO SCH ×4 (05:08→22:10)
[2021-06-15] MEDS: FERROUS SO4 325 MG TABLET (FP) PO SCH ×2 (07:25→17:42)
[2021-06-15] MEDS: PRENATAL VITAMINS W/ FOLIC ACID TABLET (FP) PO SCH (10:24)
[2021-06-15] MEDS: BUDESONIDE/FORMETEROL FUMARATE 80/4.5 mcg INHALER IH SCH ×2 (10:24→22:10)
[2021-06-15] MEDS: METHOCARBAMOL 500 MG TABLET PO PRN ×2 (10:24→22:12)
[2021-06-15] MEDS: LISINOPRIL 10 MG TABLET PO SCH (10:24)
[2021-06-15] MEDS: HYDROCHLOROTHIAZIDE 12.5 MG CAPSULE (FP) PO SCH (10:25)
[2021-06-15] MEDS: ASPIRIN 81 MG CHEWABLE TABLETS PO SCH (10:25)
[2021-06-15] MEDS: AMMONIUM LACTATE 12% LOTION 225 GM BOTTLE TP SCH (10:26)
[2021-06-15] MEDS: NICOTINE 14 MG/24 HOURS TOPICAL PATCH TD SCH (10:26)
[2021-06-15] MEDS: LIDOCAINE 5% TOPICAL PATCH TP SCH (10:27)
[2021-06-15] MEDS: PANTOPRAZOLE 40 MG TABLET PO SCH (10:28)
[2021-06-15] MEDS: IBUPROFEN 400 MG TABLET (FP) PO PRN (17:44)
[2021-06-15] MEDS: THIAMINE HCL 100 MG TABLET (FP) PO SCH (22:09)
[2021-06-15] MEDS: QUEtiapine FUMARATE 100 MG TABLET (FP) PO SCH (22:09)
[2021-06-15] MEDS: TAMSULOSIN HCL 0.4 MG CAP PO SCH (22:09)
[2021-06-15] MEDS: LIDOCAINE PATCH REMOVAL MC SCH (22:10)
[2021-06-15] MEDS: MELATONIN 5 MG TABLETS PO SCH (22:10)
[2021-06-16] MEDS: IBUPROFEN 400 MG TABLET (FP) PO PRN ×3 (00:33→18:32)
[2021-06-16] MEDS ORDERED: methaDONE HCL 10 MG TABLET ONE (04:12)
[2021-06-16] MEDS ORDERED: methaDONE HCL 40 MG DISPERSABLE TABLET ONE (04:13)
[2021-06-16] MEDS ORDERED: LORazepam 0.5 MG TABLET PO ONE (05:00)
[2021-06-16] MEDS: hydrOXYzine PAMOATE 25 MG CAPSULE (FP) PO SCH ×4 (05:10→18:30)
[2021-06-16] MEDS: FERROUS SO4 325 MG TABLET (FP) PO SCH ×2 (07:59→18:29)
[2021-06-16] MEDS: BUDESONIDE/FORMETEROL FUMARATE 80/4.5 mcg INHALER IH SCH (10:04)
[2021-06-16] MEDS: ASPIRIN 81 MG CHEWABLE TABLETS PO SCH (10:05)
[2021-06-16] MEDS: LISINOPRIL 10 MG TABLET PO SCH (10:05)
[2021-06-16] MEDS: PANTOPRAZOLE 40 MG TABLET PO SCH (10:05)
[2021-06-16] MEDS: PRENATAL VITAMINS W/ FOLIC ACID TABLET (FP) PO SCH (10:05)
[2021-06-16] MEDS: NICOTINE 14 MG/24 HOURS TOPICAL PATCH TD SCH (10:07)
[2021-06-16] MEDS: HYDROCHLOROTHIAZIDE 12.5 MG CAPSULE (FP) PO SCH (10:07)
[2021-06-16] MEDS: METHOCARBAMOL 500 MG TABLET PO PRN (10:08)
[2021-06-16] MEDS: AMMONIUM LACTATE 12% LOTION 225 GM BOTTLE TP SCH (10:09)
[2021-06-16] MEDS: LIDOCAINE 5% TOPICAL PATCH TP SCH (10:10)
[2021-06-16 17:22] VITALS: BP 129/69; PULSE 61; TEMP 96.9
== END 2021-06-16 19:48 | disposition other institution (70) | DRG 773 ==
LOC: YASAS 14:20 → Y3N 18:31
PROVIDERS: ADMIT Allergy & Immunology; ATTEND Allergy & Immunology
PROC: HZ2ZZZZ Detoxification Services for Substance Abuse Treatment (ICD-10-PCS; principal; 2021-06-12)
DX: F10.230 Alcohol dependence with withdrawal, uncomplicated (principal); F11.20 Opioid dependence, uncomplicated; F14.20 Cocaine dependence, uncomplicated; F19.282 Other psychoactive substance dependence with psychoactive substance-induced sleep disorder; F17.210 Nicotine dependence, cigarettes, uncomplicated; F19.24 Other psychoactive substance dependence with psychoactive substance-induced mood disorder; F41.9 Anxiety disorder, unspecified; F32.9 Major depressive disorder, single episode, unspecified; G47.00 Insomnia, unspecified; I10 Essential (primary) hypertension; J45.20 Mild intermittent asthma, uncomplicated; K21.9 Gastro-esophageal reflux disease without esophagitis; Z96.651 Presence of right artificial knee joint; Z99.89 Dependence on other enabling machines and devices; W06.XXXA Fall from bed, initial encounter; Y93.89 Activity, other specified; Y92.230 Patient room in hospital as the place of occurrence of the external cause
CPT/HCPCS: 36415; 80053; 85027; 86593; 86780; C9803; U0003; U0005

== ENCOUNTER 2021-06-16 20:54 | Inpatient (IN) | payer OTHER ==
[~2021-06-16 20:54] MED LIST changes: +ACETAMINOPHEN 325 MG TABLET (FP) PO PRN; +MENTHOL/PHENOL 1 EACH UD MM PRN; -NICOTINE POLACRILEX 2 MG GUM BUC PRN; -guaiFENesin 200 MG/10 ML 10 ML UNIT-DOSE CUPS PO PRN
[2021-06-16] MEDS: TAMSULOSIN HCL 0.4 MG CAP PO SCH (22:05)
[2021-06-16] MEDS: MELATONIN 5 MG TABLETS PO SCH (22:05)
[2021-06-16] MEDS: THIAMINE HCL 100 MG TABLET (FP) PO SCH (22:05)
[2021-06-16] MEDS: AMMONIUM LACTATE 12% LOTION 225 GM BOTTLE TP SCH (22:06)
[2021-06-16] MEDS: BUDESONIDE/FORMETEROL FUMARATE 80/4.5 mcg INHALER IH SCH (22:06)
[2021-06-16] MEDS: IBUPROFEN 400 MG TABLET (FP) PO PRN (22:08)
[2021-06-17] MEDS ORDERED: methaDONE HCL 40 MG DISPERSABLE TABLET ONE (05:53)
[2021-06-17] MEDS ORDERED: methaDONE HCL 10 MG TABLET ONE (05:53)
[2021-06-17] MEDS ORDERED: methaDONE HCL 40 MG DISPERSABLE TABLET PO SCH (06:00)
[2021-06-17] MEDS: HYDROCHLOROTHIAZIDE 12.5 MG CAPSULE (FP) PO SCH (09:57)
[2021-06-17] MEDS: LISINOPRIL 10 MG TABLET PO SCH (09:57)
[2021-06-17] MEDS: PANTOPRAZOLE 40 MG TABLET PO SCH (09:57)
[2021-06-17] MEDS: ASPIRIN 81 MG CHEWABLE TABLETS PO SCH (09:57)
[2021-06-17] MEDS: AMMONIUM LACTATE 12% LOTION 225 GM BOTTLE TP SCH ×2 (09:57→22:30)
[2021-06-17] MEDS: PRENATAL VITAMINS W/ FOLIC ACID TABLET (FP) PO SCH (09:57)
[2021-06-17] MEDS: IBUPROFEN 400 MG TABLET (FP) PO PRN ×2 (09:58→22:02)
[2021-06-17] MEDS: BUDESONIDE/FORMETEROL FUMARATE 80/4.5 mcg INHALER IH SCH ×2 (09:59→22:04)
[2021-06-17] MEDS: NICOTINE 14 MG/24 HOURS TOPICAL PATCH TD SCH (09:59)
[2021-06-17] MEDS ORDERED: LIDOCAINE 5% TOPICAL PATCH TP SCH (11:00)
[2021-06-17] MEDS: METHOCARBAMOL 500 MG TABLET PO PRN ×2 (13:14→22:02)
[2021-06-17] MEDS: LIDOCAINE 5% TOPICAL PATCH TP SCH (15:49)
[2021-06-17] MEDS ORDERED: QUEtiapine FUMARATE 100 MG TABLET (FP) PO ONE (22:00)
[2021-06-17] MEDS ORDERED: LIDOCAINE PATCH REMOVAL MC SCH ×2 (22:00)
[2021-06-17] MEDS: TAMSULOSIN HCL 0.4 MG CAP PO SCH (22:01)
[2021-06-17] MEDS: THIAMINE HCL 100 MG TABLET (FP) PO SCH (22:01)
[2021-06-17] MEDS: MELATONIN 5 MG TABLETS PO SCH (22:01)
[2021-06-18] MEDS ORDERED: methaDONE HCL 40 MG DISPERSABLE TABLET ONE (03:03)
[2021-06-18] MEDS ORDERED: methaDONE HCL 10 MG TABLET ONE (03:03)
[2021-06-18] MEDS: METHOCARBAMOL 500 MG TABLET PO PRN ×2 (10:44→21:23)
[2021-06-18] MEDS: PRENATAL VITAMINS W/ FOLIC ACID TABLET (FP) PO SCH (10:44)
[2021-06-18] MEDS: LISINOPRIL 10 MG TABLET PO SCH (10:44)
[2021-06-18] MEDS: PANTOPRAZOLE 40 MG TABLET PO SCH (10:44)
[2021-06-18] MEDS: HYDROCHLOROTHIAZIDE 12.5 MG CAPSULE (FP) PO SCH (10:44)
[2021-06-18] MEDS: ASPIRIN 81 MG CHEWABLE TABLETS PO SCH (10:44)
[2021-06-18] MEDS: IBUPROFEN 400 MG TABLET (FP) PO PRN ×2 (10:44→17:25)
[2021-06-18] MEDS: NICOTINE 14 MG/24 HOURS TOPICAL PATCH TD SCH (10:45)
[2021-06-18] MEDS: BUDESONIDE/FORMETEROL FUMARATE 80/4.5 mcg INHALER IH SCH ×2 (10:46→21:22)
[2021-06-18] MEDS: LIDOCAINE 5% TOPICAL PATCH TP SCH ×2 (10:46→15:19)
[2021-06-18] MEDS: AMMONIUM LACTATE 12% LOTION 225 GM BOTTLE TP SCH ×2 (10:46→21:22)
[2021-06-18] MEDS ORDERED: PT OWN MED DRAWER 7, Y5N ONE (20:51)
[2021-06-18] MEDS: MELATONIN 5 MG TABLETS PO SCH (21:21)
[2021-06-18] MEDS: QUEtiapine FUMARATE 100 MG TABLET (FP) PO SCH (21:21)
[2021-06-18] MEDS: GABAPENTIN 300 MG CAPSULE PO SCH (21:21)
[2021-06-18] MEDS: LIDOCAINE PATCH REMOVAL MC SCH (21:21)
[2021-06-18] MEDS: TAMSULOSIN HCL 0.4 MG CAP PO SCH (21:21)
[2021-06-18] MEDS: FERROUS SO4 325 MG TABLET (FP) PO SCH (21:21)
[2021-06-18] MEDS: NICOTINE 10 MG CARTRIDGE (INHALER) IH PRN (21:23)
[2021-06-18] MEDS: THIAMINE HCL 100 MG TABLET (FP) PO SCH (21:23)
[2021-06-19] MEDS ORDERED: methaDONE HCL 40 MG DISPERSABLE TABLET ONE (03:58)
[2021-06-19] MEDS ORDERED: methaDONE HCL 10 MG TABLET ONE (03:58)
[2021-06-19] MEDS: PRENATAL VITAMINS W/ FOLIC ACID TABLET (FP) PO SCH (10:07)
[2021-06-19] MEDS: PANTOPRAZOLE 40 MG TABLET PO SCH (10:08)
[2021-06-19] MEDS: ASPIRIN 81 MG CHEWABLE TABLETS PO SCH (10:08)
[2021-06-19] MEDS: FERROUS SO4 325 MG TABLET (FP) PO SCH ×2 (10:08→21:19)
[2021-06-19] MEDS: METHOCARBAMOL 500 MG TABLET PO PRN ×2 (10:08→21:21)
[2021-06-19] MEDS: HYDROCHLOROTHIAZIDE 12.5 MG CAPSULE (FP) PO SCH (10:08)
[2021-06-19] MEDS: GABAPENTIN 300 MG CAPSULE PO SCH ×2 (10:09→21:19)
[2021-06-19] MEDS: LISINOPRIL 10 MG TABLET PO SCH (10:09)
[2021-06-19] MEDS: IBUPROFEN 400 MG TABLET (FP) PO PRN ×2 (10:09→16:56)
[2021-06-19] MEDS: LIDOCAINE 5% TOPICAL PATCH TP SCH (10:10)
[2021-06-19] MEDS: AMMONIUM LACTATE 12% LOTION 225 GM BOTTLE TP SCH ×2 (10:10→21:19)
[2021-06-19] MEDS: NICOTINE 14 MG/24 HOURS TOPICAL PATCH TD SCH (10:11)
[2021-06-19] MEDS: BUDESONIDE/FORMETEROL FUMARATE 80/4.5 mcg INHALER IH SCH ×2 (10:12→21:19)
[2021-06-19] MEDS ORDERED: PT OWN MED DRAWER 7, Y5N ONE (19:30)
[2021-06-19] MEDS: THIAMINE HCL 100 MG TABLET (FP) PO SCH (21:18)
[2021-06-19] MEDS: QUEtiapine FUMARATE 100 MG TABLET (FP) PO SCH (21:19)
[2021-06-19] MEDS: TAMSULOSIN HCL 0.4 MG CAP PO SCH (21:19)
[2021-06-19] MEDS: MELATONIN 5 MG TABLETS PO SCH (21:19)
[2021-06-19] MEDS: LIDOCAINE PATCH REMOVAL MC SCH (21:20)
[2021-06-19] MEDS: NICOTINE 10 MG CARTRIDGE (INHALER) IH PRN (21:38)
[2021-06-20] MEDS ORDERED: methaDONE HCL 10 MG TABLET ONE (03:05)
[2021-06-20] MEDS ORDERED: methaDONE HCL 40 MG DISPERSABLE TABLET ONE (03:06)
[2021-06-20] MEDS: HYDROCHLOROTHIAZIDE 12.5 MG CAPSULE (FP) PO SCH (10:08)
[2021-06-20] MEDS: ASPIRIN 81 MG CHEWABLE TABLETS PO SCH (10:08)
[2021-06-20] MEDS: PANTOPRAZOLE 40 MG TABLET PO SCH (10:08)
[2021-06-20] MEDS: LISINOPRIL 10 MG TABLET PO SCH (10:08)
[2021-06-20] MEDS: PRENATAL VITAMINS W/ FOLIC ACID TABLET (FP) PO SCH (10:08)
[2021-06-20] MEDS: GABAPENTIN 300 MG CAPSULE PO SCH ×2 (10:08→21:28)
[2021-06-20] MEDS: FERROUS SO4 325 MG TABLET (FP) PO SCH ×2 (10:08→21:30)
[2021-06-20] MEDS: AMMONIUM LACTATE 12% LOTION 225 GM BOTTLE TP SCH ×2 (10:09→21:31)
[2021-06-20] MEDS: LIDOCAINE 5% TOPICAL PATCH TP SCH (10:09)
[2021-06-20] MEDS: NICOTINE 14 MG/24 HOURS TOPICAL PATCH TD SCH (10:09)
[2021-06-20] MEDS: BUDESONIDE/FORMETEROL FUMARATE 80/4.5 mcg INHALER IH SCH ×2 (10:09→21:35)
[2021-06-20] MEDS: IBUPROFEN 400 MG TABLET (FP) PO PRN ×2 (10:11→21:28)
[2021-06-20] MEDS: NICOTINE 10 MG CARTRIDGE (INHALER) IH PRN (10:15)
[2021-06-20] MEDS: METHOCARBAMOL 500 MG TABLET PO PRN ×2 (14:27→21:26)
[2021-06-20] MEDS: CEPHALEXIN MONOHYDRATE 500 MG CAPSULE (UD) PO SCH (17:13)
[2021-06-20] MEDS: MELATONIN 5 MG TABLETS PO SCH (21:26)
[2021-06-20] MEDS: THIAMINE HCL 100 MG TABLET (FP) PO SCH (21:26)
[2021-06-20] MEDS: BACITRACIN 0.9 GM PACKET TP SCH (21:28)
[2021-06-20] MEDS: QUEtiapine FUMARATE 100 MG TABLET (FP) PO SCH (21:28)
[2021-06-20] MEDS: TAMSULOSIN HCL 0.4 MG CAP PO SCH (21:30)
[2021-06-20] MEDS: LIDOCAINE PATCH REMOVAL MC SCH (21:34)
[2021-06-21] MEDS: CEPHALEXIN MONOHYDRATE 500 MG CAPSULE (UD) PO SCH ×4 (01:01→18:23)
[2021-06-21] MEDS ORDERED: methaDONE HCL 10 MG TABLET ONE (02:55)
[2021-06-21] MEDS ORDERED: methaDONE HCL 40 MG DISPERSABLE TABLET ONE (02:55)
[2021-06-21] MEDS: METHOCARBAMOL 500 MG TABLET PO PRN ×2 (10:17→19:30)
[2021-06-21] MEDS: FERROUS SO4 325 MG TABLET (FP) PO SCH ×2 (10:17→21:06)
[2021-06-21] MEDS: HYDROCHLOROTHIAZIDE 12.5 MG CAPSULE (FP) PO SCH (10:17)
[2021-06-21] MEDS: LISINOPRIL 10 MG TABLET PO SCH (10:17)
[2021-06-21] MEDS: BACITRACIN 0.9 GM PACKET TP SCH ×2 (10:17→21:06)
[2021-06-21] MEDS: PRENATAL VITAMINS W/ FOLIC ACID TABLET (FP) PO SCH (10:17)
[2021-06-21] MEDS: PANTOPRAZOLE 40 MG TABLET PO SCH (10:17)
[2021-06-21] MEDS: ASPIRIN 81 MG CHEWABLE TABLETS PO SCH (10:18)
[2021-06-21] MEDS: AMMONIUM LACTATE 12% LOTION 225 GM BOTTLE TP SCH ×2 (10:18→21:06)
[2021-06-21] MEDS: LIDOCAINE 5% TOPICAL PATCH TP SCH (10:18)
[2021-06-21] MEDS: NICOTINE 14 MG/24 HOURS TOPICAL PATCH TD SCH (10:18)
[2021-06-21] MEDS: GABAPENTIN 300 MG CAPSULE PO SCH ×2 (10:18→21:06)
[2021-06-21] MEDS: BUDESONIDE/FORMETEROL FUMARATE 80/4.5 mcg INHALER IH SCH ×2 (10:19→21:07)
[2021-06-21] MEDS: NICOTINE 10 MG CARTRIDGE (INHALER) IH PRN (10:19)
[2021-06-21] MEDS: IBUPROFEN 400 MG TABLET (FP) PO PRN ×2 (10:21→19:30)
[2021-06-21] MEDS ORDERED: PT OWN MED DRAWER 7, Y5N ONE (20:20)
[2021-06-21] MEDS: SUVOREXANT 10 MG TABLET PO PRN (21:05)
[2021-06-21] MEDS: QUEtiapine FUMARATE 100 MG TABLET (FP) PO SCH (21:06)
[2021-06-21] MEDS: THIAMINE HCL 100 MG TABLET (FP) PO SCH (21:06)
[2021-06-21] MEDS: TAMSULOSIN HCL 0.4 MG CAP PO SCH (21:06)
[2021-06-21] MEDS: LIDOCAINE PATCH REMOVAL MC SCH (21:07)
[2021-06-22] MEDS: CEPHALEXIN MONOHYDRATE 500 MG CAPSULE (UD) PO SCH ×5 (01:12→23:06)
[2021-06-22] MEDS ORDERED: methaDONE HCL 10 MG TABLET ONE (05:07)
[2021-06-22] MEDS ORDERED: methaDONE HCL 40 MG DISPERSABLE TABLET ONE (05:07)
[2021-06-22] MEDS: AMMONIUM LACTATE 12% LOTION 225 GM BOTTLE TP SCH ×2 (10:26→21:32)
[2021-06-22] MEDS: LIDOCAINE 5% TOPICAL PATCH TP SCH (10:27)
[2021-06-22] MEDS: BACITRACIN 0.9 GM PACKET TP SCH ×2 (10:27→21:32)
[2021-06-22] MEDS: LISINOPRIL 10 MG TABLET PO SCH (10:27)
[2021-06-22] MEDS: ASPIRIN 81 MG CHEWABLE TABLETS PO SCH (10:27)
[2021-06-22] MEDS: PANTOPRAZOLE 40 MG TABLET PO SCH (10:27)
[2021-06-22] MEDS: NICOTINE 14 MG/24 HOURS TOPICAL PATCH TD SCH (10:27)
[2021-06-22] MEDS: GABAPENTIN 300 MG CAPSULE PO SCH ×2 (10:27→21:32)
[2021-06-22] MEDS: HYDROCHLOROTHIAZIDE 12.5 MG CAPSULE (FP) PO SCH (10:27)
[2021-06-22] MEDS: FERROUS SO4 325 MG TABLET (FP) PO SCH ×2 (10:28→21:32)
[2021-06-22] MEDS: BUDESONIDE/FORMETEROL FUMARATE 80/4.5 mcg INHALER IH SCH ×2 (10:28→21:32)
[2021-06-22] MEDS: IBUPROFEN 400 MG TABLET (FP) PO PRN ×2 (10:28→16:38)
[2021-06-22] MEDS: METHOCARBAMOL 500 MG TABLET PO PRN ×2 (10:28→16:38)
[2021-06-22] MEDS: PRENATAL VITAMINS W/ FOLIC ACID TABLET (FP) PO SCH (10:28)
[2021-06-22] MEDS: NICOTINE 10 MG CARTRIDGE (INHALER) IH PRN (10:32)
[2021-06-22] MEDS ORDERED: PT OWN MED DRAWER 7, Y5N ONE (11:10)
[2021-06-22] MEDS: SUVOREXANT 10 MG TABLET PO PRN (21:30)
[2021-06-22] MEDS: TAMSULOSIN HCL 0.4 MG CAP PO SCH (21:31)
[2021-06-22] MEDS: THIAMINE HCL 100 MG TABLET (FP) PO SCH (21:31)
[2021-06-22] MEDS: LIDOCAINE PATCH REMOVAL MC SCH (21:32)
[2021-06-22] MEDS: QUEtiapine FUMARATE 100 MG TABLET (FP) PO SCH (21:32)
[2021-06-22] MEDS: COLLOIDAL OATMEAL 1 BAR EACH TP PRN (21:33)
[2021-06-23] MEDS ORDERED: methaDONE HCL 10 MG TABLET ONE (03:26)
[2021-06-23] MEDS ORDERED: methaDONE HCL 40 MG DISPERSABLE TABLET ONE (03:26)
[2021-06-23] MEDS: CEPHALEXIN MONOHYDRATE 500 MG CAPSULE (UD) PO SCH ×4 (05:54→23:59)
[2021-06-23] MEDS: NICOTINE 10 MG CARTRIDGE (INHALER) IH PRN ×3 (06:00→21:40)
[2021-06-23] MEDS: LIDOCAINE 5% TOPICAL PATCH TP SCH (10:20)
[2021-06-23] MEDS: GABAPENTIN 300 MG CAPSULE PO SCH ×2 (10:21→21:37)
[2021-06-23] MEDS: PANTOPRAZOLE 40 MG TABLET PO SCH (10:21)
[2021-06-23] MEDS: HYDROCHLOROTHIAZIDE 12.5 MG CAPSULE (FP) PO SCH (10:21)
[2021-06-23] MEDS: PRENATAL VITAMINS W/ FOLIC ACID TABLET (FP) PO SCH (10:21)
[2021-06-23] MEDS: METHOCARBAMOL 500 MG TABLET PO PRN ×2 (10:21→21:37)
[2021-06-23] MEDS: FERROUS SO4 325 MG TABLET (FP) PO SCH ×2 (10:21→21:37)
[2021-06-23] MEDS: LISINOPRIL 10 MG TABLET PO SCH (10:21)
[2021-06-23] MEDS: IBUPROFEN 400 MG TABLET (FP) PO PRN ×2 (10:22→21:38)
[2021-06-23] MEDS: BACITRACIN 0.9 GM PACKET TP SCH ×2 (10:23→21:39)
[2021-06-23] MEDS: ASPIRIN 81 MG CHEWABLE TABLETS PO SCH (10:24)
[2021-06-23] MEDS: AMMONIUM LACTATE 12% LOTION 225 GM BOTTLE TP SCH ×2 (10:25→21:39)
[2021-06-23] MEDS: NICOTINE 14 MG/24 HOURS TOPICAL PATCH TD SCH (10:25)
[2021-06-23] MEDS: BUDESONIDE/FORMETEROL FUMARATE 80/4.5 mcg INHALER IH SCH ×2 (10:51→21:39)
[2021-06-23] MEDS: QUEtiapine FUMARATE 100 MG TABLET (FP) PO SCH (21:37)
[2021-06-23] MEDS: TAMSULOSIN HCL 0.4 MG CAP PO SCH (21:37)
[2021-06-23] MEDS: LIDOCAINE PATCH REMOVAL MC SCH (21:38)
[2021-06-23] MEDS: THIAMINE HCL 100 MG TABLET (FP) PO SCH (21:39)
[2021-06-24] MEDS ORDERED: methaDONE HCL 40 MG DISPERSABLE TABLET ONE (05:56)
[2021-06-24] MEDS ORDERED: methaDONE HCL 10 MG TABLET ONE (05:56)
[2021-06-24] MEDS: CEPHALEXIN MONOHYDRATE 500 MG CAPSULE (UD) PO SCH ×3 (05:57→18:14)
[2021-06-24] MEDS: AMMONIUM LACTATE 12% LOTION 225 GM BOTTLE TP SCH ×2 (09:57→21:55)
[2021-06-24] MEDS: LIDOCAINE 5% TOPICAL PATCH TP SCH (09:58)
[2021-06-24] MEDS: BACITRACIN 0.9 GM PACKET TP SCH ×2 (09:58→21:53)
[2021-06-24] MEDS: GABAPENTIN 300 MG CAPSULE PO SCH ×2 (09:59→21:54)
[2021-06-24] MEDS: PANTOPRAZOLE 40 MG TABLET PO SCH (09:59)
[2021-06-24] MEDS: ASPIRIN 81 MG CHEWABLE TABLETS PO SCH (09:59)
[2021-06-24] MEDS: FERROUS SO4 325 MG TABLET (FP) PO SCH ×2 (09:59→21:54)
[2021-06-24] MEDS: LISINOPRIL 10 MG TABLET PO SCH (09:59)
[2021-06-24] MEDS: BUDESONIDE/FORMETEROL FUMARATE 80/4.5 mcg INHALER IH SCH ×2 (09:59→21:58)
[2021-06-24] MEDS: PRENATAL VITAMINS W/ FOLIC ACID TABLET (FP) PO SCH (10:00)
[2021-06-24] MEDS: HYDROCHLOROTHIAZIDE 12.5 MG CAPSULE (FP) PO SCH (10:00)
[2021-06-24] MEDS: NICOTINE 14 MG/24 HOURS TOPICAL PATCH TD SCH (10:00)
[2021-06-24] MEDS: IBUPROFEN 400 MG TABLET (FP) PO PRN ×2 (10:02→20:10)
[2021-06-24] MEDS: METHOCARBAMOL 500 MG TABLET PO PRN ×2 (10:02→21:54)
[2021-06-24] MEDS: NICOTINE 10 MG CARTRIDGE (INHALER) IH PRN (10:03)
[2021-06-24] MEDS ORDERED: PT OWN MED DRAWER 7, Y5N ONE (19:31)
[2021-06-24] MEDS: TAMSULOSIN HCL 0.4 MG CAP PO SCH (21:54)
[2021-06-24] MEDS: THIAMINE HCL 100 MG TABLET (FP) PO SCH (21:54)
[2021-06-24] MEDS: QUEtiapine FUMARATE 100 MG TABLET (FP) PO SCH (21:54)
[2021-06-24] MEDS: SUVOREXANT 10 MG TABLET PO PRN (21:57)
[2021-06-24] MEDS: LIDOCAINE PATCH REMOVAL MC SCH (22:00)
[2021-06-25] MEDS: CEPHALEXIN MONOHYDRATE 500 MG CAPSULE (UD) PO SCH ×4 (00:29→17:42)
[2021-06-25] MEDS ORDERED: methaDONE HCL 10 MG TABLET ONE (04:07)
[2021-06-25] MEDS ORDERED: methaDONE HCL 40 MG DISPERSABLE TABLET ONE (04:08)
[2021-06-25] MEDS: NICOTINE 10 MG CARTRIDGE (INHALER) IH PRN (08:06)
[2021-06-25] MEDS: PANTOPRAZOLE 40 MG TABLET PO SCH (10:08)
[2021-06-25] MEDS: FERROUS SO4 325 MG TABLET (FP) PO SCH ×2 (10:08→21:06)
[2021-06-25] MEDS: IBUPROFEN 400 MG TABLET (FP) PO PRN ×2 (10:08→17:45)
[2021-06-25] MEDS: LISINOPRIL 10 MG TABLET PO SCH (10:08)
[2021-06-25] MEDS: HYDROCHLOROTHIAZIDE 12.5 MG CAPSULE (FP) PO SCH (10:08)
[2021-06-25] MEDS: ASPIRIN 81 MG CHEWABLE TABLETS PO SCH (10:08)
[2021-06-25] MEDS: GABAPENTIN 300 MG CAPSULE PO SCH ×2 (10:08→21:06)
[2021-06-25] MEDS: LIDOCAINE 5% TOPICAL PATCH TP SCH (10:08)
[2021-06-25] MEDS: NICOTINE 14 MG/24 HOURS TOPICAL PATCH TD SCH (10:09)
[2021-06-25] MEDS: PRENATAL VITAMINS W/ FOLIC ACID TABLET (FP) PO SCH (10:09)
[2021-06-25] MEDS: METHOCARBAMOL 500 MG TABLET PO PRN ×2 (10:10→17:45)
[2021-06-25] MEDS: BUDESONIDE/FORMETEROL FUMARATE 80/4.5 mcg INHALER IH SCH ×2 (10:11→21:34)
[2021-06-25] MEDS: BACITRACIN 0.9 GM PACKET TP SCH ×2 (10:12→21:06)
[2021-06-25] MEDS: AMMONIUM LACTATE 12% LOTION 225 GM BOTTLE TP SCH ×2 (10:13→21:09)
[2021-06-25] MEDS ORDERED: PT OWN MED DRAWER 7, Y5N ONE (20:39)
[2021-06-25] MEDS: QUEtiapine FUMARATE 100 MG TABLET (FP) PO SCH (21:06)
[2021-06-25] MEDS: TAMSULOSIN HCL 0.4 MG CAP PO SCH (21:06)
[2021-06-25] MEDS: LIDOCAINE PATCH REMOVAL MC SCH (21:06)
[2021-06-25] MEDS: THIAMINE HCL 100 MG TABLET (FP) PO SCH (21:06)
[2021-06-25] MEDS: SUVOREXANT 10 MG TABLET PO PRN (21:06)
[2021-06-25] MEDS: COLLOIDAL OATMEAL 1 BAR EACH TP PRN (21:10)
[2021-06-26] MEDS: CEPHALEXIN MONOHYDRATE 500 MG CAPSULE (UD) PO SCH ×3 (00:22→11:55)
[2021-06-26] MEDS ORDERED: methaDONE HCL 10 MG TABLET ONE (03:06)
[2021-06-26] MEDS ORDERED: methaDONE HCL 40 MG DISPERSABLE TABLET ONE (03:06)
[2021-06-26] MEDS ORDERED: PT OWN MED DRAWER 7, Y5N ONE (08:40)
[2021-06-26] MEDS: PRENATAL VITAMINS W/ FOLIC ACID TABLET (FP) PO SCH (10:15)
[2021-06-26] MEDS: HYDROCHLOROTHIAZIDE 12.5 MG CAPSULE (FP) PO SCH (10:15)
[2021-06-26] MEDS: BACITRACIN 0.9 GM PACKET TP SCH ×2 (10:16→21:15)
[2021-06-26] MEDS: ASPIRIN 81 MG CHEWABLE TABLETS PO SCH (10:16)
[2021-06-26] MEDS: GABAPENTIN 300 MG CAPSULE PO SCH ×2 (10:16→21:06)
[2021-06-26] MEDS: PANTOPRAZOLE 40 MG TABLET PO SCH (10:16)
[2021-06-26] MEDS: NICOTINE 14 MG/24 HOURS TOPICAL PATCH TD SCH (10:16)
[2021-06-26] MEDS: LISINOPRIL 10 MG TABLET PO SCH (10:16)
[2021-06-26] MEDS: AMMONIUM LACTATE 12% LOTION 225 GM BOTTLE TP SCH ×2 (10:16→21:10)
[2021-06-26] MEDS: LIDOCAINE 5% TOPICAL PATCH TP SCH (10:16)
[2021-06-26] MEDS: FERROUS SO4 325 MG TABLET (FP) PO SCH ×2 (10:16→21:05)
[2021-06-26] MEDS: METHOCARBAMOL 500 MG TABLET PO PRN ×3 (10:19→21:09)
[2021-06-26] MEDS: IBUPROFEN 400 MG TABLET (FP) PO PRN ×3 (10:19→22:29)
[2021-06-26] MEDS: BUDESONIDE/FORMETEROL FUMARATE 80/4.5 mcg INHALER IH SCH ×2 (10:22→21:10)
[2021-06-26] MEDS: TAMSULOSIN HCL 0.4 MG CAP PO SCH (21:05)
[2021-06-26] MEDS: QUEtiapine FUMARATE 100 MG TABLET (FP) PO SCH (21:05)
[2021-06-26] MEDS: THIAMINE HCL 100 MG TABLET (FP) PO SCH (21:06)
[2021-06-26] MEDS: SUVOREXANT 10 MG TABLET PO PRN (21:09)
[2021-06-26] MEDS: LIDOCAINE PATCH REMOVAL MC SCH (21:10)
[2021-06-26] MEDS: NICOTINE 10 MG CARTRIDGE (INHALER) IH PRN (21:14)
[2021-06-27] MEDS ORDERED: methaDONE HCL 40 MG DISPERSABLE TABLET ONE (02:20)
[2021-06-27] MEDS ORDERED: methaDONE HCL 10 MG TABLET ONE (02:20)
[2021-06-27] MEDS: NICOTINE 14 MG/24 HOURS TOPICAL PATCH TD SCH (09:43)
[2021-06-27] MEDS: PRENATAL VITAMINS W/ FOLIC ACID TABLET (FP) PO SCH (09:43)
[2021-06-27] MEDS: GABAPENTIN 300 MG CAPSULE PO SCH ×2 (09:44→21:13)
[2021-06-27] MEDS: BUDESONIDE/FORMETEROL FUMARATE 80/4.5 mcg INHALER IH SCH ×2 (09:44→21:14)
[2021-06-27] MEDS: BACITRACIN 0.9 GM PACKET TP SCH ×2 (09:44→21:12)
[2021-06-27] MEDS: HYDROCHLOROTHIAZIDE 12.5 MG CAPSULE (FP) PO SCH (09:44)
[2021-06-27] MEDS: FERROUS SO4 325 MG TABLET (FP) PO SCH ×2 (09:44→21:13)
[2021-06-27] MEDS: ASPIRIN 81 MG CHEWABLE TABLETS PO SCH (09:44)
[2021-06-27] MEDS: PANTOPRAZOLE 40 MG TABLET PO SCH (09:45)
[2021-06-27] MEDS: AMMONIUM LACTATE 12% LOTION 225 GM BOTTLE TP SCH ×2 (09:45→21:13)
[2021-06-27] MEDS: LIDOCAINE 5% TOPICAL PATCH TP SCH (09:45)
[2021-06-27] MEDS: LISINOPRIL 10 MG TABLET PO SCH (09:45)
[2021-06-27] MEDS: METHOCARBAMOL 500 MG TABLET PO PRN ×3 (09:47→21:17)
[2021-06-27] MEDS: IBUPROFEN 400 MG TABLET (FP) PO PRN ×3 (09:47→21:17)
[2021-06-27] MEDS ORDERED: BENZOYL PEROXIDE 5% 60 GM GEL..GRAM. TP ONE (14:57)
[2021-06-27] MEDS: TAMSULOSIN HCL 0.4 MG CAP PO SCH (21:13)
[2021-06-27] MEDS: THIAMINE HCL 100 MG TABLET (FP) PO SCH (21:13)
[2021-06-27] MEDS: LIDOCAINE PATCH REMOVAL MC SCH (21:13)
[2021-06-27] MEDS: QUEtiapine FUMARATE 100 MG TABLET (FP) PO SCH (21:13)
[2021-06-27] MEDS: NICOTINE 10 MG CARTRIDGE (INHALER) IH PRN (21:18)
[2021-06-27] MEDS ORDERED: SUVOREXANT 10 MG TABLET PO PRN (22:00)
[2021-06-28] MEDS ORDERED: methaDONE HCL 10 MG TABLET ONE (05:00)
[2021-06-28] MEDS ORDERED: methaDONE HCL 40 MG DISPERSABLE TABLET ONE (05:00)
[2021-06-28 07:04] VITALS: TEMP 97.3
[2021-06-28] MEDS: FERROUS SO4 325 MG TABLET (FP) PO SCH (09:10)
[2021-06-28] MEDS: ASPIRIN 81 MG CHEWABLE TABLETS PO SCH (09:10)
[2021-06-28] MEDS: PANTOPRAZOLE 40 MG TABLET PO SCH (09:10)
[2021-06-28] MEDS: NICOTINE 14 MG/24 HOURS TOPICAL PATCH TD SCH (09:11)
[2021-06-28] MEDS: LIDOCAINE 5% TOPICAL PATCH TP SCH (09:11)
[2021-06-28] MEDS: PRENATAL VITAMINS W/ FOLIC ACID TABLET (FP) PO SCH (09:11)
[2021-06-28] MEDS: HYDROCHLOROTHIAZIDE 12.5 MG CAPSULE (FP) PO SCH (09:11)
[2021-06-28] MEDS: LISINOPRIL 10 MG TABLET PO SCH (09:11)
[2021-06-28] MEDS: GABAPENTIN 300 MG CAPSULE PO SCH (09:11)
[2021-06-28 09:14] VITALS: BP 154/83; PULSE 86
[2021-06-28] MEDS: AMMONIUM LACTATE 12% LOTION 225 GM BOTTLE TP SCH (09:14)
[2021-06-28] MEDS: IBUPROFEN 400 MG TABLET (FP) PO PRN (09:14)
[2021-06-28] MEDS: METHOCARBAMOL 500 MG TABLET PO PRN (09:14)
[2021-06-28] MEDS: BACITRACIN 0.9 GM PACKET TP SCH (09:14)
[2021-06-28] MEDS: BUDESONIDE/FORMETEROL FUMARATE 80/4.5 mcg INHALER IH SCH (09:14)
== END 2021-06-28 10:00 | disposition home or self-care (01) | DRG 772 ==
LOC: YASAS 20:54 → Y5N 20:57
PROVIDERS: ADMIT Allergy & Immunology; ATTEND Allergy & Immunology
PROC: HZ42ZZZ Group Counseling for Substance Abuse Treatment, Cognitive-Behavioral (ICD-10-PCS; principal; 2021-06-16)
DX: F11.20 Opioid dependence, uncomplicated (principal); F10.20 Alcohol dependence, uncomplicated; F14.20 Cocaine dependence, uncomplicated; F17.210 Nicotine dependence, cigarettes, uncomplicated; F32.9 Major depressive disorder, single episode, unspecified; F41.9 Anxiety disorder, unspecified; D50.8 Other iron deficiency anemias; I10 Essential (primary) hypertension; J45.909 Unspecified asthma, uncomplicated; K21.9 Gastro-esophageal reflux disease without esophagitis; N40.1 Benign prostatic hyperplasia with lower urinary tract symptoms; N39.43 Post-void dribbling; M17.10 Unilateral primary osteoarthritis, unspecified knee; Z62.810 Personal history of physical and sexual abuse in childhood; Z96.651 Presence of right artificial knee joint; Z99.89 Dependence on other enabling machines and devices; S61.111A Laceration without foreign body of right thumb with damage to nail, initial encounter; X58.XXXA Exposure to other specified factors, initial encounter; Y92.238 Other place in hospital as the place of occurrence of the external cause

== ENCOUNTER 2021-09-21 09:11 | Inpatient (IN) | payer OTHER ==
[2021-09-21] MEDS ORDERED: MAGNESIUM HYDROX 2400MG/30ML ORAL SUSPENSION 30 ML CUP PO PRN (10:02)
[2021-09-21] MEDS ORDERED: ACETAMINOPHEN 325 MG TABLET (FP) PO PRN ×2 (10:02)
[2021-09-21] MEDS ORDERED: NICOTINE 10 MG CARTRIDGE (INHALER) IH PRN (10:02)
[2021-09-21] MEDS ORDERED: MAG HYDROX/AL HYDROX/SIMETH 30 ML UNIT-DOSE CUP PO PRN (10:02)
[2021-09-21] MEDS ORDERED: MAGNESIUM CITRATE 300 ML BOTTLE PO PRN (10:02)
[2021-09-21] MEDS ORDERED: MENTHOL/PHENOL 1 EACH UD MM PRN (10:02)
[2021-09-21] MEDS ORDERED: BISMUTH SUBSALICYLATE 262 MG/15 ML BTL PO PRN (10:02)
[2021-09-21] MEDS ORDERED: ONDANSETRON *ODT* 4 MG TABLET SL PRN (10:02)
[2021-09-21 10:14] VITALS: BMI 25.4
[2021-09-21] MEDS: diazePAM 5 MG TABLET PO SCH ×3 (12:01→22:07)
[2021-09-21] MEDS ORDERED: ALBUTEROL SO4 HFA INHALER IH PRN (12:18)
[2021-09-21 14:45] LABS: HEMATOCRIT 39.7 % (35.4-49); HEMOGLOBIN 13.5 GM/dL (11.7-16.9); MCH 30.4 pg (25.7-33.7); MCHC 33.9 g/dl (32.0-35.9); MEAN CELL VOLUME 89.6 fl (80-96); PLATELET COUNT 255 10^3/uL (134-434); RBC 4.44 M/mm3 (4.00-5.60); RDW 14.8 % (11.9-15.9); WHITE BLOOD COUNT 5.1 K/mm3 (4.0-10.0)
[2021-09-21] MEDS: hydrOXYzine PAMOATE 25 MG CAPSULE (FP) PO SCH ×3 (14:52→22:05)
[2021-09-21] MEDS ORDERED: methaDONE HCL 10 MG TABLET (FOR DETOX USE ONLY) PO ONE ×2 (15:14)
[2021-09-21 15:27] LABS: ALBUMIN 3.5 g/dl (3.4-5.0); BILIRUBIN,TOTAL 0.3 mg/dL (0.2-1); BLOOD UREA NITROGEN 17.4 mg/dL (7-18); CALCIUM 8.9 mg/dL (8.5-10.1); CREATININE 0.9 mg/dL (0.55-1.3); TOT PROT 7.1 g/dl (6.4-8.2)
[2021-09-21] MEDS: diazePAM 5 MG TABLET PO PRN (15:29)
[2021-09-21] MEDS: METHOCARBAMOL 500 MG TABLET PO PRN (19:13)
[2021-09-21] MEDS: PATIENT'S OWN MEDICATION (NON-FORMULARY) (Amoxicillin/Potassium Clav [Amox-Clav 875-125 Mg PO SCH (22:04)
[2021-09-21] MEDS: QUEtiapine FUMARATE 50 MG TABLET PO SCH (22:05)
[2021-09-21] MEDS: MELATONIN 5 MG TABLETS PO SCH (22:05)
[2021-09-21] MEDS: TAMSULOSIN HCL 0.4 MG CAP PO SCH (22:05)
[2021-09-21] MEDS: THIAMINE HCL 100 MG TABLET (FP) PO SCH (22:05)
[2021-09-21] MEDS: BUDESONIDE/FORMETEROL FUMARATE 80/4.5 mcg INHALER IH SCH (22:45)
[2021-09-22] MEDS: METHOCARBAMOL 500 MG TABLET PO PRN ×2 (01:32→07:33)
[2021-09-22] MEDS: IBUPROFEN 400 MG TABLET (FP) PO PRN ×2 (01:32→18:01)
[2021-09-22] MEDS: hydrOXYzine PAMOATE 25 MG CAPSULE (FP) PO SCH ×5 (05:19→22:12)
[2021-09-22] MEDS: diazePAM 5 MG TABLET PO SCH ×4 (05:20→22:12)
[2021-09-22] MEDS: PANTOPRAZOLE 40 MG TABLET PO SCH (09:26)
[2021-09-22] MEDS: LISINOPRIL 10 MG TABLET PO SCH (09:26)
[2021-09-22] MEDS: HYDROCHLOROTHIAZIDE 12.5 MG CAPSULE (FP) PO SCH (09:26)
[2021-09-22] MEDS: PRENATAL VITAMINS W/ FOLIC ACID TABLET (FP) PO SCH (09:27)
[2021-09-22] MEDS: PATIENT'S OWN MEDICATION (NON-FORMULARY) (Amoxicillin/Potassium Clav [Amox-Clav 875-125 Mg PO SCH ×2 (09:27→22:11)
[2021-09-22] MEDS: BUDESONIDE/FORMETEROL FUMARATE 80/4.5 mcg INHALER IH SCH ×2 (09:28→23:30)
[2021-09-22] MEDS ORDERED: FLU VACC QS2021-22(6MOS UP)/PF 60 MCG/0.5 ML SYRINGE IM ONE (12:00)
[2021-09-22] MEDS ORDERED: methaDONE HCL 10 MG TABLET PO ONE (13:03)
[2021-09-22] MEDS: TAMSULOSIN HCL 0.4 MG CAP PO SCH (22:11)
[2021-09-22] MEDS: QUEtiapine FUMARATE 50 MG TABLET PO SCH (22:12)
[2021-09-22] MEDS: MELATONIN 5 MG TABLETS PO SCH (22:12)
[2021-09-22] MEDS: THIAMINE HCL 100 MG TABLET (FP) PO SCH (22:12)
[2021-09-23] MEDS: hydrOXYzine PAMOATE 25 MG CAPSULE (FP) PO SCH ×5 (05:06→21:53)
[2021-09-23] MEDS: diazePAM 5 MG TABLET PO SCH ×3 (05:06→21:47)
[2021-09-23] MEDS: IBUPROFEN 400 MG TABLET (FP) PO PRN ×2 (05:06→17:40)
[2021-09-23] MEDS: METHOCARBAMOL 500 MG TABLET PO PRN ×2 (05:07→21:48)
[2021-09-23] MEDS ORDERED: methaDONE HCL 10 MG TABLET (FOR DETOX USE ONLY) ONE (09:50)
[2021-09-23] MEDS: PRENATAL VITAMINS W/ FOLIC ACID TABLET (FP) PO SCH (09:54)
[2021-09-23] MEDS: LISINOPRIL 10 MG TABLET PO SCH (09:54)
[2021-09-23] MEDS: HYDROCHLOROTHIAZIDE 12.5 MG CAPSULE (FP) PO SCH (09:54)
[2021-09-23] MEDS: BUDESONIDE/FORMETEROL FUMARATE 80/4.5 mcg INHALER IH SCH ×2 (09:54→21:48)
[2021-09-23] MEDS: PANTOPRAZOLE 40 MG TABLET PO SCH (09:54)
[2021-09-23] MEDS: PATIENT'S OWN MEDICATION (NON-FORMULARY) (Amoxicillin/Potassium Clav [Amox-Clav 875-125 Mg PO SCH ×2 (09:54→21:48)
[2021-09-23] MEDS: diazePAM 5 MG TABLET PO PRN (17:37)
[2021-09-23] MEDS: QUEtiapine FUMARATE 50 MG TABLET PO SCH (21:47)
[2021-09-23] MEDS: TAMSULOSIN HCL 0.4 MG CAP PO SCH (21:47)
[2021-09-23] MEDS: MELATONIN 5 MG TABLETS PO SCH (21:50)
[2021-09-23] MEDS: THIAMINE HCL 100 MG TABLET (FP) PO SCH (21:50)
[2021-09-24] MEDS ORDERED: MASKS NR ONE (05:26)
[2021-09-24] MEDS: diazePAM 5 MG TABLET PO SCH ×2 (05:29→17:46)
[2021-09-24] MEDS: hydrOXYzine PAMOATE 25 MG CAPSULE (FP) PO SCH ×5 (05:29→22:06)
[2021-09-24] MEDS ORDERED: methaDONE HCL 10 MG TABLET PO SCH (07:45)
[2021-09-24] MEDS ORDERED: methaDONE HCL 10 MG TABLET ONE (07:52)
[2021-09-24] MEDS ORDERED: methaDONE HCL 40 MG DISPERSABLE TABLET ONE (07:53)
[2021-09-24] MEDS: PATIENT'S OWN MEDICATION (NON-FORMULARY) (Amoxicillin/Potassium Clav [Amox-Clav 875-125 Mg PO SCH ×2 (10:38→22:06)
[2021-09-24] MEDS: HYDROCHLOROTHIAZIDE 12.5 MG CAPSULE (FP) PO SCH (10:39)
[2021-09-24] MEDS: IBUPROFEN 600 MG TABLET (FP) PO PRN ×2 (10:39→17:48)
[2021-09-24] MEDS: LISINOPRIL 10 MG TABLET PO SCH (10:39)
[2021-09-24] MEDS: LIDOCAINE 5% TOPICAL PATCH TP SCH (10:42)
[2021-09-24] MEDS: PRENATAL VITAMINS W/ FOLIC ACID TABLET (FP) PO SCH (10:43)
[2021-09-24] MEDS: BUDESONIDE/FORMETEROL FUMARATE 80/4.5 mcg INHALER IH SCH ×2 (10:43→22:06)
[2021-09-24] MEDS: PANTOPRAZOLE 40 MG TABLET PO SCH (10:43)
[2021-09-24] MEDS: AMMONIUM LACTATE 12% LOTION 225 GM BOTTLE TP SCH ×2 (11:17→22:09)
[2021-09-24] MEDS: FLUTICASONE PROP 0.05% 16 GM NASAL SPRAY NS SCH ×2 (11:18→22:08)
[2021-09-24] MEDS ORDERED: QUEtiapine FUMARATE 25 MG TABLET ONE (21:26)
[2021-09-24] MEDS ORDERED: LIDOCAINE PATCH REMOVAL MC SCH ×2 (22:00)
[2021-09-24] MEDS: MELATONIN 5 MG TABLETS PO SCH (22:04)
[2021-09-24] MEDS: THIAMINE HCL 100 MG TABLET (FP) PO SCH (22:04)
[2021-09-24] MEDS: METHOCARBAMOL 500 MG TABLET PO PRN (22:04)
[2021-09-24] MEDS: QUEtiapine FUMARATE 50 MG TABLET PO SCH (22:05)
[2021-09-24] MEDS: TAMSULOSIN HCL 0.4 MG CAP PO SCH (22:07)
[2021-09-25] MEDS ORDERED: methaDONE HCL 10 MG TABLET ONE (04:31)
[2021-09-25] MEDS ORDERED: methaDONE HCL 40 MG DISPERSABLE TABLET ONE (04:31)
[2021-09-25] MEDS: hydrOXYzine PAMOATE 25 MG CAPSULE (FP) PO SCH ×2 (05:02→10:24)
[2021-09-25] MEDS ORDERED: diazePAM 5 MG TABLET PO ONE (06:00)
[2021-09-25 06:22] VITALS: TEMP 97.3
[2021-09-25 09:18] VITALS: BP 126/62; PULSE 77
[2021-09-25] MEDS: BUDESONIDE/FORMETEROL FUMARATE 80/4.5 mcg INHALER IH SCH (10:21)
[2021-09-25] MEDS: PRENATAL VITAMINS W/ FOLIC ACID TABLET (FP) PO SCH (10:21)
[2021-09-25] MEDS: PATIENT'S OWN MEDICATION (NON-FORMULARY) (Amoxicillin/Potassium Clav [Amox-Clav 875-125 Mg PO SCH (10:21)
[2021-09-25] MEDS: FLUTICASONE PROP 0.05% 16 GM NASAL SPRAY NS SCH (10:21)
[2021-09-25] MEDS: LIDOCAINE 5% TOPICAL PATCH TP SCH (10:23)
[2021-09-25] MEDS: AMMONIUM LACTATE 12% LOTION 225 GM BOTTLE TP SCH (10:23)
[2021-09-25] MEDS: HYDROCHLOROTHIAZIDE 12.5 MG CAPSULE (FP) PO SCH (10:24)
[2021-09-25] MEDS: PANTOPRAZOLE 40 MG TABLET PO SCH (10:24)
[2021-09-25] MEDS: LISINOPRIL 10 MG TABLET PO SCH (10:24)
[2021-09-25] MEDS: METHOCARBAMOL 500 MG TABLET PO PRN (10:25)
== END 2021-09-25 10:30 | disposition home or self-care (01) | DRG 773 ==
LOC: YASAS 09:11 → Y3N 10:49
PROVIDERS: ADMIT Allergy & Immunology; ATTEND Allergy & Immunology
PROC: HZ2ZZZZ Detoxification Services for Substance Abuse Treatment (ICD-10-PCS; principal; 2021-09-21)
DX: F10.230 Alcohol dependence with withdrawal, uncomplicated (principal); F11.20 Opioid dependence, uncomplicated; F14.20 Cocaine dependence, uncomplicated; F17.210 Nicotine dependence, cigarettes, uncomplicated; F19.282 Other psychoactive substance dependence with psychoactive substance-induced sleep disorder; I10 Essential (primary) hypertension; J45.909 Unspecified asthma, uncomplicated; M19.90 Unspecified osteoarthritis, unspecified site; N39.43 Post-void dribbling; N40.1 Benign prostatic hyperplasia with lower urinary tract symptoms; G47.00 Insomnia, unspecified; R26.2 Difficulty in walking, not elsewhere classified; Z99.89 Dependence on other enabling machines and devices; Z91.19 Patient's noncompliance with other medical treatment and regimen; Z86.19 Personal history of other infectious and parasitic diseases; Z56.0 Unemployment, unspecified; Z59.01 Sheltered homelessness
CPT/HCPCS: 36415; 80053; 85027; 86593; 86780; 90686; C9803; G0008; U0003; U0005

== ENCOUNTER 2022-04-19 12:10 | Inpatient (IN) | payer OTHER ==
[2022-04-19 12:48] VITALS: BMI 24.2
[2022-04-19] MEDS ORDERED: ACETAMINOPHEN 325 MG TABLET (FP) PO PRN ×2 (12:59)
[2022-04-19] MEDS ORDERED: MAG HYDROX/AL HYDROX/SIMETH 30 ML UNIT-DOSE CUP PO PRN (12:59)
[2022-04-19] MEDS ORDERED: LOPERAMIDE HCL 2 MG CAPSULE PO PRN (12:59)
[2022-04-19] MEDS ORDERED: ONDANSETRON *ODT* 4 MG TABLET SL PRN (12:59)
[2022-04-19] MEDS ORDERED: DICYCLOMINE HCL 10 MG CAPSULE PO PRN (12:59)
[2022-04-19] MEDS ORDERED: BENZOCAINE/MENTHOL (CHLORASEPTIC ) LOZENGE MM PRN (12:59)
[2022-04-19] MEDS ORDERED: chlordiazePOXIDE HCL 25 MG CAPSULE PO PRN (12:59)
[2022-04-19] MEDS ORDERED: MAGNESIUM CITRATE 300 ML BOTTLE PO PRN (12:59)
[2022-04-19] MEDS ORDERED: NALOXONE HCL (KLOXXADO) 8 MG SPRAY NS PRN (12:59)
[2022-04-19] MEDS ORDERED: NICOTINE 10 MG CARTRIDGE (INHALER) IH PRN (12:59)
[2022-04-19] MEDS ORDERED: BISMUTH SUBSALICYLATE 524 MG/30 ML PO PRN (12:59)
[2022-04-19] MEDS ORDERED: IBUPROFEN 400 MG TABLET (FP) PO PRN (12:59)
[2022-04-19] MEDS ORDERED: MAGNESIUM HYDROX 2400MG/30ML ORAL SUSPENSION 30 ML CUP PO PRN (12:59)
[2022-04-19] MEDS ORDERED: ALBUTEROL SO4 HFA INHALER IH PRN (13:04)
[2022-04-19] MEDS: METHOCARBAMOL 500 MG TABLET PO PRN ×2 (14:50→22:00)
[2022-04-19] MEDS: ASPIRIN 81 MG CHEWABLE TABLETS PO SCH (14:51)
[2022-04-19] MEDS: hydrOXYzine PAMOATE 25 MG CAPSULE (FP) PO SCH ×3 (14:51→22:00)
[2022-04-19] MEDS: BUDESONIDE/FORMETEROL FUMARATE 80/4.5 mcg INHALER IH SCH ×2 (14:51→22:00)
[2022-04-19] MEDS: PANTOPRAZOLE 40 MG TABLET PO SCH (14:51)
[2022-04-19] MEDS: IBUPROFEN 600 MG TABLET (FP) PO PRN ×2 (14:51→22:00)
[2022-04-19] MEDS: NICOTINE 14 MG/24 HOURS TOPICAL PATCH TD SCH (14:59)
[2022-04-19 17:17] LABS: HEMATOCRIT 39.6 % (35.4-49); HEMOGLOBIN 13.6 GM/dL (11.7-16.9); MCH 31.1 pg (25.7-33.7); MCHC 34.3 g/dl (32.0-35.9); MEAN CELL VOLUME 90.7 fl (80-96); MEAN PLT VOLUME 7.1 fl (7.5-11.1); PLATELET COUNT 174 10^3/uL (134-434); RBC 4.37 M/mm3 (4.00-5.60); RDW 13.8 % (11.9-15.9); WHITE BLOOD COUNT 6.5 K/mm3 (4.0-10.0)
[2022-04-19 17:31] LABS: ALBUMIN 3.7 g/dl (3.4-5.0); BLOOD UREA NITROGEN 14.5 mg/dL (7-18); CALCIUM 9.2 mg/dL (8.5-10.1)
[2022-04-19 17:36] LABS: BILIRUBIN,TOTAL 0.7 mg/dL (0.2-1); TOT PROT 7.1 g/dl (6.4-8.2)
[2022-04-19] MEDS: chlordiazePOXIDE HCL 25 MG CAPSULE PO SCH (22:00)
[2022-04-19] MEDS: QUEtiapine FUMARATE 100 MG TABLET (FP) PO SCH (22:00)
[2022-04-19] MEDS: MELATONIN 5 MG TABLETS PO SCH (22:00)
[2022-04-19] MEDS: TAMSULOSIN HCL 0.4 MG CAP PO SCH (22:00)
[2022-04-19] MEDS: THIAMINE HCL 100 MG TABLET (FP) PO SCH (23:24)
[2022-04-20] MEDS: PSEUDOEPHEDRINE HCL 30 MG TABLET PO SCH ×2 (00:08→14:27)
[2022-04-20] MEDS ORDERED: PSEUDOEPHEDRINE HCL 30 MG TABLET PO SCH (04:15)
[2022-04-20] MEDS ORDERED: PSEUDOEPHEDRINE HCL 60 MG TABLET PO SCH ×2 (04:30→14:00)
[2022-04-20] MEDS: hydrOXYzine PAMOATE 25 MG CAPSULE (FP) PO SCH ×5 (05:35→22:13)
[2022-04-20] MEDS: chlordiazePOXIDE HCL 25 MG CAPSULE PO SCH ×4 (05:35→22:13)
[2022-04-20] MEDS ORDERED: methaDONE HCL 10 MG TABLET PO SCH (06:30)
[2022-04-20] MEDS ORDERED: methaDONE HCL 10 MG TABLET ONE (06:59)
[2022-04-20] MEDS ORDERED: methaDONE HCL 40 MG DISPERSABLE TABLET ONE (07:00)
[2022-04-20] MEDS: BUDESONIDE/FORMETEROL FUMARATE 80/4.5 mcg INHALER IH SCH ×2 (10:11→11:30)
[2022-04-20] MEDS: ASPIRIN 81 MG CHEWABLE TABLETS PO SCH (10:12)
[2022-04-20] MEDS: NICOTINE 14 MG/24 HOURS TOPICAL PATCH TD SCH (10:12)
[2022-04-20] MEDS: LISINOPRIL 10 MG TABLET PO SCH (10:12)
[2022-04-20] MEDS: PRENATAL VITAMINS W/ FOLIC ACID TABLET (FP) PO SCH (10:12)
[2022-04-20] MEDS: QUEtiapine FUMARATE 100 MG TABLET (FP) PO SCH ×2 (10:12→22:25)
[2022-04-20] MEDS: PANTOPRAZOLE 40 MG TABLET PO SCH (10:12)
[2022-04-20] MEDS: METHOCARBAMOL 500 MG TABLET PO PRN ×2 (10:18→16:45)
[2022-04-20] MEDS: IBUPROFEN 600 MG TABLET (FP) PO PRN ×2 (10:18→22:24)
[2022-04-20] MEDS ORDERED: LIDOCAINE 5% TOPICAL PATCH TP SCH ×3 (10:30→11:15)
[2022-04-20] MEDS: LIDOCAINE 5% TOPICAL PATCH TP SCH (11:59)
[2022-04-20] MEDS: HYDROCHLOROTHIAZIDE 12.5 MG CAPSULE (FP) PO SCH (15:29)
[2022-04-20] MEDS ORDERED: LIDOCAINE PATCH REMOVAL MC SCH ×2 (22:00)
[2022-04-20] MEDS: MELATONIN 5 MG TABLETS PO SCH (22:12)
[2022-04-20] MEDS: THIAMINE HCL 100 MG TABLET (FP) PO SCH (22:13)
[2022-04-20] MEDS: TAMSULOSIN HCL 0.4 MG CAP PO SCH (22:13)
[2022-04-21] MEDS: LIDOCAINE PATCH REMOVAL MC SCH ×2 (00:16→23:17)
[2022-04-21] MEDS ORDERED: methaDONE HCL 10 MG TABLET ONE (05:05)
[2022-04-21] MEDS ORDERED: methaDONE HCL 40 MG DISPERSABLE TABLET ONE (05:05)
[2022-04-21] MEDS: chlordiazePOXIDE HCL 25 MG CAPSULE PO SCH ×4 (05:25→22:10)
[2022-04-21] MEDS: hydrOXYzine PAMOATE 25 MG CAPSULE (FP) PO SCH ×5 (05:25→22:05)
[2022-04-21] MEDS: PSEUDOEPHEDRINE HCL 30 MG TABLET PO SCH ×3 (05:27→22:05)
[2022-04-21] MEDS: PRENATAL VITAMINS W/ FOLIC ACID TABLET (FP) PO SCH (11:01)
[2022-04-21] MEDS: PANTOPRAZOLE 40 MG TABLET PO SCH (11:02)
[2022-04-21] MEDS: LISINOPRIL 10 MG TABLET PO SCH (11:02)
[2022-04-21] MEDS: QUEtiapine FUMARATE 100 MG TABLET (FP) PO SCH ×2 (11:02→22:05)
[2022-04-21] MEDS: ASPIRIN 81 MG CHEWABLE TABLETS PO SCH (11:02)
[2022-04-21] MEDS: HYDROCHLOROTHIAZIDE 12.5 MG CAPSULE (FP) PO SCH (11:02)
[2022-04-21] MEDS: NICOTINE 14 MG/24 HOURS TOPICAL PATCH TD SCH (11:03)
[2022-04-21] MEDS: LIDOCAINE 5% TOPICAL PATCH TP SCH (11:06)
[2022-04-21] MEDS: BUDESONIDE/FORMETEROL FUMARATE 80/4.5 mcg INHALER IH SCH ×2 (11:08→22:06)
[2022-04-21] MEDS: METHOCARBAMOL 500 MG TABLET PO PRN (14:25)
[2022-04-21] MEDS: IBUPROFEN 600 MG TABLET (FP) PO PRN (14:25)
[2022-04-21] MEDS: MELATONIN 5 MG TABLETS PO SCH (22:05)
[2022-04-21] MEDS: TAMSULOSIN HCL 0.4 MG CAP PO SCH (22:05)
[2022-04-21] MEDS: THIAMINE HCL 100 MG TABLET (FP) PO SCH (22:05)
[2022-04-22] MEDS ORDERED: chlordiazePOXIDE HCL 10 MG CAPSULE PO PRN
[2022-04-22] MEDS ORDERED: methaDONE HCL 10 MG TABLET ONE (03:36)
[2022-04-22] MEDS ORDERED: methaDONE HCL 40 MG DISPERSABLE TABLET ONE (03:36)
[2022-04-22] MEDS: hydrOXYzine PAMOATE 25 MG CAPSULE (FP) PO SCH ×5 (05:42→21:47)
[2022-04-22] MEDS: chlordiazePOXIDE HCL 10 MG CAPSULE PO SCH ×4 (05:43→22:00)
[2022-04-22] MEDS: PSEUDOEPHEDRINE HCL 30 MG TABLET PO SCH ×3 (05:44→21:50)
[2022-04-22] MEDS: PRENATAL VITAMINS W/ FOLIC ACID TABLET (FP) PO SCH (10:05)
[2022-04-22] MEDS: LISINOPRIL 10 MG TABLET PO SCH (10:06)
[2022-04-22] MEDS: QUEtiapine FUMARATE 100 MG TABLET (FP) PO SCH ×2 (10:06→21:44)
[2022-04-22] MEDS: ASPIRIN 81 MG CHEWABLE TABLETS PO SCH (10:06)
[2022-04-22] MEDS: METHOCARBAMOL 500 MG TABLET PO PRN ×2 (10:06→21:44)
[2022-04-22] MEDS: HYDROCHLOROTHIAZIDE 12.5 MG CAPSULE (FP) PO SCH (10:06)
[2022-04-22] MEDS: PANTOPRAZOLE 40 MG TABLET PO SCH (10:06)
[2022-04-22] MEDS: NICOTINE 14 MG/24 HOURS TOPICAL PATCH TD SCH (10:07)
[2022-04-22] MEDS: BUDESONIDE/FORMETEROL FUMARATE 80/4.5 mcg INHALER IH SCH ×2 (10:09→21:47)
[2022-04-22] MEDS: LIDOCAINE 5% TOPICAL PATCH TP SCH (11:41)
[2022-04-22] MEDS: IBUPROFEN 600 MG TABLET (FP) PO PRN (17:42)
[2022-04-22] MEDS: THIAMINE HCL 100 MG TABLET (FP) PO SCH (21:44)
[2022-04-22] MEDS: TAMSULOSIN HCL 0.4 MG CAP PO SCH (21:45)
[2022-04-22] MEDS: MELATONIN 5 MG TABLETS PO SCH (21:46)
[2022-04-22] MEDS: LIDOCAINE PATCH REMOVAL MC SCH (21:46)
[2022-04-23] MEDS ORDERED: methaDONE HCL 10 MG TABLET ONE (04:20)
[2022-04-23] MEDS ORDERED: methaDONE HCL 40 MG DISPERSABLE TABLET ONE (04:20)
[2022-04-23] MEDS: chlordiazePOXIDE HCL 10 MG CAPSULE PO SCH ×2 (05:42→18:04)
[2022-04-23] MEDS: PSEUDOEPHEDRINE HCL 30 MG TABLET PO SCH ×3 (05:43→22:11)
[2022-04-23] MEDS: hydrOXYzine PAMOATE 25 MG CAPSULE (FP) PO SCH ×5 (05:43→22:13)
[2022-04-23] MEDS: PRENATAL VITAMINS W/ FOLIC ACID TABLET (FP) PO SCH (10:36)
[2022-04-23] MEDS: QUEtiapine FUMARATE 100 MG TABLET (FP) PO SCH ×2 (10:37→22:10)
[2022-04-23] MEDS: LISINOPRIL 10 MG TABLET PO SCH (10:37)
[2022-04-23] MEDS: BUDESONIDE/FORMETEROL FUMARATE 80/4.5 mcg INHALER IH SCH ×2 (10:37→22:13)
[2022-04-23] MEDS: ASPIRIN 81 MG CHEWABLE TABLETS PO SCH (10:37)
[2022-04-23] MEDS: PANTOPRAZOLE 40 MG TABLET PO SCH (10:37)
[2022-04-23] MEDS: HYDROCHLOROTHIAZIDE 12.5 MG CAPSULE (FP) PO SCH (10:37)
[2022-04-23] MEDS: NICOTINE 14 MG/24 HOURS TOPICAL PATCH TD SCH (10:37)
[2022-04-23] MEDS: LIDOCAINE 5% TOPICAL PATCH TP SCH (10:37)
[2022-04-23] MEDS: METHOCARBAMOL 500 MG TABLET PO PRN ×2 (10:37→22:13)
[2022-04-23] MEDS: IBUPROFEN 600 MG TABLET (FP) PO PRN ×2 (10:39→22:10)
[2022-04-23] MEDS: TAMSULOSIN HCL 0.4 MG CAP PO SCH (22:10)
[2022-04-23] MEDS: LIDOCAINE PATCH REMOVAL MC SCH (22:10)
[2022-04-23] MEDS: MELATONIN 5 MG TABLETS PO SCH (22:10)
[2022-04-23] MEDS: THIAMINE HCL 100 MG TABLET (FP) PO SCH (22:10)
[2022-04-24] MEDS ORDERED: methaDONE HCL 10 MG TABLET ONE (04:21)
[2022-04-24] MEDS ORDERED: methaDONE HCL 40 MG DISPERSABLE TABLET ONE (04:22)
[2022-04-24] MEDS: PSEUDOEPHEDRINE HCL 30 MG TABLET PO SCH ×2 (04:59→14:13)
[2022-04-24] MEDS: hydrOXYzine PAMOATE 25 MG CAPSULE (FP) PO SCH ×3 (05:00→14:13)
[2022-04-24] MEDS ORDERED: chlordiazePOXIDE HCL 10 MG CAPSULE PO ONE (05:00)
[2022-04-24] MEDS: LISINOPRIL 10 MG TABLET PO SCH (10:40)
[2022-04-24] MEDS: HYDROCHLOROTHIAZIDE 12.5 MG CAPSULE (FP) PO SCH (10:40)
[2022-04-24] MEDS: PANTOPRAZOLE 40 MG TABLET PO SCH (10:40)
[2022-04-24] MEDS: BUDESONIDE/FORMETEROL FUMARATE 80/4.5 mcg INHALER IH SCH (10:40)
[2022-04-24] MEDS: PRENATAL VITAMINS W/ FOLIC ACID TABLET (FP) PO SCH (10:40)
[2022-04-24] MEDS: LIDOCAINE 5% TOPICAL PATCH TP SCH (10:40)
[2022-04-24] MEDS: QUEtiapine FUMARATE 100 MG TABLET (FP) PO SCH (10:40)
[2022-04-24] MEDS: ASPIRIN 81 MG CHEWABLE TABLETS PO SCH (10:40)
[2022-04-24] MEDS: NICOTINE 14 MG/24 HOURS TOPICAL PATCH TD SCH (10:41)
[2022-04-24 13:33] VITALS: BP 149/84; PULSE 90; TEMP 98
== END 2022-04-24 14:25 | disposition other institution (70) | DRG 773 ==
LOC: YASAS 12:10 → Y6N 13:07
PROVIDERS: ADMIT Allergy & Immunology; ATTEND Surgery
PROC: HZ2ZZZZ Detoxification Services for Substance Abuse Treatment (ICD-10-PCS; principal; 2022-04-19)
DX: F10.230 Alcohol dependence with withdrawal, uncomplicated (principal); F11.20 Opioid dependence, uncomplicated; F14.20 Cocaine dependence, uncomplicated; F17.210 Nicotine dependence, cigarettes, uncomplicated; F41.9 Anxiety disorder, unspecified; F32.A Depression, unspecified; I10 Essential (primary) hypertension; J45.20 Mild intermittent asthma, uncomplicated; N40.1 Benign prostatic hyperplasia with lower urinary tract symptoms; N39.43 Post-void dribbling; R76.8 Other specified abnormal immunological findings in serum; K21.9 Gastro-esophageal reflux disease without esophagitis; R60.0 Localized edema; M06.9 Rheumatoid arthritis, unspecified; R09.81 Nasal congestion; H91.92 Unspecified hearing loss, left ear; D50.9 Iron deficiency anemia, unspecified; M19.90 Unspecified osteoarthritis, unspecified site; R26.2 Difficulty in walking, not elsewhere classified; Z99.89 Dependence on other enabling machines and devices; Z86.19 Personal history of other infectious and parasitic diseases; Z56.0 Unemployment, unspecified; Z59.01 Sheltered homelessness
CPT/HCPCS: 36415; 80053; 85027; 86593; 86780; 87811; C9803-CS; U0003; U0005

== ENCOUNTER 2022-04-24 15:03 | Inpatient (IN) | payer OTHER ==
[2022-04-24] MEDS ORDERED: guaiFENesin 200 MG/10 ML 10 ML UNIT-DOSE CUPS PO PRN (15:43)
[2022-04-24] MEDS ORDERED: MAG HYDROX/AL HYDROX/SIMETH 30 ML UNIT-DOSE CUP PO PRN (15:43)
[2022-04-24] MEDS ORDERED: LOPERAMIDE HCL 2 MG CAPSULE PO PRN (15:43)
[2022-04-24] MEDS ORDERED: ACETAMINOPHEN 325 MG TABLET (FP) PO PRN (15:43)
[2022-04-24] MEDS ORDERED: NICOTINE 10 MG CARTRIDGE (INHALER) IH PRN (15:43)
[2022-04-24] MEDS ORDERED: MAGNESIUM HYDROX 2400MG/30ML ORAL SUSPENSION 30 ML CUP PO PRN (15:43)
[2022-04-24] MEDS ORDERED: BENZOCAINE/MENTHOL (CHLORASEPTIC ) LOZENGE MM PRN (15:43)
[2022-04-24] MEDS ORDERED: MAGNESIUM CITRATE 300 ML BOTTLE PO PRN (15:43)
[2022-04-24] MEDS: TAMSULOSIN HCL 0.4 MG CAP PO SCH (21:13)
[2022-04-24] MEDS: QUEtiapine FUMARATE 100 MG TABLET (FP) PO SCH (21:13)
[2022-04-24] MEDS: MELATONIN 5 MG TABLETS PO SCH (21:13)
[2022-04-24] MEDS: THIAMINE HCL 100 MG TABLET (FP) PO SCH (21:13)
[2022-04-24] MEDS: IBUPROFEN 600 MG TABLET (FP) PO PRN (21:14)
[2022-04-24] MEDS ORDERED: LIDOCAINE PATCH REMOVAL MC SCH (22:00)
[2022-04-25] MEDS ORDERED: methaDONE HCL 10 MG TABLET ONE (04:02)
[2022-04-25] MEDS ORDERED: methaDONE HCL 40 MG DISPERSABLE TABLET ONE (04:02)
[2022-04-25] MEDS ORDERED: methaDONE HCL 10 MG TABLET PO SCH (06:00)
[2022-04-25] MEDS ORDERED: LIDOCAINE 5% TOPICAL PATCH TP SCH (10:00)
[2022-04-25] MEDS ORDERED: LIDOCAINE PATCH REMOVAL MC SCH (10:07)
[2022-04-25] MEDS: QUEtiapine FUMARATE 100 MG TABLET (FP) PO SCH ×2 (10:51→21:16)
[2022-04-25] MEDS: PANTOPRAZOLE 40 MG TABLET PO SCH (10:52)
[2022-04-25] MEDS: LISINOPRIL 10 MG TABLET PO SCH (10:52)
[2022-04-25] MEDS: PRENATAL VITAMINS W/ FOLIC ACID TABLET (FP) PO SCH (10:52)
[2022-04-25] MEDS: HYDROCHLOROTHIAZIDE 12.5 MG CAPSULE (FP) PO SCH (10:52)
[2022-04-25] MEDS: ASPIRIN 81 MG CHEWABLE TABLETS PO SCH (10:52)
[2022-04-25] MEDS: NICOTINE 7 MG/24 HOURS TOPICAL PATCH TD SCH (10:52)
[2022-04-25] MEDS: IBUPROFEN 600 MG TABLET (FP) PO PRN ×2 (10:53→21:18)
[2022-04-25] MEDS: METHOCARBAMOL 500 MG TABLET PO PRN ×2 (12:14→21:16)
[2022-04-25] MEDS: LIDOCAINE 5% TOPICAL PATCH TP SCH (13:43)
[2022-04-25 14:06] LABS: HIV INTERPRETATION NEGATIVE (NEGATIVE)
[2022-04-25] MEDS: TAMSULOSIN HCL 0.4 MG CAP PO SCH (21:16)
[2022-04-25] MEDS: THIAMINE HCL 100 MG TABLET (FP) PO SCH (21:16)
[2022-04-25] MEDS: MELATONIN 5 MG TABLETS PO SCH (21:17)
[2022-04-25] MEDS: METHYL SALICYLATE/MENTHOL OINT 30 GM TUBE TP SCH (21:17)
[2022-04-25] MEDS: ALBUTEROL SO4 HFA INHALER IH PRN (21:20)
[2022-04-25] MEDS: hydrOXYzine PAMOATE 25 MG CAPSULE (FP) PO PRN (21:22)
[2022-04-26] MEDS ORDERED: methaDONE HCL 10 MG TABLET ONE (03:42)
[2022-04-26] MEDS ORDERED: methaDONE HCL 40 MG DISPERSABLE TABLET ONE (03:42)
[2022-04-26] MEDS: QUEtiapine FUMARATE 100 MG TABLET (FP) PO SCH ×2 (10:12→21:11)
[2022-04-26] MEDS: LISINOPRIL 10 MG TABLET PO SCH (10:12)
[2022-04-26] MEDS: HYDROCHLOROTHIAZIDE 12.5 MG CAPSULE (FP) PO SCH (10:12)
[2022-04-26] MEDS: PANTOPRAZOLE 40 MG TABLET PO SCH (10:12)
[2022-04-26] MEDS: ASPIRIN 81 MG CHEWABLE TABLETS PO SCH (10:12)
[2022-04-26] MEDS: PRENATAL VITAMINS W/ FOLIC ACID TABLET (FP) PO SCH (10:12)
[2022-04-26] MEDS: NICOTINE 7 MG/24 HOURS TOPICAL PATCH TD SCH (10:13)
[2022-04-26] MEDS: METHYL SALICYLATE/MENTHOL OINT 30 GM TUBE TP SCH ×2 (10:13→21:11)
[2022-04-26] MEDS: LIDOCAINE 5% TOPICAL PATCH TP SCH ×2 (10:13→10:14)
[2022-04-26] MEDS: IBUPROFEN 600 MG TABLET (FP) PO PRN (10:16)
[2022-04-26] MEDS: METHOCARBAMOL 500 MG TABLET PO PRN ×2 (10:16→21:14)
[2022-04-26] MEDS: ALBUTEROL SO4 HFA INHALER IH PRN (10:17)
[2022-04-26] MEDS: IBUPROFEN 400 MG TABLET (FP) PO PRN (21:09)
[2022-04-26] MEDS: THIAMINE HCL 100 MG TABLET (FP) PO SCH (21:11)
[2022-04-26] MEDS: TAMSULOSIN HCL 0.4 MG CAP PO SCH (21:11)
[2022-04-26] MEDS: MELATONIN 5 MG TABLETS PO SCH (21:11)
[2022-04-27] MEDS: P-EPHED 60MG/TRIPROLIDI 2.5MG TABLET PO PRN ×3 (03:38→21:17)
[2022-04-27] MEDS ORDERED: methaDONE HCL 10 MG TABLET ONE (03:57)
[2022-04-27] MEDS ORDERED: methaDONE HCL 40 MG DISPERSABLE TABLET ONE (03:57)
[2022-04-27] MEDS: ASPIRIN 81 MG CHEWABLE TABLETS PO SCH (09:31)
[2022-04-27] MEDS: LISINOPRIL 10 MG TABLET PO SCH (09:31)
[2022-04-27] MEDS: PANTOPRAZOLE 40 MG TABLET PO SCH (09:31)
[2022-04-27] MEDS: PRENATAL VITAMINS W/ FOLIC ACID TABLET (FP) PO SCH (09:31)
[2022-04-27] MEDS: HYDROCHLOROTHIAZIDE 12.5 MG CAPSULE (FP) PO SCH (09:31)
[2022-04-27] MEDS: NICOTINE 7 MG/24 HOURS TOPICAL PATCH TD SCH (09:32)
[2022-04-27] MEDS: IBUPROFEN 600 MG TABLET (FP) PO PRN ×2 (09:34→21:15)
[2022-04-27] MEDS: METHOCARBAMOL 500 MG TABLET PO PRN ×2 (09:34→21:13)
[2022-04-27] MEDS: LIDOCAINE 5% TOPICAL PATCH TP SCH ×2 (09:36→11:47)
[2022-04-27] MEDS: METHYL SALICYLATE/MENTHOL OINT 30 GM TUBE TP SCH ×2 (11:47→21:13)
[2022-04-27] MEDS: TAMSULOSIN HCL 0.4 MG CAP PO SCH (21:13)
[2022-04-27] MEDS: THIAMINE HCL 100 MG TABLET (FP) PO SCH (21:13)
[2022-04-27] MEDS: QUEtiapine FUMARATE 100 MG TABLET (FP) PO SCH (21:15)
[2022-04-28] MEDS ORDERED: methaDONE HCL 40 MG DISPERSABLE TABLET ONE (05:27)
[2022-04-28] MEDS ORDERED: methaDONE HCL 10 MG TABLET ONE (05:27)
[2022-04-28] MEDS: PRENATAL VITAMINS W/ FOLIC ACID TABLET (FP) PO SCH (09:45)
[2022-04-28] MEDS: HYDROCHLOROTHIAZIDE 12.5 MG CAPSULE (FP) PO SCH (09:46)
[2022-04-28] MEDS: ASPIRIN 81 MG CHEWABLE TABLETS PO SCH (09:46)
[2022-04-28] MEDS: IBUPROFEN 600 MG TABLET (FP) PO PRN ×2 (09:46→21:11)
[2022-04-28] MEDS: PANTOPRAZOLE 40 MG TABLET PO SCH (09:46)
[2022-04-28] MEDS: LISINOPRIL 10 MG TABLET PO SCH (09:46)
[2022-04-28] MEDS: METHOCARBAMOL 500 MG TABLET PO PRN ×2 (09:48→21:09)
[2022-04-28] MEDS: NICOTINE 7 MG/24 HOURS TOPICAL PATCH TD SCH (09:48)
[2022-04-28] MEDS: LIDOCAINE 5% TOPICAL PATCH TP SCH ×2 (09:49→11:16)
[2022-04-28] MEDS: P-EPHED 60MG/TRIPROLIDI 2.5MG TABLET PO PRN (09:51)
[2022-04-28] MEDS: METHYL SALICYLATE/MENTHOL OINT 30 GM TUBE TP SCH ×2 (09:51→21:10)
[2022-04-28] MEDS: hydrOXYzine PAMOATE 25 MG CAPSULE (FP) PO PRN ×2 (16:13→21:10)
[2022-04-28] MEDS: THIAMINE HCL 100 MG TABLET (FP) PO SCH (21:09)
[2022-04-28] MEDS: TAMSULOSIN HCL 0.4 MG CAP PO SCH (21:09)
[2022-04-28] MEDS: QUEtiapine FUMARATE 100 MG TABLET (FP) PO SCH (21:10)
[2022-04-29] MEDS ORDERED: methaDONE HCL 10 MG TABLET ONE (04:04)
[2022-04-29] MEDS ORDERED: methaDONE HCL 40 MG DISPERSABLE TABLET ONE (04:05)
[2022-04-29] MEDS: PANTOPRAZOLE 40 MG TABLET PO SCH (09:33)
[2022-04-29] MEDS: PRENATAL VITAMINS W/ FOLIC ACID TABLET (FP) PO SCH (09:33)
[2022-04-29] MEDS: ASPIRIN 81 MG CHEWABLE TABLETS PO SCH (09:33)
[2022-04-29] MEDS: HYDROCHLOROTHIAZIDE 12.5 MG CAPSULE (FP) PO SCH (09:33)
[2022-04-29] MEDS: NICOTINE 7 MG/24 HOURS TOPICAL PATCH TD SCH (09:34)
[2022-04-29] MEDS: LIDOCAINE 5% TOPICAL PATCH TP SCH (09:34)
[2022-04-29] MEDS: LISINOPRIL 10 MG TABLET PO SCH (09:34)
[2022-04-29] MEDS: METHYL SALICYLATE/MENTHOL OINT 30 GM TUBE TP SCH ×2 (09:36→21:09)
[2022-04-29] MEDS: P-EPHED 60MG/TRIPROLIDI 2.5MG TABLET PO PRN ×2 (09:37→16:47)
[2022-04-29] MEDS: IBUPROFEN 600 MG TABLET (FP) PO PRN ×2 (09:38→21:13)
[2022-04-29] MEDS: METHOCARBAMOL 500 MG TABLET PO PRN (09:38)
[2022-04-29] MEDS: LORATADINE 10 MG TABLET PO SCH (11:25)
[2022-04-29] MEDS: FLUTICASONE PROP 0.05% 16 GM NASAL SPRAY NS SCH ×2 (11:25→21:10)
[2022-04-29] MEDS: BUDESONIDE/FORMETEROL FUMARATE 80/4.5 mcg INHALER IH SCH ×2 (11:27→21:10)
[2022-04-29] MEDS ORDERED: ONDANSETRON *ODT* 4 MG TABLET SL PRN (11:51)
[2022-04-29] MEDS: FAMOTIDINE 20 MG TABLET PO SCH (13:38)
[2022-04-29] MEDS: FUROSEMIDE 20 MG TABLET (FP) PO SCH (13:39)
[2022-04-29] MEDS: GABAPENTIN 300 MG CAPSULE PO SCH ×2 (13:39→21:09)
[2022-04-29] MEDS: THIAMINE HCL 100 MG TABLET (FP) PO SCH (21:09)
[2022-04-29] MEDS: QUEtiapine FUMARATE 100 MG TABLET (FP) PO SCH (21:09)
[2022-04-29] MEDS: TAMSULOSIN HCL 0.4 MG CAP PO SCH (21:09)
[2022-04-29] MEDS: hydrOXYzine PAMOATE 25 MG CAPSULE (FP) PO PRN (21:11)
[2022-04-30] MEDS ORDERED: methaDONE HCL 10 MG TABLET ONE (03:36)
[2022-04-30] MEDS ORDERED: methaDONE HCL 40 MG DISPERSABLE TABLET ONE (03:36)
[2022-04-30] MEDS: NICOTINE 7 MG/24 HOURS TOPICAL PATCH TD SCH (10:09)
[2022-04-30] MEDS: ASPIRIN 81 MG CHEWABLE TABLETS PO SCH (10:09)
[2022-04-30] MEDS: GABAPENTIN 300 MG CAPSULE PO SCH ×2 (10:09→21:02)
[2022-04-30] MEDS: HYDROCHLOROTHIAZIDE 12.5 MG CAPSULE (FP) PO SCH (10:09)
[2022-04-30] MEDS: FAMOTIDINE 20 MG TABLET PO SCH (10:09)
[2022-04-30] MEDS: BUDESONIDE/FORMETEROL FUMARATE 80/4.5 mcg INHALER IH SCH ×2 (10:09→21:04)
[2022-04-30] MEDS: LORATADINE 10 MG TABLET PO SCH (10:09)
[2022-04-30] MEDS: LISINOPRIL 10 MG TABLET PO SCH (10:09)
[2022-04-30] MEDS: PANTOPRAZOLE 40 MG TABLET PO SCH (10:09)
[2022-04-30] MEDS: PRENATAL VITAMINS W/ FOLIC ACID TABLET (FP) PO SCH (10:09)
[2022-04-30] MEDS: FLUTICASONE PROP 0.05% 16 GM NASAL SPRAY NS SCH ×2 (10:10→21:01)
[2022-04-30] MEDS: METHYL SALICYLATE/MENTHOL OINT 30 GM TUBE TP SCH ×2 (10:10→22:13)
[2022-04-30] MEDS: FUROSEMIDE 20 MG TABLET (FP) PO SCH (10:11)
[2022-04-30] MEDS: LIDOCAINE 5% TOPICAL PATCH TP SCH (10:11)
[2022-04-30] MEDS: IBUPROFEN 600 MG TABLET (FP) PO PRN ×2 (10:13→21:02)
[2022-04-30 15:38] LABS: PH,URINE 6.5 (5.0-8.0); URINE APPEARANCE CLEAR; URINE BILIRUBIN NEGATIVE (NEGATIVE); URINE COLOR YELLOW; URINE GLUCOSE (UA) NEGATIVE (NEGATIVE); URINE KETONE NEGATIVE (NEGATIVE); URINE LEUK ESTERASE NEGATIVE (NEGATIVE); URINE NITRITE NEGATIVE (NEGATIVE); URINE PROTEIN NEGATIVE (NEGATIVE); URINE UROBILINOGEN 0.2 mg/dL (0.2-1.0)
[2022-04-30] MEDS: hydrOXYzine PAMOATE 25 MG CAPSULE (FP) PO PRN (21:02)
[2022-04-30] MEDS: THIAMINE HCL 100 MG TABLET (FP) PO SCH (21:02)
[2022-04-30] MEDS: QUEtiapine FUMARATE 100 MG TABLET (FP) PO SCH (21:02)
[2022-04-30] MEDS: TAMSULOSIN HCL 0.4 MG CAP PO SCH (21:02)
[2022-05-01] MEDS ORDERED: methaDONE HCL 10 MG TABLET ONE (03:50)
[2022-05-01] MEDS ORDERED: methaDONE HCL 40 MG DISPERSABLE TABLET ONE (03:50)
[2022-05-01] MEDS: PRENATAL VITAMINS W/ FOLIC ACID TABLET (FP) PO SCH (09:23)
[2022-05-01] MEDS: FLUTICASONE PROP 0.05% 16 GM NASAL SPRAY NS SCH ×2 (09:24→21:17)
[2022-05-01] MEDS: BUDESONIDE/FORMETEROL FUMARATE 80/4.5 mcg INHALER IH SCH ×2 (09:24→21:16)
[2022-05-01] MEDS: GABAPENTIN 300 MG CAPSULE PO SCH ×2 (09:25→21:16)
[2022-05-01] MEDS: LISINOPRIL 10 MG TABLET PO SCH (09:25)
[2022-05-01] MEDS: LORATADINE 10 MG TABLET PO SCH (09:25)
[2022-05-01] MEDS: FAMOTIDINE 20 MG TABLET PO SCH (09:25)
[2022-05-01] MEDS: HYDROCHLOROTHIAZIDE 12.5 MG CAPSULE (FP) PO SCH ×2 (09:25→09:31)
[2022-05-01] MEDS: ASPIRIN 81 MG CHEWABLE TABLETS PO SCH (09:25)
[2022-05-01] MEDS: PANTOPRAZOLE 40 MG TABLET PO SCH (09:25)
[2022-05-01] MEDS: FUROSEMIDE 20 MG TABLET (FP) PO SCH (09:26)
[2022-05-01] MEDS: NICOTINE 7 MG/24 HOURS TOPICAL PATCH TD SCH (09:26)
[2022-05-01] MEDS: METHYL SALICYLATE/MENTHOL OINT 30 GM TUBE TP SCH ×2 (09:26→21:15)
[2022-05-01] MEDS: LIDOCAINE 5% TOPICAL PATCH TP SCH (09:26)
[2022-05-01] MEDS: IBUPROFEN 600 MG TABLET (FP) PO PRN ×2 (09:28→21:15)
[2022-05-01] MEDS: QUEtiapine FUMARATE 100 MG TABLET (FP) PO SCH (21:16)
[2022-05-01] MEDS: THIAMINE HCL 100 MG TABLET (FP) PO SCH (21:17)
[2022-05-01] MEDS: TAMSULOSIN HCL 0.4 MG CAP PO SCH (21:17)
[2022-05-01] MEDS: hydrOXYzine PAMOATE 25 MG CAPSULE (FP) PO PRN (21:17)
[2022-05-02] MEDS ORDERED: methaDONE HCL 40 MG DISPERSABLE TABLET ONE (04:01)
[2022-05-02] MEDS ORDERED: methaDONE HCL 10 MG TABLET ONE (04:01)
[2022-05-02] MEDS: BUDESONIDE/FORMETEROL FUMARATE 80/4.5 mcg INHALER IH SCH ×2 (09:41→21:11)
[2022-05-02] MEDS: FUROSEMIDE 20 MG TABLET (FP) PO SCH (09:42)
[2022-05-02] MEDS: LISINOPRIL 10 MG TABLET PO SCH (09:42)
[2022-05-02] MEDS: PANTOPRAZOLE 40 MG TABLET PO SCH (09:42)
[2022-05-02] MEDS: LORATADINE 10 MG TABLET PO SCH (09:42)
[2022-05-02] MEDS: GABAPENTIN 300 MG CAPSULE PO SCH ×2 (09:42→21:07)
[2022-05-02] MEDS: FLUTICASONE PROP 0.05% 16 GM NASAL SPRAY NS SCH ×2 (09:42→21:11)
[2022-05-02] MEDS: HYDROCHLOROTHIAZIDE 12.5 MG CAPSULE (FP) PO SCH (09:42)
[2022-05-02] MEDS: FAMOTIDINE 20 MG TABLET PO SCH (09:42)
[2022-05-02] MEDS: ASPIRIN 81 MG CHEWABLE TABLETS PO SCH (09:43)
[2022-05-02] MEDS: PRENATAL VITAMINS W/ FOLIC ACID TABLET (FP) PO SCH (09:43)
[2022-05-02] MEDS: LIDOCAINE 5% TOPICAL PATCH TP SCH (09:44)
[2022-05-02] MEDS: METHYL SALICYLATE/MENTHOL OINT 30 GM TUBE TP SCH ×2 (09:44→21:07)
[2022-05-02] MEDS: IBUPROFEN 600 MG TABLET (FP) PO PRN ×2 (09:46→21:07)
[2022-05-02] MEDS: NICOTINE 7 MG/24 HOURS TOPICAL PATCH TD SCH (09:46)
[2022-05-02] MEDS: TAMSULOSIN HCL 0.4 MG CAP PO SCH (21:07)
[2022-05-02] MEDS: THIAMINE HCL 100 MG TABLET (FP) PO SCH (21:07)
[2022-05-02] MEDS: QUEtiapine FUMARATE 100 MG TABLET (FP) PO SCH (21:08)
[2022-05-02] MEDS: hydrOXYzine PAMOATE 25 MG CAPSULE (FP) PO PRN (21:08)
[2022-05-02] MEDS: BACLOFEN 10 MG TABLET (FP) PO PRN (21:10)
[2022-05-03] MEDS ORDERED: methaDONE HCL 10 MG TABLET ONE (03:49)
[2022-05-03] MEDS ORDERED: methaDONE HCL 40 MG DISPERSABLE TABLET ONE (03:50)
[2022-05-03] MEDS: BUDESONIDE/FORMETEROL FUMARATE 80/4.5 mcg INHALER IH SCH ×2 (09:40→21:05)
[2022-05-03] MEDS: PRENATAL VITAMINS W/ FOLIC ACID TABLET (FP) PO SCH (09:40)
[2022-05-03] MEDS: FLUTICASONE PROP 0.05% 16 GM NASAL SPRAY NS SCH ×2 (09:41→21:06)
[2022-05-03] MEDS: LIDOCAINE 5% TOPICAL PATCH TP SCH (09:41)
[2022-05-03] MEDS: PANTOPRAZOLE 40 MG TABLET PO SCH (09:42)
[2022-05-03] MEDS: LORATADINE 10 MG TABLET PO SCH (09:42)
[2022-05-03] MEDS: FUROSEMIDE 20 MG TABLET (FP) PO SCH (09:42)
[2022-05-03] MEDS: NICOTINE 7 MG/24 HOURS TOPICAL PATCH TD SCH (09:42)
[2022-05-03] MEDS: ASPIRIN 81 MG CHEWABLE TABLETS PO SCH (09:42)
[2022-05-03] MEDS: GABAPENTIN 300 MG CAPSULE PO SCH ×2 (09:42→21:06)
[2022-05-03] MEDS: FAMOTIDINE 20 MG TABLET PO SCH (09:42)
[2022-05-03] MEDS: LISINOPRIL 10 MG TABLET PO SCH (09:42)
[2022-05-03] MEDS: HYDROCHLOROTHIAZIDE 12.5 MG CAPSULE (FP) PO SCH (09:43)
[2022-05-03] MEDS: METHYL SALICYLATE/MENTHOL OINT 30 GM TUBE TP SCH ×2 (09:43→21:07)
[2022-05-03] MEDS: IBUPROFEN 600 MG TABLET (FP) PO PRN ×2 (09:43→21:08)
[2022-05-03] MEDS: METHOCARBAMOL 500 MG TABLET PO PRN (09:46)
[2022-05-03] MEDS: BACITRACIN 0.9 GM PACKET TP SCH ×2 (13:42→21:05)
[2022-05-03] MEDS: QUEtiapine FUMARATE 100 MG TABLET (FP) PO SCH (21:06)
[2022-05-03] MEDS: TAMSULOSIN HCL 0.4 MG CAP PO SCH (21:06)
[2022-05-03] MEDS: THIAMINE HCL 100 MG TABLET (FP) PO SCH (21:06)
[2022-05-03] MEDS: BACLOFEN 10 MG TABLET (FP) PO PRN (21:06)
[2022-05-03] MEDS: hydrOXYzine PAMOATE 25 MG CAPSULE (FP) PO PRN (21:07)
[2022-05-04] MEDS ORDERED: methaDONE HCL 40 MG DISPERSABLE TABLET ONE (03:41)
[2022-05-04] MEDS ORDERED: methaDONE HCL 10 MG TABLET ONE (03:41)
[2022-05-04] MEDS: BACITRACIN 0.9 GM PACKET TP SCH ×3 (07:35→21:07)
[2022-05-04] MEDS: PRENATAL VITAMINS W/ FOLIC ACID TABLET (FP) PO SCH (09:22)
[2022-05-04] MEDS: NICOTINE 7 MG/24 HOURS TOPICAL PATCH TD SCH (09:23)
[2022-05-04] MEDS: METHYL SALICYLATE/MENTHOL OINT 30 GM TUBE TP SCH ×2 (09:23→21:09)
[2022-05-04] MEDS: FLUTICASONE PROP 0.05% 16 GM NASAL SPRAY NS SCH ×2 (09:23→21:07)
[2022-05-04] MEDS: BUDESONIDE/FORMETEROL FUMARATE 80/4.5 mcg INHALER IH SCH ×2 (09:23→21:09)
[2022-05-04] MEDS: LISINOPRIL 10 MG TABLET PO SCH (09:24)
[2022-05-04] MEDS: HYDROCHLOROTHIAZIDE 12.5 MG CAPSULE (FP) PO SCH (09:24)
[2022-05-04] MEDS: FAMOTIDINE 20 MG TABLET PO SCH (09:24)
[2022-05-04] MEDS: PANTOPRAZOLE 40 MG TABLET PO SCH (09:24)
[2022-05-04] MEDS: LORATADINE 10 MG TABLET PO SCH (09:24)
[2022-05-04] MEDS: FUROSEMIDE 20 MG TABLET (FP) PO SCH (09:24)
[2022-05-04] MEDS: GABAPENTIN 300 MG CAPSULE PO SCH ×2 (09:24→21:08)
[2022-05-04] MEDS: ASPIRIN 81 MG CHEWABLE TABLETS PO SCH (09:24)
[2022-05-04] MEDS: LIDOCAINE 5% TOPICAL PATCH TP SCH (09:25)
[2022-05-04] MEDS: METHOCARBAMOL 500 MG TABLET PO PRN ×2 (09:27→21:08)
[2022-05-04] MEDS: IBUPROFEN 600 MG TABLET (FP) PO PRN ×2 (09:27→21:08)
[2022-05-04] MEDS: TAMSULOSIN HCL 0.4 MG CAP PO SCH (21:08)
[2022-05-04] MEDS: QUEtiapine FUMARATE 100 MG TABLET (FP) PO SCH (21:08)
[2022-05-04] MEDS: THIAMINE HCL 100 MG TABLET (FP) PO SCH (21:08)
[2022-05-05] MEDS ORDERED: methaDONE HCL 10 MG TABLET ONE (03:04)
[2022-05-05] MEDS ORDERED: methaDONE HCL 40 MG DISPERSABLE TABLET ONE (03:05)
[2022-05-05] MEDS: PRENATAL VITAMINS W/ FOLIC ACID TABLET (FP) PO SCH (09:29)
[2022-05-05] MEDS: LIDOCAINE 5% TOPICAL PATCH TP SCH (09:29)
[2022-05-05] MEDS: NICOTINE 7 MG/24 HOURS TOPICAL PATCH TD SCH (09:29)
[2022-05-05] MEDS: METHYL SALICYLATE/MENTHOL OINT 30 GM TUBE TP SCH ×2 (09:30→21:14)
[2022-05-05] MEDS: GABAPENTIN 300 MG CAPSULE PO SCH ×2 (09:30→21:12)
[2022-05-05] MEDS: ASPIRIN 81 MG CHEWABLE TABLETS PO SCH (09:30)
[2022-05-05] MEDS: LISINOPRIL 10 MG TABLET PO SCH (09:30)
[2022-05-05] MEDS: LORATADINE 10 MG TABLET PO SCH (09:30)
[2022-05-05] MEDS: BACITRACIN 0.9 GM PACKET TP SCH ×2 (09:30→21:13)
[2022-05-05] MEDS: FAMOTIDINE 20 MG TABLET PO SCH (09:30)
[2022-05-05] MEDS: PANTOPRAZOLE 40 MG TABLET PO SCH (09:30)
[2022-05-05] MEDS: HYDROCHLOROTHIAZIDE 12.5 MG CAPSULE (FP) PO SCH (09:30)
[2022-05-05] MEDS: METHOCARBAMOL 500 MG TABLET PO PRN (09:32)
[2022-05-05] MEDS: IBUPROFEN 600 MG TABLET (FP) PO PRN ×2 (09:32→21:14)
[2022-05-05] MEDS: BUDESONIDE/FORMETEROL FUMARATE 80/4.5 mcg INHALER IH SCH ×2 (09:33→21:12)
[2022-05-05] MEDS: FLUTICASONE PROP 0.05% 16 GM NASAL SPRAY NS SCH ×2 (09:33→21:14)
[2022-05-05] MEDS: FUROSEMIDE 20 MG TABLET (FP) PO SCH (09:33)
[2022-05-05] MEDS: QUEtiapine FUMARATE 100 MG TABLET (FP) PO SCH (21:13)
[2022-05-05] MEDS: THIAMINE HCL 100 MG TABLET (FP) PO SCH (21:13)
[2022-05-05] MEDS: TAMSULOSIN HCL 0.4 MG CAP PO SCH (21:13)
[2022-05-05] MEDS: BACLOFEN 10 MG TABLET (FP) PO PRN (21:14)
[2022-05-06] MEDS ORDERED: methaDONE HCL 40 MG DISPERSABLE TABLET ONE (03:05)
[2022-05-06] MEDS ORDERED: methaDONE HCL 10 MG TABLET ONE (03:05)
[2022-05-06] MEDS: FAMOTIDINE 20 MG TABLET PO SCH (09:36)
[2022-05-06] MEDS: PANTOPRAZOLE 40 MG TABLET PO SCH (09:36)
[2022-05-06] MEDS: GABAPENTIN 300 MG CAPSULE PO SCH ×2 (09:36→21:18)
[2022-05-06] MEDS: BACITRACIN 0.9 GM PACKET TP SCH ×2 (09:36→21:17)
[2022-05-06] MEDS: FLUTICASONE PROP 0.05% 16 GM NASAL SPRAY NS SCH ×2 (09:37→21:21)
[2022-05-06] MEDS: HYDROCHLOROTHIAZIDE 12.5 MG CAPSULE (FP) PO SCH (09:37)
[2022-05-06] MEDS: ASPIRIN 81 MG CHEWABLE TABLETS PO SCH (09:37)
[2022-05-06] MEDS: IBUPROFEN 600 MG TABLET (FP) PO PRN ×2 (09:38→21:21)
[2022-05-06] MEDS: LISINOPRIL 10 MG TABLET PO SCH (09:38)
[2022-05-06] MEDS: BACLOFEN 10 MG TABLET (FP) PO PRN (09:38)
[2022-05-06] MEDS: FUROSEMIDE 20 MG TABLET (FP) PO SCH (09:38)
[2022-05-06] MEDS: NICOTINE 7 MG/24 HOURS TOPICAL PATCH TD SCH (09:39)
[2022-05-06] MEDS: METHYL SALICYLATE/MENTHOL OINT 30 GM TUBE TP SCH ×2 (09:42→21:17)
[2022-05-06] MEDS: BUDESONIDE/FORMETEROL FUMARATE 80/4.5 mcg INHALER IH SCH ×2 (09:43→21:17)
[2022-05-06] MEDS: LIDOCAINE 5% TOPICAL PATCH TP SCH (09:43)
[2022-05-06] MEDS: PRENATAL VITAMINS W/ FOLIC ACID TABLET (FP) PO SCH (09:43)
[2022-05-06] MEDS: LORATADINE 10 MG TABLET PO SCH (10:13)
[2022-05-06] MEDS: TAMSULOSIN HCL 0.4 MG CAP PO SCH (21:18)
[2022-05-06] MEDS: QUEtiapine FUMARATE 100 MG TABLET (FP) PO SCH (21:18)
[2022-05-06] MEDS: THIAMINE HCL 100 MG TABLET (FP) PO SCH (21:18)
[2022-05-06] MEDS: METHOCARBAMOL 500 MG TABLET PO PRN (21:20)
[2022-05-07] MEDS ORDERED: methaDONE HCL 10 MG TABLET ONE (03:20)
[2022-05-07] MEDS ORDERED: methaDONE HCL 40 MG DISPERSABLE TABLET ONE (03:20)
[2022-05-07] MEDS: NICOTINE 7 MG/24 HOURS TOPICAL PATCH TD SCH (09:38)
[2022-05-07] MEDS: FLUTICASONE PROP 0.05% 16 GM NASAL SPRAY NS SCH ×2 (09:38→21:08)
[2022-05-07] MEDS: FUROSEMIDE 20 MG TABLET (FP) PO SCH (09:38)
[2022-05-07] MEDS: PRENATAL VITAMINS W/ FOLIC ACID TABLET (FP) PO SCH (09:38)
[2022-05-07] MEDS: GABAPENTIN 300 MG CAPSULE PO SCH ×2 (09:38→21:09)
[2022-05-07] MEDS: FAMOTIDINE 20 MG TABLET PO SCH (09:39)
[2022-05-07] MEDS: LISINOPRIL 10 MG TABLET PO SCH (09:39)
[2022-05-07] MEDS: HYDROCHLOROTHIAZIDE 12.5 MG CAPSULE (FP) PO SCH (09:39)
[2022-05-07] MEDS: LORATADINE 10 MG TABLET PO SCH (09:39)
[2022-05-07] MEDS: ASPIRIN 81 MG CHEWABLE TABLETS PO SCH (09:39)
[2022-05-07] MEDS: PANTOPRAZOLE 40 MG TABLET PO SCH (09:39)
[2022-05-07] MEDS: LIDOCAINE 5% TOPICAL PATCH TP SCH (09:40)
[2022-05-07] MEDS: BUDESONIDE/FORMETEROL FUMARATE 80/4.5 mcg INHALER IH SCH ×2 (09:40→21:10)
[2022-05-07] MEDS: BACITRACIN 0.9 GM PACKET TP SCH ×2 (09:40→21:09)
[2022-05-07] MEDS: METHYL SALICYLATE/MENTHOL OINT 30 GM TUBE TP SCH ×2 (09:40→21:09)
[2022-05-07] MEDS: METHOCARBAMOL 500 MG TABLET PO PRN ×2 (09:41→21:09)
[2022-05-07] MEDS: IBUPROFEN 600 MG TABLET (FP) PO PRN ×2 (09:41→21:12)
[2022-05-07] MEDS: TAMSULOSIN HCL 0.4 MG CAP PO SCH (21:09)
[2022-05-07] MEDS: QUEtiapine FUMARATE 100 MG TABLET (FP) PO SCH (21:09)
[2022-05-07] MEDS: THIAMINE HCL 100 MG TABLET (FP) PO SCH (21:10)
[2022-05-08] MEDS ORDERED: methaDONE HCL 10 MG TABLET ONE (04:10)
[2022-05-08] MEDS ORDERED: methaDONE HCL 40 MG DISPERSABLE TABLET ONE (04:11)
[2022-05-08] MEDS: PRENATAL VITAMINS W/ FOLIC ACID TABLET (FP) PO SCH (09:43)
[2022-05-08] MEDS: GABAPENTIN 300 MG CAPSULE PO SCH ×2 (09:44→21:08)
[2022-05-08] MEDS: FAMOTIDINE 20 MG TABLET PO SCH (09:44)
[2022-05-08] MEDS: BACLOFEN 10 MG TABLET (FP) PO PRN (09:44)
[2022-05-08] MEDS: BACITRACIN 0.9 GM PACKET TP SCH ×2 (09:44→21:08)
[2022-05-08] MEDS: FLUTICASONE PROP 0.05% 16 GM NASAL SPRAY NS SCH ×2 (09:44→21:07)
[2022-05-08] MEDS: IBUPROFEN 600 MG TABLET (FP) PO PRN ×2 (09:45→21:09)
[2022-05-08] MEDS: PANTOPRAZOLE 40 MG TABLET PO SCH (09:45)
[2022-05-08] MEDS: FUROSEMIDE 20 MG TABLET (FP) PO SCH (09:45)
[2022-05-08] MEDS: HYDROCHLOROTHIAZIDE 12.5 MG CAPSULE (FP) PO SCH (09:45)
[2022-05-08] MEDS: ASPIRIN 81 MG CHEWABLE TABLETS PO SCH (09:45)
[2022-05-08] MEDS: LISINOPRIL 10 MG TABLET PO SCH (09:45)
[2022-05-08] MEDS: LORATADINE 10 MG TABLET PO SCH (09:45)
[2022-05-08] MEDS: NICOTINE 7 MG/24 HOURS TOPICAL PATCH TD SCH (09:46)
[2022-05-08] MEDS: LIDOCAINE 5% TOPICAL PATCH TP SCH (09:47)
[2022-05-08] MEDS: BUDESONIDE/FORMETEROL FUMARATE 80/4.5 mcg INHALER IH SCH ×2 (09:47→21:07)
[2022-05-08] MEDS: METHYL SALICYLATE/MENTHOL OINT 30 GM TUBE TP SCH ×2 (10:27→21:10)
[2022-05-08] MEDS: THIAMINE HCL 100 MG TABLET (FP) PO SCH (21:08)
[2022-05-08] MEDS: METHOCARBAMOL 500 MG TABLET PO PRN (21:08)
[2022-05-08] MEDS: QUEtiapine FUMARATE 100 MG TABLET (FP) PO SCH (21:08)
[2022-05-08] MEDS: TAMSULOSIN HCL 0.4 MG CAP PO SCH (21:08)
[2022-05-09] MEDS ORDERED: methaDONE HCL 40 MG DISPERSABLE TABLET ONE (05:47)
[2022-05-09] MEDS ORDERED: methaDONE HCL 10 MG TABLET ONE (05:47)
[2022-05-09] MEDS: HYDROCHLOROTHIAZIDE 12.5 MG CAPSULE (FP) PO SCH (09:44)
[2022-05-09] MEDS: BACLOFEN 10 MG TABLET (FP) PO PRN (09:44)
[2022-05-09] MEDS: PRENATAL VITAMINS W/ FOLIC ACID TABLET (FP) PO SCH (09:44)
[2022-05-09] MEDS: FLUTICASONE PROP 0.05% 16 GM NASAL SPRAY NS SCH ×2 (09:44→21:11)
[2022-05-09] MEDS: PANTOPRAZOLE 40 MG TABLET PO SCH (09:45)
[2022-05-09] MEDS: FAMOTIDINE 20 MG TABLET PO SCH (09:45)
[2022-05-09] MEDS: IBUPROFEN 600 MG TABLET (FP) PO PRN ×2 (09:45→21:11)
[2022-05-09] MEDS: ASPIRIN 81 MG CHEWABLE TABLETS PO SCH (09:45)
[2022-05-09] MEDS: LISINOPRIL 10 MG TABLET PO SCH (09:45)
[2022-05-09] MEDS: BACITRACIN 0.9 GM PACKET TP SCH ×2 (09:46→21:12)
[2022-05-09] MEDS: METHYL SALICYLATE/MENTHOL OINT 30 GM TUBE TP SCH ×2 (09:47→21:12)
[2022-05-09] MEDS: LORATADINE 10 MG TABLET PO SCH (09:47)
[2022-05-09] MEDS: LIDOCAINE 5% TOPICAL PATCH TP SCH (09:47)
[2022-05-09] MEDS: FUROSEMIDE 20 MG TABLET (FP) PO SCH (09:49)
[2022-05-09] MEDS: NICOTINE 7 MG/24 HOURS TOPICAL PATCH TD SCH (09:49)
[2022-05-09] MEDS: GABAPENTIN 300 MG CAPSULE PO SCH ×2 (09:49→21:12)
[2022-05-09] MEDS: BUDESONIDE/FORMETEROL FUMARATE 80/4.5 mcg INHALER IH SCH ×2 (09:50→21:10)
[2022-05-09] MEDS: TAMSULOSIN HCL 0.4 MG CAP PO SCH (21:12)
[2022-05-09] MEDS: THIAMINE HCL 100 MG TABLET (FP) PO SCH (21:12)
[2022-05-09] MEDS: METHOCARBAMOL 500 MG TABLET PO PRN (21:12)
[2022-05-09] MEDS: QUEtiapine FUMARATE 100 MG TABLET (FP) PO SCH (21:12)
[2022-05-09] MEDS: hydrOXYzine PAMOATE 25 MG CAPSULE (FP) PO PRN (21:13)
[2022-05-10] MEDS ORDERED: methaDONE HCL 40 MG DISPERSABLE TABLET ONE (03:30)
[2022-05-10] MEDS ORDERED: methaDONE HCL 10 MG TABLET ONE (03:30)
[2022-05-10] MEDS: LIDOCAINE 5% TOPICAL PATCH TP SCH (09:35)
[2022-05-10] MEDS: NICOTINE 7 MG/24 HOURS TOPICAL PATCH TD SCH (09:35)
[2022-05-10] MEDS: PRENATAL VITAMINS W/ FOLIC ACID TABLET (FP) PO SCH (09:35)
[2022-05-10] MEDS: FLUTICASONE PROP 0.05% 16 GM NASAL SPRAY NS SCH ×2 (09:36→21:05)
[2022-05-10] MEDS: BUDESONIDE/FORMETEROL FUMARATE 80/4.5 mcg INHALER IH SCH ×2 (09:36→21:08)
[2022-05-10] MEDS: LORATADINE 10 MG TABLET PO SCH (09:37)
[2022-05-10] MEDS: LISINOPRIL 10 MG TABLET PO SCH (09:37)
[2022-05-10] MEDS: FAMOTIDINE 20 MG TABLET PO SCH (09:37)
[2022-05-10] MEDS: GABAPENTIN 300 MG CAPSULE PO SCH ×2 (09:37→21:06)
[2022-05-10] MEDS: FUROSEMIDE 20 MG TABLET (FP) PO SCH (09:38)
[2022-05-10] MEDS: BACITRACIN 0.9 GM PACKET TP SCH ×2 (09:38→21:11)
[2022-05-10] MEDS: METHYL SALICYLATE/MENTHOL OINT 30 GM TUBE TP SCH ×2 (09:38→21:08)
[2022-05-10] MEDS: PANTOPRAZOLE 40 MG TABLET PO SCH (09:38)
[2022-05-10] MEDS: ASPIRIN 81 MG CHEWABLE TABLETS PO SCH (09:38)
[2022-05-10] MEDS: HYDROCHLOROTHIAZIDE 12.5 MG CAPSULE (FP) PO SCH (09:38)
[2022-05-10] MEDS: IBUPROFEN 400 MG TABLET (FP) PO PRN (09:41)
[2022-05-10] MEDS: METHOCARBAMOL 500 MG TABLET PO PRN (09:41)
[2022-05-10] MEDS: TAMSULOSIN HCL 0.4 MG CAP PO SCH (21:06)
[2022-05-10] MEDS: QUEtiapine FUMARATE 100 MG TABLET (FP) PO SCH (21:06)
[2022-05-10] MEDS: THIAMINE HCL 100 MG TABLET (FP) PO SCH (21:06)
[2022-05-10] MEDS: IBUPROFEN 600 MG TABLET (FP) PO PRN (21:07)
[2022-05-10] MEDS: BACLOFEN 10 MG TABLET (FP) PO PRN (21:07)
[2022-05-11] MEDS ORDERED: methaDONE HCL 10 MG TABLET ONE (03:58)
[2022-05-11] MEDS ORDERED: methaDONE HCL 40 MG DISPERSABLE TABLET ONE (03:58)
[2022-05-11] MEDS: BACITRACIN 0.9 GM PACKET TP SCH ×2 (09:51→21:13)
[2022-05-11] MEDS: PRENATAL VITAMINS W/ FOLIC ACID TABLET (FP) PO SCH (09:51)
[2022-05-11] MEDS: METHYL SALICYLATE/MENTHOL OINT 30 GM TUBE TP SCH ×2 (09:51→21:13)
[2022-05-11] MEDS: ASPIRIN 81 MG CHEWABLE TABLETS PO SCH (09:51)
[2022-05-11] MEDS: FLUTICASONE PROP 0.05% 16 GM NASAL SPRAY NS SCH ×2 (09:51→21:13)
[2022-05-11] MEDS: PANTOPRAZOLE 40 MG TABLET PO SCH (09:51)
[2022-05-11] MEDS: GABAPENTIN 300 MG CAPSULE PO SCH ×2 (09:52→21:13)
[2022-05-11] MEDS: FAMOTIDINE 20 MG TABLET PO SCH (09:52)
[2022-05-11] MEDS: IBUPROFEN 600 MG TABLET (FP) PO PRN ×2 (09:52→21:15)
[2022-05-11] MEDS: HYDROCHLOROTHIAZIDE 12.5 MG CAPSULE (FP) PO SCH (09:52)
[2022-05-11] MEDS: LISINOPRIL 10 MG TABLET PO SCH (09:52)
[2022-05-11] MEDS: BACLOFEN 10 MG TABLET (FP) PO PRN (09:52)
[2022-05-11] MEDS: LORATADINE 10 MG TABLET PO SCH (09:52)
[2022-05-11] MEDS: BUDESONIDE/FORMETEROL FUMARATE 80/4.5 mcg INHALER IH SCH ×2 (09:54→21:13)
[2022-05-11] MEDS: NICOTINE 7 MG/24 HOURS TOPICAL PATCH TD SCH (09:55)
[2022-05-11] MEDS: FUROSEMIDE 20 MG TABLET (FP) PO SCH (09:56)
[2022-05-11] MEDS: LIDOCAINE 5% TOPICAL PATCH TP SCH (09:56)
[2022-05-11] MEDS: THIAMINE HCL 100 MG TABLET (FP) PO SCH (21:13)
[2022-05-11] MEDS: TAMSULOSIN HCL 0.4 MG CAP PO SCH (21:13)
[2022-05-11] MEDS: METHOCARBAMOL 500 MG TABLET PO PRN (21:13)
[2022-05-11] MEDS: QUEtiapine FUMARATE 100 MG TABLET (FP) PO SCH (21:13)
[2022-05-11] MEDS: hydrOXYzine PAMOATE 25 MG CAPSULE (FP) PO PRN (21:17)
[2022-05-12] MEDS ORDERED: methaDONE HCL 40 MG DISPERSABLE TABLET ONE (04:03)
[2022-05-12] MEDS ORDERED: methaDONE HCL 10 MG TABLET ONE (04:03)
[2022-05-12] MEDS: FLUTICASONE PROP 0.05% 16 GM NASAL SPRAY NS SCH ×2 (09:59→21:19)
[2022-05-12] MEDS: PRENATAL VITAMINS W/ FOLIC ACID TABLET (FP) PO SCH (09:59)
[2022-05-12] MEDS: BACITRACIN 0.9 GM PACKET TP SCH ×2 (09:59→21:19)
[2022-05-12] MEDS: IBUPROFEN 600 MG TABLET (FP) PO PRN ×2 (10:00→21:21)
[2022-05-12] MEDS: BACLOFEN 10 MG TABLET (FP) PO PRN (10:00)
[2022-05-12] MEDS: GABAPENTIN 300 MG CAPSULE PO SCH ×2 (10:00→21:20)
[2022-05-12] MEDS: HYDROCHLOROTHIAZIDE 12.5 MG CAPSULE (FP) PO SCH (10:00)
[2022-05-12] MEDS: NICOTINE 7 MG/24 HOURS TOPICAL PATCH TD SCH (10:00)
[2022-05-12] MEDS: ASPIRIN 81 MG CHEWABLE TABLETS PO SCH (10:01)
[2022-05-12] MEDS: FAMOTIDINE 20 MG TABLET PO SCH (10:01)
[2022-05-12] MEDS: LORATADINE 10 MG TABLET PO SCH (10:01)
[2022-05-12] MEDS: LISINOPRIL 10 MG TABLET PO SCH (10:01)
[2022-05-12] MEDS: PANTOPRAZOLE 40 MG TABLET PO SCH (10:01)
[2022-05-12] MEDS: FUROSEMIDE 20 MG TABLET (FP) PO SCH (10:03)
[2022-05-12] MEDS: LIDOCAINE 5% TOPICAL PATCH TP SCH (10:03)
[2022-05-12] MEDS: BUDESONIDE/FORMETEROL FUMARATE 80/4.5 mcg INHALER IH SCH ×2 (10:04→21:20)
[2022-05-12] MEDS: METHYL SALICYLATE/MENTHOL OINT 30 GM TUBE TP SCH ×2 (11:22→21:19)
[2022-05-12] MEDS: TAMSULOSIN HCL 0.4 MG CAP PO SCH (21:20)
[2022-05-12] MEDS: METHOCARBAMOL 500 MG TABLET PO PRN (21:20)
[2022-05-12] MEDS: THIAMINE HCL 100 MG TABLET (FP) PO SCH (21:20)
[2022-05-12] MEDS: QUEtiapine FUMARATE 100 MG TABLET (FP) PO SCH (21:20)
[2022-05-12] MEDS: hydrOXYzine PAMOATE 25 MG CAPSULE (FP) PO PRN (21:22)
[2022-05-13] MEDS ORDERED: methaDONE HCL 10 MG TABLET ONE (03:45)
[2022-05-13] MEDS ORDERED: methaDONE HCL 40 MG DISPERSABLE TABLET ONE (03:45)
[2022-05-13] MEDS: BACITRACIN 0.9 GM PACKET TP SCH ×2 (09:35→21:06)
[2022-05-13] MEDS: FLUTICASONE PROP 0.05% 16 GM NASAL SPRAY NS SCH ×2 (09:35→21:06)
[2022-05-13] MEDS: FAMOTIDINE 20 MG TABLET PO SCH (09:35)
[2022-05-13] MEDS: BACLOFEN 10 MG TABLET (FP) PO PRN (09:36)
[2022-05-13] MEDS: LISINOPRIL 10 MG TABLET PO SCH (09:37)
[2022-05-13] MEDS: LORATADINE 10 MG TABLET PO SCH (09:37)
[2022-05-13] MEDS: HYDROCHLOROTHIAZIDE 12.5 MG CAPSULE (FP) PO SCH (09:37)
[2022-05-13] MEDS: PANTOPRAZOLE 40 MG TABLET PO SCH (09:37)
[2022-05-13] MEDS: ASPIRIN 81 MG CHEWABLE TABLETS PO SCH (09:37)
[2022-05-13] MEDS: IBUPROFEN 600 MG TABLET (FP) PO PRN (09:37)
[2022-05-13] MEDS: GABAPENTIN 300 MG CAPSULE PO SCH ×2 (09:37→21:06)
[2022-05-13] MEDS: LIDOCAINE 5% TOPICAL PATCH TP SCH (09:38)
[2022-05-13] MEDS: METHYL SALICYLATE/MENTHOL OINT 30 GM TUBE TP SCH ×2 (09:40→21:07)
[2022-05-13] MEDS: PRENATAL VITAMINS W/ FOLIC ACID TABLET (FP) PO SCH (09:40)
[2022-05-13] MEDS: FUROSEMIDE 20 MG TABLET (FP) PO SCH (09:40)
[2022-05-13] MEDS: NICOTINE 7 MG/24 HOURS TOPICAL PATCH TD SCH (09:40)
[2022-05-13] MEDS: BUDESONIDE/FORMETEROL FUMARATE 80/4.5 mcg INHALER IH SCH ×2 (09:41→21:07)
[2022-05-13] MEDS: QUEtiapine FUMARATE 100 MG TABLET (FP) PO SCH (21:06)
[2022-05-13] MEDS: THIAMINE HCL 100 MG TABLET (FP) PO SCH (21:06)
[2022-05-13] MEDS: METHOCARBAMOL 500 MG TABLET PO PRN (21:06)
[2022-05-13] MEDS: TAMSULOSIN HCL 0.4 MG CAP PO SCH (21:07)
[2022-05-13] MEDS: hydrOXYzine PAMOATE 25 MG CAPSULE (FP) PO PRN (21:08)
[2022-05-14] MEDS ORDERED: methaDONE HCL 10 MG TABLET ONE (03:44)
[2022-05-14] MEDS ORDERED: methaDONE HCL 40 MG DISPERSABLE TABLET ONE (03:44)
[2022-05-14] MEDS: FAMOTIDINE 20 MG TABLET PO SCH (09:48)
[2022-05-14] MEDS: FUROSEMIDE 20 MG TABLET (FP) PO SCH (09:49)
[2022-05-14] MEDS: PANTOPRAZOLE 40 MG TABLET PO SCH (09:49)
[2022-05-14] MEDS: HYDROCHLOROTHIAZIDE 12.5 MG CAPSULE (FP) PO SCH (09:49)
[2022-05-14] MEDS: ASPIRIN 81 MG CHEWABLE TABLETS PO SCH (09:49)
[2022-05-14] MEDS: LISINOPRIL 10 MG TABLET PO SCH (09:49)
[2022-05-14] MEDS: GABAPENTIN 300 MG CAPSULE PO SCH ×2 (09:49→21:05)
[2022-05-14] MEDS: LORATADINE 10 MG TABLET PO SCH (09:49)
[2022-05-14] MEDS: BACITRACIN 0.9 GM PACKET TP SCH ×2 (09:51→21:05)
[2022-05-14] MEDS: BUDESONIDE/FORMETEROL FUMARATE 80/4.5 mcg INHALER IH SCH ×2 (09:51→22:00)
[2022-05-14] MEDS: METHYL SALICYLATE/MENTHOL OINT 30 GM TUBE TP SCH ×2 (09:51→21:59)
[2022-05-14] MEDS: FLUTICASONE PROP 0.05% 16 GM NASAL SPRAY NS SCH ×2 (09:52→21:05)
[2022-05-14] MEDS: IBUPROFEN 600 MG TABLET (FP) PO PRN ×2 (09:53→21:08)
[2022-05-14] MEDS: METHOCARBAMOL 500 MG TABLET PO PRN ×2 (09:53→21:05)
[2022-05-14] MEDS: LIDOCAINE 5% TOPICAL PATCH TP SCH (10:26)
[2022-05-14] MEDS: NICOTINE 7 MG/24 HOURS TOPICAL PATCH TD SCH (10:26)
[2022-05-14] MEDS: PRENATAL VITAMINS W/ FOLIC ACID TABLET (FP) PO SCH (10:27)
[2022-05-14] MEDS: QUEtiapine FUMARATE 100 MG TABLET (FP) PO SCH (21:05)
[2022-05-14] MEDS: TAMSULOSIN HCL 0.4 MG CAP PO SCH (21:05)
[2022-05-14] MEDS: THIAMINE HCL 100 MG TABLET (FP) PO SCH (21:05)
[2022-05-14] MEDS: hydrOXYzine PAMOATE 25 MG CAPSULE (FP) PO PRN (21:06)
[2022-05-15] MEDS ORDERED: methaDONE HCL 10 MG TABLET ONE (03:49)
[2022-05-15] MEDS ORDERED: methaDONE HCL 40 MG DISPERSABLE TABLET ONE (03:49)
[2022-05-15 06:57] VITALS: BP 110/60; PULSE 74; TEMP 98.2
[2022-05-15] MEDS: FLUTICASONE PROP 0.05% 16 GM NASAL SPRAY NS SCH (09:24)
[2022-05-15] MEDS: ASPIRIN 81 MG CHEWABLE TABLETS PO SCH (09:24)
[2022-05-15] MEDS: GABAPENTIN 300 MG CAPSULE PO SCH (09:24)
[2022-05-15] MEDS: PRENATAL VITAMINS W/ FOLIC ACID TABLET (FP) PO SCH (09:24)
[2022-05-15] MEDS: FAMOTIDINE 20 MG TABLET PO SCH (09:24)
[2022-05-15] MEDS: LORATADINE 10 MG TABLET PO SCH (09:24)
[2022-05-15] MEDS: PANTOPRAZOLE 40 MG TABLET PO SCH (09:24)
[2022-05-15] MEDS: BUDESONIDE/FORMETEROL FUMARATE 80/4.5 mcg INHALER IH SCH (09:24)
[2022-05-15] MEDS: HYDROCHLOROTHIAZIDE 12.5 MG CAPSULE (FP) PO SCH (09:25)
[2022-05-15] MEDS: METHYL SALICYLATE/MENTHOL OINT 30 GM TUBE TP SCH (09:25)
[2022-05-15] MEDS: LISINOPRIL 10 MG TABLET PO SCH (09:25)
[2022-05-15] MEDS: BACITRACIN 0.9 GM PACKET TP SCH (09:25)
[2022-05-15] MEDS: LIDOCAINE 5% TOPICAL PATCH TP SCH (09:25)
[2022-05-15] MEDS: NICOTINE 7 MG/24 HOURS TOPICAL PATCH TD SCH (09:28)
[2022-05-15] MEDS: IBUPROFEN 600 MG TABLET (FP) PO PRN (09:29)
[2022-05-15] MEDS: METHOCARBAMOL 500 MG TABLET PO PRN (09:30)
[2022-05-15] MEDS: FUROSEMIDE 20 MG TABLET (FP) PO SCH (09:30)
== END 2022-05-15 09:55 | disposition home or self-care (01) | DRG 772 ==
LOC: YASAS 15:03 → Y5N 15:04
PROVIDERS: ADMIT Allergy & Immunology; ATTEND Surgery
PROC: HZ42ZZZ Group Counseling for Substance Abuse Treatment, Cognitive-Behavioral (ICD-10-PCS; principal; 2022-04-24)
DX: F10.20 Alcohol dependence, uncomplicated (principal); F11.20 Opioid dependence, uncomplicated; F14.20 Cocaine dependence, uncomplicated; F17.210 Nicotine dependence, cigarettes, uncomplicated; F41.9 Anxiety disorder, unspecified; I10 Essential (primary) hypertension; J45.20 Mild intermittent asthma, uncomplicated; K21.9 Gastro-esophageal reflux disease without esophagitis; N40.1 Benign prostatic hyperplasia with lower urinary tract symptoms; N39.43 Post-void dribbling; R60.0 Localized edema; Z20.2 Contact with and (suspected) exposure to infections with a predominantly sexual mode of transmission; Z99.89 Dependence on other enabling machines and devices; Z59.01 Sheltered homelessness
CPT/HCPCS: 36415; 81003; 87389; J0475

== ENCOUNTER 2022-11-29 13:23 | Inpatient (IN) | payer OTHER ==
[2022-11-29 14:13] VITALS: BMI 26.4
[2022-11-29] MEDS ORDERED: MAG HYDROX/AL HYDROX/SIMETH 30 ML UNIT-DOSE CUP PO PRN (15:38)
[2022-11-29] MEDS ORDERED: MAGNESIUM HYDROX 2400MG/30ML ORAL SUSPENSION 30 ML CUP PO PRN (15:38)
[2022-11-29] MEDS ORDERED: ACETAMINOPHEN 325 MG TABLET (FP) PO PRN (15:38)
[2022-11-29] MEDS ORDERED: NICOTINE 10 MG CARTRIDGE (INHALER) IH PRN (15:38)
[2022-11-29] MEDS ORDERED: ONDANSETRON *ODT* 4 MG TABLET SL PRN (15:38)
[2022-11-29] MEDS ORDERED: LOPERAMIDE HCL 2 MG CAPSULE PO PRN (15:38)
[2022-11-29] MEDS ORDERED: BISMUTH SUBSALICYLATE 524 MG/30 ML PO PRN (15:38)
[2022-11-29] MEDS ORDERED: POLYETHYLENE GLYCOL (HEALTHYLAX) 3350 17 GM PACKET PO PRN (15:38)
[2022-11-29] MEDS ORDERED: NALOXONE HCL (KLOXXADO) 8 MG SPRAY NS PRN (15:38)
[2022-11-29] MEDS ORDERED: DICYCLOMINE HCL 10 MG CAPSULE PO PRN (15:38)
[2022-11-29] MEDS ORDERED: LORazepam 1 MG TABLET PO PRN (15:38)
[2022-11-29] MEDS ORDERED: BENZOCAINE/MENTHOL (CHLORASEPTIC ) LOZENGE MM PRN (15:38)
[2022-11-29] MEDS: PRENATAL VITAMINS W/ FOLIC ACID TABLET (FP) PO SCH (16:19)
[2022-11-29] MEDS: hydrOXYzine PAMOATE 25 MG CAPSULE (FP) PO PRN (18:43)
[2022-11-29] MEDS: IBUPROFEN 600 MG TABLET (FP) PO PRN (18:43)
[2022-11-29] MEDS: METHOCARBAMOL 500 MG TABLET PO PRN (18:43)
[2022-11-29] MEDS: LIDOCAINE 5% TOPICAL PATCH TP SCH (18:45)
[2022-11-29] MEDS: LORazepam 2 MG TABLET PO SCH ×2 (18:45→22:25)
[2022-11-29] MEDS: MELATONIN 5 MG TABLETS PO SCH (22:25)
[2022-11-29] MEDS: THIAMINE HCL 100 MG TABLET (FP) PO SCH (22:25)
[2022-11-29] MEDS: LIDOCAINE PATCH REMOVAL MC SCH (22:25)
[2022-11-30] MEDS: METHOCARBAMOL 500 MG TABLET PO PRN (02:52)
[2022-11-30] MEDS: hydrOXYzine PAMOATE 25 MG CAPSULE (FP) PO PRN (02:52)
[2022-11-30] MEDS: LORazepam 2 MG TABLET PO SCH ×4 (05:17→22:01)
[2022-11-30] MEDS: LIDOCAINE 5% TOPICAL PATCH TP SCH (10:14)
[2022-11-30] MEDS: PRENATAL VITAMINS W/ FOLIC ACID TABLET (FP) PO SCH (10:14)
[2022-11-30] MEDS: NICOTINE 7 MG/24 HOURS TOPICAL PATCH TD SCH (10:15)
[2022-11-30] MEDS: methaDONE HCL 40 MG DISPERSABLE TABLET PO SCH (11:03)
[2022-11-30] MEDS: IBUPROFEN 400 MG TABLET (FP) PO PRN (17:39)
[2022-11-30] MEDS: QUEtiapine FUMARATE 100 MG TABLET (FP) PO SCH (22:01)
[2022-11-30] MEDS: THIAMINE HCL 100 MG TABLET (FP) PO SCH (22:01)
[2022-11-30] MEDS: MELATONIN 5 MG TABLETS PO SCH (22:01)
[2022-11-30] MEDS: LIDOCAINE PATCH REMOVAL MC SCH (22:03)
[2022-12-01] MEDS: LORazepam 1 MG TABLET PO SCH ×4 (05:32→21:59)
[2022-12-01] MEDS: methaDONE HCL 40 MG DISPERSABLE TABLET PO SCH (05:32)
[2022-12-01] MEDS: PRENATAL VITAMINS W/ FOLIC ACID TABLET (FP) PO SCH (10:32)
[2022-12-01] MEDS: LIDOCAINE 5% TOPICAL PATCH TP SCH (10:33)
[2022-12-01] MEDS: NICOTINE 7 MG/24 HOURS TOPICAL PATCH TD SCH (10:33)
[2022-12-01] MEDS: METHOCARBAMOL 500 MG TABLET PO PRN (17:31)
[2022-12-01] MEDS: IBUPROFEN 600 MG TABLET (FP) PO PRN (17:31)
[2022-12-01] MEDS: LIDOCAINE PATCH REMOVAL MC SCH (21:58)
[2022-12-01] MEDS: QUEtiapine FUMARATE 100 MG TABLET (FP) PO SCH (21:58)
[2022-12-01] MEDS: MELATONIN 5 MG TABLETS PO SCH (21:58)
[2022-12-01] MEDS: THIAMINE HCL 100 MG TABLET (FP) PO SCH (21:58)
[2022-12-02] MEDS ORDERED: LORazepam 0.5 MG TABLET PO PRN
[2022-12-02] MEDS: methaDONE HCL 40 MG DISPERSABLE TABLET PO SCH (05:11)
[2022-12-02] MEDS: LORazepam 0.5 MG TABLET PO SCH ×4 (05:11→22:13)
[2022-12-02] MEDS: PRENATAL VITAMINS W/ FOLIC ACID TABLET (FP) PO SCH (10:24)
[2022-12-02] MEDS: NICOTINE 7 MG/24 HOURS TOPICAL PATCH TD SCH (10:24)
[2022-12-02] MEDS: LIDOCAINE 5% TOPICAL PATCH TP SCH (10:24)
[2022-12-02] MEDS: IBUPROFEN 400 MG TABLET (FP) PO PRN ×2 (10:30→21:53)
[2022-12-02 14:10] LABS: HEMATOCRIT 39.8 % (35.4-49); HEMOGLOBIN 13.2 GM/dL (11.7-16.9); MCH 29.1 pg (25.7-33.7); MCHC 33.1 g/dl (32.0-35.9); MEAN CELL VOLUME 87.8 fl (80-96); MEAN PLT VOLUME 7.6 fl (7.5-11.1); PLATELET COUNT 221 10^3/uL (134-434); RBC 4.53 M/mm3 (4.00-5.60); RDW 13.8 % (11.9-15.9); WHITE BLOOD COUNT 5.7 K/mm3 (4.0-10.0)
[2022-12-02 15:59] LABS: ALBUMIN 3.8 g/dl (3.4-5.0); CALCIUM 9.3 mg/dL (8.5-10.1)
[2022-12-02 16:00] LABS: BLOOD UREA NITROGEN 11.6 mg/dL (7-18)
[2022-12-02 16:03] LABS: CREATININE 0.8 mg/dL (0.55-1.3)
[2022-12-02 16:04] LABS: BILIRUBIN,TOTAL 0.4 mg/dL (0.2-1); TOT PROT 6.9 g/dl (6.4-8.2)
[2022-12-02 16:28] LABS: HIV INTERPRETATION NEGATIVE (NEGATIVE)
[2022-12-02] MEDS ORDERED: ALBUTEROL SO4 HFA INHALER IH PRN (16:53)
[2022-12-02] MEDS: IBUPROFEN 600 MG TABLET (FP) PO PRN (17:07)
[2022-12-02] MEDS: METHOCARBAMOL 500 MG TABLET PO PRN (17:07)
[2022-12-02] MEDS: LIDOCAINE PATCH REMOVAL MC SCH (21:49)
[2022-12-02] MEDS: QUEtiapine FUMARATE 100 MG TABLET (FP) PO SCH (21:50)
[2022-12-02] MEDS: MELATONIN 5 MG TABLETS PO SCH (21:50)
[2022-12-02] MEDS: THIAMINE HCL 100 MG TABLET (FP) PO SCH (21:50)
[2022-12-02] MEDS: hydrOXYzine PAMOATE 25 MG CAPSULE (FP) PO PRN (21:52)
[2022-12-02 22:20] VITALS: TEMP 97.5
[2022-12-03] MEDS ORDERED: LORazepam 0.5 MG TABLET PO ONE (05:00)
[2022-12-03] MEDS: methaDONE HCL 40 MG DISPERSABLE TABLET PO SCH (05:05)
[2022-12-03] MEDS ORDERED: TAMSULOSIN HCL 0.4 MG CAP PO SCH (08:30)
[2022-12-03 09:39] VITALS: BP 147/88; PULSE 72; RESP 19
[2022-12-03] MEDS: PRENATAL VITAMINS W/ FOLIC ACID TABLET (FP) PO SCH (09:53)
[2022-12-03] MEDS: NICOTINE 7 MG/24 HOURS TOPICAL PATCH TD SCH (09:53)
[2022-12-03] MEDS: LIDOCAINE 5% TOPICAL PATCH TP SCH (09:53)
[2022-12-03] MEDS ORDERED: LISINOPRIL 10 MG TABLET PO SCH (10:00)
[2022-12-03] MEDS ORDERED: PANTOPRAZOLE 40 MG TABLET PO SCH (10:00)
[2022-12-03] MEDS ORDERED: LACTULOSE 20 GM/30 ML UDC (FOR ORAL USE ONLY) PO SCH (14:00)
== END 2022-12-03 11:05 | disposition home or self-care (01) | DRG 773 ==
LOC: YASAS 13:23 → Y3N 18:04
PROVIDERS: ADMIT Allergy & Immunology; ATTEND Surgery
PROC: HZ2ZZZZ Detoxification Services for Substance Abuse Treatment (ICD-10-PCS; principal; 2022-11-29)
DX: F10.230 Alcohol dependence with withdrawal, uncomplicated (principal); F11.20 Opioid dependence, uncomplicated; F14.20 Cocaine dependence, uncomplicated; F17.210 Nicotine dependence, cigarettes, uncomplicated; F32.A Depression, unspecified; F41.9 Anxiety disorder, unspecified; I10 Essential (primary) hypertension; J45.20 Mild intermittent asthma, uncomplicated; K21.9 Gastro-esophageal reflux disease without esophagitis; N40.0 Benign prostatic hyperplasia without lower urinary tract symptoms; Z96.651 Presence of right artificial knee joint; R79.89 Other specified abnormal findings of blood chemistry; Z62.810 Personal history of physical and sexual abuse in childhood; Z86.19 Personal history of other infectious and parasitic diseases; Z99.89 Dependence on other enabling machines and devices
CPT/HCPCS: 36415; 80053; 82140; 85027; 86593; 86780; 87389; 87811; C9803-CS; U0003; U0005

== ENCOUNTER 2022-12-23 11:53 | Inpatient (IN) | payer OTHER ==
[2022-12-23 12:35] VITALS: BMI 26.3
[2022-12-23] MEDS ORDERED: POLYETHYLENE GLYCOL (HEALTHYLAX) 3350 17 GM PACKET PO PRN (13:38)
[2022-12-23] MEDS ORDERED: chlordiazePOXIDE HCL 25 MG CAPSULE PO PRN (13:38)
[2022-12-23] MEDS ORDERED: MAG HYDROX/AL HYDROX/SIMETH 30 ML UNIT-DOSE CUP PO PRN (13:38)
[2022-12-23] MEDS ORDERED: DICYCLOMINE HCL 10 MG CAPSULE PO PRN (13:38)
[2022-12-23] MEDS ORDERED: MAGNESIUM HYDROX 2400MG/30ML ORAL SUSPENSION 30 ML CUP PO PRN (13:38)
[2022-12-23] MEDS ORDERED: LOPERAMIDE HCL 2 MG CAPSULE PO PRN (13:38)
[2022-12-23] MEDS ORDERED: hydrOXYzine PAMOATE 25 MG CAPSULE (FP) PO PRN (13:38)
[2022-12-23] MEDS ORDERED: IBUPROFEN 400 MG TABLET (FP) PO PRN (13:38)
[2022-12-23] MEDS ORDERED: ONDANSETRON *ODT* 4 MG TABLET SL PRN (13:38)
[2022-12-23] MEDS ORDERED: ACETAMINOPHEN 325 MG TABLET (FP) PO PRN ×2 (13:38)
[2022-12-23] MEDS ORDERED: NALOXONE HCL (KLOXXADO) 8 MG SPRAY NS PRN (13:38)
[2022-12-23] MEDS ORDERED: BISMUTH SUBSALICYLATE 524 MG/30 ML PO PRN (13:38)
[2022-12-23] MEDS ORDERED: BENZOCAINE/MENTHOL (CHLORASEPTIC ) LOZENGE MM PRN (13:38)
[2022-12-23] MEDS ORDERED: NICOTINE POLACRILEX 2 MG GUM BUC PRN (13:38)
[2022-12-23] MEDS ORDERED: NICOTINE 10 MG CARTRIDGE (INHALER) IH PRN (13:38)
[2022-12-23] MEDS ORDERED: ALBUTEROL SO4 HFA INHALER IH PRN (13:55)
[2022-12-23] MEDS: NICOTINE 14 MG/24 HOURS TOPICAL PATCH TD SCH (14:42)
[2022-12-23] MEDS ORDERED: NICOTINE 14 MG/24 HOURS TOPICAL PATCH TD ONE (14:48)
[2022-12-23] MEDS: chlordiazePOXIDE HCL 25 MG CAPSULE PO SCH ×2 (17:56→22:14)
[2022-12-23] MEDS ORDERED: MELATONIN 5 MG TABLETS PO SCH (22:00)
[2022-12-23] MEDS: GABAPENTIN 300 MG CAPSULE PO SCH (22:13)
[2022-12-23] MEDS: TAMSULOSIN HCL 0.4 MG CAP PO SCH (22:13)
[2022-12-23] MEDS: THIAMINE HCL 100 MG TABLET (FP) PO SCH (22:13)
[2022-12-24] MEDS: chlordiazePOXIDE HCL 25 MG CAPSULE PO SCH ×4 (05:18→22:25)
[2022-12-24] MEDS: GABAPENTIN 300 MG CAPSULE PO SCH ×3 (05:18→22:25)
[2022-12-24] MEDS: IBUPROFEN 600 MG TABLET (FP) PO PRN ×2 (05:22→13:45)
[2022-12-24] MEDS: methaDONE HCL 40 MG DISPERSABLE TABLET PO SCH (09:56)
[2022-12-24] MEDS: PRENATAL VITAMINS W/ FOLIC ACID TABLET (FP) PO SCH (09:57)
[2022-12-24] MEDS: LORATADINE 10 MG TABLET PO SCH (09:57)
[2022-12-24] MEDS: ASPIRIN 81 MG CHEWABLE TABLETS PO SCH (09:57)
[2022-12-24] MEDS: NICOTINE 14 MG/24 HOURS TOPICAL PATCH TD SCH (10:01)
[2022-12-24 12:25] LABS: HEMATOCRIT 38.9 % (35.4-49); MCH 28.5 pg (25.7-33.7); MCHC 33.5 g/dl (32.0-35.9); MEAN PLT VOLUME 7.3 fl (7.5-11.1); PLATELET COUNT 207 10^3/uL (134-434); RBC 4.58 M/mm3 (4.00-5.60); RDW 14.3 % (11.9-15.9); WHITE BLOOD COUNT 6.3 K/mm3 (4.0-10.0)
[2022-12-24 12:36] LABS: ALBUMIN 3.8 g/dl (3.4-5.0)
[2022-12-24 12:37] LABS: CALCIUM 9.2 mg/dL (8.5-10.1)
[2022-12-24 12:38] LABS: BLOOD UREA NITROGEN 18.5 mg/dL (7-18)
[2022-12-24 12:40] LABS: CREATININE 0.8 mg/dL (0.55-1.3)
[2022-12-24 12:42] LABS: BILIRUBIN,TOTAL 0.2 mg/dL (0.2-1); TOT PROT 7.1 g/dl (6.4-8.2)
[2022-12-24] MEDS: LIDOCAINE 5% TOPICAL PATCH TP SCH (15:51)
[2022-12-24 19:18] LABS: HIV INTERPRETATION NEGATIVE (NEGATIVE)
[2022-12-24] MEDS: THIAMINE HCL 100 MG TABLET (FP) PO SCH (22:25)
[2022-12-24] MEDS: QUEtiapine FUMARATE 200 MG TABLET PO SCH (22:25)
[2022-12-24] MEDS: TAMSULOSIN HCL 0.4 MG CAP PO SCH (22:25)
[2022-12-24] MEDS: LIDOCAINE PATCH REMOVAL MC SCH (22:26)
[2022-12-25] MEDS: chlordiazePOXIDE HCL 25 MG CAPSULE PO SCH ×4 (05:53→22:07)
[2022-12-25] MEDS: methaDONE HCL 40 MG DISPERSABLE TABLET PO SCH (05:53)
[2022-12-25] MEDS: GABAPENTIN 300 MG CAPSULE PO SCH ×3 (05:54→22:07)
[2022-12-25] MEDS: IBUPROFEN 600 MG TABLET (FP) PO PRN (05:55)
[2022-12-25] MEDS: LIDOCAINE 5% TOPICAL PATCH TP SCH (10:13)
[2022-12-25] MEDS: LORATADINE 10 MG TABLET PO SCH (10:13)
[2022-12-25] MEDS: ASPIRIN 81 MG CHEWABLE TABLETS PO SCH (10:13)
[2022-12-25] MEDS: PRENATAL VITAMINS W/ FOLIC ACID TABLET (FP) PO SCH (10:14)
[2022-12-25] MEDS: NICOTINE 14 MG/24 HOURS TOPICAL PATCH TD SCH (10:14)
[2022-12-25] MEDS: LISINOPRIL 10 MG TABLET PO SCH (10:14)
[2022-12-25] MEDS: HYDROCHLOROTHIAZIDE 12.5 MG CAPSULE (FP) PO SCH (10:14)
[2022-12-25] MEDS: THIAMINE HCL 100 MG TABLET (FP) PO SCH (22:07)
[2022-12-25] MEDS: QUEtiapine FUMARATE 200 MG TABLET PO SCH (22:07)
[2022-12-25] MEDS: TAMSULOSIN HCL 0.4 MG CAP PO SCH (22:07)
[2022-12-25] MEDS: METHYL SALICYLATE/MENTHOL OINT 30 GM TUBE TP SCH (22:08)
[2022-12-25] MEDS: PETROLATUM,WHITE OINTMENT 3.5 OZ JAR TP PRN (22:10)
[2022-12-25] MEDS: LIDOCAINE PATCH REMOVAL MC SCH (22:33)
[2022-12-26] MEDS ORDERED: chlordiazePOXIDE HCL 10 MG CAPSULE PO PRN
[2022-12-26] MEDS: chlordiazePOXIDE HCL 10 MG CAPSULE PO SCH ×4 (05:15→22:08)
[2022-12-26] MEDS: methaDONE HCL 40 MG DISPERSABLE TABLET PO SCH (05:15)
[2022-12-26] MEDS: GABAPENTIN 300 MG CAPSULE PO SCH ×3 (05:16→22:07)
[2022-12-26] MEDS: IBUPROFEN 600 MG TABLET (FP) PO PRN ×3 (05:17→16:51)
[2022-12-26] MEDS: ASPIRIN 81 MG CHEWABLE TABLETS PO SCH (10:07)
[2022-12-26] MEDS: METHYL SALICYLATE/MENTHOL OINT 30 GM TUBE TP SCH ×2 (10:07→22:10)
[2022-12-26] MEDS: PRENATAL VITAMINS W/ FOLIC ACID TABLET (FP) PO SCH (10:07)
[2022-12-26] MEDS: HYDROCHLOROTHIAZIDE 12.5 MG CAPSULE (FP) PO SCH (10:07)
[2022-12-26] MEDS: LORATADINE 10 MG TABLET PO SCH (10:07)
[2022-12-26] MEDS: LISINOPRIL 10 MG TABLET PO SCH (10:07)
[2022-12-26] MEDS: LIDOCAINE 5% TOPICAL PATCH TP SCH (10:08)
[2022-12-26] MEDS: NICOTINE 14 MG/24 HOURS TOPICAL PATCH TD SCH (10:08)
[2022-12-26] MEDS: THIAMINE HCL 100 MG TABLET (FP) PO SCH (22:07)
[2022-12-26] MEDS: METHOCARBAMOL 500 MG TABLET PO PRN (22:08)
[2022-12-26] MEDS: QUEtiapine FUMARATE 200 MG TABLET PO SCH (22:08)
[2022-12-26] MEDS: TAMSULOSIN HCL 0.4 MG CAP PO SCH (22:09)
[2022-12-26] MEDS: LIDOCAINE PATCH REMOVAL MC SCH (22:10)
[2022-12-26] MEDS: PETROLATUM,WHITE OINTMENT 3.5 OZ JAR TP PRN (22:10)
[2022-12-27] MEDS: GABAPENTIN 300 MG CAPSULE PO SCH ×3 (05:08→22:05)
[2022-12-27] MEDS: methaDONE HCL 40 MG DISPERSABLE TABLET PO SCH (05:08)
[2022-12-27] MEDS: chlordiazePOXIDE HCL 10 MG CAPSULE PO SCH ×2 (05:09→17:14)
[2022-12-27] MEDS: LISINOPRIL 10 MG TABLET PO SCH (10:37)
[2022-12-27] MEDS: PRENATAL VITAMINS W/ FOLIC ACID TABLET (FP) PO SCH (10:37)
[2022-12-27] MEDS: HYDROCHLOROTHIAZIDE 12.5 MG CAPSULE (FP) PO SCH (10:38)
[2022-12-27] MEDS: LIDOCAINE 5% TOPICAL PATCH TP SCH (10:38)
[2022-12-27] MEDS: ASPIRIN 81 MG CHEWABLE TABLETS PO SCH (10:38)
[2022-12-27] MEDS: LORATADINE 10 MG TABLET PO SCH (10:38)
[2022-12-27] MEDS: METHYL SALICYLATE/MENTHOL OINT 30 GM TUBE TP SCH ×2 (10:38→22:07)
[2022-12-27] MEDS: NICOTINE 14 MG/24 HOURS TOPICAL PATCH TD SCH (10:46)
[2022-12-27] MEDS: IBUPROFEN 600 MG TABLET (FP) PO PRN (17:17)
[2022-12-27] MEDS: METHOCARBAMOL 500 MG TABLET PO PRN (17:19)
[2022-12-27] MEDS: LIDOCAINE PATCH REMOVAL MC SCH (22:05)
[2022-12-27] MEDS: QUEtiapine FUMARATE 200 MG TABLET PO SCH (22:05)
[2022-12-27] MEDS: TAMSULOSIN HCL 0.4 MG CAP PO SCH (22:05)
[2022-12-27] MEDS: THIAMINE HCL 100 MG TABLET (FP) PO SCH (22:05)
[2022-12-28] MEDS ORDERED: chlordiazePOXIDE HCL 10 MG CAPSULE PO ONE (05:00)
[2022-12-28] MEDS: methaDONE HCL 40 MG DISPERSABLE TABLET PO SCH (05:07)
[2022-12-28] MEDS: IBUPROFEN 600 MG TABLET (FP) PO PRN (05:10)
[2022-12-28] MEDS: GABAPENTIN 300 MG CAPSULE PO SCH (05:10)
[2022-12-28 09:28] VITALS: BP 100/64; PULSE 90; RESP 15; TEMP 97.3
[2022-12-28] MEDS: PRENATAL VITAMINS W/ FOLIC ACID TABLET (FP) PO SCH (10:11)
[2022-12-28] MEDS: ASPIRIN 81 MG CHEWABLE TABLETS PO SCH (10:12)
[2022-12-28] MEDS: METHYL SALICYLATE/MENTHOL OINT 30 GM TUBE TP SCH (10:12)
[2022-12-28] MEDS: LIDOCAINE 5% TOPICAL PATCH TP SCH (10:12)
[2022-12-28] MEDS: HYDROCHLOROTHIAZIDE 12.5 MG CAPSULE (FP) PO SCH (10:12)
[2022-12-28] MEDS: LISINOPRIL 10 MG TABLET PO SCH (10:12)
[2022-12-28] MEDS: LORATADINE 10 MG TABLET PO SCH (10:12)
[2022-12-28] MEDS: NICOTINE 14 MG/24 HOURS TOPICAL PATCH TD SCH (10:12)
== END 2022-12-28 12:35 | disposition other institution (70) | DRG 773 ==
LOC: YASAS 11:53 → Y3N 14:09 → Y6N 15:01
PROVIDERS: ADMIT Allergy & Immunology; ATTEND Surgery
PROC: HZ2ZZZZ Detoxification Services for Substance Abuse Treatment (ICD-10-PCS; principal; 2022-12-23)
DX: F10.230 Alcohol dependence with withdrawal, uncomplicated (principal); F11.20 Opioid dependence, uncomplicated; F14.20 Cocaine dependence, uncomplicated; F17.210 Nicotine dependence, cigarettes, uncomplicated; F19.282 Other psychoactive substance dependence with psychoactive substance-induced sleep disorder; F19.24 Other psychoactive substance dependence with psychoactive substance-induced mood disorder; F25.1 Schizoaffective disorder, depressive type; E78.5 Hyperlipidemia, unspecified; I10 Essential (primary) hypertension; J45.20 Mild intermittent asthma, uncomplicated; L85.3 Xerosis cutis; N40.1 Benign prostatic hyperplasia with lower urinary tract symptoms; N39.43 Post-void dribbling; M25.511 Pain in right shoulder; M54.2 Cervicalgia; M54.89 Other dorsalgia; Z62.810 Personal history of physical and sexual abuse in childhood; Z86.19 Personal history of other infectious and parasitic diseases; Z99.89 Dependence on other enabling machines and devices
CPT/HCPCS: 36415; 80053; 85027; 86593; 86780; 87389; 87811; 93005; 93010; C9803-CS; U0003; U0005

== ENCOUNTER 2022-12-28 12:52 | Inpatient (IN) | payer OTHER ==
[2022-12-28] MEDS ORDERED: guaiFENesin 200 MG/10 ML 10 ML UNIT-DOSE CUPS PO PRN (14:21)
[2022-12-28] MEDS ORDERED: POLYETHYLENE GLYCOL (HEALTHYLAX) 3350 17 GM PACKET PO PRN (14:21)
[2022-12-28] MEDS ORDERED: BENZOCAINE/MENTHOL (CHLORASEPTIC ) LOZENGE MM PRN (14:21)
[2022-12-28] MEDS ORDERED: P-EPHED 60MG/TRIPROLIDI 2.5MG TABLET PO PRN (14:21)
[2022-12-28] MEDS ORDERED: MAGNESIUM HYDROX 2400MG/30ML ORAL SUSPENSION 30 ML CUP PO PRN (14:21)
[2022-12-28] MEDS ORDERED: LOPERAMIDE HCL 2 MG CAPSULE PO PRN (14:21)
[2022-12-28] MEDS ORDERED: hydrOXYzine PAMOATE 25 MG CAPSULE (FP) PO PRN (14:21)
[2022-12-28] MEDS ORDERED: ACETAMINOPHEN 325 MG TABLET (FP) PO PRN (14:21)
[2022-12-28] MEDS ORDERED: NICOTINE 10 MG CARTRIDGE (INHALER) IH PRN (14:21)
[2022-12-28] MEDS ORDERED: MAG HYDROX/AL HYDROX/SIMETH 30 ML UNIT-DOSE CUP PO PRN (14:21)
[2022-12-28] MEDS ORDERED: ALBUTEROL SO4 HFA INHALER IH PRN (14:22)
[2022-12-28] MEDS: GABAPENTIN 300 MG CAPSULE PO SCH ×2 (15:23→21:35)
[2022-12-28] MEDS: THIAMINE HCL 100 MG TABLET (FP) PO SCH (21:14)
[2022-12-28] MEDS: TAMSULOSIN HCL 0.4 MG CAP PO SCH (21:15)
[2022-12-28] MEDS ORDERED: QUEtiapine FUMARATE 200 MG TABLET PO SCH (22:00)
[2022-12-28] MEDS ORDERED: MELATONIN 5 MG TABLETS PO SCH (22:00)
[2022-12-29] MEDS: GABAPENTIN 300 MG CAPSULE PO SCH ×3 (06:08→23:05)
[2022-12-29] MEDS: methaDONE HCL 40 MG DISPERSABLE TABLET PO SCH (06:08)
[2022-12-29] MEDS: ASPIRIN 81 MG CHEWABLE TABLETS PO SCH (09:42)
[2022-12-29] MEDS: NICOTINE 14 MG/24 HOURS TOPICAL PATCH TD SCH (09:42)
[2022-12-29] MEDS: PRENATAL VITAMINS W/ FOLIC ACID TABLET (FP) PO SCH (09:43)
[2022-12-29] MEDS ORDERED: NICOTINE 7 MG/24 HOURS TOPICAL PATCH TD SCH (10:00)
[2022-12-29] MEDS: HYDROCHLOROTHIAZIDE 12.5 MG CAPSULE (FP) PO SCH (10:44)
[2022-12-29] MEDS: LISINOPRIL 10 MG TABLET PO SCH (10:45)
[2022-12-29] MEDS: LIDOCAINE 5% TOPICAL PATCH TP SCH (10:45)
[2022-12-29] MEDS: BACLOFEN 10 MG TABLET (FP) PO PRN ×2 (10:45→21:10)
[2022-12-29] MEDS: IBUPROFEN 400 MG TABLET (FP) PO PRN (10:45)
[2022-12-29] MEDS: THIAMINE HCL 100 MG TABLET (FP) PO SCH (21:09)
[2022-12-29] MEDS: QUEtiapine FUMARATE 100 MG TABLET (FP) PO SCH (21:10)
[2022-12-29] MEDS: traZODone HCL 50 MG TABLET (FP) PO SCH (21:10)
[2022-12-29] MEDS: TAMSULOSIN HCL 0.4 MG CAP PO SCH (21:10)
[2022-12-29] MEDS: LIDOCAINE PATCH REMOVAL MC SCH (21:11)
[2022-12-30] MEDS: IBUPROFEN 400 MG TABLET (FP) PO PRN ×2 (03:48→09:45)
[2022-12-30] MEDS: GABAPENTIN 300 MG CAPSULE PO SCH ×3 (06:34→22:32)
[2022-12-30] MEDS: methaDONE HCL 40 MG DISPERSABLE TABLET PO SCH (06:34)
[2022-12-30] MEDS: LIDOCAINE 5% TOPICAL PATCH TP SCH (09:41)
[2022-12-30] MEDS: NICOTINE 14 MG/24 HOURS TOPICAL PATCH TD SCH (09:42)
[2022-12-30] MEDS: HYDROCHLOROTHIAZIDE 12.5 MG CAPSULE (FP) PO SCH (09:43)
[2022-12-30] MEDS: ASPIRIN 81 MG CHEWABLE TABLETS PO SCH (09:43)
[2022-12-30] MEDS: LISINOPRIL 10 MG TABLET PO SCH (09:43)
[2022-12-30] MEDS: PRENATAL VITAMINS W/ FOLIC ACID TABLET (FP) PO SCH (09:44)
[2022-12-30] MEDS: BACLOFEN 10 MG TABLET (FP) PO PRN ×2 (09:45→21:15)
[2022-12-30] MEDS: TAMSULOSIN HCL 0.4 MG CAP PO SCH (21:15)
[2022-12-30] MEDS: THIAMINE HCL 100 MG TABLET (FP) PO SCH (21:15)
[2022-12-30] MEDS: traZODone HCL 50 MG TABLET (FP) PO SCH (21:15)
[2022-12-30] MEDS: QUEtiapine FUMARATE 100 MG TABLET (FP) PO SCH (21:15)
[2022-12-30] MEDS: LIDOCAINE PATCH REMOVAL MC SCH (21:16)
[2022-12-31] MEDS: methaDONE HCL 40 MG DISPERSABLE TABLET PO SCH (06:04)
[2022-12-31] MEDS: GABAPENTIN 300 MG CAPSULE PO SCH ×3 (06:04→22:47)
[2022-12-31] MEDS: HYDROCHLOROTHIAZIDE 12.5 MG CAPSULE (FP) PO SCH (10:05)
[2022-12-31] MEDS: ASPIRIN 81 MG CHEWABLE TABLETS PO SCH (10:05)
[2022-12-31] MEDS: LISINOPRIL 10 MG TABLET PO SCH (10:05)
[2022-12-31] MEDS: PRENATAL VITAMINS W/ FOLIC ACID TABLET (FP) PO SCH (10:05)
[2022-12-31] MEDS: LIDOCAINE 5% TOPICAL PATCH TP SCH (10:05)
[2022-12-31] MEDS: NICOTINE 14 MG/24 HOURS TOPICAL PATCH TD SCH (10:05)
[2022-12-31] MEDS: IBUPROFEN 400 MG TABLET (FP) PO PRN (10:07)
[2022-12-31] MEDS: BACLOFEN 10 MG TABLET (FP) PO PRN ×2 (10:07→21:17)
[2022-12-31] MEDS: MINERAL OIL/PET HY-PHL TOPICAL OINTMENT 454 GM JAR TP PRN (13:26)
[2022-12-31] MEDS ORDERED: LIDOCAINE 5% TOPICAL PATCH TP SCH (15:51)
[2022-12-31] MEDS ORDERED: NICOTINE POLACRILEX 2 MG GUM BUC PRN (15:52)
[2022-12-31] MEDS: traZODone HCL 50 MG TABLET (FP) PO SCH (21:17)
[2022-12-31] MEDS: THIAMINE HCL 100 MG TABLET (FP) PO SCH (21:18)
[2022-12-31] MEDS: QUEtiapine FUMARATE 100 MG TABLET (FP) PO SCH (21:18)
[2022-12-31] MEDS: LIDOCAINE PATCH REMOVAL MC SCH (21:19)
[2022-12-31] MEDS: TAMSULOSIN HCL 0.4 MG CAP PO SCH (21:22)
[2022-12-31] MEDS: IBUPROFEN 600 MG TABLET (FP) PO PRN (21:22)
[2023-01-01] MEDS: GABAPENTIN 300 MG CAPSULE PO SCH ×3 (06:12→23:23)
[2023-01-01] MEDS: methaDONE HCL 40 MG DISPERSABLE TABLET PO SCH (06:12)
[2023-01-01] MEDS: ASPIRIN 81 MG CHEWABLE TABLETS PO SCH (09:48)
[2023-01-01] MEDS: NICOTINE 14 MG/24 HOURS TOPICAL PATCH TD SCH (09:49)
[2023-01-01] MEDS: HYDROCHLOROTHIAZIDE 12.5 MG CAPSULE (FP) PO SCH (09:49)
[2023-01-01] MEDS: LIDOCAINE 5% TOPICAL PATCH TP SCH (09:49)
[2023-01-01] MEDS: PRENATAL VITAMINS W/ FOLIC ACID TABLET (FP) PO SCH (09:50)
[2023-01-01] MEDS: IBUPROFEN 600 MG TABLET (FP) PO PRN ×2 (09:50→19:44)
[2023-01-01] MEDS: LISINOPRIL 10 MG TABLET PO SCH (09:50)
[2023-01-01] MEDS: BACLOFEN 10 MG TABLET (FP) PO PRN ×2 (09:50→19:45)
[2023-01-01] MEDS: TAMSULOSIN HCL 0.4 MG CAP PO SCH (21:05)
[2023-01-01] MEDS: THIAMINE HCL 100 MG TABLET (FP) PO SCH (21:05)
[2023-01-01] MEDS: traZODone HCL 50 MG TABLET (FP) PO SCH (21:05)
[2023-01-01] MEDS: QUEtiapine FUMARATE 100 MG TABLET (FP) PO SCH (21:05)
[2023-01-01] MEDS: LIDOCAINE PATCH REMOVAL MC SCH (21:07)
[2023-01-02] MEDS: methaDONE HCL 40 MG DISPERSABLE TABLET PO SCH (06:05)
[2023-01-02] MEDS: GABAPENTIN 300 MG CAPSULE PO SCH ×3 (06:07→21:35)
[2023-01-02] MEDS: LIDOCAINE 5% TOPICAL PATCH TP SCH (09:42)
[2023-01-02] MEDS: ASPIRIN 81 MG CHEWABLE TABLETS PO SCH (09:43)
[2023-01-02] MEDS: PRENATAL VITAMINS W/ FOLIC ACID TABLET (FP) PO SCH (09:44)
[2023-01-02] MEDS: NICOTINE 14 MG/24 HOURS TOPICAL PATCH TD SCH (09:44)
[2023-01-02] MEDS: HYDROCHLOROTHIAZIDE 12.5 MG CAPSULE (FP) PO SCH (09:44)
[2023-01-02] MEDS: LISINOPRIL 10 MG TABLET PO SCH (09:45)
[2023-01-02] MEDS: BACLOFEN 10 MG TABLET (FP) PO PRN ×2 (09:56→21:19)
[2023-01-02] MEDS: IBUPROFEN 600 MG TABLET (FP) PO PRN ×2 (09:56→16:49)
[2023-01-02] MEDS: SODIUM CHLORIDE NASAL SPRAY 44 ML BOTTLE NS PRN (14:34)
[2023-01-02] MEDS: HYDROCORTISONE 2.5% TOPICAL CREAM 30 GM TUBE TP PRN (16:50)
[2023-01-02] MEDS: LIDOCAINE PATCH REMOVAL MC SCH (21:17)
[2023-01-02] MEDS: traZODone HCL 50 MG TABLET (FP) PO SCH (21:17)
[2023-01-02] MEDS: TAMSULOSIN HCL 0.4 MG CAP PO SCH (21:17)
[2023-01-02] MEDS: QUEtiapine FUMARATE 100 MG TABLET (FP) PO SCH (21:17)
[2023-01-02] MEDS: THIAMINE HCL 100 MG TABLET (FP) PO SCH (21:18)
[2023-01-03] MEDS: GABAPENTIN 300 MG CAPSULE PO SCH ×3 (06:10→22:35)
[2023-01-03] MEDS: methaDONE HCL 40 MG DISPERSABLE TABLET PO SCH (06:11)
[2023-01-03] MEDS: HYDROCHLOROTHIAZIDE 12.5 MG CAPSULE (FP) PO SCH (09:56)
[2023-01-03] MEDS: LISINOPRIL 10 MG TABLET PO SCH (09:56)
[2023-01-03] MEDS: ASPIRIN 81 MG CHEWABLE TABLETS PO SCH (09:56)
[2023-01-03] MEDS: PRENATAL VITAMINS W/ FOLIC ACID TABLET (FP) PO SCH (09:56)
[2023-01-03] MEDS: LIDOCAINE 5% TOPICAL PATCH TP SCH (09:57)
[2023-01-03] MEDS: NICOTINE 14 MG/24 HOURS TOPICAL PATCH TD SCH (09:57)
[2023-01-03] MEDS: BACLOFEN 10 MG TABLET (FP) PO PRN ×2 (09:58→21:09)
[2023-01-03] MEDS: IBUPROFEN 600 MG TABLET (FP) PO PRN ×2 (09:58→21:09)
[2023-01-03] MEDS: TAMSULOSIN HCL 0.4 MG CAP PO SCH (21:08)
[2023-01-03] MEDS: QUEtiapine FUMARATE 100 MG TABLET (FP) PO SCH (21:09)
[2023-01-03] MEDS: THIAMINE HCL 100 MG TABLET (FP) PO SCH (21:10)
[2023-01-03] MEDS: DOCUSATE SODIUM 100 MG CAPSULE (FP) PO PRN (21:10)
[2023-01-03] MEDS: LIDOCAINE PATCH REMOVAL MC SCH (21:10)
[2023-01-03] MEDS: traZODone HCL 50 MG TABLET (FP) PO SCH (21:10)
[2023-01-03] MEDS: cloNIDine HCL 0.1 MG TABLET PO PRN (21:10)
[2023-01-03] MEDS: HYDROCORTISONE 2.5% TOPICAL CREAM 30 GM TUBE TP PRN (21:11)
[2023-01-04] MEDS: methaDONE HCL 40 MG DISPERSABLE TABLET PO SCH (06:13)
[2023-01-04] MEDS: GABAPENTIN 300 MG CAPSULE PO SCH ×3 (06:13→21:45)
[2023-01-04 06:38] VITALS: RESP 16
[2023-01-04] MEDS: NICOTINE 14 MG/24 HOURS TOPICAL PATCH TD SCH (09:45)
[2023-01-04] MEDS: ASPIRIN 81 MG CHEWABLE TABLETS PO SCH (09:45)
[2023-01-04] MEDS: PRENATAL VITAMINS W/ FOLIC ACID TABLET (FP) PO SCH (09:46)
[2023-01-04] MEDS: LIDOCAINE 5% TOPICAL PATCH TP SCH (09:46)
[2023-01-04] MEDS: SODIUM CHLORIDE NASAL SPRAY 44 ML BOTTLE NS PRN (09:48)
[2023-01-04] MEDS: BACLOFEN 10 MG TABLET (FP) PO PRN ×2 (09:48→21:18)
[2023-01-04] MEDS: IBUPROFEN 600 MG TABLET (FP) PO PRN ×2 (09:48→21:18)
[2023-01-04] MEDS: LISINOPRIL 10 MG TABLET PO SCH (10:47)
[2023-01-04] MEDS: HYDROCHLOROTHIAZIDE 12.5 MG CAPSULE (FP) PO SCH (10:47)
[2023-01-04] MEDS: MINERAL OIL/PET HY-PHL TOPICAL OINTMENT 454 GM JAR TP PRN (10:48)
[2023-01-04] MEDS: QUEtiapine FUMARATE 100 MG TABLET (FP) PO SCH (21:17)
[2023-01-04] MEDS: THIAMINE HCL 100 MG TABLET (FP) PO SCH (21:18)
[2023-01-04] MEDS: cloNIDine HCL 0.1 MG TABLET PO PRN (21:18)
[2023-01-04] MEDS: DOCUSATE SODIUM 100 MG CAPSULE (FP) PO PRN (21:18)
[2023-01-04] MEDS: traZODone HCL 50 MG TABLET (FP) PO SCH (21:18)
[2023-01-04] MEDS: TAMSULOSIN HCL 0.4 MG CAP PO SCH (21:18)
[2023-01-04] MEDS: LIDOCAINE PATCH REMOVAL MC SCH (21:45)
[2023-01-05] MEDS: GABAPENTIN 300 MG CAPSULE PO SCH ×3 (06:20→22:42)
[2023-01-05] MEDS: methaDONE HCL 40 MG DISPERSABLE TABLET PO SCH (06:21)
[2023-01-05] MEDS: LIDOCAINE 5% TOPICAL PATCH TP SCH (09:44)
[2023-01-05] MEDS: NICOTINE 14 MG/24 HOURS TOPICAL PATCH TD SCH (09:44)
[2023-01-05] MEDS: HYDROCHLOROTHIAZIDE 12.5 MG CAPSULE (FP) PO SCH (09:45)
[2023-01-05] MEDS: LISINOPRIL 10 MG TABLET PO SCH (09:45)
[2023-01-05] MEDS: PRENATAL VITAMINS W/ FOLIC ACID TABLET (FP) PO SCH (09:45)
[2023-01-05] MEDS: ASPIRIN 81 MG CHEWABLE TABLETS PO SCH (09:45)
[2023-01-05] MEDS: IBUPROFEN 600 MG TABLET (FP) PO PRN ×2 (09:47→21:18)
[2023-01-05] MEDS: BACLOFEN 10 MG TABLET (FP) PO PRN ×2 (11:58→21:16)
[2023-01-05] MEDS: cloNIDine HCL 0.1 MG TABLET PO PRN (21:16)
[2023-01-05] MEDS: DOCUSATE SODIUM 100 MG CAPSULE (FP) PO PRN (21:16)
[2023-01-05] MEDS: TAMSULOSIN HCL 0.4 MG CAP PO SCH (21:16)
[2023-01-05] MEDS: LIDOCAINE PATCH REMOVAL MC SCH (21:16)
[2023-01-05] MEDS: traZODone HCL 50 MG TABLET (FP) PO SCH (21:16)
[2023-01-05] MEDS: QUEtiapine FUMARATE 100 MG TABLET (FP) PO SCH (21:16)
[2023-01-05] MEDS: THIAMINE HCL 100 MG TABLET (FP) PO SCH (21:16)
[2023-01-06] MEDS: GABAPENTIN 300 MG CAPSULE PO SCH ×3 (05:59→22:14)
[2023-01-06] MEDS: methaDONE HCL 40 MG DISPERSABLE TABLET PO SCH (05:59)
[2023-01-06] MEDS: ASPIRIN 81 MG CHEWABLE TABLETS PO SCH (09:46)
[2023-01-06] MEDS: PRENATAL VITAMINS W/ FOLIC ACID TABLET (FP) PO SCH (09:47)
[2023-01-06] MEDS: HYDROCHLOROTHIAZIDE 12.5 MG CAPSULE (FP) PO SCH (09:47)
[2023-01-06] MEDS: LIDOCAINE 5% TOPICAL PATCH TP SCH ×2 (09:47→16:53)
[2023-01-06] MEDS: NICOTINE 14 MG/24 HOURS TOPICAL PATCH TD SCH (09:47)
[2023-01-06] MEDS: LISINOPRIL 10 MG TABLET PO SCH (09:48)
[2023-01-06] MEDS: IBUPROFEN 600 MG TABLET (FP) PO PRN ×2 (09:49→21:05)
[2023-01-06] MEDS: BACLOFEN 10 MG TABLET (FP) PO PRN ×2 (09:49→21:05)
[2023-01-06] MEDS ORDERED: FUROSEMIDE 40 MG TABLET (FP) PO ONE (15:53)
[2023-01-06] MEDS ORDERED: LACTULOSE 20 GM/30 ML UDC (FOR ORAL USE ONLY) PO PRN (15:54)
[2023-01-06] MEDS: QUEtiapine FUMARATE 100 MG TABLET (FP) PO SCH (21:02)
[2023-01-06] MEDS: TAMSULOSIN HCL 0.4 MG CAP PO SCH (21:03)
[2023-01-06] MEDS: traZODone HCL 50 MG TABLET (FP) PO SCH (21:03)
[2023-01-06] MEDS: LIDOCAINE PATCH REMOVAL MC SCH ×2 (21:04)
[2023-01-06] MEDS: THIAMINE HCL 100 MG TABLET (FP) PO SCH (21:04)
[2023-01-07] MEDS: methaDONE HCL 40 MG DISPERSABLE TABLET PO SCH (06:04)
[2023-01-07] MEDS: GABAPENTIN 300 MG CAPSULE PO SCH ×3 (06:04→22:25)
[2023-01-07] MEDS: HYDROCHLOROTHIAZIDE 12.5 MG CAPSULE (FP) PO SCH (10:02)
[2023-01-07] MEDS: NICOTINE 14 MG/24 HOURS TOPICAL PATCH TD SCH (10:02)
[2023-01-07] MEDS: LISINOPRIL 10 MG TABLET PO SCH (10:02)
[2023-01-07] MEDS: ASPIRIN 81 MG CHEWABLE TABLETS PO SCH (10:02)
[2023-01-07] MEDS: PRENATAL VITAMINS W/ FOLIC ACID TABLET (FP) PO SCH (10:03)
[2023-01-07] MEDS: LIDOCAINE 5% TOPICAL PATCH TP SCH ×2 (10:03)
[2023-01-07] MEDS: BACLOFEN 10 MG TABLET (FP) PO PRN ×2 (10:04→21:10)
[2023-01-07] MEDS: MINERAL OIL/PET HY-PHL TOPICAL OINTMENT 454 GM JAR TP PRN (10:04)
[2023-01-07] MEDS: IBUPROFEN 600 MG TABLET (FP) PO PRN ×2 (10:04→21:10)
[2023-01-07] MEDS ORDERED: FUROSEMIDE 20 MG TABLET (FP) PO ONE (11:57)
[2023-01-07] MEDS: TAMSULOSIN HCL 0.4 MG CAP PO SCH (21:09)
[2023-01-07] MEDS: QUEtiapine FUMARATE 100 MG TABLET (FP) PO SCH (21:09)
[2023-01-07] MEDS: traZODone HCL 50 MG TABLET (FP) PO SCH (21:10)
[2023-01-07] MEDS: THIAMINE HCL 100 MG TABLET (FP) PO SCH (21:10)
[2023-01-07] MEDS: LIDOCAINE PATCH REMOVAL MC SCH ×2 (21:11→21:12)
[2023-01-08] MEDS: GABAPENTIN 300 MG CAPSULE PO SCH ×3 (06:05→22:03)
[2023-01-08] MEDS: FUROSEMIDE 20 MG TABLET (FP) PO SCH (06:05)
[2023-01-08] MEDS: methaDONE HCL 40 MG DISPERSABLE TABLET PO SCH (06:05)
[2023-01-08] MEDS: LIDOCAINE 5% TOPICAL PATCH TP SCH ×2 (10:09)
[2023-01-08] MEDS: NICOTINE 14 MG/24 HOURS TOPICAL PATCH TD SCH (10:09)
[2023-01-08] MEDS: BACLOFEN 10 MG TABLET (FP) PO PRN ×2 (10:10→21:25)
[2023-01-08] MEDS: LISINOPRIL 10 MG TABLET PO SCH (10:10)
[2023-01-08] MEDS: HYDROCHLOROTHIAZIDE 12.5 MG CAPSULE (FP) PO SCH (10:10)
[2023-01-08] MEDS: ASPIRIN 81 MG CHEWABLE TABLETS PO SCH (10:10)
[2023-01-08] MEDS: PRENATAL VITAMINS W/ FOLIC ACID TABLET (FP) PO SCH (10:10)
[2023-01-08] MEDS: IBUPROFEN 600 MG TABLET (FP) PO PRN ×2 (10:11→21:26)
[2023-01-08] MEDS: MINERAL OIL/PET HY-PHL TOPICAL OINTMENT 454 GM JAR TP PRN (13:41)
[2023-01-08] MEDS: HYDROCORTISONE 2.5% TOPICAL CREAM 30 GM TUBE TP PRN (13:44)
[2023-01-08] MEDS: TAMSULOSIN HCL 0.4 MG CAP PO SCH (21:25)
[2023-01-08] MEDS: QUEtiapine FUMARATE 100 MG TABLET (FP) PO SCH (21:25)
[2023-01-08] MEDS: traZODone HCL 50 MG TABLET (FP) PO SCH (21:25)
[2023-01-08] MEDS: THIAMINE HCL 100 MG TABLET (FP) PO SCH (21:25)
[2023-01-08] MEDS: LIDOCAINE PATCH REMOVAL MC SCH ×2 (21:55)
[2023-01-09] MEDS: methaDONE HCL 40 MG DISPERSABLE TABLET PO SCH (06:00)
[2023-01-09] MEDS: FUROSEMIDE 20 MG TABLET (FP) PO SCH (06:01)
[2023-01-09] MEDS: GABAPENTIN 300 MG CAPSULE PO SCH ×4 (06:01→21:53)
[2023-01-09] MEDS: HYDROCHLOROTHIAZIDE 12.5 MG CAPSULE (FP) PO SCH (09:41)
[2023-01-09] MEDS: ASPIRIN 81 MG CHEWABLE TABLETS PO SCH (09:41)
[2023-01-09] MEDS: LIDOCAINE 5% TOPICAL PATCH TP SCH ×2 (09:42)
[2023-01-09] MEDS: NICOTINE 14 MG/24 HOURS TOPICAL PATCH TD SCH (09:42)
[2023-01-09] MEDS: PRENATAL VITAMINS W/ FOLIC ACID TABLET (FP) PO SCH (09:43)
[2023-01-09] MEDS: LISINOPRIL 10 MG TABLET PO SCH (09:43)
[2023-01-09] MEDS: BACLOFEN 10 MG TABLET (FP) PO PRN ×2 (09:43→21:06)
[2023-01-09] MEDS: DOCUSATE SODIUM 100 MG CAPSULE (FP) PO PRN ×2 (09:43→21:06)
[2023-01-09] MEDS: IBUPROFEN 600 MG TABLET (FP) PO PRN ×2 (09:44→21:07)
[2023-01-09] MEDS: THIAMINE HCL 100 MG TABLET (FP) PO SCH (21:06)
[2023-01-09] MEDS: TAMSULOSIN HCL 0.4 MG CAP PO SCH (21:06)
[2023-01-09] MEDS: traZODone HCL 50 MG TABLET (FP) PO SCH (21:06)
[2023-01-09] MEDS: QUEtiapine FUMARATE 100 MG TABLET (FP) PO SCH (21:07)
[2023-01-09] MEDS: LIDOCAINE PATCH REMOVAL MC SCH ×2 (21:07→21:08)
[2023-01-10] MEDS: GABAPENTIN 300 MG CAPSULE PO SCH (06:11)
[2023-01-10] MEDS: methaDONE HCL 40 MG DISPERSABLE TABLET PO SCH (06:11)
[2023-01-10] MEDS: FUROSEMIDE 20 MG TABLET (FP) PO SCH (06:11)
[2023-01-10 06:41] VITALS: BP 150/70; PULSE 80; TEMP 97.8
== END 2023-01-10 09:21 | disposition home or self-care (01) | DRG 772 ==
LOC: YASAS 12:52 → Y3E 12:54
PROVIDERS: ADMIT Allergy & Immunology; ATTEND Psychiatry & Neurology Pain Medicine
PROC: HZ42ZZZ Group Counseling for Substance Abuse Treatment, Cognitive-Behavioral (ICD-10-PCS; principal; 2022-12-28)
DX: F10.20 Alcohol dependence, uncomplicated (principal); F11.20 Opioid dependence, uncomplicated; F14.20 Cocaine dependence, uncomplicated; F17.210 Nicotine dependence, cigarettes, uncomplicated; F19.282 Other psychoactive substance dependence with psychoactive substance-induced sleep disorder; F32.A Depression, unspecified; E78.5 Hyperlipidemia, unspecified; I10 Essential (primary) hypertension; J45.20 Mild intermittent asthma, uncomplicated; M17.11 Unilateral primary osteoarthritis, right knee; M25.511 Pain in right shoulder; N40.1 Benign prostatic hyperplasia with lower urinary tract symptoms; N39.43 Post-void dribbling; R79.89 Other specified abnormal findings of blood chemistry; Z99.89 Dependence on other enabling machines and devices
CPT/HCPCS: 36415; 82140; 86803; 87522; J0475

== ENCOUNTER 2023-02-12 10:32 | Inpatient (IN) | payer OTHER ==
[2023-02-12 11:34] VITALS: BMI 29.0
[2023-02-12] MEDS ORDERED: ONDANSETRON *ODT* 4 MG TABLET SL PRN (12:51)
[2023-02-12] MEDS ORDERED: LORazepam 1 MG TABLET PO PRN (12:51)
[2023-02-12] MEDS ORDERED: IBUPROFEN 400 MG TABLET (FP) PO PRN (12:51)
[2023-02-12] MEDS ORDERED: BISMUTH SUBSALICYLATE 524 MG/30 ML PO PRN (12:51)
[2023-02-12] MEDS ORDERED: DICYCLOMINE HCL 10 MG CAPSULE PO PRN (12:51)
[2023-02-12] MEDS ORDERED: guaiFENesin 600 MG TABLET.ER (FP) PO PRN (12:51)
[2023-02-12] MEDS ORDERED: BENZONATATE 200 MG CAPSULE PO PRN (12:51)
[2023-02-12] MEDS ORDERED: NALOXONE HCL 0.4 MG/ML VIAL IM PRN (12:51)
[2023-02-12] MEDS ORDERED: MAG HYDROX/AL HYDROX/SIMETH 30 ML UNIT-DOSE CUP PO PRN (12:51)
[2023-02-12] MEDS ORDERED: LOPERAMIDE HCL 2 MG CAPSULE PO PRN (12:51)
[2023-02-12] MEDS ORDERED: NALOXONE HCL (KLOXXADO) 8 MG SPRAY NS PRN (12:51)
[2023-02-12] MEDS ORDERED: BENZOCAINE/MENTHOL (CHLORASEPTIC ) LOZENGE MM PRN (12:51)
[2023-02-12] MEDS ORDERED: ACETAMINOPHEN 325 MG TABLET (FP) PO PRN (12:51)
[2023-02-12] MEDS ORDERED: MAGNESIUM HYDROX 2400MG/30ML ORAL SUSPENSION 30 ML CUP PO PRN (12:51)
[2023-02-12] MEDS ORDERED: POLYETHYLENE GLYCOL (HEALTHYLAX) 3350 17 GM PACKET PO PRN (12:51)
[2023-02-12] MEDS ORDERED: NICOTINE 10 MG CARTRIDGE (INHALER) IH PRN (12:51)
[2023-02-12] MEDS ORDERED: hydrOXYzine PAMOATE 25 MG CAPSULE (FP) PO PRN (12:51)
[2023-02-12] MEDS ORDERED: ALBUTEROL SO4 HFA INHALER IH PRN (12:54)
[2023-02-12] MEDS ORDERED: NICOTINE 14 MG/24 HOURS TOPICAL PATCH TD ONE (13:51)
[2023-02-12] MEDS: GABAPENTIN 300 MG CAPSULE PO SCH ×2 (14:21→21:12)
[2023-02-12] MEDS: LIDOCAINE 5% TOPICAL PATCH TP SCH (14:23)
[2023-02-12] MEDS: NICOTINE 14 MG/24 HOURS TOPICAL PATCH TD SCH (14:29)
[2023-02-12] MEDS: PRENATAL VITAMINS W/ FOLIC ACID TABLET (FP) PO SCH (14:30)
[2023-02-12 16:07] LABS: HEMATOCRIT 37.4 % (35.4-49); HEMOGLOBIN 12.8 GM/dL (11.7-16.9); MCH 29.4 pg (25.7-33.7); MCHC 34.2 g/dl (32.0-35.9); MEAN CELL VOLUME 85.8 fl (80-96); MEAN PLT VOLUME 7.2 fl (7.5-11.1); PLATELET COUNT 245 10^3/uL (134-434); RBC 4.36 M/mm3 (4.00-5.60); RDW 13.9 % (11.9-15.9); WHITE BLOOD COUNT 5.6 K/mm3 (4.0-10.0)
[2023-02-12 16:18] LABS: ALBUMIN 3.6 g/dl (3.4-5.0); BLOOD UREA NITROGEN 15.3 mg/dL (7-18); CALCIUM 9.2 mg/dL (8.5-10.1)
[2023-02-12 16:23] LABS: BILIRUBIN,TOTAL 0.2 mg/dL (0.2-1); TOT PROT 7.1 g/dl (6.4-8.2)
[2023-02-12] MEDS: LORazepam 2 MG TABLET PO SCH ×2 (17:23→21:59)
[2023-02-12] MEDS: TAMSULOSIN HCL 0.4 MG CAP PO SCH (21:59)
[2023-02-12] MEDS: THIAMINE HCL 100 MG TABLET (FP) PO SCH (21:59)
[2023-02-12] MEDS ORDERED: MELATONIN 5 MG TABLETS PO SCH (22:00)
[2023-02-12] MEDS: METHOCARBAMOL 500 MG TABLET PO PRN (22:01)
[2023-02-12] MEDS: IBUPROFEN 600 MG TABLET (FP) PO PRN (22:01)
[2023-02-12] MEDS: LIDOCAINE PATCH REMOVAL TD SCH (22:02)
[2023-02-13] MEDS: LORazepam 2 MG TABLET PO SCH ×4 (05:12→22:10)
[2023-02-13] MEDS: GABAPENTIN 300 MG CAPSULE PO SCH ×3 (05:12→20:42)
[2023-02-13] MEDS: FUROSEMIDE 20 MG TABLET (FP) PO SCH (05:16)
[2023-02-13] MEDS ORDERED: methaDONE HCL 10 MG TABLET PO SCH (06:00)
[2023-02-13] MEDS: LIDOCAINE 5% TOPICAL PATCH TP SCH (10:31)
[2023-02-13] MEDS: DOCUSATE SODIUM 100 MG CAPSULE (FP) PO PRN (10:31)
[2023-02-13] MEDS: LISINOPRIL 10 MG TABLET PO SCH (10:31)
[2023-02-13] MEDS: FAMOTIDINE 20 MG TABLET PO SCH (10:31)
[2023-02-13] MEDS: HYDROCHLOROTHIAZIDE 12.5 MG CAPSULE (FP) PO SCH (10:32)
[2023-02-13] MEDS: ASPIRIN 81 MG CHEWABLE TABLETS PO SCH (10:32)
[2023-02-13] MEDS: LORATADINE 10 MG TABLET PO SCH (10:32)
[2023-02-13] MEDS: NICOTINE 14 MG/24 HOURS TOPICAL PATCH TD SCH (10:33)
[2023-02-13] MEDS: PRENATAL VITAMINS W/ FOLIC ACID TABLET (FP) PO SCH (10:33)
[2023-02-13] MEDS: IBUPROFEN 600 MG TABLET (FP) PO PRN (17:15)
[2023-02-13] MEDS: METHOCARBAMOL 500 MG TABLET PO PRN (17:15)
[2023-02-13] MEDS ORDERED: QUEtiapine FUMARATE 200 MG TABLET PO SCH (22:00)
[2023-02-13] MEDS ORDERED: QUEtiapine FUMARATE 100 MG TABLET (FP) PO SCH (22:00)
[2023-02-13] MEDS: THIAMINE HCL 100 MG TABLET (FP) PO SCH (22:06)
[2023-02-13] MEDS: TAMSULOSIN HCL 0.4 MG CAP PO SCH (22:07)
[2023-02-13] MEDS: LIDOCAINE PATCH REMOVAL TD SCH (22:07)
[2023-02-14] MEDS: GABAPENTIN 300 MG CAPSULE PO SCH ×3 (06:11→22:04)
[2023-02-14] MEDS: LORazepam 1 MG TABLET PO SCH ×4 (06:11→22:04)
[2023-02-14] MEDS: FUROSEMIDE 20 MG TABLET (FP) PO SCH (06:11)
[2023-02-14] MEDS: PRENATAL VITAMINS W/ FOLIC ACID TABLET (FP) PO SCH (10:55)
[2023-02-14] MEDS: FAMOTIDINE 20 MG TABLET PO SCH (10:56)
[2023-02-14] MEDS: DOCUSATE SODIUM 100 MG CAPSULE (FP) PO PRN (10:56)
[2023-02-14] MEDS: ASPIRIN 81 MG CHEWABLE TABLETS PO SCH (10:56)
[2023-02-14] MEDS: LIDOCAINE 5% TOPICAL PATCH TP SCH (10:56)
[2023-02-14] MEDS: BACITRACIN 0.9 GM PACKET TP SCH (10:57)
[2023-02-14] MEDS: HYDROCHLOROTHIAZIDE 12.5 MG CAPSULE (FP) PO SCH (10:57)
[2023-02-14] MEDS: LORATADINE 10 MG TABLET PO SCH (10:57)
[2023-02-14] MEDS: LISINOPRIL 10 MG TABLET PO SCH (10:57)
[2023-02-14] MEDS: NICOTINE 14 MG/24 HOURS TOPICAL PATCH TD SCH (10:58)
[2023-02-14] MEDS: THIAMINE HCL 100 MG TABLET (FP) PO SCH (22:04)
[2023-02-14] MEDS: LIDOCAINE PATCH REMOVAL TD SCH (22:05)
[2023-02-14] MEDS: TAMSULOSIN HCL 0.4 MG CAP PO SCH (22:05)
[2023-02-14] MEDS: METHOCARBAMOL 500 MG TABLET PO PRN (22:06)
[2023-02-14] MEDS: IBUPROFEN 600 MG TABLET (FP) PO PRN (22:06)
[2023-02-14] MEDS: QUEtiapine FUMARATE 200 MG TABLET PO SCH (22:07)
[2023-02-15] MEDS ORDERED: LORazepam 0.5 MG TABLET PO PRN
[2023-02-15] MEDS: GABAPENTIN 300 MG CAPSULE PO SCH ×3 (05:11→22:02)
[2023-02-15] MEDS: LORazepam 0.5 MG TABLET PO SCH ×4 (05:11→22:02)
[2023-02-15] MEDS: FUROSEMIDE 20 MG TABLET (FP) PO SCH (05:12)
[2023-02-15] MEDS: PRENATAL VITAMINS W/ FOLIC ACID TABLET (FP) PO SCH (10:10)
[2023-02-15] MEDS: ASPIRIN 81 MG CHEWABLE TABLETS PO SCH (10:11)
[2023-02-15] MEDS: LISINOPRIL 10 MG TABLET PO SCH (10:12)
[2023-02-15] MEDS: HYDROCHLOROTHIAZIDE 12.5 MG CAPSULE (FP) PO SCH (10:12)
[2023-02-15] MEDS: LORATADINE 10 MG TABLET PO SCH (10:12)
[2023-02-15] MEDS: FAMOTIDINE 20 MG TABLET PO SCH (10:12)
[2023-02-15] MEDS: BACITRACIN 0.9 GM PACKET TP SCH (10:13)
[2023-02-15] MEDS: LIDOCAINE 5% TOPICAL PATCH TP SCH (10:13)
[2023-02-15] MEDS: NICOTINE 14 MG/24 HOURS TOPICAL PATCH TD SCH (10:15)
[2023-02-15] MEDS: IBUPROFEN 600 MG TABLET (FP) PO PRN ×3 (10:16→23:59)
[2023-02-15] MEDS: METHOCARBAMOL 500 MG TABLET PO PRN ×2 (10:17→17:26)
[2023-02-15 21:03] VITALS: RESP 18
[2023-02-15] MEDS: THIAMINE HCL 100 MG TABLET (FP) PO SCH (22:01)
[2023-02-15] MEDS: QUEtiapine FUMARATE 200 MG TABLET PO SCH (22:01)
[2023-02-15] MEDS: TAMSULOSIN HCL 0.4 MG CAP PO SCH (22:02)
[2023-02-15] MEDS: LIDOCAINE PATCH REMOVAL TD SCH (23:11)
[2023-02-16] MEDS ORDERED: LORazepam 0.5 MG TABLET PO ONE (05:00)
[2023-02-16] MEDS: GABAPENTIN 300 MG CAPSULE PO SCH (05:22)
[2023-02-16] MEDS: FUROSEMIDE 20 MG TABLET (FP) PO SCH (05:22)
[2023-02-16 09:12] VITALS: BP 138/85; PULSE 68; TEMP 97.7
[2023-02-16] MEDS: PRENATAL VITAMINS W/ FOLIC ACID TABLET (FP) PO SCH (09:56)
[2023-02-16] MEDS: HYDROCHLOROTHIAZIDE 12.5 MG CAPSULE (FP) PO SCH (09:56)
[2023-02-16] MEDS: FAMOTIDINE 20 MG TABLET PO SCH (09:56)
[2023-02-16] MEDS: BACITRACIN 0.9 GM PACKET TP SCH (09:56)
[2023-02-16] MEDS: ASPIRIN 81 MG CHEWABLE TABLETS PO SCH (09:56)
[2023-02-16] MEDS: LISINOPRIL 10 MG TABLET PO SCH (09:56)
[2023-02-16] MEDS: LIDOCAINE 5% TOPICAL PATCH TP SCH (09:58)
[2023-02-16] MEDS: LORATADINE 10 MG TABLET PO SCH (09:58)
[2023-02-16] MEDS: IBUPROFEN 600 MG TABLET (FP) PO PRN (09:59)
[2023-02-16] MEDS: METHOCARBAMOL 500 MG TABLET PO PRN (09:59)
[2023-02-16] MEDS: NICOTINE 14 MG/24 HOURS TOPICAL PATCH TD SCH (10:00)
== END 2023-02-16 11:48 | disposition other institution (70) | DRG 773 ==
LOC: YASAS 10:32 → Y6N 13:26
PROVIDERS: ADMIT Allergy & Immunology; ATTEND Surgery
PROC: HZ2ZZZZ Detoxification Services for Substance Abuse Treatment (ICD-10-PCS; principal; 2023-02-12)
DX: F10.20 Alcohol dependence, uncomplicated (principal); F11.20 Opioid dependence, uncomplicated; F14.20 Cocaine dependence, uncomplicated; F17.210 Nicotine dependence, cigarettes, uncomplicated; F19.282 Other psychoactive substance dependence with psychoactive substance-induced sleep disorder; F25.1 Schizoaffective disorder, depressive type; E78.5 Hyperlipidemia, unspecified; I10 Essential (primary) hypertension; J45.20 Mild intermittent asthma, uncomplicated; N40.1 Benign prostatic hyperplasia with lower urinary tract symptoms; N39.43 Post-void dribbling; R26.89 Other abnormalities of gait and mobility; Z96.651 Presence of right artificial knee joint; Z62.810 Personal history of physical and sexual abuse in childhood; Z86.19 Personal history of other infectious and parasitic diseases; Z99.89 Dependence on other enabling machines and devices
CPT/HCPCS: 36415; 80053; 85027; 86593; 86780; C9803-CS; U0003; U0005

== ENCOUNTER 2023-02-16 11:49 | Inpatient (IN) | payer OTHER ==
[2023-02-16] MEDS ORDERED: BENZOCAINE/MENTHOL (CHLORASEPTIC ) LOZENGE MM PRN (13:23)
[2023-02-16] MEDS ORDERED: NALOXONE HCL 0.4 MG/ML VIAL IVPUSH PRN (13:23)
[2023-02-16] MEDS ORDERED: NALOXONE HCL (KLOXXADO) 8 MG SPRAY NS PRN (13:23)
[2023-02-16] MEDS ORDERED: MAG HYDROX/AL HYDROX/SIMETH 30 ML UNIT-DOSE CUP PO PRN (13:23)
[2023-02-16] MEDS ORDERED: POLYETHYLENE GLYCOL (HEALTHYLAX) 3350 17 GM PACKET PO PRN (13:23)
[2023-02-16] MEDS ORDERED: guaiFENesin 600 MG TABLET.ER (FP) PO PRN (13:23)
[2023-02-16] MEDS ORDERED: BENZONATATE 200 MG CAPSULE PO PRN (13:23)
[2023-02-16] MEDS ORDERED: MAGNESIUM HYDROX 2400MG/30ML ORAL SUSPENSION 30 ML CUP PO PRN (13:23)
[2023-02-16] MEDS ORDERED: LOPERAMIDE HCL 2 MG CAPSULE PO PRN (13:23)
[2023-02-16] MEDS ORDERED: NICOTINE 10 MG CARTRIDGE (INHALER) IH PRN (13:23)
[2023-02-16] MEDS ORDERED: COLLOIDAL OATMEAL 1 BAR EACH TP PRN (13:23)
[2023-02-16] MEDS ORDERED: DOCUSATE SODIUM 100 MG CAPSULE (FP) PO PRN (13:24)
[2023-02-16] MEDS ORDERED: ALBUTEROL SO4 HFA INHALER IH PRN (13:24)
[2023-02-16] MEDS: PRENATAL VITAMINS W/ FOLIC ACID TABLET (FP) PO SCH (14:54)
[2023-02-16] MEDS: NICOTINE 14 MG/24 HOURS TOPICAL PATCH TD SCH (14:55)
[2023-02-16] MEDS: GABAPENTIN 300 MG CAPSULE PO SCH ×2 (14:55→21:22)
[2023-02-16] MEDS: IBUPROFEN 600 MG TABLET (FP) PO PRN ×2 (14:57→21:24)
[2023-02-16] MEDS: THIAMINE HCL 100 MG TABLET (FP) PO SCH (21:22)
[2023-02-16] MEDS: MELATONIN 5 MG TABLETS PO SCH (21:22)
[2023-02-16] MEDS: TAMSULOSIN HCL 0.4 MG CAP PO SCH (21:22)
[2023-02-16] MEDS: LIDOCAINE PATCH REMOVAL TD SCH (21:23)
[2023-02-16] MEDS: METHOCARBAMOL 500 MG TABLET PO PRN (21:24)
[2023-02-16] MEDS: hydrOXYzine PAMOATE 25 MG CAPSULE (FP) PO PRN (21:27)
[2023-02-17] MEDS ORDERED: methaDONE HCL 10 MG TABLET PO SCH (06:00)
[2023-02-17] MEDS: GABAPENTIN 300 MG CAPSULE PO SCH ×3 (06:00→21:09)
[2023-02-17] MEDS: PRENATAL VITAMINS W/ FOLIC ACID TABLET (FP) PO SCH (10:17)
[2023-02-17] MEDS: NICOTINE 14 MG/24 HOURS TOPICAL PATCH TD SCH (10:17)
[2023-02-17] MEDS: LIDOCAINE 5% TOPICAL PATCH TP SCH ×2 (10:18→12:57)
[2023-02-17] MEDS: FAMOTIDINE 20 MG TABLET PO SCH (10:18)
[2023-02-17] MEDS: ASPIRIN 81 MG CHEWABLE TABLETS PO SCH (10:18)
[2023-02-17] MEDS: HYDROCHLOROTHIAZIDE 12.5 MG CAPSULE (FP) PO SCH (10:18)
[2023-02-17] MEDS: LISINOPRIL 10 MG TABLET PO SCH (10:18)
[2023-02-17] MEDS: LORATADINE 10 MG TABLET PO SCH (10:18)
[2023-02-17] MEDS: hydrOXYzine PAMOATE 25 MG CAPSULE (FP) PO PRN (10:20)
[2023-02-17] MEDS: METHOCARBAMOL 500 MG TABLET PO PRN ×2 (10:20→21:11)
[2023-02-17] MEDS: IBUPROFEN 600 MG TABLET (FP) PO PRN (10:20)
[2023-02-17] MEDS: AMMONIUM LACTATE 12% LOTION 225 GM BOTTLE TP PRN (10:22)
[2023-02-17 13:01] VITALS: RESP 18
[2023-02-17] MEDS: LIDOCAINE PATCH REMOVAL TD SCH (21:09)
[2023-02-17] MEDS: LIDOCAINE PATCH REMOVAL MC SCH (21:09)
[2023-02-17] MEDS: MELATONIN 5 MG TABLETS PO SCH (21:09)
[2023-02-17] MEDS: THIAMINE HCL 100 MG TABLET (FP) PO SCH (21:09)
[2023-02-17] MEDS: TAMSULOSIN HCL 0.4 MG CAP PO SCH (21:09)
[2023-02-17] MEDS: IBUPROFEN 400 MG TABLET (FP) PO PRN (21:11)
[2023-02-17] MEDS: QUEtiapine FUMARATE 300 MG TABLET PO SCH (21:11)
[2023-02-17] MEDS ORDERED: QUEtiapine FUMARATE 100 MG TABLET (FP) ONE (21:11)
[2023-02-17] MEDS ORDERED: QUEtiapine FUMARATE 200 MG TABLET PO SCH (22:00)
[2023-02-18] MEDS: GABAPENTIN 300 MG CAPSULE PO SCH ×3 (05:56→21:01)
[2023-02-18] MEDS: NICOTINE 14 MG/24 HOURS TOPICAL PATCH TD SCH (09:48)
[2023-02-18] MEDS: LIDOCAINE 5% TOPICAL PATCH TP SCH ×2 (09:48→10:33)
[2023-02-18] MEDS: PRENATAL VITAMINS W/ FOLIC ACID TABLET (FP) PO SCH (09:50)
[2023-02-18] MEDS: LORATADINE 10 MG TABLET PO SCH (09:51)
[2023-02-18] MEDS: HYDROCHLOROTHIAZIDE 12.5 MG CAPSULE (FP) PO SCH (09:51)
[2023-02-18] MEDS: ASPIRIN 81 MG CHEWABLE TABLETS PO SCH (09:51)
[2023-02-18] MEDS: FAMOTIDINE 20 MG TABLET PO SCH (09:51)
[2023-02-18] MEDS: LISINOPRIL 10 MG TABLET PO SCH (09:51)
[2023-02-18] MEDS: IBUPROFEN 600 MG TABLET (FP) PO PRN (09:53)
[2023-02-18] MEDS: METHOCARBAMOL 500 MG TABLET PO PRN ×2 (09:53→21:01)
[2023-02-18 12:51] LABS: HIV INTERPRETATION NEGATIVE (NEGATIVE)
[2023-02-18] MEDS ORDERED: QUEtiapine FUMARATE 100 MG TABLET (FP) ONE (18:54)
[2023-02-18] MEDS: THIAMINE HCL 100 MG TABLET (FP) PO SCH (21:01)
[2023-02-18] MEDS: QUEtiapine FUMARATE 300 MG TABLET PO SCH (21:01)
[2023-02-18] MEDS: TAMSULOSIN HCL 0.4 MG CAP PO SCH (21:01)
[2023-02-18] MEDS: MELATONIN 5 MG TABLETS PO SCH (21:01)
[2023-02-18] MEDS: ACETAMINOPHEN 325 MG TABLET (FP) PO PRN (21:03)
[2023-02-18] MEDS: LIDOCAINE PATCH REMOVAL TD SCH (21:03)
[2023-02-18] MEDS: LIDOCAINE PATCH REMOVAL MC SCH (21:04)
[2023-02-19] MEDS: GABAPENTIN 300 MG CAPSULE PO SCH ×3 (06:04→21:12)
[2023-02-19] MEDS: FAMOTIDINE 20 MG TABLET PO SCH (10:07)
[2023-02-19] MEDS: ASPIRIN 81 MG CHEWABLE TABLETS PO SCH (10:07)
[2023-02-19] MEDS: LORATADINE 10 MG TABLET PO SCH (10:07)
[2023-02-19] MEDS: LISINOPRIL 10 MG TABLET PO SCH (10:07)
[2023-02-19] MEDS: NICOTINE 14 MG/24 HOURS TOPICAL PATCH TD SCH (10:07)
[2023-02-19] MEDS: HYDROCHLOROTHIAZIDE 12.5 MG CAPSULE (FP) PO SCH (10:07)
[2023-02-19] MEDS: PRENATAL VITAMINS W/ FOLIC ACID TABLET (FP) PO SCH (10:07)
[2023-02-19] MEDS: LIDOCAINE 5% TOPICAL PATCH TP SCH ×2 (10:08)
[2023-02-19] MEDS: METHOCARBAMOL 500 MG TABLET PO PRN ×2 (10:09→21:12)
[2023-02-19] MEDS: IBUPROFEN 600 MG TABLET (FP) PO PRN (10:09)
[2023-02-19] MEDS: AMMONIUM LACTATE 12% LOTION 225 GM BOTTLE TP PRN (10:15)
[2023-02-19] MEDS ORDERED: QUEtiapine FUMARATE 100 MG TABLET (FP) ONE (19:06)
[2023-02-19] MEDS: MELATONIN 5 MG TABLETS PO SCH (21:11)
[2023-02-19] MEDS: THIAMINE HCL 100 MG TABLET (FP) PO SCH (21:11)
[2023-02-19] MEDS: TAMSULOSIN HCL 0.4 MG CAP PO SCH (21:12)
[2023-02-19] MEDS: QUEtiapine FUMARATE 300 MG TABLET PO SCH (21:12)
[2023-02-19] MEDS: LIDOCAINE PATCH REMOVAL TD SCH (21:13)
[2023-02-19] MEDS: LIDOCAINE PATCH REMOVAL MC SCH (21:13)
[2023-02-20] MEDS: GABAPENTIN 300 MG CAPSULE PO SCH ×3 (05:36→21:20)
[2023-02-20] MEDS: LORATADINE 10 MG TABLET PO SCH (10:09)
[2023-02-20] MEDS: ASPIRIN 81 MG CHEWABLE TABLETS PO SCH (10:09)
[2023-02-20] MEDS: HYDROCHLOROTHIAZIDE 25 MG TABLET (FP) PO SCH (10:09)
[2023-02-20] MEDS: FAMOTIDINE 20 MG TABLET PO SCH (10:09)
[2023-02-20] MEDS: LISINOPRIL 10 MG TABLET PO SCH (10:10)
[2023-02-20] MEDS: METHOCARBAMOL 500 MG TABLET PO PRN ×2 (10:11→21:20)
[2023-02-20] MEDS: IBUPROFEN 600 MG TABLET (FP) PO PRN (10:11)
[2023-02-20] MEDS: LIDOCAINE 5% TOPICAL PATCH TP SCH ×2 (10:12→10:14)
[2023-02-20] MEDS: NICOTINE 14 MG/24 HOURS TOPICAL PATCH TD SCH (10:12)
[2023-02-20] MEDS: PRENATAL VITAMINS W/ FOLIC ACID TABLET (FP) PO SCH (10:14)
[2023-02-20] MEDS: ACETAMINOPHEN 325 MG TABLET (FP) PO PRN (14:01)
[2023-02-20] MEDS ORDERED: QUEtiapine FUMARATE 100 MG TABLET (FP) ONE (18:50)
[2023-02-20] MEDS: THIAMINE HCL 100 MG TABLET (FP) PO SCH (21:20)
[2023-02-20] MEDS: TAMSULOSIN HCL 0.4 MG CAP PO SCH (21:20)
[2023-02-20] MEDS: IBUPROFEN 400 MG TABLET (FP) PO PRN (21:20)
[2023-02-20] MEDS: MELATONIN 5 MG TABLETS PO SCH (21:20)
[2023-02-20] MEDS: QUEtiapine FUMARATE 300 MG TABLET PO SCH (21:20)
[2023-02-20] MEDS: LIDOCAINE PATCH REMOVAL MC SCH (21:21)
[2023-02-20] MEDS: LIDOCAINE PATCH REMOVAL TD SCH (21:21)
[2023-02-20] MEDS: AMMONIUM LACTATE 12% LOTION 225 GM BOTTLE TP PRN (21:22)
[2023-02-21] MEDS: GABAPENTIN 300 MG CAPSULE PO SCH ×3 (06:00→21:09)
[2023-02-21] MEDS: LIDOCAINE 5% TOPICAL PATCH TP SCH ×2 (10:08→10:09)
[2023-02-21] MEDS: NICOTINE 14 MG/24 HOURS TOPICAL PATCH TD SCH (10:09)
[2023-02-21] MEDS: ASPIRIN 81 MG CHEWABLE TABLETS PO SCH (10:09)
[2023-02-21] MEDS: LORATADINE 10 MG TABLET PO SCH (10:09)
[2023-02-21] MEDS: PRENATAL VITAMINS W/ FOLIC ACID TABLET (FP) PO SCH (10:09)
[2023-02-21] MEDS: FAMOTIDINE 20 MG TABLET PO SCH (10:09)
[2023-02-21] MEDS: LISINOPRIL 10 MG TABLET PO SCH (10:09)
[2023-02-21] MEDS: HYDROCHLOROTHIAZIDE 25 MG TABLET (FP) PO SCH (10:09)
[2023-02-21] MEDS: IBUPROFEN 600 MG TABLET (FP) PO PRN ×2 (10:11→21:10)
[2023-02-21] MEDS: METHOCARBAMOL 500 MG TABLET PO PRN ×2 (10:11→21:10)
[2023-02-21] MEDS: AMMONIUM LACTATE 12% LOTION 225 GM BOTTLE TP PRN (10:14)
[2023-02-21] MEDS ORDERED: QUEtiapine FUMARATE 100 MG TABLET (FP) ONE (20:11)
[2023-02-21] MEDS: LIDOCAINE PATCH REMOVAL TD SCH (21:09)
[2023-02-21] MEDS: THIAMINE HCL 100 MG TABLET (FP) PO SCH (21:09)
[2023-02-21] MEDS: TAMSULOSIN HCL 0.4 MG CAP PO SCH (21:09)
[2023-02-21] MEDS: LIDOCAINE PATCH REMOVAL MC SCH (21:09)
[2023-02-21] MEDS: QUEtiapine FUMARATE 300 MG TABLET PO SCH (21:10)
[2023-02-21] MEDS: MELATONIN 5 MG TABLETS PO SCH (21:10)
[2023-02-22] MEDS: GABAPENTIN 300 MG CAPSULE PO SCH ×3 (05:52→21:17)
[2023-02-22] MEDS: LISINOPRIL 10 MG TABLET PO SCH (09:38)
[2023-02-22] MEDS: PRENATAL VITAMINS W/ FOLIC ACID TABLET (FP) PO SCH (09:38)
[2023-02-22] MEDS: FAMOTIDINE 20 MG TABLET PO SCH (09:38)
[2023-02-22] MEDS: HYDROCHLOROTHIAZIDE 25 MG TABLET (FP) PO SCH (09:38)
[2023-02-22] MEDS: ASPIRIN 81 MG CHEWABLE TABLETS PO SCH (09:38)
[2023-02-22] MEDS: LIDOCAINE 5% TOPICAL PATCH TP SCH ×2 (09:38→09:39)
[2023-02-22] MEDS: METHOCARBAMOL 500 MG TABLET PO PRN (09:38)
[2023-02-22] MEDS: LORATADINE 10 MG TABLET PO SCH (09:38)
[2023-02-22] MEDS: IBUPROFEN 600 MG TABLET (FP) PO PRN ×2 (09:39→18:37)
[2023-02-22] MEDS: NICOTINE 14 MG/24 HOURS TOPICAL PATCH TD SCH (09:39)
[2023-02-22] MEDS ORDERED: QUEtiapine FUMARATE 100 MG TABLET (FP) ONE (18:49)
[2023-02-22] MEDS: THIAMINE HCL 100 MG TABLET (FP) PO SCH (21:17)
[2023-02-22] MEDS: TAMSULOSIN HCL 0.4 MG CAP PO SCH (21:17)
[2023-02-22] MEDS: MELATONIN 5 MG TABLETS PO SCH (21:17)
[2023-02-22] MEDS: ACETAMINOPHEN 325 MG TABLET (FP) PO PRN (21:18)
[2023-02-22] MEDS: QUEtiapine FUMARATE 300 MG TABLET PO SCH (21:18)
[2023-02-22] MEDS: LIDOCAINE PATCH REMOVAL MC SCH (21:20)
[2023-02-22] MEDS: LIDOCAINE PATCH REMOVAL TD SCH (21:20)
[2023-02-23] MEDS: GABAPENTIN 300 MG CAPSULE PO SCH ×3 (05:53→22:04)
[2023-02-23] MEDS: ASPIRIN 81 MG CHEWABLE TABLETS PO SCH (10:07)
[2023-02-23] MEDS: PRENATAL VITAMINS W/ FOLIC ACID TABLET (FP) PO SCH (10:07)
[2023-02-23] MEDS: NICOTINE 14 MG/24 HOURS TOPICAL PATCH TD SCH (10:07)
[2023-02-23] MEDS: FAMOTIDINE 20 MG TABLET PO SCH (10:08)
[2023-02-23] MEDS: IBUPROFEN 600 MG TABLET (FP) PO PRN ×2 (10:09→22:05)
[2023-02-23] MEDS: LORATADINE 10 MG TABLET PO SCH (10:10)
[2023-02-23] MEDS: LIDOCAINE 5% TOPICAL PATCH TP SCH ×2 (10:10→10:11)
[2023-02-23] MEDS: HYDROCHLOROTHIAZIDE 25 MG TABLET (FP) PO SCH (10:10)
[2023-02-23] MEDS: LISINOPRIL 10 MG TABLET PO SCH (10:11)
[2023-02-23] MEDS ORDERED: QUEtiapine FUMARATE 100 MG TABLET (FP) ONE (19:11)
[2023-02-23] MEDS: TAMSULOSIN HCL 0.4 MG CAP PO SCH (22:04)
[2023-02-23] MEDS: MELATONIN 5 MG TABLETS PO SCH (22:04)
[2023-02-23] MEDS: THIAMINE HCL 100 MG TABLET (FP) PO SCH (22:04)
[2023-02-23] MEDS: QUEtiapine FUMARATE 300 MG TABLET PO SCH (22:05)
[2023-02-23] MEDS: LIDOCAINE PATCH REMOVAL TD SCH (22:06)
[2023-02-23] MEDS: LIDOCAINE PATCH REMOVAL MC SCH (22:06)
[2023-02-24] MEDS: GABAPENTIN 300 MG CAPSULE PO SCH ×3 (05:32→21:07)
[2023-02-24] MEDS: PRENATAL VITAMINS W/ FOLIC ACID TABLET (FP) PO SCH (09:49)
[2023-02-24] MEDS: LORATADINE 10 MG TABLET PO SCH (09:49)
[2023-02-24] MEDS: ASPIRIN 81 MG CHEWABLE TABLETS PO SCH (09:49)
[2023-02-24] MEDS: LISINOPRIL 10 MG TABLET PO SCH (09:50)
[2023-02-24] MEDS: FAMOTIDINE 20 MG TABLET PO SCH (09:50)
[2023-02-24] MEDS: HYDROCHLOROTHIAZIDE 25 MG TABLET (FP) PO SCH (09:50)
[2023-02-24] MEDS: IBUPROFEN 600 MG TABLET (FP) PO PRN (09:52)
[2023-02-24] MEDS: LIDOCAINE 5% TOPICAL PATCH TP SCH ×2 (09:53)
[2023-02-24] MEDS: NICOTINE 14 MG/24 HOURS TOPICAL PATCH TD SCH (09:55)
[2023-02-24] MEDS: METHOCARBAMOL 500 MG TABLET PO SCH ×2 (13:43→21:08)
[2023-02-24] MEDS: QUEtiapine FUMARATE 300 MG TABLET PO SCH (21:07)
[2023-02-24] MEDS: LIDOCAINE PATCH REMOVAL TD SCH (21:07)
[2023-02-24] MEDS: TAMSULOSIN HCL 0.4 MG CAP PO SCH (21:08)
[2023-02-24] MEDS: MELATONIN 5 MG TABLETS PO SCH (21:08)
[2023-02-24] MEDS: THIAMINE HCL 100 MG TABLET (FP) PO SCH (21:08)
[2023-02-24] MEDS: LIDOCAINE PATCH REMOVAL MC SCH (21:08)
[2023-02-25] MEDS: GABAPENTIN 300 MG CAPSULE PO SCH ×3 (05:49→21:09)
[2023-02-25] MEDS: FAMOTIDINE 20 MG TABLET PO SCH (10:08)
[2023-02-25] MEDS: LIDOCAINE 5% TOPICAL PATCH TP SCH ×2 (10:08)
[2023-02-25] MEDS: HYDROCHLOROTHIAZIDE 25 MG TABLET (FP) PO SCH (10:08)
[2023-02-25] MEDS: PRENATAL VITAMINS W/ FOLIC ACID TABLET (FP) PO SCH (10:08)
[2023-02-25] MEDS: METHOCARBAMOL 500 MG TABLET PO SCH ×2 (10:09→21:09)
[2023-02-25] MEDS: ASPIRIN 81 MG CHEWABLE TABLETS PO SCH (10:09)
[2023-02-25] MEDS: LORATADINE 10 MG TABLET PO SCH (10:09)
[2023-02-25] MEDS: NICOTINE 14 MG/24 HOURS TOPICAL PATCH TD SCH (10:09)
[2023-02-25] MEDS: LISINOPRIL 10 MG TABLET PO SCH (10:09)
[2023-02-25] MEDS: AMMONIUM LACTATE 12% LOTION 225 GM BOTTLE TP PRN (10:10)
[2023-02-25] MEDS: IBUPROFEN 600 MG TABLET (FP) PO PRN ×2 (10:11→14:08)
[2023-02-25] MEDS ORDERED: QUEtiapine FUMARATE 100 MG TABLET (FP) ONE (19:41)
[2023-02-25] MEDS: MELATONIN 5 MG TABLETS PO SCH (21:09)
[2023-02-25] MEDS: IBUPROFEN 400 MG TABLET (FP) PO PRN (21:09)
[2023-02-25] MEDS: QUEtiapine FUMARATE 300 MG TABLET PO SCH (21:09)
[2023-02-25] MEDS: TAMSULOSIN HCL 0.4 MG CAP PO SCH (21:09)
[2023-02-25] MEDS: THIAMINE HCL 100 MG TABLET (FP) PO SCH (21:09)
[2023-02-25] MEDS: LIDOCAINE PATCH REMOVAL TD SCH (21:09)
[2023-02-25] MEDS: LIDOCAINE PATCH REMOVAL MC SCH (21:10)
[2023-02-26] MEDS: GABAPENTIN 300 MG CAPSULE PO SCH (05:51)
[2023-02-26 08:38] VITALS: BP 136/78; PULSE 81; TEMP 97.7
== END 2023-02-26 09:30 | disposition left against medical advice (07) | DRG 770 ==
LOC: YASAS 11:49 → Y3W 11:50
PROVIDERS: ADMIT Allergy & Immunology; ATTEND Psychiatry & Neurology Pain Medicine
PROC: HZ42ZZZ Group Counseling for Substance Abuse Treatment, Cognitive-Behavioral (ICD-10-PCS; principal; 2023-02-16)
DX: F10.20 Alcohol dependence, uncomplicated (principal); F11.20 Opioid dependence, uncomplicated; F14.20 Cocaine dependence, uncomplicated; F17.210 Nicotine dependence, cigarettes, uncomplicated; I10 Essential (primary) hypertension; L85.3 Xerosis cutis; M25.511 Pain in right shoulder; M25.512 Pain in left shoulder; Z96.653 Presence of artificial knee joint, bilateral; Z99.89 Dependence on other enabling machines and devices; F91.8 Other conduct disorders; Z91.199 Patient's noncompliance with other medical treatment and regimen due to unspecified reason
CPT/HCPCS: 36415; 82140; 86803; 87389; 87522

== ENCOUNTER 2023-04-02 13:47 | Inpatient (IN) | payer OTHER ==
[2023-04-02 14:43] VITALS: BMI 27.4
[2023-04-02] MEDS ORDERED: DICYCLOMINE HCL 10 MG CAPSULE PO PRN (17:29)
[2023-04-02] MEDS ORDERED: NALOXONE HCL 0.4 MG/ML VIAL IM PRN (17:29)
[2023-04-02] MEDS ORDERED: POLYETHYLENE GLYCOL (HEALTHYLAX) 3350 17 GM PACKET PO PRN (17:29)
[2023-04-02] MEDS ORDERED: NALOXONE HCL (KLOXXADO) 8 MG SPRAY NS PRN (17:29)
[2023-04-02] MEDS ORDERED: LOPERAMIDE HCL 2 MG CAPSULE PO PRN (17:29)
[2023-04-02] MEDS ORDERED: BISMUTH SUBSALICYLATE 524 MG/30 ML PO PRN (17:29)
[2023-04-02] MEDS ORDERED: ONDANSETRON *ODT* 4 MG TABLET SL PRN (17:29)
[2023-04-02] MEDS ORDERED: MAGNESIUM HYDROX 2400MG/30ML ORAL SUSPENSION 30 ML CUP PO PRN (17:29)
[2023-04-02] MEDS ORDERED: BENZOCAINE/MENTHOL (CHLORASEPTIC ) LOZENGE MM PRN (17:29)
[2023-04-02] MEDS ORDERED: MAG HYDROX/AL HYDROX/SIMETH 30 ML UNIT-DOSE CUP PO PRN (17:29)
[2023-04-02] MEDS ORDERED: NICOTINE POLACRILEX 2 MG GUM BUC PRN (17:29)
[2023-04-02] MEDS ORDERED: ACETAMINOPHEN 325 MG TABLET (FP) PO PRN (17:29)
[2023-04-02] MEDS ORDERED: BENZONATATE 200 MG CAPSULE PO PRN (17:29)
[2023-04-02] MEDS ORDERED: NICOTINE 10 MG CARTRIDGE (INHALER) IH PRN (17:29)
[2023-04-02] MEDS ORDERED: guaiFENesin 600 MG TABLET.ER (FP) PO PRN (17:29)
[2023-04-02] MEDS ORDERED: LORazepam 1 MG TABLET PO PRN (17:29)
[2023-04-02] MEDS: IBUPROFEN 600 MG TABLET (FP) PO PRN (19:19)
[2023-04-02] MEDS: MELATONIN 5 MG TABLETS PO SCH (22:09)
[2023-04-02] MEDS: THIAMINE HCL 100 MG TABLET (FP) PO SCH (22:09)
[2023-04-02] MEDS: LORazepam 2 MG TABLET PO SCH (22:10)
[2023-04-03] MEDS: LORazepam 2 MG TABLET PO SCH ×4 (05:29→22:07)
[2023-04-03] MEDS: METHOCARBAMOL 500 MG TABLET PO PRN ×2 (05:31→22:11)
[2023-04-03] MEDS: IBUPROFEN 600 MG TABLET (FP) PO PRN ×2 (05:32→22:11)
[2023-04-03] MEDS ORDERED: methaDONE HCL 10 MG TABLET PO SCH (07:42)
[2023-04-03] MEDS: PRENATAL VITAMINS W/ FOLIC ACID TABLET (FP) PO SCH (10:07)
[2023-04-03 11:42] LABS: HEMATOCRIT 35.9 % (35.4-49); HEMOGLOBIN 11.8 GM/dL (11.7-16.9); MCH 28.2 pg (25.7-33.7); MCHC 32.9 g/dl (32.0-35.9); MEAN CELL VOLUME 85.8 fl (80-96); MEAN PLT VOLUME 7.3 fl (7.5-11.1); PLATELET COUNT 283 10^3/uL (134-434); RBC 4.18 M/mm3 (4.00-5.60); WHITE BLOOD COUNT 6.3 K/mm3 (4.0-10.0)
[2023-04-03 11:44] LABS: POTASSIUM 3.8 mmol/L (3.5-5.1)
[2023-04-03 11:46] LABS: ALBUMIN 3.3 g/dl (3.4-5.0); CALCIUM 9.5 mg/dL (8.5-10.1)
[2023-04-03 11:47] LABS: BLOOD UREA NITROGEN 11.5 mg/dL (7-18)
[2023-04-03 11:49] LABS: CREATININE 0.7 mg/dL (0.55-1.3)
[2023-04-03 11:51] LABS: BILIRUBIN,TOTAL 0.3 mg/dL (0.2-1); TOT PROT 6.6 g/dl (6.4-8.2)
[2023-04-03 12:43] LABS: HIV INTERPRETATION NEGATIVE (NEGATIVE)
[2023-04-03] MEDS ORDERED: DOCUSATE SODIUM 100 MG CAPSULE (FP) PO PRN (13:14)
[2023-04-03] MEDS ORDERED: ALBUTEROL SO4 HFA INHALER IH PRN (13:14)
[2023-04-03] MEDS: LISINOPRIL 10 MG TABLET PO SCH (14:30)
[2023-04-03] MEDS: FAMOTIDINE 20 MG TABLET PO SCH (14:30)
[2023-04-03] MEDS ORDERED: LIDOCAINE 5% TOPICAL PATCH TP ONE (18:04)
[2023-04-03] MEDS: THIAMINE HCL 100 MG TABLET (FP) PO SCH (22:07)
[2023-04-03] MEDS: TAMSULOSIN HCL 0.4 MG CAP PO SCH (22:07)
[2023-04-03] MEDS: QUEtiapine FUMARATE 100 MG TABLET (FP) PO SCH (22:07)
[2023-04-03] MEDS: MELATONIN 5 MG TABLETS PO SCH (22:12)
[2023-04-04] MEDS: IBUPROFEN 600 MG TABLET (FP) PO PRN (05:44)
[2023-04-04] MEDS: LORazepam 1 MG TABLET PO SCH ×4 (05:44→22:08)
[2023-04-04] MEDS: FUROSEMIDE 20 MG TABLET (FP) PO SCH (05:44)
[2023-04-04] MEDS: METHOCARBAMOL 500 MG TABLET PO PRN ×2 (05:44→22:06)
[2023-04-04] MEDS ORDERED: LIDOCAINE PATCH REMOVAL MC SCH (06:00)
[2023-04-04] MEDS: ASPIRIN 81 MG CHEWABLE TABLETS PO SCH (10:08)
[2023-04-04] MEDS: FAMOTIDINE 20 MG TABLET PO SCH (10:08)
[2023-04-04] MEDS: PRENATAL VITAMINS W/ FOLIC ACID TABLET (FP) PO SCH (10:08)
[2023-04-04] MEDS: LISINOPRIL 10 MG TABLET PO SCH (10:08)
[2023-04-04] MEDS: LORATADINE 10 MG TABLET PO SCH (10:08)
[2023-04-04] MEDS: hydrOXYzine PAMOATE 25 MG CAPSULE (FP) PO PRN (22:05)
[2023-04-04] MEDS: MELATONIN 5 MG TABLETS PO SCH (22:05)
[2023-04-04] MEDS: TAMSULOSIN HCL 0.4 MG CAP PO SCH (22:06)
[2023-04-04] MEDS: THIAMINE HCL 100 MG TABLET (FP) PO SCH (22:06)
[2023-04-04] MEDS: QUEtiapine FUMARATE 100 MG TABLET (FP) PO SCH (22:06)
[2023-04-04] MEDS ORDERED: cloNIDine HCL 0.1 MG TABLET PO ONE (22:07)
[2023-04-05] MEDS ORDERED: LORazepam 0.5 MG TABLET PO PRN
[2023-04-05] MEDS: LORazepam 0.5 MG TABLET PO SCH ×4 (05:24→22:01)
[2023-04-05] MEDS: FUROSEMIDE 20 MG TABLET (FP) PO SCH (05:24)
[2023-04-05] MEDS: IBUPROFEN 400 MG TABLET (FP) PO PRN ×2 (06:33→22:02)
[2023-04-05] MEDS ORDERED: HYDROCHLOROTHIAZIDE 12.5 MG CAPSULE (FP) PO SCH (10:00)
[2023-04-05] MEDS: FAMOTIDINE 20 MG TABLET PO SCH (10:15)
[2023-04-05] MEDS: LORATADINE 10 MG TABLET PO SCH (10:15)
[2023-04-05] MEDS: ASPIRIN 81 MG CHEWABLE TABLETS PO SCH (10:15)
[2023-04-05] MEDS: METHOCARBAMOL 500 MG TABLET PO PRN ×3 (10:15→23:17)
[2023-04-05] MEDS: PRENATAL VITAMINS W/ FOLIC ACID TABLET (FP) PO SCH (10:15)
[2023-04-05] MEDS: LISINOPRIL 10 MG TABLET PO SCH (10:19)
[2023-04-05] MEDS: IBUPROFEN 600 MG TABLET (FP) PO PRN (17:25)
[2023-04-05] MEDS: hydrOXYzine PAMOATE 25 MG CAPSULE (FP) PO PRN (17:25)
[2023-04-05] MEDS: MELATONIN 5 MG TABLETS PO SCH (22:00)
[2023-04-05] MEDS: TAMSULOSIN HCL 0.4 MG CAP PO SCH (22:01)
[2023-04-05] MEDS: THIAMINE HCL 100 MG TABLET (FP) PO SCH (22:01)
[2023-04-05] MEDS: QUEtiapine FUMARATE 100 MG TABLET (FP) PO SCH (22:01)
[2023-04-06 00:13] VITALS: RESP 18
[2023-04-06] MEDS ORDERED: LORazepam 0.5 MG TABLET PO ONE (05:00)
[2023-04-06] MEDS: FUROSEMIDE 20 MG TABLET (FP) PO SCH (05:24)
[2023-04-06 08:54] VITALS: BP 148/85; PULSE 87; TEMP 98.3
[2023-04-06] MEDS: LISINOPRIL 10 MG TABLET PO SCH (09:45)
[2023-04-06] MEDS: ASPIRIN 81 MG CHEWABLE TABLETS PO SCH (09:45)
[2023-04-06] MEDS: PRENATAL VITAMINS W/ FOLIC ACID TABLET (FP) PO SCH (09:45)
[2023-04-06] MEDS: FAMOTIDINE 20 MG TABLET PO SCH (09:45)
[2023-04-06] MEDS: LORATADINE 10 MG TABLET PO SCH (09:45)
== END 2023-04-06 10:18 | disposition home or self-care (01) | DRG 773 ==
LOC: YASAS 13:47 → Y3N 18:21
PROVIDERS: ADMIT Allergy & Immunology; ATTEND Surgery
PROC: HZ2ZZZZ Detoxification Services for Substance Abuse Treatment (ICD-10-PCS; principal; 2023-04-02)
DX: F10.230 Alcohol dependence with withdrawal, uncomplicated (principal); F11.20 Opioid dependence, uncomplicated; F14.20 Cocaine dependence, uncomplicated; F17.210 Nicotine dependence, cigarettes, uncomplicated; E78.2 Mixed hyperlipidemia; I10 Essential (primary) hypertension; K21.9 Gastro-esophageal reflux disease without esophagitis; F19.282 Other psychoactive substance dependence with psychoactive substance-induced sleep disorder; N40.1 Benign prostatic hyperplasia with lower urinary tract symptoms; N39.43 Post-void dribbling; Z96.651 Presence of right artificial knee joint; Z86.19 Personal history of other infectious and parasitic diseases
CPT/HCPCS: 36415; 80053; 85027; 86593; 86780; 87389; 87635

== ENCOUNTER 2023-05-08 15:46 | Inpatient (IN) | payer OTHER ==
[2023-05-08 17:28] VITALS: BMI 25.8
[2023-05-08] MEDS ORDERED: ALBUTEROL SO4 HFA INHALER IH PRN (20:13)
[2023-05-08] MEDS ORDERED: ACETAMINOPHEN 325 MG TABLET (FP) PO PRN (20:14)
[2023-05-08] MEDS ORDERED: BENZOCAINE/MENTHOL (CHLORASEPTIC ) LOZENGE MM PRN (20:14)
[2023-05-08] MEDS ORDERED: POLYETHYLENE GLYCOL (HEALTHYLAX) 3350 17 GM PACKET PO PRN (20:14)
[2023-05-08] MEDS ORDERED: hydrOXYzine PAMOATE 25 MG CAPSULE (FP) PO PRN (20:14)
[2023-05-08] MEDS ORDERED: COLLOIDAL OATMEAL 1 BAR EACH TP PRN (20:14)
[2023-05-08] MEDS ORDERED: BENZONATATE 200 MG CAPSULE PO PRN (20:14)
[2023-05-08] MEDS ORDERED: NALOXONE HCL (KLOXXADO) 8 MG SPRAY NS PRN (20:14)
[2023-05-08] MEDS ORDERED: MAGNESIUM HYDROX 2400MG/30ML ORAL SUSPENSION 30 ML CUP PO PRN (20:14)
[2023-05-08] MEDS ORDERED: NALOXONE HCL 0.4 MG/ML VIAL IM PRN (20:14)
[2023-05-08] MEDS ORDERED: LOPERAMIDE HCL 2 MG CAPSULE PO PRN (20:14)
[2023-05-08] MEDS ORDERED: MAG HYDROX/AL HYDROX/SIMETH 30 ML UNIT-DOSE CUP PO PRN (20:14)
[2023-05-08] MEDS ORDERED: NICOTINE POLACRILEX 2 MG GUM BUC PRN (20:14)
[2023-05-08] MEDS ORDERED: guaiFENesin 600 MG TABLET.ER (FP) PO PRN (20:14)
[2023-05-08] MEDS ORDERED: MELATONIN 5 MG TABLETS PO SCH (22:00)
[2023-05-08] MEDS ORDERED: TAMSULOSIN HCL 0.4 MG CAP PO SCH (22:00)
[2023-05-08] MEDS: HYDROCHLOROTHIAZIDE 12.5 MG CAPSULE (FP) PO SCH (23:52)
[2023-05-08] MEDS: LISINOPRIL 10 MG TABLET PO SCH (23:52)
[2023-05-08] MEDS: THIAMINE HCL 100 MG TABLET (FP) PO SCH (23:53)
[2023-05-09] MEDS ORDERED: methaDONE HCL 10 MG TABLET PO SCH (07:00)
[2023-05-09] MEDS: FUROSEMIDE 20 MG TABLET (FP) PO SCH (07:29)
[2023-05-09] MEDS: ASPIRIN 81 MG CHEWABLE TABLETS PO SCH (10:36)
[2023-05-09] MEDS: HYDROCHLOROTHIAZIDE 12.5 MG CAPSULE (FP) PO SCH (10:36)
[2023-05-09] MEDS: LIDOCAINE 5% TOPICAL PATCH TP SCH (10:37)
[2023-05-09] MEDS: LISINOPRIL 10 MG TABLET PO SCH (10:37)
[2023-05-09] MEDS: NICOTINE 14 MG/24 HOURS TOPICAL PATCH TD SCH (10:37)
[2023-05-09] MEDS: PANTOPRAZOLE 40 MG TABLET PO SCH (10:37)
[2023-05-09] MEDS: IBUPROFEN 600 MG TABLET (FP) PO PRN ×2 (10:38→21:16)
[2023-05-09] MEDS: PRENATAL VITAMINS W/ FOLIC ACID TABLET (FP) PO SCH (10:38)
[2023-05-09 11:21] LABS: HEMATOCRIT 34.9 % (35.4-49); HEMOGLOBIN 11.5 GM/dL (11.7-16.9); MCH 28.2 pg (25.7-33.7); MCHC 33.1 g/dl (32.0-35.9); MEAN CELL VOLUME 85.2 fl (80-96); MEAN PLT VOLUME 7.6 fl (7.5-11.1); PLATELET COUNT 255 10^3/uL (134-434); RDW 13.2 % (11.9-15.9); WHITE BLOOD COUNT 6.9 K/mm3 (4.0-10.0)
[2023-05-09 11:58] LABS: POTASSIUM 4.9 mmol/L (3.5-5.1)
[2023-05-09 12:05] LABS: BLOOD UREA NITROGEN 13.2 mg/dL (7-18); CALCIUM 9.6 mg/dL (8.5-10.1)
[2023-05-09 12:06] LABS: ALBUMIN 3.4 g/dl (3.4-5.0)
[2023-05-09 12:08] LABS: CREATININE 0.9 mg/dL (0.55-1.3)
[2023-05-09 12:10] LABS: BILIRUBIN,TOTAL 0.5 mg/dL (0.2-1)
[2023-05-09] MEDS: TAMSULOSIN HCL 0.4 MG CAP PO SCH (13:30)
[2023-05-09] MEDS: METHOCARBAMOL 500 MG TABLET PO PRN ×2 (13:30→21:15)
[2023-05-09] MEDS: THIAMINE HCL 100 MG TABLET (FP) PO SCH (21:14)
[2023-05-09] MEDS: LIDOCAINE PATCH REMOVAL TD SCH (21:17)
[2023-05-09] MEDS ORDERED: QUEtiapine FUMARATE 50 MG TABLET PO SCH (22:00)
[2023-05-10] MEDS: FUROSEMIDE 20 MG TABLET (FP) PO SCH (06:08)
[2023-05-10] MEDS: TAMSULOSIN HCL 0.4 MG CAP PO SCH (07:50)
[2023-05-10] MEDS: ASPIRIN 81 MG CHEWABLE TABLETS PO SCH (09:54)
[2023-05-10] MEDS: PANTOPRAZOLE 40 MG TABLET PO SCH (09:54)
[2023-05-10] MEDS: PRENATAL VITAMINS W/ FOLIC ACID TABLET (FP) PO SCH (09:55)
[2023-05-10] MEDS: HYDROCHLOROTHIAZIDE 12.5 MG CAPSULE (FP) PO SCH (09:55)
[2023-05-10] MEDS: LIDOCAINE 5% TOPICAL PATCH TP SCH (09:55)
[2023-05-10] MEDS: LISINOPRIL 10 MG TABLET PO SCH (09:55)
[2023-05-10] MEDS: NICOTINE 14 MG/24 HOURS TOPICAL PATCH TD SCH (09:55)
[2023-05-10] MEDS: METHOCARBAMOL 500 MG TABLET PO PRN ×2 (09:57→21:11)
[2023-05-10] MEDS: IBUPROFEN 600 MG TABLET (FP) PO PRN ×2 (09:57→21:11)
[2023-05-10 18:33] LABS: PH,URINE 5.5 (5.0-8.0); URINE APPEARANCE CLEAR; URINE BILIRUBIN NEGATIVE (NEGATIVE); URINE COLOR YELLOW; URINE GLUCOSE (UA) NEGATIVE (NEGATIVE); URINE KETONE NEGATIVE (NEGATIVE); URINE LEUK ESTERASE NEGATIVE (NEGATIVE); URINE NITRITE NEGATIVE (NEGATIVE); URINE PROTEIN NEGATIVE (NEGATIVE); URINE UROBILINOGEN 0.2 mg/dL (0.2-1.0)
[2023-05-10] MEDS: LIDOCAINE PATCH REMOVAL TD SCH (21:11)
[2023-05-10] MEDS: THIAMINE HCL 100 MG TABLET (FP) PO SCH (21:11)
[2023-05-10] MEDS: QUEtiapine FUMARATE 50 MG TABLET PO SCH (21:12)
[2023-05-11] MEDS: FUROSEMIDE 20 MG TABLET (FP) PO SCH (06:14)
[2023-05-11] MEDS: TAMSULOSIN HCL 0.4 MG CAP PO SCH (08:24)
[2023-05-11] MEDS: METHOCARBAMOL 500 MG TABLET PO PRN ×2 (09:59→21:13)
[2023-05-11] MEDS: IBUPROFEN 600 MG TABLET (FP) PO PRN ×2 (09:59→21:11)
[2023-05-11] MEDS: LISINOPRIL 10 MG TABLET PO SCH (10:00)
[2023-05-11] MEDS: HYDROCHLOROTHIAZIDE 12.5 MG CAPSULE (FP) PO SCH (10:00)
[2023-05-11] MEDS: NICOTINE 14 MG/24 HOURS TOPICAL PATCH TD SCH (10:00)
[2023-05-11] MEDS: PANTOPRAZOLE 40 MG TABLET PO SCH (10:00)
[2023-05-11] MEDS: ASPIRIN 81 MG CHEWABLE TABLETS PO SCH (10:00)
[2023-05-11] MEDS: LIDOCAINE 5% TOPICAL PATCH TP SCH (10:01)
[2023-05-11] MEDS: PRENATAL VITAMINS W/ FOLIC ACID TABLET (FP) PO SCH (10:01)
[2023-05-11] MEDS: LIDOCAINE PATCH REMOVAL TD SCH (21:11)
[2023-05-11] MEDS: THIAMINE HCL 100 MG TABLET (FP) PO SCH (21:11)
[2023-05-11] MEDS: QUEtiapine FUMARATE 50 MG TABLET PO SCH (21:12)
[2023-05-12] MEDS: FUROSEMIDE 20 MG TABLET (FP) PO SCH (06:00)
[2023-05-12] MEDS: TAMSULOSIN HCL 0.4 MG CAP PO SCH (07:35)
[2023-05-12] MEDS: PRENATAL VITAMINS W/ FOLIC ACID TABLET (FP) PO SCH (10:09)
[2023-05-12] MEDS: LIDOCAINE 5% TOPICAL PATCH TP SCH (10:09)
[2023-05-12] MEDS: ASPIRIN 81 MG CHEWABLE TABLETS PO SCH (10:10)
[2023-05-12] MEDS: PANTOPRAZOLE 40 MG TABLET PO SCH (10:10)
[2023-05-12] MEDS: LISINOPRIL 10 MG TABLET PO SCH (10:10)
[2023-05-12] MEDS: HYDROCHLOROTHIAZIDE 12.5 MG CAPSULE (FP) PO SCH (10:10)
[2023-05-12] MEDS: NICOTINE 14 MG/24 HOURS TOPICAL PATCH TD SCH (10:11)
[2023-05-12] MEDS: IBUPROFEN 600 MG TABLET (FP) PO PRN ×2 (10:12→21:14)
[2023-05-12] MEDS: METHOCARBAMOL 500 MG TABLET PO PRN ×2 (10:12→21:14)
[2023-05-12] MEDS ORDERED: DOCUSATE SODIUM 100 MG CAPSULE (FP) PO PRN (11:49)
[2023-05-12] MEDS: GABAPENTIN 300 MG CAPSULE PO SCH ×2 (13:47→21:14)
[2023-05-12] MEDS: THIAMINE HCL 100 MG TABLET (FP) PO SCH (21:13)
[2023-05-12] MEDS: LIDOCAINE PATCH REMOVAL MC SCH (21:14)
[2023-05-12] MEDS: LIDOCAINE PATCH REMOVAL TD SCH (21:14)
[2023-05-12] MEDS: QUEtiapine FUMARATE 100 MG TABLET (FP) PO SCH (21:16)
[2023-05-13] MEDS: GABAPENTIN 300 MG CAPSULE PO SCH ×3 (06:06→21:07)
[2023-05-13] MEDS: FUROSEMIDE 20 MG TABLET (FP) PO SCH (06:06)
[2023-05-13] MEDS: TAMSULOSIN HCL 0.4 MG CAP PO SCH (07:41)
[2023-05-13] MEDS: HYDROCHLOROTHIAZIDE 12.5 MG CAPSULE (FP) PO SCH (09:56)
[2023-05-13] MEDS: LORATADINE 10 MG TABLET PO SCH (09:56)
[2023-05-13] MEDS: ASPIRIN 81 MG CHEWABLE TABLETS PO SCH (09:56)
[2023-05-13] MEDS: PRENATAL VITAMINS W/ FOLIC ACID TABLET (FP) PO SCH (09:56)
[2023-05-13] MEDS: LISINOPRIL 10 MG TABLET PO SCH (09:56)
[2023-05-13] MEDS: IBUPROFEN 400 MG TABLET (FP) PO PRN ×2 (09:57→21:09)
[2023-05-13] MEDS: METHOCARBAMOL 500 MG TABLET PO PRN ×2 (09:57→21:07)
[2023-05-13] MEDS: PANTOPRAZOLE 40 MG TABLET PO SCH (09:58)
[2023-05-13] MEDS: LIDOCAINE 5% TOPICAL PATCH TP SCH ×2 (09:59)
[2023-05-13] MEDS: NICOTINE 14 MG/24 HOURS TOPICAL PATCH TD SCH (09:59)
[2023-05-13] MEDS: FAMOTIDINE 20 MG TABLET PO SCH (10:30)
[2023-05-13] MEDS: THIAMINE HCL 100 MG TABLET (FP) PO SCH (21:07)
[2023-05-13] MEDS: QUEtiapine FUMARATE 100 MG TABLET (FP) PO SCH (21:07)
[2023-05-13] MEDS: LIDOCAINE PATCH REMOVAL MC SCH (21:08)
[2023-05-13] MEDS: LIDOCAINE PATCH REMOVAL TD SCH (22:42)
[2023-05-14] MEDS: FUROSEMIDE 20 MG TABLET (FP) PO SCH (06:05)
[2023-05-14] MEDS: GABAPENTIN 300 MG CAPSULE PO SCH ×3 (06:05→21:06)
[2023-05-14] MEDS: TAMSULOSIN HCL 0.4 MG CAP PO SCH (07:45)
[2023-05-14] MEDS ORDERED: HYDROCORTISONE 0.5% TOPICAL CREAM 30 GM TUBE TP PRN (10:06)
[2023-05-14] MEDS: METHOCARBAMOL 500 MG TABLET PO PRN ×2 (10:11→21:05)
[2023-05-14] MEDS: IBUPROFEN 600 MG TABLET (FP) PO PRN ×2 (10:11→21:05)
[2023-05-14] MEDS: ASPIRIN 81 MG CHEWABLE TABLETS PO SCH (10:11)
[2023-05-14] MEDS: HYDROCHLOROTHIAZIDE 12.5 MG CAPSULE (FP) PO SCH (10:12)
[2023-05-14] MEDS: PANTOPRAZOLE 40 MG TABLET PO SCH (10:12)
[2023-05-14] MEDS: LIDOCAINE 5% TOPICAL PATCH TP SCH ×2 (10:12→10:13)
[2023-05-14] MEDS: PRENATAL VITAMINS W/ FOLIC ACID TABLET (FP) PO SCH (10:12)
[2023-05-14] MEDS: LISINOPRIL 10 MG TABLET PO SCH (10:12)
[2023-05-14] MEDS: FAMOTIDINE 20 MG TABLET PO SCH (10:12)
[2023-05-14] MEDS: NICOTINE 14 MG/24 HOURS TOPICAL PATCH TD SCH (10:12)
[2023-05-14] MEDS: LORATADINE 10 MG TABLET PO SCH (10:14)
[2023-05-14] MEDS: NYSTATIN/TRIAMCINOLONE TOPICAL CREAM 15 GM TUBE TP SCH ×2 (10:51→22:29)
[2023-05-14] MEDS: THIAMINE HCL 100 MG TABLET (FP) PO SCH (21:05)
[2023-05-14] MEDS: QUEtiapine FUMARATE 100 MG TABLET (FP) PO SCH (21:06)
[2023-05-14] MEDS: LIDOCAINE PATCH REMOVAL TD SCH (21:15)
[2023-05-14] MEDS: LIDOCAINE PATCH REMOVAL MC SCH (21:15)
[2023-05-15] MEDS: FUROSEMIDE 20 MG TABLET (FP) PO SCH (06:08)
[2023-05-15] MEDS: GABAPENTIN 300 MG CAPSULE PO SCH ×3 (06:08→21:03)
[2023-05-15] MEDS: TAMSULOSIN HCL 0.4 MG CAP PO SCH (07:32)
[2023-05-15] MEDS: IBUPROFEN 600 MG TABLET (FP) PO PRN ×2 (10:10→21:04)
[2023-05-15] MEDS: METHOCARBAMOL 500 MG TABLET PO PRN ×2 (10:10→21:03)
[2023-05-15] MEDS: FAMOTIDINE 20 MG TABLET PO SCH (10:11)
[2023-05-15] MEDS: LISINOPRIL 10 MG TABLET PO SCH (10:11)
[2023-05-15] MEDS: ASPIRIN 81 MG CHEWABLE TABLETS PO SCH (10:11)
[2023-05-15] MEDS: PANTOPRAZOLE 40 MG TABLET PO SCH (10:11)
[2023-05-15] MEDS: HYDROCHLOROTHIAZIDE 12.5 MG CAPSULE (FP) PO SCH (10:12)
[2023-05-15] MEDS: LIDOCAINE 5% TOPICAL PATCH TP SCH ×2 (10:12)
[2023-05-15] MEDS: LORATADINE 10 MG TABLET PO SCH (10:12)
[2023-05-15] MEDS: NYSTATIN/TRIAMCINOLONE TOPICAL CREAM 15 GM TUBE TP SCH ×2 (10:13→21:05)
[2023-05-15] MEDS: NICOTINE 14 MG/24 HOURS TOPICAL PATCH TD SCH (10:13)
[2023-05-15] MEDS: PRENATAL VITAMINS W/ FOLIC ACID TABLET (FP) PO SCH (10:14)
[2023-05-15] MEDS: AMMONIUM LACTATE 12% LOTION 225 GM BOTTLE TP PRN (10:17)
[2023-05-15] MEDS: QUEtiapine FUMARATE 100 MG TABLET (FP) PO SCH (21:03)
[2023-05-15] MEDS: THIAMINE HCL 100 MG TABLET (FP) PO SCH (21:03)
[2023-05-15] MEDS: LIDOCAINE PATCH REMOVAL MC SCH (21:05)
[2023-05-15] MEDS: LIDOCAINE PATCH REMOVAL TD SCH (21:05)
[2023-05-16] MEDS: FUROSEMIDE 20 MG TABLET (FP) PO SCH (06:19)
[2023-05-16] MEDS: GABAPENTIN 300 MG CAPSULE PO SCH ×3 (06:19→21:02)
[2023-05-16] MEDS: TAMSULOSIN HCL 0.4 MG CAP PO SCH (07:32)
[2023-05-16] MEDS: NICOTINE 14 MG/24 HOURS TOPICAL PATCH TD SCH (09:41)
[2023-05-16] MEDS: LIDOCAINE 5% TOPICAL PATCH TP SCH ×2 (09:41)
[2023-05-16] MEDS: NYSTATIN/TRIAMCINOLONE TOPICAL CREAM 15 GM TUBE TP SCH ×2 (09:41→22:31)
[2023-05-16] MEDS: PANTOPRAZOLE 40 MG TABLET PO SCH (09:42)
[2023-05-16] MEDS: LISINOPRIL 10 MG TABLET PO SCH (09:42)
[2023-05-16] MEDS: HYDROCHLOROTHIAZIDE 12.5 MG CAPSULE (FP) PO SCH (09:42)
[2023-05-16] MEDS: FAMOTIDINE 20 MG TABLET PO SCH (09:42)
[2023-05-16] MEDS: LORATADINE 10 MG TABLET PO SCH (09:42)
[2023-05-16] MEDS: IBUPROFEN 400 MG TABLET (FP) PO PRN (09:43)
[2023-05-16] MEDS: PRENATAL VITAMINS W/ FOLIC ACID TABLET (FP) PO SCH (09:43)
[2023-05-16] MEDS: ASPIRIN 81 MG CHEWABLE TABLETS PO SCH (09:43)
[2023-05-16] MEDS: METHOCARBAMOL 500 MG TABLET PO PRN ×2 (09:43→21:02)
[2023-05-16] MEDS: IBUPROFEN 600 MG TABLET (FP) PO PRN (21:02)
[2023-05-16] MEDS: THIAMINE HCL 100 MG TABLET (FP) PO SCH (21:02)
[2023-05-16] MEDS: QUEtiapine FUMARATE 400 MG TABLET PO SCH (21:03)
[2023-05-16] MEDS: LIDOCAINE PATCH REMOVAL MC SCH (21:26)
[2023-05-16] MEDS: LIDOCAINE PATCH REMOVAL TD SCH (21:26)
[2023-05-17] MEDS: GABAPENTIN 300 MG CAPSULE PO SCH ×3 (06:03→21:04)
[2023-05-17] MEDS: FUROSEMIDE 20 MG TABLET (FP) PO SCH (06:03)
[2023-05-17] MEDS: TAMSULOSIN HCL 0.4 MG CAP PO SCH (07:38)
[2023-05-17] MEDS: ASPIRIN 81 MG CHEWABLE TABLETS PO SCH (09:48)
[2023-05-17] MEDS: HYDROCHLOROTHIAZIDE 12.5 MG CAPSULE (FP) PO SCH (09:49)
[2023-05-17] MEDS: LIDOCAINE 5% TOPICAL PATCH TP SCH ×2 (09:49)
[2023-05-17] MEDS: LORATADINE 10 MG TABLET PO SCH (09:49)
[2023-05-17] MEDS: FAMOTIDINE 20 MG TABLET PO SCH (09:50)
[2023-05-17] MEDS: NYSTATIN/TRIAMCINOLONE TOPICAL CREAM 15 GM TUBE TP SCH ×2 (09:50→21:05)
[2023-05-17] MEDS: NICOTINE 14 MG/24 HOURS TOPICAL PATCH TD SCH (09:50)
[2023-05-17] MEDS: PANTOPRAZOLE 40 MG TABLET PO SCH (09:51)
[2023-05-17] MEDS: PRENATAL VITAMINS W/ FOLIC ACID TABLET (FP) PO SCH (09:51)
[2023-05-17] MEDS: IBUPROFEN 600 MG TABLET (FP) PO PRN ×2 (09:51→21:04)
[2023-05-17] MEDS: LISINOPRIL 10 MG TABLET PO SCH (09:51)
[2023-05-17] MEDS: METHOCARBAMOL 500 MG TABLET PO PRN ×2 (09:53→21:04)
[2023-05-17] MEDS: LIDOCAINE PATCH REMOVAL TD SCH (21:03)
[2023-05-17] MEDS: THIAMINE HCL 100 MG TABLET (FP) PO SCH (21:03)
[2023-05-17] MEDS: QUEtiapine FUMARATE 400 MG TABLET PO SCH (21:04)
[2023-05-17] MEDS: LIDOCAINE PATCH REMOVAL MC SCH (21:04)
[2023-05-18] MEDS: GABAPENTIN 300 MG CAPSULE PO SCH ×3 (06:00→21:02)
[2023-05-18] MEDS: FUROSEMIDE 20 MG TABLET (FP) PO SCH (06:00)
[2023-05-18] MEDS: TAMSULOSIN HCL 0.4 MG CAP PO SCH (07:51)
[2023-05-18] MEDS: ASPIRIN 81 MG CHEWABLE TABLETS PO SCH (09:25)
[2023-05-18] MEDS: LORATADINE 10 MG TABLET PO SCH (09:26)
[2023-05-18] MEDS: HYDROCHLOROTHIAZIDE 12.5 MG CAPSULE (FP) PO SCH (09:26)
[2023-05-18] MEDS: LIDOCAINE 5% TOPICAL PATCH TP SCH ×2 (09:26)
[2023-05-18] MEDS: NYSTATIN/TRIAMCINOLONE TOPICAL CREAM 15 GM TUBE TP SCH ×2 (09:27→21:02)
[2023-05-18] MEDS: NICOTINE 14 MG/24 HOURS TOPICAL PATCH TD SCH (09:28)
[2023-05-18] MEDS: PRENATAL VITAMINS W/ FOLIC ACID TABLET (FP) PO SCH (09:28)
[2023-05-18] MEDS: FAMOTIDINE 20 MG TABLET PO SCH (09:28)
[2023-05-18] MEDS: LISINOPRIL 10 MG TABLET PO SCH (09:29)
[2023-05-18] MEDS: IBUPROFEN 600 MG TABLET (FP) PO PRN ×2 (09:29→21:01)
[2023-05-18] MEDS: METHOCARBAMOL 500 MG TABLET PO PRN ×2 (09:29→21:02)
[2023-05-18] MEDS: PANTOPRAZOLE 40 MG TABLET PO SCH (09:29)
[2023-05-18] MEDS: THIAMINE HCL 100 MG TABLET (FP) PO SCH (21:01)
[2023-05-18] MEDS: QUEtiapine FUMARATE 400 MG TABLET PO SCH (21:01)
[2023-05-18] MEDS: LIDOCAINE PATCH REMOVAL MC SCH (21:02)
[2023-05-18] MEDS: LIDOCAINE PATCH REMOVAL TD SCH (21:02)
[2023-05-19] MEDS: GABAPENTIN 300 MG CAPSULE PO SCH ×3 (06:09→21:02)
[2023-05-19] MEDS: FUROSEMIDE 20 MG TABLET (FP) PO SCH (06:09)
[2023-05-19] MEDS: TAMSULOSIN HCL 0.4 MG CAP PO SCH (07:44)
[2023-05-19] MEDS: METHOCARBAMOL 500 MG TABLET PO PRN ×2 (09:56→21:01)
[2023-05-19] MEDS: IBUPROFEN 600 MG TABLET (FP) PO PRN ×2 (09:57→21:01)
[2023-05-19] MEDS: FAMOTIDINE 20 MG TABLET PO SCH (09:57)
[2023-05-19] MEDS: PANTOPRAZOLE 40 MG TABLET PO SCH (09:57)
[2023-05-19] MEDS: LISINOPRIL 10 MG TABLET PO SCH (09:57)
[2023-05-19] MEDS: LORATADINE 10 MG TABLET PO SCH (09:58)
[2023-05-19] MEDS: NICOTINE 14 MG/24 HOURS TOPICAL PATCH TD SCH (09:58)
[2023-05-19] MEDS: HYDROCHLOROTHIAZIDE 12.5 MG CAPSULE (FP) PO SCH (09:58)
[2023-05-19] MEDS: ASPIRIN 81 MG CHEWABLE TABLETS PO SCH (09:58)
[2023-05-19] MEDS: LIDOCAINE 5% TOPICAL PATCH TP SCH ×2 (09:58)
[2023-05-19] MEDS: NYSTATIN/TRIAMCINOLONE TOPICAL CREAM 15 GM TUBE TP SCH ×2 (09:59→21:03)
[2023-05-19] MEDS: PRENATAL VITAMINS W/ FOLIC ACID TABLET (FP) PO SCH (09:59)
[2023-05-19] MEDS: AMMONIUM LACTATE 12% LOTION 225 GM BOTTLE TP PRN (10:01)
[2023-05-19] MEDS: THIAMINE HCL 100 MG TABLET (FP) PO SCH (21:01)
[2023-05-19] MEDS: QUEtiapine FUMARATE 400 MG TABLET PO SCH (21:02)
[2023-05-19] MEDS: LIDOCAINE PATCH REMOVAL MC SCH (21:03)
[2023-05-19] MEDS: LIDOCAINE PATCH REMOVAL TD SCH (21:03)
[2023-05-20] MEDS: GABAPENTIN 300 MG CAPSULE PO SCH ×3 (05:46→20:59)
[2023-05-20] MEDS: FUROSEMIDE 20 MG TABLET (FP) PO SCH (07:32)
[2023-05-20] MEDS: TAMSULOSIN HCL 0.4 MG CAP PO SCH (07:34)
[2023-05-20] MEDS: ASPIRIN 81 MG CHEWABLE TABLETS PO SCH (09:44)
[2023-05-20] MEDS: HYDROCHLOROTHIAZIDE 12.5 MG CAPSULE (FP) PO SCH (09:44)
[2023-05-20] MEDS: LIDOCAINE 5% TOPICAL PATCH TP SCH ×2 (09:44)
[2023-05-20] MEDS: LORATADINE 10 MG TABLET PO SCH (09:44)
[2023-05-20] MEDS: FAMOTIDINE 20 MG TABLET PO SCH (09:45)
[2023-05-20] MEDS: NYSTATIN/TRIAMCINOLONE TOPICAL CREAM 15 GM TUBE TP SCH ×2 (09:45→21:00)
[2023-05-20] MEDS: NICOTINE 14 MG/24 HOURS TOPICAL PATCH TD SCH (09:45)
[2023-05-20] MEDS: PANTOPRAZOLE 40 MG TABLET PO SCH (09:46)
[2023-05-20] MEDS: METHOCARBAMOL 500 MG TABLET PO PRN ×2 (09:46→20:59)
[2023-05-20] MEDS: PRENATAL VITAMINS W/ FOLIC ACID TABLET (FP) PO SCH (09:46)
[2023-05-20] MEDS: LISINOPRIL 10 MG TABLET PO SCH (09:46)
[2023-05-20] MEDS: IBUPROFEN 600 MG TABLET (FP) PO PRN (09:46)
[2023-05-20] MEDS: QUEtiapine FUMARATE 400 MG TABLET PO SCH (20:59)
[2023-05-20] MEDS: THIAMINE HCL 100 MG TABLET (FP) PO SCH (20:59)
[2023-05-20] MEDS: LIDOCAINE PATCH REMOVAL TD SCH (21:01)
[2023-05-20] MEDS: IBUPROFEN 400 MG TABLET (FP) PO PRN (21:02)
[2023-05-20] MEDS: LIDOCAINE PATCH REMOVAL MC SCH (21:04)
[2023-05-20] MEDS: traZODone HCL 50 MG TABLET (FP) PO SCH (21:04)
[2023-05-21] MEDS: FUROSEMIDE 20 MG TABLET (FP) PO SCH (06:07)
[2023-05-21] MEDS: GABAPENTIN 300 MG CAPSULE PO SCH ×3 (06:08→21:04)
[2023-05-21] MEDS: TAMSULOSIN HCL 0.4 MG CAP PO SCH (08:50)
[2023-05-21] MEDS: NYSTATIN/TRIAMCINOLONE TOPICAL CREAM 15 GM TUBE TP SCH ×2 (09:46→21:05)
[2023-05-21] MEDS: NICOTINE 14 MG/24 HOURS TOPICAL PATCH TD SCH (09:46)
[2023-05-21] MEDS: LIDOCAINE 5% TOPICAL PATCH TP SCH ×2 (09:46)
[2023-05-21] MEDS: FAMOTIDINE 20 MG TABLET PO SCH (09:48)
[2023-05-21] MEDS: ASPIRIN 81 MG CHEWABLE TABLETS PO SCH (09:48)
[2023-05-21] MEDS: PRENATAL VITAMINS W/ FOLIC ACID TABLET (FP) PO SCH (09:48)
[2023-05-21] MEDS: LISINOPRIL 10 MG TABLET PO SCH (09:49)
[2023-05-21] MEDS: HYDROCHLOROTHIAZIDE 12.5 MG CAPSULE (FP) PO SCH (09:49)
[2023-05-21] MEDS: LORATADINE 10 MG TABLET PO SCH (09:49)
[2023-05-21] MEDS: PANTOPRAZOLE 40 MG TABLET PO SCH (09:49)
[2023-05-21] MEDS: METHOCARBAMOL 500 MG TABLET PO PRN ×2 (09:49→21:04)
[2023-05-21] MEDS: IBUPROFEN 400 MG TABLET (FP) PO PRN (09:50)
[2023-05-21] MEDS: traZODone HCL 50 MG TABLET (FP) PO SCH (21:04)
[2023-05-21] MEDS: IBUPROFEN 600 MG TABLET (FP) PO PRN (21:04)
[2023-05-21] MEDS: THIAMINE HCL 100 MG TABLET (FP) PO SCH (21:04)
[2023-05-21] MEDS: QUEtiapine FUMARATE 400 MG TABLET PO SCH (21:04)
[2023-05-21] MEDS: LIDOCAINE PATCH REMOVAL TD SCH (21:05)
[2023-05-21] MEDS: LIDOCAINE PATCH REMOVAL MC SCH (21:05)
[2023-05-22] MEDS: GABAPENTIN 300 MG CAPSULE PO SCH ×3 (06:01→21:04)
[2023-05-22] MEDS: FUROSEMIDE 20 MG TABLET (FP) PO SCH (06:01)
[2023-05-22 06:33] VITALS: RESP 18
[2023-05-22] MEDS: LORATADINE 10 MG TABLET PO SCH (09:30)
[2023-05-22] MEDS: ASPIRIN 81 MG CHEWABLE TABLETS PO SCH (09:30)
[2023-05-22] MEDS: HYDROCHLOROTHIAZIDE 12.5 MG CAPSULE (FP) PO SCH (09:30)
[2023-05-22] MEDS: TAMSULOSIN HCL 0.4 MG CAP PO SCH (09:30)
[2023-05-22] MEDS: NICOTINE 14 MG/24 HOURS TOPICAL PATCH TD SCH (09:31)
[2023-05-22] MEDS: NYSTATIN/TRIAMCINOLONE TOPICAL CREAM 15 GM TUBE TP SCH ×2 (09:31→21:05)
[2023-05-22] MEDS: LIDOCAINE 5% TOPICAL PATCH TP SCH ×2 (09:31)
[2023-05-22] MEDS: FAMOTIDINE 20 MG TABLET PO SCH (09:32)
[2023-05-22] MEDS: PRENATAL VITAMINS W/ FOLIC ACID TABLET (FP) PO SCH (09:32)
[2023-05-22] MEDS: IBUPROFEN 600 MG TABLET (FP) PO PRN ×2 (09:33→21:04)
[2023-05-22] MEDS: METHOCARBAMOL 500 MG TABLET PO PRN ×2 (09:33→21:04)
[2023-05-22] MEDS: PANTOPRAZOLE 40 MG TABLET PO SCH (09:33)
[2023-05-22] MEDS: LISINOPRIL 10 MG TABLET PO SCH (09:33)
[2023-05-22] MEDS: THIAMINE HCL 100 MG TABLET (FP) PO SCH (21:04)
[2023-05-22] MEDS: traZODone HCL 50 MG TABLET (FP) PO SCH (21:04)
[2023-05-22] MEDS: LIDOCAINE PATCH REMOVAL MC SCH (21:05)
[2023-05-22] MEDS: QUEtiapine FUMARATE 400 MG TABLET PO SCH (21:05)
[2023-05-22] MEDS: LIDOCAINE PATCH REMOVAL TD SCH (21:05)
[2023-05-23] MEDS: FUROSEMIDE 20 MG TABLET (FP) PO SCH (06:08)
[2023-05-23] MEDS: GABAPENTIN 300 MG CAPSULE PO SCH (06:08)
[2023-05-23 07:19] VITALS: BP 119/74; PULSE 73; TEMP 96.9
[2023-05-23] MEDS: TAMSULOSIN HCL 0.4 MG CAP PO SCH (08:25)
[2023-05-23] MEDS: LIDOCAINE 5% TOPICAL PATCH TP SCH ×2 (09:07)
[2023-05-23] MEDS: NICOTINE 14 MG/24 HOURS TOPICAL PATCH TD SCH (09:07)
[2023-05-23] MEDS: ASPIRIN 81 MG CHEWABLE TABLETS PO SCH (09:07)
[2023-05-23] MEDS: HYDROCHLOROTHIAZIDE 12.5 MG CAPSULE (FP) PO SCH (09:08)
[2023-05-23] MEDS: PANTOPRAZOLE 40 MG TABLET PO SCH (09:08)
[2023-05-23] MEDS: LISINOPRIL 10 MG TABLET PO SCH (09:08)
[2023-05-23] MEDS: FAMOTIDINE 20 MG TABLET PO SCH (09:08)
[2023-05-23] MEDS: LORATADINE 10 MG TABLET PO SCH (09:08)
[2023-05-23] MEDS: PRENATAL VITAMINS W/ FOLIC ACID TABLET (FP) PO SCH (09:09)
[2023-05-23] MEDS: NYSTATIN/TRIAMCINOLONE TOPICAL CREAM 15 GM TUBE TP SCH (09:09)
[2023-05-23] MEDS: IBUPROFEN 600 MG TABLET (FP) PO PRN (09:10)
[2023-05-23] MEDS: METHOCARBAMOL 500 MG TABLET PO PRN (09:11)
== END 2023-05-23 09:30 | disposition home or self-care (01) | DRG 772 ==
LOC: YASAS 15:46 → Y3E 20:10
PROVIDERS: ADMIT Allergy & Immunology; ATTEND Psychiatry & Neurology Pain Medicine
PROC: HZ42ZZZ Group Counseling for Substance Abuse Treatment, Cognitive-Behavioral (ICD-10-PCS; principal; 2023-05-08)
DX: F14.20 Cocaine dependence, uncomplicated (principal); F11.20 Opioid dependence, uncomplicated; F17.210 Nicotine dependence, cigarettes, uncomplicated; F25.1 Schizoaffective disorder, depressive type; F19.282 Other psychoactive substance dependence with psychoactive substance-induced sleep disorder; F19.24 Other psychoactive substance dependence with psychoactive substance-induced mood disorder; E78.5 Hyperlipidemia, unspecified; G47.00 Insomnia, unspecified; I10 Essential (primary) hypertension; J45.20 Mild intermittent asthma, uncomplicated; K21.9 Gastro-esophageal reflux disease without esophagitis; M47.819 Spondylosis without myelopathy or radiculopathy, site unspecified; N40.1 Benign prostatic hyperplasia with lower urinary tract symptoms; R39.11 Hesitancy of micturition; B18.2 Chronic viral hepatitis C; R76.8 Other specified abnormal immunological findings in serum; Z99.89 Dependence on other enabling machines and devices
CPT/HCPCS: 36415; 80053; 81003; 85027; 86593; 86780; 87635

== ENCOUNTER 2023-07-08 12:28 | Inpatient (IN) | payer OTHER ==
[2023-07-08 13:05] VITALS: BMI 26.9
[2023-07-08] MEDS ORDERED: hydrOXYzine PAMOATE 25 MG CAPSULE (FP) PO PRN (14:50)
[2023-07-08] MEDS ORDERED: LORazepam 1 MG TABLET PO PRN (14:50)
[2023-07-08] MEDS ORDERED: MAGNESIUM HYDROX 2400MG/30ML ORAL SUSPENSION 30 ML CUP PO PRN (14:50)
[2023-07-08] MEDS ORDERED: guaiFENesin 600 MG TABLET.ER (FP) PO PRN (14:50)
[2023-07-08] MEDS ORDERED: ACETAMINOPHEN 325 MG TABLET (FP) PO PRN (14:50)
[2023-07-08] MEDS ORDERED: POLYETHYLENE GLYCOL (HEALTHYLAX) 3350 17 GM PACKET PO PRN (14:50)
[2023-07-08] MEDS ORDERED: IBUPROFEN 400 MG TABLET (FP) PO PRN (14:50)
[2023-07-08] MEDS ORDERED: BENZOCAINE/MENTHOL (CHLORASEPTIC ) LOZENGE MM PRN (14:50)
[2023-07-08] MEDS ORDERED: NALOXONE HCL 0.4 MG/ML VIAL IM PRN (14:50)
[2023-07-08] MEDS ORDERED: NALOXONE HCL (KLOXXADO) 8 MG SPRAY NS PRN (14:50)
[2023-07-08] MEDS ORDERED: ONDANSETRON *ODT* 4 MG TABLET SL PRN (14:50)
[2023-07-08] MEDS ORDERED: DICYCLOMINE HCL 10 MG CAPSULE PO PRN (14:50)
[2023-07-08] MEDS ORDERED: LOPERAMIDE HCL 2 MG CAPSULE PO PRN (14:50)
[2023-07-08] MEDS ORDERED: BISMUTH SUBSALICYLATE 524 MG/30 ML PO PRN (14:50)
[2023-07-08] MEDS ORDERED: BENZONATATE 200 MG CAPSULE PO PRN (14:50)
[2023-07-08] MEDS ORDERED: MAG HYDROX/AL HYDROX/SIMETH 30 ML UNIT-DOSE CUP PO PRN (14:50)
[2023-07-08] MEDS ORDERED: DOCUSATE SODIUM 100 MG CAPSULE (FP) PO PRN (14:53)
[2023-07-08] MEDS ORDERED: ALBUTEROL SO4 HFA INHALER IH PRN (14:53)
[2023-07-08] MEDS: PRENATAL VITAMINS W/ FOLIC ACID TABLET (FP) PO SCH (17:06)
[2023-07-08] MEDS: LORazepam 2 MG TABLET PO SCH ×2 (17:07→22:14)
[2023-07-08] MEDS ORDERED: MELATONIN 5 MG TABLETS PO SCH (22:00)
[2023-07-08] MEDS ORDERED: PATIENT'S OWN MEDICATION (NON-FORMULARY) (Lidocaine Patch Removal 1 EACH Each) MC SCH (22:00)
[2023-07-08] MEDS: THIAMINE HCL 100 MG TABLET (FP) PO SCH (22:13)
[2023-07-08] MEDS: METHOCARBAMOL 500 MG TABLET PO PRN (22:13)
[2023-07-08] MEDS: GABAPENTIN 300 MG CAPSULE PO SCH (22:14)
[2023-07-09] MEDS: FUROSEMIDE 20 MG TABLET (FP) PO SCH (05:36)
[2023-07-09] MEDS: LORazepam 2 MG TABLET PO SCH ×4 (05:37→22:09)
[2023-07-09] MEDS: GABAPENTIN 300 MG CAPSULE PO SCH ×3 (05:37→21:52)
[2023-07-09] MEDS ORDERED: methaDONE HCL 10 MG TABLET PO SCH (06:00)
[2023-07-09] MEDS: TAMSULOSIN HCL 0.4 MG CAP PO SCH (07:43)
[2023-07-09] MEDS: PRENATAL VITAMINS W/ FOLIC ACID TABLET (FP) PO SCH (09:55)
[2023-07-09] MEDS: FAMOTIDINE 20 MG TABLET PO SCH (09:55)
[2023-07-09] MEDS: LIDOCAINE 5% TOPICAL PATCH TP SCH (09:55)
[2023-07-09] MEDS: LISINOPRIL 10 MG TABLET PO SCH (09:55)
[2023-07-09] MEDS: NICOTINE 14 MG/24 HOURS TOPICAL PATCH TD SCH (09:55)
[2023-07-09] MEDS: LORATADINE 10 MG TABLET PO SCH (09:55)
[2023-07-09] MEDS: ASPIRIN 81 MG CHEWABLE TABLETS PO SCH (09:56)
[2023-07-09] MEDS: HYDROCHLOROTHIAZIDE 12.5 MG CAPSULE (FP) PO SCH (09:56)
[2023-07-09 11:44] LABS: HIV INTERPRETATION NEGATIVE (NEGATIVE)
[2023-07-09] MEDS ORDERED: LISINOPRIL 5 MG TABLET PO ONE (21:29)
[2023-07-09] MEDS: THIAMINE HCL 100 MG TABLET (FP) PO SCH (21:52)
[2023-07-09] MEDS: QUEtiapine FUMARATE 200 MG TABLET PO SCH (21:52)
[2023-07-09] MEDS: LIDOCAINE PATCH REMOVAL MC SCH (21:52)
[2023-07-09] MEDS: METHOCARBAMOL 500 MG TABLET PO PRN (21:55)
[2023-07-09] MEDS: IBUPROFEN 600 MG TABLET (FP) PO PRN (21:57)
[2023-07-10] MEDS: FUROSEMIDE 20 MG TABLET (FP) PO SCH (05:16)
[2023-07-10] MEDS: LORazepam 1 MG TABLET PO SCH ×4 (05:16→22:05)
[2023-07-10] MEDS: GABAPENTIN 300 MG CAPSULE PO SCH ×3 (05:16→22:06)
[2023-07-10] MEDS: TAMSULOSIN HCL 0.4 MG CAP PO SCH (09:15)
[2023-07-10] MEDS: LIDOCAINE 5% TOPICAL PATCH TP SCH (10:39)
[2023-07-10] MEDS: LORATADINE 10 MG TABLET PO SCH (10:42)
[2023-07-10] MEDS: FAMOTIDINE 20 MG TABLET PO SCH (10:42)
[2023-07-10] MEDS: ASPIRIN 81 MG CHEWABLE TABLETS PO SCH (10:43)
[2023-07-10] MEDS: LISINOPRIL 10 MG TABLET PO SCH (10:43)
[2023-07-10] MEDS: HYDROCHLOROTHIAZIDE 12.5 MG CAPSULE (FP) PO SCH (10:43)
[2023-07-10] MEDS: IBUPROFEN 600 MG TABLET (FP) PO PRN (10:45)
[2023-07-10] MEDS: METHOCARBAMOL 500 MG TABLET PO PRN ×2 (10:45→22:06)
[2023-07-10] MEDS: PRENATAL VITAMINS W/ FOLIC ACID TABLET (FP) PO SCH (10:53)
[2023-07-10] MEDS: NICOTINE 14 MG/24 HOURS TOPICAL PATCH TD SCH (10:53)
[2023-07-10] MEDS: THIAMINE HCL 100 MG TABLET (FP) PO SCH (22:05)
[2023-07-10] MEDS: QUEtiapine FUMARATE 200 MG TABLET PO SCH (22:06)
[2023-07-10] MEDS: LIDOCAINE PATCH REMOVAL MC SCH (22:31)
[2023-07-11] MEDS ORDERED: LORazepam 0.5 MG TABLET PO PRN
[2023-07-11] MEDS: LORazepam 0.5 MG TABLET PO SCH ×4 (05:37→22:13)
[2023-07-11] MEDS: FUROSEMIDE 20 MG TABLET (FP) PO SCH (05:38)
[2023-07-11] MEDS: GABAPENTIN 300 MG CAPSULE PO SCH ×3 (05:38→22:14)
[2023-07-11] MEDS: TAMSULOSIN HCL 0.4 MG CAP PO SCH (08:31)
[2023-07-11] MEDS: ASPIRIN 81 MG CHEWABLE TABLETS PO SCH (10:14)
[2023-07-11] MEDS: LIDOCAINE 5% TOPICAL PATCH TP SCH (10:14)
[2023-07-11] MEDS: LORATADINE 10 MG TABLET PO SCH (10:14)
[2023-07-11] MEDS: NICOTINE 14 MG/24 HOURS TOPICAL PATCH TD SCH (10:14)
[2023-07-11] MEDS: FAMOTIDINE 20 MG TABLET PO SCH (10:14)
[2023-07-11] MEDS: HYDROCHLOROTHIAZIDE 12.5 MG CAPSULE (FP) PO SCH (10:14)
[2023-07-11] MEDS: PRENATAL VITAMINS W/ FOLIC ACID TABLET (FP) PO SCH (10:15)
[2023-07-11] MEDS: LISINOPRIL 10 MG TABLET PO SCH (10:15)
[2023-07-11] MEDS: METHOCARBAMOL 500 MG TABLET PO PRN ×2 (10:18→22:16)
[2023-07-11] MEDS: IBUPROFEN 600 MG TABLET (FP) PO PRN ×2 (10:18→16:31)
[2023-07-11] MEDS: LIDOCAINE PATCH REMOVAL MC SCH (22:13)
[2023-07-11] MEDS: THIAMINE HCL 100 MG TABLET (FP) PO SCH (22:14)
[2023-07-11] MEDS: QUEtiapine FUMARATE 200 MG TABLET PO SCH (22:14)
[2023-07-12] MEDS ORDERED: LORazepam 0.5 MG TABLET PO ONE (05:00)
[2023-07-12] MEDS: GABAPENTIN 300 MG CAPSULE PO SCH (05:22)
[2023-07-12] MEDS: FUROSEMIDE 20 MG TABLET (FP) PO SCH (05:22)
[2023-07-12 09:29] VITALS: BP 157/85; PULSE 82; RESP 16; TEMP 98
[2023-07-12] MEDS: TAMSULOSIN HCL 0.4 MG CAP PO SCH (09:30)
[2023-07-12] MEDS: ASPIRIN 81 MG CHEWABLE TABLETS PO SCH (09:35)
[2023-07-12] MEDS: LISINOPRIL 10 MG TABLET PO SCH (09:35)
[2023-07-12] MEDS: HYDROCHLOROTHIAZIDE 12.5 MG CAPSULE (FP) PO SCH (09:36)
[2023-07-12] MEDS: LORATADINE 10 MG TABLET PO SCH (09:36)
[2023-07-12] MEDS: FAMOTIDINE 20 MG TABLET PO SCH (09:36)
[2023-07-12] MEDS: LIDOCAINE 5% TOPICAL PATCH TP SCH (09:36)
[2023-07-12] MEDS: NICOTINE 14 MG/24 HOURS TOPICAL PATCH TD SCH (09:37)
[2023-07-12] MEDS: PRENATAL VITAMINS W/ FOLIC ACID TABLET (FP) PO SCH (09:37)
[2023-07-12] MEDS: IBUPROFEN 600 MG TABLET (FP) PO PRN (09:40)
[2023-07-12] MEDS: METHOCARBAMOL 500 MG TABLET PO PRN (09:41)
== END 2023-07-12 13:08 | disposition other institution (70) | DRG 773 ==
LOC: YASAS 12:28 → Y3N 15:15
PROVIDERS: ADMIT Allergy & Immunology; ATTEND Surgery
PROC: HZ2ZZZZ Detoxification Services for Substance Abuse Treatment (ICD-10-PCS; principal; 2023-07-08)
DX: F10.230 Alcohol dependence with withdrawal, uncomplicated (principal); F11.20 Opioid dependence, uncomplicated; F14.20 Cocaine dependence, uncomplicated; F17.210 Nicotine dependence, cigarettes, uncomplicated; F19.282 Other psychoactive substance dependence with psychoactive substance-induced sleep disorder; F19.24 Other psychoactive substance dependence with psychoactive substance-induced mood disorder; I10 Essential (primary) hypertension; J45.20 Mild intermittent asthma, uncomplicated; K21.9 Gastro-esophageal reflux disease without esophagitis; N40.1 Benign prostatic hyperplasia with lower urinary tract symptoms; R39.11 Hesitancy of micturition; Z86.2 Personal history of diseases of the blood and blood-forming organs and certain disorders involving the immune mechanism; Z99.89 Dependence on other enabling machines and devices
CPT/HCPCS: 36415; 86593; 86780; 87389; 87635

== ENCOUNTER 2023-10-10 17:45 | Inpatient (IN) | payer OTHER ==
[2023-10-10 18:49] VITALS: BMI 23.3
[2023-10-10] MEDS ORDERED: MELATONIN 5 MG TABLETS PO SCH (22:00)
[2023-10-10] MEDS ORDERED: guaiFENesin 600 MG TABLET.ER (FP) PO PRN (22:12)
[2023-10-10] MEDS ORDERED: MAGNESIUM HYDROX 2400MG/30ML ORAL SUSPENSION 30 ML CUP PO PRN (22:12)
[2023-10-10] MEDS ORDERED: NALOXONE HCL 0.4 MG/ML VIAL IM PRN (22:12)
[2023-10-10] MEDS ORDERED: MAG HYDROX/AL HYDROX/SIMETH 30 ML UNIT-DOSE CUP PO PRN (22:12)
[2023-10-10] MEDS ORDERED: NICOTINE POLACRILEX 2 MG GUM BUC PRN (22:12)
[2023-10-10] MEDS ORDERED: LOPERAMIDE HCL 2 MG CAPSULE PO PRN (22:12)
[2023-10-10] MEDS ORDERED: POLYETHYLENE GLYCOL (HEALTHYLAX) 3350 17 GM PACKET PO PRN (22:12)
[2023-10-10] MEDS ORDERED: ACETAMINOPHEN 325 MG TABLET (FP) PO PRN (22:12)
[2023-10-10] MEDS ORDERED: BENZONATATE 200 MG CAPSULE PO PRN (22:12)
[2023-10-10] MEDS ORDERED: NALOXONE HCL (KLOXXADO) 8 MG SPRAY NS PRN (22:12)
[2023-10-10] MEDS ORDERED: MELATONIN 5 MG TABLETS ONE (23:14)
[2023-10-11] MEDS ORDERED: methaDONE HCL 10 MG TABLET PO ONE (09:16)
[2023-10-11] MEDS: IBUPROFEN 600 MG TABLET (FP) PO PRN (09:47)
[2023-10-11] MEDS: BACITRACIN 0.9 GM PACKET TP SCH ×2 (09:47→21:08)
[2023-10-11] MEDS: PRENATAL VITAMINS W/ FOLIC ACID TABLET (FP) PO SCH (09:47)
[2023-10-11] MEDS: NICOTINE 21 MG/24 HOURS TOPICAL PATCH TD SCH (10:27)
[2023-10-11] MEDS ORDERED: methaDONE 80 MG, methaDONE 10 MG PO ONE (11:00)
[2023-10-11 14:57] LABS: PH,URINE 5.5 (5.0-8.0); URINE APPEARANCE CLEAR; URINE BILIRUBIN NEGATIVE (NEGATIVE); URINE COLOR DK YELLOW; URINE GLUCOSE (UA) NEGATIVE (NEGATIVE); URINE KETONE TRACE (NEGATIVE); URINE LEUK ESTERASE NEGATIVE (NEGATIVE); URINE NITRITE NEGATIVE (NEGATIVE); URINE PROTEIN TRACE (NEGATIVE)
[2023-10-11] MEDS: QUEtiapine FUMARATE 100 MG TABLET (FP) PO SCH (21:08)
[2023-10-11] MEDS: BENZOCAINE/MENTHOL (CHLORASEPTIC ) LOZENGE MM PRN (21:09)
[2023-10-11] MEDS: THIAMINE HCL 100 MG TABLET (FP) PO SCH (21:09)
[2023-10-12] MEDS ORDERED: methaDONE HCL 10 MG TABLET PO SCH (06:00)
[2023-10-12] MEDS: methaDONE 80 MG, methaDONE 10 MG PO SCH (06:08)
[2023-10-12] MEDS: PRENATAL VITAMINS W/ FOLIC ACID TABLET (FP) PO SCH (10:37)
[2023-10-12] MEDS: NICOTINE 21 MG/24 HOURS TOPICAL PATCH TD SCH (10:37)
[2023-10-12] MEDS: BACITRACIN 0.9 GM PACKET TP SCH ×2 (10:37→21:05)
[2023-10-12] MEDS: IBUPROFEN 600 MG TABLET (FP) PO PRN ×2 (10:40→21:07)
[2023-10-12] MEDS ORDERED: DOCUSATE SODIUM 100 MG CAPSULE (FP) PO PRN (13:25)
[2023-10-12] MEDS ORDERED: ALBUTEROL SO4 HFA INHALER IH PRN (13:25)
[2023-10-12] MEDS: ASPIRIN 81 MG CHEWABLE TABLETS PO SCH (14:09)
[2023-10-12] MEDS: FAMOTIDINE 20 MG TABLET PO SCH (14:09)
[2023-10-12] MEDS: TAMSULOSIN HCL 0.4 MG CAP PO SCH (14:09)
[2023-10-12] MEDS: QUEtiapine FUMARATE 100 MG TABLET (FP) PO SCH (21:06)
[2023-10-12] MEDS: THIAMINE HCL 100 MG TABLET (FP) PO SCH (21:06)
[2023-10-12] MEDS: BENZOCAINE/MENTHOL (CHLORASEPTIC ) LOZENGE MM PRN (21:07)
[2023-10-13] MEDS: methaDONE 80 MG, methaDONE 10 MG PO SCH (05:59)
[2023-10-13] MEDS: PRENATAL VITAMINS W/ FOLIC ACID TABLET (FP) PO SCH (09:37)
[2023-10-13] MEDS: BACITRACIN 0.9 GM PACKET TP SCH ×2 (09:37→21:07)
[2023-10-13] MEDS: FAMOTIDINE 20 MG TABLET PO SCH (09:37)
[2023-10-13] MEDS: ASPIRIN 81 MG CHEWABLE TABLETS PO SCH (09:38)
[2023-10-13] MEDS: NICOTINE 21 MG/24 HOURS TOPICAL PATCH TD SCH (09:38)
[2023-10-13] MEDS: TAMSULOSIN HCL 0.4 MG CAP PO SCH (09:38)
[2023-10-13] MEDS: IBUPROFEN 400 MG TABLET (FP) PO PRN (09:39)
[2023-10-13 13:17] LABS: HEMATOCRIT 32.8 % (35.4-49); HEMOGLOBIN 10.6 GM/dL (11.7-16.9); MCH 27.1 pg (25.7-33.7); MCHC 32.4 g/dl (32.0-35.9); MEAN CELL VOLUME 83.7 fl (80-96); MEAN PLT VOLUME 6.7 fl (7.5-11.1); PLATELET COUNT 284 10^3/uL (134-434); RBC 3.92 M/mm3 (4.00-5.60); RDW 14.6 % (11.9-15.9); WHITE BLOOD COUNT 6.9 K/mm3 (4.0-10.0)
[2023-10-13 13:21] LABS: CHLORIDE 107 mmol/L (98-107); SODIUM 139 mmol/L (136-145)
[2023-10-13 13:23] LABS: CALCIUM 9.5 mg/dL (8.5-10.1)
[2023-10-13 13:24] LABS: ALBUMIN 3.3 g/dl (3.4-5.0); ANION GAP 4 mmol/L (4-13); BLOOD UREA NITROGEN 21.1 mg/dL (7-18); CO2 28 mmol/L (21-32); GLUCOSE,RANDOM 91 mg/dL (74-106)
[2023-10-13 13:27] LABS: CREATININE 0.9 mg/dL (0.55-1.3); SGOT/AST 7 U/L (15-37); SGPT/ALT 15 U/L (13-61)
[2023-10-13 13:28] LABS: BILIRUBIN,TOTAL 0.2 mg/dL (0.2-1)
[2023-10-13 13:30] LABS: ALK PHOS 97 U/L (45-117)
[2023-10-13] MEDS: IBUPROFEN 600 MG TABLET (FP) PO PRN (15:31)
[2023-10-13] MEDS: COLLOIDAL OATMEAL 1 BAR EACH TP PRN (15:31)
[2023-10-13] MEDS: THIAMINE HCL 100 MG TABLET (FP) PO SCH (21:06)
[2023-10-13] MEDS: QUEtiapine FUMARATE 100 MG TABLET (FP) PO SCH (21:06)
[2023-10-13] MEDS: BACLOFEN 10 MG TABLET (FP) PO SCH (21:07)
[2023-10-13] MEDS: GABAPENTIN 300 MG CAPSULE PO SCH (21:07)
[2023-10-14] MEDS: methaDONE 80 MG, methaDONE 10 MG PO SCH (05:59)
[2023-10-14] MEDS: GABAPENTIN 300 MG CAPSULE PO SCH ×3 (05:59→21:09)
[2023-10-14] MEDS: BACLOFEN 10 MG TABLET (FP) PO SCH ×2 (05:59→13:19)
[2023-10-14] MEDS ORDERED: FUROSEMIDE 20 MG TABLET (FP) PO SCH (06:00)
[2023-10-14] MEDS: BACITRACIN 0.9 GM PACKET TP SCH ×2 (09:12→21:09)
[2023-10-14] MEDS: TAMSULOSIN HCL 0.4 MG CAP PO SCH (09:12)
[2023-10-14] MEDS: PRENATAL VITAMINS W/ FOLIC ACID TABLET (FP) PO SCH (09:12)
[2023-10-14] MEDS: FAMOTIDINE 20 MG TABLET PO SCH (09:12)
[2023-10-14] MEDS: ASPIRIN 81 MG CHEWABLE TABLETS PO SCH (09:12)
[2023-10-14] MEDS: IBUPROFEN 600 MG TABLET (FP) PO PRN (09:14)
[2023-10-14] MEDS: METHOCARBAMOL 500 MG TABLET PO PRN ×2 (09:14→21:09)
[2023-10-14] MEDS: NICOTINE 21 MG/24 HOURS TOPICAL PATCH TD SCH (09:15)
[2023-10-14] MEDS: THIAMINE HCL 100 MG TABLET (FP) PO SCH (21:09)
[2023-10-14] MEDS: QUEtiapine FUMARATE 100 MG TABLET (FP) PO SCH (21:09)
[2023-10-14] MEDS: IBUPROFEN 400 MG TABLET (FP) PO PRN (21:10)
[2023-10-15] MEDS: methaDONE 80 MG, methaDONE 10 MG PO SCH (06:02)
[2023-10-15] MEDS: GABAPENTIN 300 MG CAPSULE PO SCH ×3 (06:02→21:40)
[2023-10-15] MEDS: TAMSULOSIN HCL 0.4 MG CAP PO SCH (09:19)
[2023-10-15] MEDS: BACITRACIN 0.9 GM PACKET TP SCH ×2 (09:19→21:40)
[2023-10-15] MEDS: PRENATAL VITAMINS W/ FOLIC ACID TABLET (FP) PO SCH (09:19)
[2023-10-15] MEDS: FAMOTIDINE 20 MG TABLET PO SCH (09:20)
[2023-10-15] MEDS: ASPIRIN 81 MG CHEWABLE TABLETS PO SCH (09:20)
[2023-10-15] MEDS: NICOTINE 21 MG/24 HOURS TOPICAL PATCH TD SCH (09:20)
[2023-10-15] MEDS: IBUPROFEN 600 MG TABLET (FP) PO PRN ×2 (09:22→14:47)
[2023-10-15] MEDS: METHOCARBAMOL 500 MG TABLET PO PRN ×2 (09:22→21:41)
[2023-10-15] MEDS: COLLOIDAL OATMEAL 1 BAR EACH TP PRN (09:44)
[2023-10-15 13:38] LABS: BASO % 0.4 % (0-2.0); EOS % 8.2 % (0-4.5); HEMATOCRIT 34.1 % (35.4-49); HEMOGLOBIN 11.4 GM/dL (11.7-16.9); LYMPH % 23.8 % (8-40); MCH 27.6 pg (25.7-33.7); MCHC 33.3 g/dl (32.0-35.9); MEAN CELL VOLUME 82.7 fl (80-96); MONO % 7.1 % (3.8-10.2); NEUT % 60.5 % (42.8-82.8); PLATELET COUNT 293 10^3/uL (134-434); RBC 4.13 M/mm3 (4.00-5.60); RDW 14.6 % (11.9-15.9); WHITE BLOOD COUNT 7.7 K/mm3 (4.0-10.0)
[2023-10-15 13:48] LABS: INR 1.12 (0.83-1.09)
[2023-10-15 14:37] LABS: HIV INTERPRETATION NEGATIVE (NEGATIVE)
[2023-10-15] MEDS: THIAMINE HCL 100 MG TABLET (FP) PO SCH (21:40)
[2023-10-15] MEDS: QUEtiapine FUMARATE 100 MG TABLET (FP) PO SCH (21:41)
[2023-10-16] MEDS: methaDONE 80 MG, methaDONE 10 MG PO SCH (06:35)
[2023-10-16] MEDS: GABAPENTIN 300 MG CAPSULE PO SCH ×3 (06:35→21:02)
[2023-10-16] MEDS: BACITRACIN 0.9 GM PACKET TP SCH ×2 (09:00→21:02)
[2023-10-16] MEDS: PRENATAL VITAMINS W/ FOLIC ACID TABLET (FP) PO SCH (09:00)
[2023-10-16] MEDS: FAMOTIDINE 20 MG TABLET PO SCH (09:00)
[2023-10-16] MEDS: NICOTINE 21 MG/24 HOURS TOPICAL PATCH TD SCH (09:00)
[2023-10-16] MEDS: TAMSULOSIN HCL 0.4 MG CAP PO SCH (09:01)
[2023-10-16] MEDS: ASPIRIN 81 MG CHEWABLE TABLETS PO SCH (09:01)
[2023-10-16] MEDS: METHOCARBAMOL 500 MG TABLET PO PRN ×2 (09:02→21:02)
[2023-10-16] MEDS: IBUPROFEN 600 MG TABLET (FP) PO PRN (09:02)
[2023-10-16] MEDS: QUEtiapine FUMARATE 100 MG TABLET (FP) PO SCH (21:01)
[2023-10-16] MEDS: THIAMINE HCL 100 MG TABLET (FP) PO SCH (21:02)
[2023-10-16] MEDS: IBUPROFEN 400 MG TABLET (FP) PO PRN (21:02)
[2023-10-17] MEDS: methaDONE 80 MG, methaDONE 10 MG PO SCH (05:56)
[2023-10-17] MEDS: GABAPENTIN 300 MG CAPSULE PO SCH ×3 (05:57→21:03)
[2023-10-17] MEDS: BACITRACIN 0.9 GM PACKET TP SCH ×2 (09:15→21:02)
[2023-10-17] MEDS: ASPIRIN 81 MG CHEWABLE TABLETS PO SCH (09:15)
[2023-10-17] MEDS: METHOCARBAMOL 500 MG TABLET PO PRN ×2 (09:15→21:03)
[2023-10-17] MEDS: TAMSULOSIN HCL 0.4 MG CAP PO SCH (09:15)
[2023-10-17] MEDS: PRENATAL VITAMINS W/ FOLIC ACID TABLET (FP) PO SCH (09:16)
[2023-10-17] MEDS: FAMOTIDINE 20 MG TABLET PO SCH (09:16)
[2023-10-17] MEDS: IBUPROFEN 600 MG TABLET (FP) PO PRN (09:16)
[2023-10-17] MEDS: NICOTINE 21 MG/24 HOURS TOPICAL PATCH TD SCH (09:27)
[2023-10-17] MEDS: QUEtiapine FUMARATE 100 MG TABLET (FP) PO SCH (21:02)
[2023-10-17] MEDS: THIAMINE HCL 100 MG TABLET (FP) PO SCH (21:02)
[2023-10-18] MEDS: methaDONE 80 MG, methaDONE 10 MG PO SCH (06:00)
[2023-10-18] MEDS: GABAPENTIN 300 MG CAPSULE PO SCH ×3 (06:00→21:38)
[2023-10-18] MEDS: PRENATAL VITAMINS W/ FOLIC ACID TABLET (FP) PO SCH (09:58)
[2023-10-18] MEDS: FAMOTIDINE 20 MG TABLET PO SCH (09:58)
[2023-10-18] MEDS: NICOTINE 21 MG/24 HOURS TOPICAL PATCH TD SCH (09:59)
[2023-10-18] MEDS: BACITRACIN 0.9 GM PACKET TP SCH ×2 (09:59→21:38)
[2023-10-18] MEDS: TAMSULOSIN HCL 0.4 MG CAP PO SCH (09:59)
[2023-10-18] MEDS: ASPIRIN 81 MG CHEWABLE TABLETS PO SCH (09:59)
[2023-10-18] MEDS: IBUPROFEN 600 MG TABLET (FP) PO PRN (10:03)
[2023-10-18] MEDS ORDERED: QUEtiapine FUMARATE 50 MG TABLET ONE (18:35)
[2023-10-18] MEDS: METHOCARBAMOL 500 MG TABLET PO PRN (21:38)
[2023-10-18] MEDS: THIAMINE HCL 100 MG TABLET (FP) PO SCH (21:38)
[2023-10-18] MEDS: QUEtiapine FUMARATE 100 MG TABLET (FP) PO SCH (21:38)
[2023-10-18] MEDS: IBUPROFEN 400 MG TABLET (FP) PO PRN (21:39)
[2023-10-19] MEDS: methaDONE 80 MG, methaDONE 10 MG PO SCH (06:01)
[2023-10-19] MEDS: GABAPENTIN 300 MG CAPSULE PO SCH ×3 (06:02→21:00)
[2023-10-19] MEDS: TAMSULOSIN HCL 0.4 MG CAP PO SCH (09:30)
[2023-10-19] MEDS: IBUPROFEN 600 MG TABLET (FP) PO PRN (09:44)
[2023-10-19] MEDS: BACITRACIN 0.9 GM PACKET TP SCH ×2 (09:44→21:00)
[2023-10-19] MEDS: ASPIRIN 81 MG CHEWABLE TABLETS PO SCH (09:44)
[2023-10-19] MEDS: METHOCARBAMOL 500 MG TABLET PO PRN ×2 (09:44→21:00)
[2023-10-19] MEDS: FAMOTIDINE 20 MG TABLET PO SCH (09:44)
[2023-10-19] MEDS: NICOTINE 21 MG/24 HOURS TOPICAL PATCH TD SCH (09:46)
[2023-10-19] MEDS: PRENATAL VITAMINS W/ FOLIC ACID TABLET (FP) PO SCH (09:47)
[2023-10-19] MEDS ORDERED: QUEtiapine FUMARATE 50 MG TABLET ONE (18:54)
[2023-10-19] MEDS: IBUPROFEN 400 MG TABLET (FP) PO PRN (20:59)
[2023-10-19] MEDS: QUEtiapine FUMARATE 100 MG TABLET (FP) PO SCH (21:00)
[2023-10-19] MEDS: THIAMINE HCL 100 MG TABLET (FP) PO SCH (21:01)
[2023-10-20] MEDS: GABAPENTIN 300 MG CAPSULE PO SCH ×3 (05:48→21:07)
[2023-10-20] MEDS: methaDONE 80 MG, methaDONE 10 MG PO SCH (05:48)
[2023-10-20] MEDS: IBUPROFEN 600 MG TABLET (FP) PO PRN ×2 (07:05→13:48)
[2023-10-20] MEDS: FAMOTIDINE 20 MG TABLET PO SCH (09:15)
[2023-10-20] MEDS: PRENATAL VITAMINS W/ FOLIC ACID TABLET (FP) PO SCH (09:15)
[2023-10-20] MEDS: ASPIRIN 81 MG CHEWABLE TABLETS PO SCH (09:15)
[2023-10-20] MEDS: TAMSULOSIN HCL 0.4 MG CAP PO SCH (09:15)
[2023-10-20] MEDS: NICOTINE 21 MG/24 HOURS TOPICAL PATCH TD SCH (09:16)
[2023-10-20] MEDS: BACITRACIN 0.9 GM PACKET TP SCH ×2 (09:16→21:07)
[2023-10-20] MEDS: QUEtiapine FUMARATE 100 MG TABLET (FP) PO SCH (21:07)
[2023-10-20] MEDS: THIAMINE HCL 100 MG TABLET (FP) PO SCH (21:07)
[2023-10-20] MEDS: METHOCARBAMOL 500 MG TABLET PO PRN (21:07)
[2023-10-21] MEDS: methaDONE 80 MG, methaDONE 10 MG PO SCH (06:01)
[2023-10-21] MEDS: GABAPENTIN 300 MG CAPSULE PO SCH ×3 (06:02→21:09)
[2023-10-21] MEDS: TAMSULOSIN HCL 0.4 MG CAP PO SCH (09:00)
[2023-10-21] MEDS: NICOTINE 21 MG/24 HOURS TOPICAL PATCH TD SCH (10:04)
[2023-10-21] MEDS: ASPIRIN 81 MG CHEWABLE TABLETS PO SCH (10:04)
[2023-10-21] MEDS: FAMOTIDINE 20 MG TABLET PO SCH (10:04)
[2023-10-21] MEDS: BACITRACIN 0.9 GM PACKET TP SCH ×2 (10:04→21:09)
[2023-10-21] MEDS: METHOCARBAMOL 500 MG TABLET PO PRN ×3 (10:05→21:09)
[2023-10-21] MEDS: IBUPROFEN 600 MG TABLET (FP) PO PRN ×2 (10:05→13:39)
[2023-10-21] MEDS: PRENATAL VITAMINS W/ FOLIC ACID TABLET (FP) PO SCH (10:06)
[2023-10-21] MEDS: QUEtiapine FUMARATE 100 MG TABLET (FP) PO SCH (21:09)
[2023-10-21] MEDS: THIAMINE HCL 100 MG TABLET (FP) PO SCH (21:09)
[2023-10-21] MEDS: IBUPROFEN 400 MG TABLET (FP) PO PRN (21:09)
[2023-10-22] MEDS: methaDONE 80 MG, methaDONE 10 MG PO SCH (05:57)
[2023-10-22] MEDS: GABAPENTIN 300 MG CAPSULE PO SCH ×3 (05:58→21:17)
[2023-10-22] MEDS: BACITRACIN 0.9 GM PACKET TP SCH ×2 (09:27→21:17)
[2023-10-22] MEDS: TAMSULOSIN HCL 0.4 MG CAP PO SCH (09:28)
[2023-10-22] MEDS: IBUPROFEN 600 MG TABLET (FP) PO PRN ×2 (09:28→13:58)
[2023-10-22] MEDS: PRENATAL VITAMINS W/ FOLIC ACID TABLET (FP) PO SCH (09:28)
[2023-10-22] MEDS: FAMOTIDINE 20 MG TABLET PO SCH (09:28)
[2023-10-22] MEDS: ASPIRIN 81 MG CHEWABLE TABLETS PO SCH (09:28)
[2023-10-22] MEDS: NICOTINE 21 MG/24 HOURS TOPICAL PATCH TD SCH (09:28)
[2023-10-22] MEDS: METHOCARBAMOL 500 MG TABLET PO PRN ×3 (09:28→21:17)
[2023-10-22] MEDS: COLLOIDAL OATMEAL 1 BAR EACH TP PRN (09:50)
[2023-10-22] MEDS: THIAMINE HCL 100 MG TABLET (FP) PO SCH (21:17)
[2023-10-22] MEDS: QUEtiapine FUMARATE 100 MG TABLET (FP) PO SCH (21:17)
[2023-10-22] MEDS: IBUPROFEN 400 MG TABLET (FP) PO PRN (21:18)
[2023-10-23] MEDS: methaDONE 80 MG, methaDONE 10 MG PO SCH (05:48)
[2023-10-23] MEDS: GABAPENTIN 300 MG CAPSULE PO SCH ×3 (05:49→21:04)
[2023-10-23] MEDS: PRENATAL VITAMINS W/ FOLIC ACID TABLET (FP) PO SCH (09:08)
[2023-10-23] MEDS: ASPIRIN 81 MG CHEWABLE TABLETS PO SCH (09:08)
[2023-10-23] MEDS: BACITRACIN 0.9 GM PACKET TP SCH ×2 (09:08→21:04)
[2023-10-23] MEDS: NICOTINE 21 MG/24 HOURS TOPICAL PATCH TD SCH (09:08)
[2023-10-23] MEDS: FAMOTIDINE 20 MG TABLET PO SCH (09:08)
[2023-10-23] MEDS: TAMSULOSIN HCL 0.4 MG CAP PO SCH (09:09)
[2023-10-23] MEDS: IBUPROFEN 600 MG TABLET (FP) PO PRN ×3 (09:10→21:05)
[2023-10-23] MEDS: METHOCARBAMOL 500 MG TABLET PO PRN ×2 (09:10→21:05)
[2023-10-23] MEDS: QUEtiapine FUMARATE 100 MG TABLET (FP) PO SCH (21:04)
[2023-10-23] MEDS: THIAMINE HCL 100 MG TABLET (FP) PO SCH (21:44)
[2023-10-24] MEDS: methaDONE 80 MG, methaDONE 10 MG PO SCH (06:02)
[2023-10-24] MEDS: GABAPENTIN 300 MG CAPSULE PO SCH ×3 (06:02→21:43)
[2023-10-24] MEDS: FAMOTIDINE 20 MG TABLET PO SCH (09:03)
[2023-10-24] MEDS: BACITRACIN 0.9 GM PACKET TP SCH ×2 (09:03→21:43)
[2023-10-24] MEDS: ASPIRIN 81 MG CHEWABLE TABLETS PO SCH (09:03)
[2023-10-24] MEDS: TAMSULOSIN HCL 0.4 MG CAP PO SCH (09:04)
[2023-10-24] MEDS: IBUPROFEN 600 MG TABLET (FP) PO PRN ×3 (09:04→21:44)
[2023-10-24] MEDS: PRENATAL VITAMINS W/ FOLIC ACID TABLET (FP) PO SCH (09:04)
[2023-10-24] MEDS: NICOTINE 21 MG/24 HOURS TOPICAL PATCH TD SCH (09:06)
[2023-10-24] MEDS: METHOCARBAMOL 500 MG TABLET PO PRN ×3 (09:06→21:44)
[2023-10-24] MEDS: THIAMINE HCL 100 MG TABLET (FP) PO SCH (21:43)
[2023-10-24] MEDS: QUEtiapine FUMARATE 100 MG TABLET (FP) PO SCH (21:43)
[2023-10-24] MEDS: AMMONIUM LACTATE 12% LOTION 225 GM BOTTLE TP PRN (21:43)
[2023-10-25] MEDS: methaDONE 80 MG, methaDONE 10 MG PO SCH (05:57)
[2023-10-25] MEDS: GABAPENTIN 300 MG CAPSULE PO SCH ×3 (05:59→21:07)
[2023-10-25] MEDS: TAMSULOSIN HCL 0.4 MG CAP PO SCH (09:04)
[2023-10-25] MEDS: BACITRACIN 0.9 GM PACKET TP SCH ×2 (09:04→21:06)
[2023-10-25] MEDS: ASPIRIN 81 MG CHEWABLE TABLETS PO SCH (09:04)
[2023-10-25] MEDS: PRENATAL VITAMINS W/ FOLIC ACID TABLET (FP) PO SCH (09:04)
[2023-10-25] MEDS: FAMOTIDINE 20 MG TABLET PO SCH (09:05)
[2023-10-25] MEDS: IBUPROFEN 600 MG TABLET (FP) PO PRN ×3 (09:05→21:07)
[2023-10-25] MEDS: NICOTINE 21 MG/24 HOURS TOPICAL PATCH TD SCH (09:05)
[2023-10-25] MEDS: METHOCARBAMOL 500 MG TABLET PO PRN ×3 (09:06→21:07)
[2023-10-25] MEDS: QUEtiapine FUMARATE 100 MG TABLET (FP) PO SCH (21:06)
[2023-10-25] MEDS: THIAMINE HCL 100 MG TABLET (FP) PO SCH (21:51)
[2023-10-26] MEDS: GABAPENTIN 300 MG CAPSULE PO SCH ×3 (06:00→21:24)
[2023-10-26] MEDS: methaDONE 80 MG, methaDONE 10 MG PO SCH (06:00)
[2023-10-26] MEDS: COLLOIDAL OATMEAL 1 BAR EACH TP PRN (06:46)
[2023-10-26] MEDS: TAMSULOSIN HCL 0.4 MG CAP PO SCH (09:31)
[2023-10-26] MEDS: FAMOTIDINE 20 MG TABLET PO SCH (09:31)
[2023-10-26] MEDS: PRENATAL VITAMINS W/ FOLIC ACID TABLET (FP) PO SCH (09:31)
[2023-10-26] MEDS: ASPIRIN 81 MG CHEWABLE TABLETS PO SCH (09:31)
[2023-10-26] MEDS: METHOCARBAMOL 500 MG TABLET PO PRN ×3 (09:32→21:24)
[2023-10-26] MEDS: IBUPROFEN 600 MG TABLET (FP) PO PRN ×3 (09:33→16:48)
[2023-10-26] MEDS: BACITRACIN 0.9 GM PACKET TP SCH ×2 (09:42→21:23)
[2023-10-26] MEDS: NICOTINE 21 MG/24 HOURS TOPICAL PATCH TD SCH (09:42)
[2023-10-26] MEDS: AMMONIUM LACTATE 12% LOTION 225 GM BOTTLE TP PRN (19:39)
[2023-10-26] MEDS: QUEtiapine FUMARATE 100 MG TABLET (FP) PO SCH (21:23)
[2023-10-26] MEDS: THIAMINE HCL 100 MG TABLET (FP) PO SCH (21:24)
[2023-10-26] MEDS: IBUPROFEN 400 MG TABLET (FP) PO PRN (21:25)
[2023-10-27] MEDS: methaDONE 80 MG, methaDONE 10 MG PO SCH (05:57)
[2023-10-27] MEDS: GABAPENTIN 300 MG CAPSULE PO SCH ×3 (05:57→21:05)
[2023-10-27] MEDS ORDERED: methaDONE HCL 10 MG TABLET PO SCH (06:00)
[2023-10-27] MEDS: FAMOTIDINE 20 MG TABLET PO SCH (09:30)
[2023-10-27] MEDS: ASPIRIN 81 MG CHEWABLE TABLETS PO SCH (09:30)
[2023-10-27] MEDS: TAMSULOSIN HCL 0.4 MG CAP PO SCH (09:30)
[2023-10-27] MEDS: BACITRACIN 0.9 GM PACKET TP SCH ×2 (09:30→21:06)
[2023-10-27] MEDS: NICOTINE 21 MG/24 HOURS TOPICAL PATCH TD SCH (09:30)
[2023-10-27] MEDS: PRENATAL VITAMINS W/ FOLIC ACID TABLET (FP) PO SCH (09:30)
[2023-10-27] MEDS: IBUPROFEN 600 MG TABLET (FP) PO PRN (09:32)
[2023-10-27] MEDS: METHOCARBAMOL 500 MG TABLET PO PRN ×3 (09:32→21:05)
[2023-10-27] MEDS: IBUPROFEN 400 MG TABLET (FP) PO PRN ×2 (14:15→21:06)
[2023-10-27] MEDS: THIAMINE HCL 100 MG TABLET (FP) PO SCH (21:05)
[2023-10-27] MEDS: QUEtiapine FUMARATE 100 MG TABLET (FP) PO SCH (21:05)
[2023-10-28] MEDS: methaDONE 80 MG, methaDONE 10 MG PO SCH (05:50)
[2023-10-28] MEDS: GABAPENTIN 300 MG CAPSULE PO SCH (05:50)
[2023-10-28 07:30] VITALS: BP 147/88; PULSE 79; RESP 17; TEMP 97.5
[2023-10-28] MEDS: PRENATAL VITAMINS W/ FOLIC ACID TABLET (FP) PO SCH (09:05)
[2023-10-28] MEDS: TAMSULOSIN HCL 0.4 MG CAP PO SCH (09:05)
[2023-10-28] MEDS: BACITRACIN 0.9 GM PACKET TP SCH (09:05)
[2023-10-28] MEDS: FAMOTIDINE 20 MG TABLET PO SCH (09:05)
[2023-10-28] MEDS: METHOCARBAMOL 500 MG TABLET PO PRN (09:06)
[2023-10-28] MEDS: ASPIRIN 81 MG CHEWABLE TABLETS PO SCH (09:06)
[2023-10-28] MEDS: IBUPROFEN 600 MG TABLET (FP) PO PRN (09:06)
[2023-10-28] MEDS: NICOTINE 21 MG/24 HOURS TOPICAL PATCH TD SCH (09:06)
== END 2023-10-28 09:30 | disposition home or self-care (01) | DRG 772 ==
LOC: YASAS 17:45 → Y3W 10-11 01:09
PROVIDERS: ADMIT Allergy & Immunology; ATTEND Surgery
PROC: HZ42ZZZ Group Counseling for Substance Abuse Treatment, Cognitive-Behavioral (ICD-10-PCS; principal; 2023-10-11)
DX: F11.20 Opioid dependence, uncomplicated (principal); F17.210 Nicotine dependence, cigarettes, uncomplicated; F25.1 Schizoaffective disorder, depressive type; E78.5 Hyperlipidemia, unspecified; I10 Essential (primary) hypertension; J45.20 Mild intermittent asthma, uncomplicated; K21.9 Gastro-esophageal reflux disease without esophagitis; N40.1 Benign prostatic hyperplasia with lower urinary tract symptoms; R39.11 Hesitancy of micturition; Z86.19 Personal history of other infectious and parasitic diseases; Z99.89 Dependence on other enabling machines and devices
CPT/HCPCS: 36415; 80053; 80307; 81003; 82140; 82962; 83735; 85025; 85027; 85610; 86593; 86780; 87389; 87635; 93005; 93010; J0475

== ENCOUNTER 2024-01-20 13:33 | Inpatient (IN) | payer OTHER ==
[2024-01-20 14:24] VITALS: BMI 25.2
[2024-01-20] MEDS ORDERED: DOCUSATE SODIUM 100 MG CAPSULE (FP) PO PRN (15:59)
[2024-01-20] MEDS ORDERED: ONDANSETRON *ODT* 4 MG TABLET SL PRN (16:03)
[2024-01-20] MEDS ORDERED: BENZOCAINE/MENTHOL (CHLORASEPTIC ) LOZENGE MM PRN (16:03)
[2024-01-20] MEDS ORDERED: hydrOXYzine PAMOATE 25 MG CAPSULE (FP) PO PRN (16:03)
[2024-01-20] MEDS ORDERED: BISMUTH SUBSALICYLATE 524 MG/30 ML PO PRN (16:03)
[2024-01-20] MEDS ORDERED: DICYCLOMINE HCL 10 MG CAPSULE PO PRN (16:03)
[2024-01-20] MEDS ORDERED: MAGNESIUM HYDROX 2400MG/30ML ORAL SUSPENSION 30 ML CUP PO PRN (16:03)
[2024-01-20] MEDS ORDERED: POLYETHYLENE GLYCOL (HEALTHYLAX) 3350 17 GM PACKET PO PRN (16:03)
[2024-01-20] MEDS ORDERED: IBUPROFEN 400 MG TABLET (FP) PO PRN (16:03)
[2024-01-20] MEDS ORDERED: guaiFENesin 600 MG TABLET.ER (FP) PO PRN (16:03)
[2024-01-20] MEDS ORDERED: ACETAMINOPHEN 325 MG TABLET (FP) PO PRN (16:03)
[2024-01-20] MEDS ORDERED: METHOCARBAMOL 500 MG TABLET PO PRN (16:03)
[2024-01-20] MEDS ORDERED: chlordiazePOXIDE HCL 25 MG CAPSULE PO PRN (16:03)
[2024-01-20] MEDS ORDERED: NALOXONE HCL (KLOXXADO) 8 MG SPRAY NS PRN (16:03)
[2024-01-20] MEDS ORDERED: BENZONATATE 200 MG CAPSULE PO PRN (16:03)
[2024-01-20] MEDS ORDERED: NALOXONE HCL 0.4 MG/ML VIAL IM PRN (16:03)
[2024-01-20] MEDS ORDERED: chlordiazePOXIDE HCL 25 MG CAPSULE ONE (17:29)
[2024-01-20] MEDS: chlordiazePOXIDE HCL 25 MG CAPSULE PO SCH (17:32)
[2024-01-20] MEDS: THIAMINE HCL 100 MG TABLET (FP) PO SCH (22:04)
[2024-01-20] MEDS: METHOCARBAMOL 500 MG TABLET PO PRN (22:04)
[2024-01-20] MEDS: QUEtiapine FUMARATE 300 MG TABLET PO SCH (22:05)
[2024-01-20] MEDS: BUDESONIDE/FORMETEROL FUMARATE 80/4.5 mcg INHALER IH SCH (22:05)
[2024-01-20] MEDS: AMOX TR/POT CLAV 875MG/125MG TABLETS (FP) PO SCH (22:07)
[2024-01-20] MEDS: IBUPROFEN 600 MG TABLET (FP) PO PRN (22:07)
[2024-01-20] MEDS: MELATONIN 5 MG TABLETS PO SCH (22:08)
[2024-01-21] MEDS: TAMSULOSIN HCL 0.4 MG CAP PO SCH (08:48)
[2024-01-21 09:07] LABS: CHLORIDE 111 mmol/L (98-107); POTASSIUM 3.6 mmol/L (3.5-5.1); SODIUM 142 mmol/L (136-145)
[2024-01-21 09:09] LABS: HEMATOCRIT 36.6 % (35.4-49); HEMOGLOBIN 12.2 GM/dL (11.7-16.9); MCH 26.5 pg (25.7-33.7); MCHC 33.3 g/dl (32.0-35.9); MEAN CELL VOLUME 79.7 fl (80-96); MEAN PLT VOLUME 7.3 fl (7.5-11.1); PLATELET COUNT 162 10^3/uL (134-434); RBC 4.59 M/mm3 (4.00-5.60); RDW 16.8 % (11.9-15.9); WHITE BLOOD COUNT 3.2 K/mm3 (4.0-10.0)
[2024-01-21 09:11] LABS: ALBUMIN 3.4 g/dl (3.4-5.0); ANION GAP 9 mmol/L (4-13); BLOOD UREA NITROGEN 16.3 mg/dL (7-18); CALCIUM 9.4 mg/dL (8.5-10.1); CO2 23 mmol/L (21-32); GLUCOSE,RANDOM 154 mg/dL (74-106)
[2024-01-21 09:14] LABS: CREATININE 0.9 mg/dL (0.55-1.3); SGOT/AST 20 U/L (15-37); SGPT/ALT 26 U/L (13-61)
[2024-01-21 09:16] LABS: BILIRUBIN,TOTAL 0.2 mg/dL (0.2-1); TOT PROT 7.1 g/dl (6.4-8.2)
[2024-01-21 09:17] LABS: ALK PHOS 93 U/L (45-117)
[2024-01-21] MEDS: methaDONE HCL 40 MG DISPERSABLE TABLET PO SCH (09:33)
[2024-01-21] MEDS: LISINOPRIL 10 MG TABLET PO SCH (09:34)
[2024-01-21] MEDS: FAMOTIDINE 20 MG TABLET PO SCH (09:34)
[2024-01-21] MEDS: LORATADINE 10 MG TABLET PO SCH (09:34)
[2024-01-21] MEDS: HYDROCHLOROTHIAZIDE 12.5 MG CAPSULE (FP) PO SCH (09:34)
[2024-01-21] MEDS: PRENATAL VITAMINS W/ FOLIC ACID TABLET (FP) PO SCH ×2 (09:34→09:54)
[2024-01-21] MEDS ORDERED: ALBUTEROL SO4 HFA INHALER IH PRN (11:36)
[2024-01-21] MEDS ORDERED: IBUPROFEN 600 MG TABLET (FP) PO PRN (11:36)
[2024-01-21] MEDS: OSIMERTINIB MESYLATE 80 MG PO SCH (11:56)
[2024-01-21] MEDS: GABAPENTIN 300 MG CAPSULE PO SCH (13:39)
[2024-01-21] MEDS: LIDOCAINE 5% TOPICAL PATCH TP SCH (15:01)
[2024-01-21] MEDS: BACLOFEN 10 MG TABLET (FP) PO SCH (15:01)
[2024-01-21] MEDS: IBUPROFEN 600 MG TABLET (FP) PO PRN (18:45)
[2024-01-21] MEDS ORDERED: QUEtiapine FUMARATE 200 MG TABLET PO SCH (22:00)
[2024-01-21] MEDS: LIDOCAINE PATCH REMOVAL TD SCH (22:14)
[2024-01-22] MEDS: chlordiazePOXIDE HCL 25 MG CAPSULE PO SCH (05:54)
[2024-01-22] MEDS: FUROSEMIDE 20 MG TABLET (FP) PO SCH (05:55)
[2024-01-22] MEDS: ASPIRIN 81 MG CHEWABLE TABLETS PO SCH (09:07)
[2024-01-22] MEDS: LOPERAMIDE HCL 2 MG CAPSULE PO PRN (09:07)
[2024-01-22] MEDS: DIPHENOXYLATE 2.5/ATROPINE.025 1 COMBO TABLET PO ONE (12:31)
[2024-01-22] MEDS: MAG HYDROX/AL HYDROX/SIMETH 30 ML UNIT-DOSE CUP PO PRN (18:11)
[2024-01-23] MEDS ORDERED: chlordiazePOXIDE HCL 10 MG CAPSULE PO PRN
[2024-01-23] MEDS: chlordiazePOXIDE HCL 10 MG CAPSULE PO SCH (05:55)
[2024-01-23] MEDS ORDERED: BACLOFEN 10 MG TABLET (FP) PO PRN (17:16)
[2024-01-23] MEDS: QUEtiapine FUMARATE 50 MG TABLET PO SCH (22:04)
[2024-01-24] MEDS: chlordiazePOXIDE HCL 10 MG CAPSULE PO SCH (05:53)
[2024-01-24 15:54] LABS: HIV INTERPRETATION NEGATIVE (NEGATIVE)
[2024-01-25] MEDS: chlordiazePOXIDE HCL 10 MG CAPSULE PO ONE (05:20)
[2024-01-25 09:47] VITALS: BP 109/77; PULSE 108; RESP 16; TEMP 97.3
== END 2024-01-25 11:45 | disposition other institution (70) | DRG 773 ==
LOC: YASAS 13:33 → Y6N 16:56
PROVIDERS: ADMIT Allergy & Immunology; ATTEND Surgery
PROC: HZ2ZZZZ Detoxification Services for Substance Abuse Treatment (ICD-10-PCS; principal; 2024-01-20)
DX: F10.230 Alcohol dependence with withdrawal, uncomplicated (principal); F11.20 Opioid dependence, uncomplicated; F14.20 Cocaine dependence, uncomplicated; F25.9 Schizoaffective disorder, unspecified; F32.A Depression, unspecified; C34.90 Malignant neoplasm of unspecified part of unspecified bronchus or lung; D72.819 Decreased white blood cell count, unspecified; I10 Essential (primary) hypertension; J45.20 Mild intermittent asthma, uncomplicated; K21.9 Gastro-esophageal reflux disease without esophagitis; M54.50 Low back pain, unspecified; G89.29 Other chronic pain; Z86.19 Personal history of other infectious and parasitic diseases; Z99.89 Dependence on other enabling machines and devices; Z62.810 Personal history of physical and sexual abuse in childhood
CPT/HCPCS: 36415; 80053; 80307; 83036; 85027; 86593; 86780; 87389; 93005; 93010; J0475